=== PATIENT | male | born 1945 | race Caucasian/White ===

== ENCOUNTER 2016-07-25 18:52 | Inpatient (IN) | payer MEDICARE, OTHER ==
--- NOTE | 2016-07-25 19:55 | ED Physician Chart ---
Chief Complaint/HPI - Patient Information Date Seen:: 07/25/16 Time Seen:: 19:19 Chief Complaint:: PSYCHOSIS History of Present Illness:: THIS IS A 70 YO PSYCHOSIS PATIENT SENT FOR THE GROUP HOME FOR EVALUATION AND TREATMENT. THE PATIENT IS CHRONICALLY ILL WITH DEMENTIA, HYPERTENSION. Allergies:: Allergies Allergy/AdvReac Type Severity Reaction Status Date / Time No Known Allergies Allergy Verified 11/30/15 17:21 Vitals:: Vital Signs - 8 hr 07/25/16 18:54 Temp 98.1 F HR 70 RR 18 BP 123/77 O2 Sat % 94 Historian:: Medical Records Review:: Nurse's Note Reviewed Review of Systems - Review of Systems General/Constitutional: No fever, No chills, No weight loss, No weakness, No diaphoresis, No edema, No loss of appetite, Other (THIS PATIENT IS UNABLE TO GIVE A REVIEW OF SYSTEMS.) Skin: No skin lesions, No rash, No bruising Head: No headache, No light-headedness Eyes: No loss of vision, No pain, No diplopia ENT: No earache, No nasal drainage, No sore throat, No tinnitus Neck: No neck pain, No swelling, No thyromegaly, No stiffness, No mass noted Cardio Vascular: No chest pain, No palpitations, No PND, No orthopnea, No edema Pulmonary: No SOB, No cough, No sputum, No wheezing GI: No nausea, No vomiting, No diarrhea, No pain, No melena, No hematochezia, No constipation, No hematemesis G/U: No dysuria, No frequency, No hematuria Musculoskeletal: No bone or joint pain, No back pain, No muscle pain Endocrine: No polyuria, No polydipsia Psychiatric: No prior psych history, No depression, No anxiety, No suicidal ideation Hematopoietic: No bruising, No lymphadenopathy Allergic/Immuno: No urticaria, No angioedema Neurological: No syncope, No focal symptoms, No weakness, No paresthesia, No headache, No seizure, No dizziness, No confusion, No vertigo Past Medical History - Past Medical History Obtainable: Yes Past Medical History: HTN, Dyslipidemia, Dementia Family History: None Social History: Non Smoker, No Alcohol, No Drug Use, Care Facility Surgical History: None Psychiatricy History: Dementia Medication: Reviewed Family Medical History - Family Member Mother History Unknown: Yes Ethnicity: Non- Living Status: Still Living Physical Exam - Physical Examination General/Constitutional: Awake, Well-developed, well-nourished, Alert, No distress, GCS 15, Non-toxic appearing, Ambulatory Other Gen/Cons comments:: DISORIENTED TIMES FOURS. Head: Atraumatic Eyes: Lids, conjuctiva normal, PERRL, EOMI Skin: Nl inspection, No rash, No skin lesions, No ecchymosis, Well hydrated, No lymphadenopathy ENMT: External ears, nose nl, Nasal exam nl, Lips, teeth, gums nl Neck: Nontender, Full ROM w/o pain, No JVD, No nuchal rigidity, No bruit, No mass, No stridor Respiratory: Nl effort/Exclusion, Clear to Auscultation, No Wheeze/Rhonchi/Rales Cardio Vascular: RRR, No murmur, gallop, rubs, NL S1 S2 GI: No tenderness/rebounding/guarding, No organomegaly, No hernia, Normal BS's, Nondistended, No mass/bruits, No McBurney tenderness : No CVA tenderness Extremities: No tenderness or effusion, Full ROM, normal strength in all extremities, No edema, Normal digits & nails Neuro/Psych: Alert/oriented, DTR's symmetric, Normal sensory exam, Normal motor strength, Judgement/insight normal, Mood normal, Normal gait, No focal deficits Misc: normal gait, Normal back, No paraspinal tenderness Labs/Radiology/EKG Results - EKG Interpretations EKG Time:: 19:29 Rhythm: sinus [place]: right Rate: 62 ED Septic Shock - . Is Septic Shock (SBP<90, OR Lactate>4 mmol\L) present?: No - <6hrs of presentation: Vital Signs: Vital Signs - 8 hr 07/25/16 18:54 Temp 98.1 F HR 70 RR 18 BP 123/77 O2 Sat % 94 Reassessment (Disposition) - Reassessment Reassessment Condition:: Unchanged - Diagnosis Diagnosis:: PSYCHOSIS DEMENTIA - Patient Disposition Discharge/Transfer:: Acute Care w/in this hosp Admitting Medical Physician:: Jax Mcdaniel Admitting Psych Physician:: Miguel Bernard Condition at Disposition:: Unchanged ED Discharge Plan - Patient Disposition Admit/Discharge/Transfer: Acute Care w/in this hosp Condition at Disposition: Unchanged Instructions: Psychosis
[2016-07-25 20:07] LABS: % BASOPHILS 0.5 % (0.0-2.0); % EOSINOPHILS 3.4 % (0.0-5.0); % NEUTROPHILS 66.1 % (40.0-80.0); HEMATOCRIT 44.2 % (39.0-49.0); HEMOGLOBIN 15.1 gm/dL (12.6-17.4); MEAN CELL VOLUME 85.1 fl (80-99); MEAN CORPUSCULAR HGB CONC 34.1 pg (28.0-36.0); MEAN PLATELET VOLUME 10.7 fl; NEUTROPHILE ABSOLUTE 6.8 Th/cmm (1.8-8.0); PLATELET COUNT 221 Th/cmm (150-400); RED CELL DISTRIBUTION WIDTH 14.2 % (11.5-20.0); WHITE BLOOD COUNT 10.4 Th/cmm (4.8-10.8)
[2016-07-25 20:29] LABS: ALB/GLOB RATIO 1.5 (1.0-1.8); ALKALINE PHOSPHATASE 86 U/L (34-104); ANION GAP 11.3 (7.0-16.0); BILIRUBIN,TOTAL 0.5 mg/dL (0.3-1.0); BUN - UREA NITROGEN 20 mg/dL (7-25); BUN/CREATININE RATIO 18.2; CALCIUM SERUM 9.6 mg/dL (8.6-10.3); CARBON DIOXIDE 25.6 mEq/L (21.0-31.0); CHLORIDE 103 mEq/L (98-107); CREATININE - SERUM 1.1 mg/dL (0.7-1.3); GLUCOSE 124 mg/dL (70-105); POTASSIUM SERUM 3.9 mEq/L (3.5-5.1); SGOT 17 U/L (13-39); SGPT/ALT 20 U/L (7-52); SODIUM SERUM 136 mEq/L (136-145)
[2016-07-25 21:30] LABS: CHOLESTEROL 128 mg/dL (<200); TRIGLYCERIDES 227 mg/dL (<150)
[2016-07-25 21:31] LABS: INR 0.99 (0.5-1.4); PROTHROMBIN TIME (TEST) 9.8 SECONDS (9.5-11.5)
[2016-07-25] MEDS ORDERED: Maalox 30 mL Cup PO PRN (21:46)
[2016-07-25] MEDS ORDERED: Magnesium Hydroxide (MOM) 30 mL UDC PO PRN (21:46)
[2016-07-25 22:09] LABS: URINE BILIRUBIN NEGATIVE (NEGATIVE); URINE BLOOD NEGATIVE (NEGATIVE); URINE COLOR YELLOW; URINE GLUCOSE (UA) NEGATIVE (NEGATIVE); URINE KETONE NEGATIVE (NEGATIVE); URINE PROTEIN NEGATIVE (NEGATIVE)
[2016-07-25 22:10] LABS: URINE BACTERIA NONE SEEN /hpf (NONE SEEN); URINE EPITHELIAL CELLS NONE SEEN /lpf (FEW); URINE RBC NONE SEEN /hpf (0-5); URINE WBC NONE SEEN /hpf (0-5)
[2016-07-26 03:21] VITALS: BP 101/57
[2016-07-26] MEDS ORDERED: SKIN CLEANSR TP SCH (09:00)
[2016-07-26] MEDS ORDERED: [UNRECOGNIZED DRUG - OTHER] TP SCH (09:00)
[2016-07-26] MEDS ORDERED: [UNRECOGNIZED DRUG - OTHER] TP SCH (09:00)
[2016-07-26] MEDS ORDERED: METRONIDAZOLE TP SCH (09:00)
[2016-07-26] MEDS: Multivitamin Tab PO SCH (10:00)
--- NOTE | 2016-07-26 10:28 | Diagnostic Imaging Report ---
INDICATION: Shortness of breath and chest pain FINDINGS: Heart size is enlarged..Aorta is tortuous.. There are no infiltrates or effusions. Scoliosis with degenerative changes in the thoracic spine. IMPRESSION: Cardiomegaly .. No acute cardiopulmonary pathology.
[2016-07-26] MEDS: Atorvastatin Calcium 10 MG TAB PO SCH (20:41)
--- NOTE | 2016-07-27 00:36 | Psychosocial Evaluation ---
JUSTIFICATION FOR HOSPITALIZATION: Aggressive, agitation at the [facility], concerns for the safety of himself and other people. CHIEF COMPLAINT: "I didn't go back to the hospital." HISTORY OF PRESENT ILLNESS: A 70-year-old male, well known to this clinician, acute psychotic episode, noted dementia, dementia with behavioral disturbances, aggressive at [facility]. He has no idea why he is in the hospital, making some odd statements, not really amenable to interview, confused, distracted. PAST PSYCHIATRIC HISTORY: The patient has been to [facility] previously. FAMILY HISTORY: Unknown. SOCIAL HISTORY: Born in [place]. States that he has been twice, , no kids. No drugs. No alcohol. No tobacco. Living in a [facility]. FAMILY HISTORY: Noncontributory. MEDICAL HISTORY: Please see full H and P. MEDICATIONS: Reviewed. MENTAL STATUS EXAMINATION: Stated age. Unkempt. Poor eye contact. Speech, not really talking, mostly mumbling. Mood "okay." Affect is flat. Thought processes were disoriented. Thought content, no overt SI or HI. The patient appears to be somewhat internally preoccupied. Insight and judgment diminished x2. Diminished concentration and he is pretty distracted. PROVISIONAL DIAGNOSES: Psychosis, unspecified; dementia with behavioral disturbances; anxiety, unspecified. ESTIMATED LENGTH OF STAY: 7-10 days. ASSESSMENT: The patient requiring inpatient hospitalization, agitated, acute psychosis, combative, cannot take care of himself, [facility] could not take care of him due to the severity of his symptoms. PLAN: We will continue Aricept, Namenda, start low-dose Seroquel. Treatment plan includes group as well as milieu therapy. CONDITIONS FOR DISCHARGE: Improved mood, improved affect, better control of any psychotic symptoms, control of agitation. JOB# [id number]
[2016-07-27] MEDS: Multivitamin Tab PO SCH (09:53)
[2016-07-27] MEDS: Atorvastatin Calcium 10 MG TAB PO SCH (21:18)
--- NOTE | 2016-07-27 22:20 | Progress Notes ---
SUBJECTIVE: Chart reviewed and the patient interviewed. Also discussed the patient's condition with the staff and reviewed records and labs. The patient is still having visual hallucinations and he is still seeing "little room and little girl in the room." The patient also is forgetful and he is still restless and severely anxious. The patient also is still responding to the stimuli. Otherwise, the patient is interacting slightly more. He denies any side effects of medication. ASSESSMENT: The patient is still psychotic. TREATMENT PLAN: We will continue monitoring his behavior and his condition closely. Also, continue to work on adjusting psychotropic medications and ____ to follow up. JOB# [id number]
[2016-07-28] MEDS: Multivitamin Tab PO SCH (09:04)
--- NOTE | 2016-07-28 19:21 | History & Physical ---
HISTORY OF PRESENT ILLNESS: The patient is a 70-year-old male with long history of hypertension, hyperlipidemia, dementia, admitted to [facility] under Dr. Bernard's service for evaluation and treatment. No fever, no chills, no nausea, no vomiting. PAST MEDICAL HISTORY: Hypertension, hyperlipidemia, dementia, rosacea, degenerative joint disease. PAST SURGICAL HISTORY: No recent surgery. ALLERGIES: None. MEDICATIONS: Follow admission reconciliation. SOCIAL HISTORY: No smoking, alcohol or drugs. FAMILY HISTORY: Noncontributory. REVIEW OF SYSTEMS: RENAL SYSTEM: No history of chronic renal disorder. CARDIOVASCULAR SYSTEM: No coronary artery disease. Has history of hypertension. ENDOCRINE SYSTEM: No diabetes or thyroid problem. GASTROINTESTINAL SYSTEM: No upper or lower GI bleed. NEUROLOGICAL SYSTEM: History of dementia. PHYSICAL EXAMINATION: GENERAL: He is awake, not coherent. VITAL SIGNS: Temperature 98.2, heart rate 63, blood pressure 104/54. HEENT: Normocephalic. Pupils are reacting to light and accommodation. Sclerae clear. NECK: Supple. Negative for lymphadenopathy, JVD or bruit. CHEST: Bilaterally normal. No rhonchi or wheezing. HEART: S1, S2 normal. No murmur, gallop or rub. ABDOMEN: Soft. Bowel sounds positive. EXTREMITIES: No edema. NEUROLOGIC: Awake, alert, not fully oriented. ASSESSMENT: 1. Hypertension. 2. Hyperlipidemia. 3. Rosacea. 4. Dementia. PLAN: The patient was admitted to the [facility] under Dr. Bernard's service. The medical problem to be addressed during hospitalization is dementia. Medical problems to be addressed at discharge are hypertension, hyperlipidemia and rosacea. The patient is cleared for treatment. Thank you, Dr. Bernard, for asking me to see your patient. JOB# [id number]
[2016-07-28] MEDS: Atorvastatin Calcium 10 MG TAB PO SCH (21:23)
--- NOTE | 2016-07-29 | Progress Notes ---
SUBJECTIVE: The patient was seen, chart reviewed, and discussed with staff. The patient still remains symptomatic, irritable, very withdrawn, and in his room all the times, seems somewhat confused and disoriented. Dr. Moon saw the patient yesterday and noted that he was still having some visual hallucinations, perceptual disturbances, very forgetful, restless, and anxious, responding to internal stimuli. The patient still seems to be internally preoccupied, needing prompting for ADLs, prompting to eat. No side effects noted on exam. ASSESSMENT: The patient remains psychotic as noted, still with behavioral disturbances. PLAN: Continue to monitor. We will titrate Seroquel as tolerated. [facility]# [id number]
[2016-07-29] MEDS: Multivitamin Tab PO SCH (10:19)
[2016-07-29] MEDS: Atorvastatin Calcium 10 MG TAB PO SCH (20:29)
--- NOTE | 2016-07-30 05:07 | Progress Notes ---
SUBJECTIVE: The patient was seen, chart reviewed, and discussed with staff. The patient remains symptomatic, unkempt, not answering any questions. Staff noting he remains isolative, at times resistant to care. Sleeping most of the time, not really interactive, disorganized, confused, yelling at times, irritable, still with mood swings, mood lability. However, he is taking his medications. No side effects. No EPS. ASSESSMENT: The patient remains upset, still can be aggressive at times, labile. PLAN: We will continue to monitor. The patient is not safe for a lower level of care. We will continue to titrate his medications. [facility]# [id number]
[2016-07-30] MEDS: Multivitamin Tab PO SCH (09:07)
[2016-07-30] MEDS: Atorvastatin Calcium 10 MG TAB PO SCH (21:06)
[2016-07-31] MEDS: Multivitamin Tab PO SCH (09:01)
--- NOTE | 2016-07-31 18:48 | Progress Notes ---
SUBJECTIVE: The patient was seen, chart reviewed, discussed with staff. The patient remains symptomatic, withdrawn, still with some yelling episodes, still resistant to care, nonsensical, not really answering most questions, sleeping fairly well, eating with prompting, ADLs with prompting, tolerant of current medication regimen, tolerant of the low dose of Seroquel 25 mg, but mainly staying in his room, not really interactive. ASSESSMENT: The patient remains confused, rambling, still agitated at times, becomes upset. PLAN: Continue to monitor. Continue low dose Seroquel, consider titrating the dose. JOB# [id number]
[2016-07-31] MEDS: Atorvastatin Calcium 10 MG TAB PO SCH (20:41)
--- NOTE | 2016-07-31 22:25 | Progress Notes ---
SUBJECTIVE: The patient seen, chart reviewed, discussed with staff. The patient remains symptomatic, withdrawn, less combative of seems to be answering questions more appropriately, concerns that he is responding to internal stimuli; however, concern for hallucinations. No hitting episodes, remains withdrawn, somewhat sullen, melancholic, sleeping fairly well, ADLs with prompting. Eating with prompting. ASSESSMENT: The patient less combative, more organized, still slow to respond, concerns for psychosis. PLAN: Continue to monitor. We will continue to titrate his medications, improvement noted. JOB# [id number]
[2016-08-01] MEDS: Multivitamin Tab PO SCH (09:53)
[2016-08-01] MEDS: Atorvastatin Calcium 10 MG TAB PO SCH (20:40)
--- NOTE | 2016-08-02 03:12 | Progress Notes ---
SUBJECTIVE: The patient was seen, chart reviewed, discussed with staff. The patient remains withdrawn, symptomatic, still with some evidence of psychosis, still responding to internal stimuli, not _interacting___ much, remains in his room, unkempt, concerns for safety do persist, concerns for agitation and psychosis. On [id number], the patient _calm___ on exam, taking his medications, is eating with prompting, ADLs with prompting. ASSESSMENT: The patient remains symptomatic, unkempt, evidence of psychosis. We will continue to monitor and titrate medications. Given the severity of the patient's symptoms, he is not safe for a lower level of care. [facility]# [id number] ANNABEL
[2016-08-02] MEDS: Multivitamin Tab PO SCH (09:19)
[2016-08-02] MEDS: Atorvastatin Calcium 10 MG TAB PO SCH (20:18)
[2016-08-03] MEDS: Multivitamin Tab PO SCH (09:24)
--- NOTE | 2016-08-03 12:01 | Progress Notes ---
SUBJECTIVE: The patient was seen, chart reviewed, discussed with staff. The patient remains symptomatic, still mumbling to himself, still somewhat disorganized, confused, disoriented. He is pretty withdrawn, isolative. On a positive note, he is taking his medications. Psychotic symptoms seem to be decreasing, sleeping fairly well. Needs prompting for ADLs, prompting for eating, needs a very higher level of care. ASSESSMENT: The patient with continued perceptual disturbances, but seems to be improving. We will continue to monitor and titrate medications. There are continued concerns about his ability to be cared for at a lower level of care. [facility]# [id number]
[2016-08-03] MEDS: Atorvastatin Calcium 10 MG TAB PO SCH (20:39)
--- NOTE | 2016-08-04 03:37 | Progress Notes ---
SUBJECTIVE: The patient seen, chart reviewed, discussed with staff. The patient seems to be pretty internally preoccupied, not really responding to much questioning, isolative, withdrawn, still somewhat resistant to care at times, but does seems to be doing better, calmer on exam, no distress noted, not answering any questions. On a positive note he is taking his medications. No overt side effects. Sleeping well and eating with prompting. ASSESSMENT: The patient is still symptomatic, concerns for his psychotic symptoms. PLAN: We will continue to monitor and titrate his medications as tolerated, encourage more socialization and I guess he is pretty withdrawn and isolated. JOB# [id number]
[2016-08-04] MEDS: Multivitamin Tab PO SCH (09:25)
[2016-08-04] MEDS: Atorvastatin Calcium 10 MG TAB PO SCH (20:20)
--- NOTE | 2016-08-05 02:02 | Progress Notes ---
Case discussed with staff of the patient, reviewed records. Covering for Dr. Bernard. This is a 70-year-old male who was admitted on the 07/25/2016 because of being aggressive, agitated at the [facility]. The patient is demented, confused with behavioral disturbances. He has prior hospitalizations here. The patient has been uncooperative, unable to make safe plan for self-care, confused, demented with agitated behavior. He is reported to be compliant with medication with no side effects. He is on Namenda 5 mg twice a day and Aricept 10 mg at bedtime and Seroquel 25 mg at bedtime with no side effects, no sedation, no nausea, no extrapyramidal symptoms and we will continue to work with the patient in group therapy, milieu therapy, adjust the medication as needed. JOB# [id number]
[2016-08-05] MEDS: Multivitamin Tab PO SCH (10:37)
[2016-08-05] MEDS: Atorvastatin Calcium 10 MG TAB PO SCH (20:20)
--- NOTE | 2016-08-06 01:02 | Progress Notes ---
SUBJECTIVE: The patient was seen, chart reviewed, and discussed with staff. The patient remains withdrawn, still depressed. Hallucinations seem to be lessening, answering questions more appropriately, not combative, not agitated, sleeping well, eating with prompting, ADLs with prompting. Staff noting an improvement, uneventful over the past few days, tolerant to medications. ASSESSMENT: The patient seems to be improving, perceptual disturbances decreasing. PLAN: We will continue to monitor. We will coordinate care with social work nurse regarding safe discharge plan and good psychiatric followup. JOB# [id number]
[2016-08-06] MEDS: Multivitamin Tab PO SCH (09:13)
--- NOTE | 2016-08-06 21:14 | Discharge Summary ---
JUSTIFICATION FOR HOSPITALIZATION: Agitation at the nursing facility, hallucinations. CHIEF COMPLAINT: Confusion and psychosis. HISTORY OF PRESENT ILLNESS: A 70-year-old male with history of a psychotic episode, noted dementia, distracted, disoriented, agitated, worsening hallucinations. PAST PSYCHIATRIC HISTORY: History of Geropsych admission previously. SOCIAL HISTORY: The patient is living in [facility] in [place]. MENTAL STATUS EXAMINATION: Please see full psych eval for details. PROVISIONAL DIAGNOSES: Psychosis, unspecified; dementia with behavioral disturbances; anxiety, unspecified; other medical as noted. HOSPITAL COURSE: After initial assessment, the patient was placed on low dose Seroquel. Over the course of the hospitalization, he improved, his mood improved, and he remained withdrawn, remained disoriented, but no longer combative, no evidence of psychosis. By 08/06/2016, he was no longer symptomatic, placement was confirmed, and he was discharged. CONDITION UPON DISCHARGE: Improved. Fair attention ADLs. No resistance to care. Speech mumbled. Mood "okay. Affect flat." Thought processes remained disoriented. Thought content, no SI, no HI. No evidence of psychosis. Better insight. Fair concentration. Fair judgment. Sleeping well. Eating well. No side effects. DISCHARGE DIAGNOSES: Dementia with behavioral disturbances; psychosis, unspecified; anxiety, unspecified. MEDICAL HISTORY: Please see full H and P. PROGNOSIS: The patient follows up with Psychiatry in 7-10 days and remains treatment compliant. Prognosis will improve, otherwise guarded. JOB# [id number]
== END 2016-08-06 17:30 | DRG 884 ==
LOC: ER 18:52 → GERO 20:45
PROVIDERS: ADMIT Psychiatry & Neurology Psychiatry; ATTEND Psychiatry & Neurology Psychiatry
DX: F03.91 Unspecified dementia, unspecified severity, with behavioral disturbance (principal); I10 Essential (primary) hypertension; F29 Unspecified psychosis not due to a substance or known physiological condition; E78.5 Hyperlipidemia, unspecified; M19.90 Unspecified osteoarthritis, unspecified site; L71.9 Rosacea, unspecified; F41.9 Anxiety disorder, unspecified
CPT/HCPCS: 36415-UA; 71010-TC; 80053-TC; 80061-TC; 81001-TC; 84443-TC; 84484-TC; 85025-TC; 85610-TC; 86592-TC; 93005; Z7610

== ENCOUNTER 2017-09-03 15:54 | Inpatient (IN) | payer MEDICARE, OTHER ==
--- NOTE | 2017-09-03 16:30 | ED Physician Chart ---
ED Chief Complaint/HPI - Patient Information Date Seen:: 09/03/17 Time Seen:: 16:20 Chief Complaint:: poor oral intake History of Present Illness:: Patient is sent here for possible placement of a gastrostomy tube because he's had poor oral intake recently. Allergies:: Allergies Allergy/AdvReac Type Severity Reaction Status Date / Time No Known Allergies Allergy Verified 11/30/15 17:21 Vitals:: Vital Signs - 8 hr 09/03/17 16:17 Temp 97.9 F HR 82 RR 16 BP 142/85 O2 Sat % 94 Historian:: EMS Review:: Transfer documents Reviewed ED Review of Systems - Review of Systems General/Constitutional: No fever, No chills Skin: No skin lesions Head: No headache Eyes: No loss of vision ENT: No earache Neck: No neck pain Cardio Vascular: No chest pain, No palpitations Pulmonary: No SOB GI: No nausea, No vomiting, No diarrhea G/U: No dysuria Musculoskeletal: No bone or joint pain Psychiatric: Prior psych history Hematopoietic: No bruising Allergic/Immuno: No urticaria Neurological: No syncope ED Past Medical History - Past Medical History Past Medical History: HTN, Dyslipidemia, Dementia, Other (hyperlipidemia) Family History: Other (not available) Social History: Care Facility Surgical History: other (unknown) Psychiatricy History: Schizophrenia, Dementia Medication: Reviewed Family Medical History - Family Member Mother History Unknown: Yes Ethnicity: Non- Living Status: Still Living Hx Family Hypertension: Yes ED Physical Exam - Physical Examination General/Constitutional: Awake, Alert Other Gen/Cons comments:: Minimal verbal response; answers yes or no; chronically ill-appearing Head: Atraumatic Eyes: Lids, conjuctiva normal, PERRL Skin: Nl inspection, No rash ENMT: External ears, nose nl, Nasal exam nl Other ENMT comments:: few teeth present with at least one tooth with a prominent dental michelle. Neck: No mass Other Respiratory comments:: harsh expiratory sounds Other Cardio Vascular comments:: Heart sounds are faint; pulse regular GI: No tenderness/rebounding/guarding, No organomegaly, No hernia, Normal BS's : No CVA tenderness Extremities: Normal digits & nails Neuro/Psych: No focal deficits ED Labs/Radiology/EKG Results - Lab Results Results: Laboratory Results - last 24 hr 09/03/17 09/03/1709/03/18 16:35 16:35 16:35 WBC 9.9 RBC 5.24 Hgb 15.2 Hct 45.8 MCV 87.4 MCH 29.1 MCHC Differential 33.2 RDW 14.8 Plt Count 246 MPV 9.3 Neutrophils % 70.2 Lymphocytes % 19.1 L Monocytes % 6.6 Eosinophils % 3.7 Basophils % 0.4 PT 9.9 INR 0.95 PTT (Actin FS) 19.1 L Sodium 137 Potassium 3.8 Chloride 105 Carbon Dioxide 22.3 Anion Gap 13.5 BUN 20 Creatinine 1.0 Est GFR ( Amer) > 60.0 Est GFR (Non-Af Amer) > 60.0 BUN/Creatinine Ratio 20.0 Glucose 100 Calcium 9.5 - Radiology Results Results: Chest x-ray showed no infiltrate; prominence and possible calcification of the aortic arch - EKG Interpretations Rate & Rhythm: normal sinus rhythm with a rate of 73; low voltage QRS; normal axis ED Septic Shock - . Is Septic Shock (SBP<90, OR Lactate>4 mmol\L) present?: No - <6hrs of presentation: Vital Signs: Vital Signs - 8 hr 09/03/17 16:17 Temp 97.9 F HR 82 RR 16 BP 142/85 O2 Sat % 94 ED Reassessment (Disposition) - Reassessment Reassessment Condition:: Unchanged - Patient Disposition Admitted to:: Med/Surg Spoke to:: Jayjay Henry Admitting Medical Physician:: Jayjay Henry Condition at Disposition:: Stable, Unchanged
[2017-09-03 16:44] LABS: % BASOPHILS 0.4 % (0.0-2.0); % EOSINOPHILS 3.7 % (0.0-5.0); % LYMPHOCYTES 19.1 % (20.0-50.0); % MONOCYTES 6.6 % (2.0-10.0); % NEUTROPHILS 70.2 % (40.0-80.0); EOSINOPHILE ABSOLUTE 0.4 Th/cmm (0.1-0.4); HEMATOCRIT 45.8 % (41.0-60); HEMOGLOBIN 15.2 gm/dL (12-16); LYMPHOCYTE ABSOLUTE 1.9 Th/cmm (1.5-3.0); MEAN CELL VOLUME 87.4 fl (80-99); MEAN CORPUSCULAR HEMOGLOBIN 29.1 pg (27.0-31.0); MEAN CORPUSCULAR HGB CONC 33.2 pg (28.0-36.0); MEAN PLATELET VOLUME 9.3 fl; MONOCYTE ABSOLUTE 0.7 Th/cmm (0.3-1.0); NEUTROPHILE ABSOLUTE 6.9 Th/cmm (1.8-8.0); PLATELET COUNT 246 Th/cmm (150-400); RED BLOOD COUNT 5.24 Mil/cmm (3.80-5.80); RED CELL DISTRIBUTION WIDTH 14.8 % (11.5-20.0); WHITE BLOOD COUNT 9.9 Th/cmm (4.8-10.8)
[2017-09-03 16:58] LABS: INR 0.95 (0.5-1.4); PROTHROMBIN TIME (TEST) 9.9 SECONDS (9.5-11.5)
[2017-09-03 17:01] LABS: ANION GAP 13.5 (7.0-16.0); BUN - UREA NITROGEN 20 mg/dL (7-25); CALCIUM SERUM 9.5 mg/dL (8.6-10.3); CARBON DIOXIDE 22.3 mEq/L (21.0-31.0); CHLORIDE 105 mEq/L (98-107); GFR AFRICAN-AMERICAN > 60.0 ml/min (>90); GFR NON AFRICAN-AMERICAN > 60.0 ml/min; GLUCOSE 100 mg/dL (70-105); POTASSIUM SERUM 3.8 mEq/L (3.5-5.1); SODIUM SERUM 137 mEq/L (136-145)
[2017-09-03] MEDS ORDERED: ceFAZolin 1 GM in Sodium Chloride 0.9% 50 ML IV ONE (19:49)
[2017-09-03] MEDS ORDERED: Maalox 30 mL Cup PO PRN (19:52)
[2017-09-03] MEDS: Sodium Chloride 0.9% 1,000 ML IV SCH (20:04)
[2017-09-03] MEDS ORDERED: Non-Formulary Item 1 EA (Donepezil Hcl [Aricept] 10 MG) PO SCH (21:00)
[2017-09-03] MEDS: Atorvastatin Calcium 10 MG TAB PO SCH (22:14)
[2017-09-04 05:28] LABS: % BASOPHILS 1.2 % (0.0-2.0); % EOSINOPHILS 5.1 % (0.0-5.0); % LYMPHOCYTES 26.4 % (20.0-50.0); % MONOCYTES 8.5 % (2.0-10.0); % NEUTROPHILS 58.8 % (40.0-80.0); BASOPHILE ABSOLUTE 0.1 Th/cumm (0-0.2); EOSINOPHILE ABSOLUTE 0.4 Th/cmm (0.1-0.4); HEMATOCRIT 42.9 % (41.0-60); HEMOGLOBIN 14.3 gm/dL (12-16); LYMPHOCYTE ABSOLUTE 2.2 Th/cmm (1.5-3.0); MEAN CELL VOLUME 87.7 fl (80-99); MEAN CORPUSCULAR HEMOGLOBIN 29.3 pg (27.0-31.0); MEAN CORPUSCULAR HGB CONC 33.4 pg (28.0-36.0); MEAN PLATELET VOLUME 11.1 fl; MONOCYTE ABSOLUTE 0.7 Th/cmm (0.3-1.0); NEUTROPHILE ABSOLUTE 4.8 Th/cmm (1.8-8.0); PLATELET COUNT 229 Th/cmm (150-400); RED BLOOD COUNT 4.89 Mil/cmm (3.80-5.80); WHITE BLOOD COUNT 8.2 Th/cmm (4.8-10.8)
[2017-09-04 05:44] LABS: ALB/GLOB RATIO 1.4 (1.0-1.8); ALBUMIN 3.8 gm/dL (4.2-5.5); ALKALINE PHOSPHATASE 55 U/L (34-104); ANION GAP 10.9 (7.0-16.0); BILIRUBIN,TOTAL 0.7 mg/dL (0.3-1.0); BUN - UREA NITROGEN 19 mg/dL (7-25); CALCIUM SERUM 9.2 mg/dL (8.6-10.3); CARBON DIOXIDE 23.7 mEq/L (21.0-31.0); CHLORIDE 108 mEq/L (98-107); CREATININE - SERUM 0.9 mg/dL (0.7-1.3); GFR AFRICAN-AMERICAN > 60.0 ml/min (>90); GFR NON AFRICAN-AMERICAN > 60.0 ml/min; GLUCOSE 88 mg/dL (70-105); POTASSIUM SERUM 3.6 mEq/L (3.5-5.1); SGOT 13 U/L (13-39); SGPT/ALT 11 U/L (7-52); SODIUM SERUM 139 mEq/L (136-145); TOTAL PROTEIN,SERUM 6.5 gm/dL (6.0-8.3)
--- NOTE | 2017-09-04 07:24 | Diagnostic Imaging Report ---
CHEST X-RAY: AP view INDICATION: COPD COMPARISON: None FINDINGS: Increased interstitial lung markings are noted. No focal consolidation or effusions. Heart size is normal. Atherosclerosis is noted. Degenerative changes of the spine are noted. There is old left AC joint separation. IMPRESSION: Increased interstitial lung markings, most likely due to chronic lung changes. No focal consolidation identified. Atherosclerotic vascular disease.
--- NOTE | 2017-09-04 08:27 | History and Physical ---
History of Present Illness - HPI Chief Complaint: Poor oral intake HPI: This is a permanent resident of a assisted, Nurse fron nursing inform me that for the last week patient has having poor oral intake and loosing weight. He was send to ER for evaluation. Vital Signs: Last Vital Signs Temp 97.6 F 09/04/17 07:49 Pulse 56 09/04/17 07:49 Resp 17 09/04/17 07:49 BP 119/70 09/04/17 07:49 Pulse Ox 100 09/04/17 07:49 Past Medical History Cardiovascular: Report: CAD, CHF, HTN Pulmonary: Report: No Pertinent Hx HAIR SPECIALIST: Report: No Pertinent Hx GI: Report: Other (Poor oral intake) Psych: Report: Schizophrenia, Other (Dementia) Musculoskeletal: Report: Muscle Atrophy, Weakness, Stiffness Rheumatologic: Report: No pertinent Hx Infectious Disease: Report: No Pertinent Hx Renal/: Report: No Pertinent Hx Endocrine: Report: No Pertinent Hx Dermatology: Report: Eczema - Past Surgical History Past Surgical History: No pertinent Hx Family Medical History - Family Member Mother History Unknown: Yes Ethnicity: Non- Living Status: Still Living Hx Family Hypertension: Yes Social History Smoke: No Alcohol: None Drugs: None Lives: Intermediate Domestic Violence: Negative - Medications Home Medications: Home Medication Medication Instructions Recorded Type Acetaminophen [Tylenol] 650 mg PO Q6H PRN 11/30/15 History Atorvastatin Calcium [Lipitor] 20 mg PO HS 11/30/15 History Cholecalciferol (Vit D3) [Vitamin 1,000 iu PO DAILY 11/30/15 History D3] Donepezil HCl [Aricept] 10 mg PO HS 11/30/15 History Memantine [Namenda] 5 mg PO BID 11/30/15 History amLODIPine Besylate [Norvasc] 5 mg PO DAILY 11/30/15 History Docusate Sodium [Dok] 100 mg PO DAILY 07/25/16 History Eccnazele 1% Cream 1 unit TP BID 07/25/16 History Fluocinonide 0.05% Cream [Lidex 1 appl TP BID 07/25/16 History 0.05%] Metronidazole/Skin Cleansr #23 1 each TP BID 07/25/16 History [Rosadan 0.75% Cream Kit] Multivitamin [Multivitamins] 1 sgl PO DAILY 07/25/16 History Acetaminophen [Tylenol] 650 mg PO Q6H PRN #0 tab 08/06/16 Rx Al Hyd/Mg Hyd/Simethicone [Maalox] 30 ml PO Q6H PRN #0 udc 08/06/16 Rx Atorvastatin Calcium [Lipitor] 20 mg PO HS #0 tab 08/06/16 Rx Cholecalciferol (Vit D3) [Vitamin 1,000 iu PO DAILY #0 tab 08/06/16 Rx D3] Docusate Sodium [Colace] 100 mg PO DAILY #0 cap 08/06/16 Rx Donepezil Hcl [Aricept] 10 mg PO HS #0 tab 08/06/16 Rx Fluocinonide 0.05% Cream [Lidex 1 appl TP BID #0 appl 08/06/16 Rx 0.05%] Lorazepam [Ativan] 1 mg PO Q6H PRN #0 tab 08/06/16 Rx Magnesium Hydroxide [Milk of 30 ml PO HS PRN #0 udc 08/06/16 Rx Magnesia] Memantine [Namenda] 5 mg PO BID #0 tab 08/06/16 Rx Multivitamin [Theragran] 1 tab PO DAILY #0 tab 08/06/16 Rx QUEtiapine Fumarate [SEROquel] 25 mg PO HS #0 tab 08/06/16 Rx Zolpidem Tartrate [Ambien] 5 mg PO HS PRN #0 tab 08/06/16 Rx amLODIPine Besylate [Norvasc] 5 mg PO DAILY #0 tab 08/06/16 Rx - Allergies Allergies/Adverse Reactions: Allergies Allergy/AdvReac Type Severity Reaction Status Date / Time No Known Allergies Allergy Verified 11/30/15 17:21 Review of Systems - Review of Systems Constitutional: Report: Weakness Eyes: Report: No Significant ENT: Report: No Significant Respiratory: Report: No Significant Cardiovascular: Report: No Significant Gastrointestinal: Report: Other (Poor oral intake) Genitourinary: Report: No Significant Musculoskeletal: Report: Other (General muscle weakness.) Skin: Report: Other (Eczema) Neurological: Report: Weakness Physical Exam - Physical Exam HEENT: Report: Ears Nose Throat within normal limits Neck: Report: Within normal limits Cardiovascular Systems: Report: Regular, Rate and Rhythm Respiratory: Report: Breath Sounds are within normal limits Abdomen: Report: Non-tender to palpation Back: Report: Inspection of back is within normal limits. Extremities: Report: Non-tender to palpation., No pedal edema was noted on inspection Skin: Report: Color of skin is within normal limits, Warm Neuro/Psych: Report: Disoriented to name time or place, Depressed affect - Lab Results All Lab Results last 24 hours: Laboratory Results - last 24 hr 09/04/17 09/04/17 04:50 04:50 WBC 8.2 RBC 4.89 Hgb 14.3 Hct 42.9 MCV 87.7 MCH 29.3 MCHC Differential 33.4 RDW 15.0 Plt Count 229 MPV 11.1 Neutrophils % 58.8 Lymphocytes % 26.4 Monocytes % 8.5 Eosinophils % 5.1 H Basophils % 1.2 Sodium 139 Potassium 3.6 Chloride 108 H Carbon Dioxide 23.7 Anion Gap 10.9 BUN 19 Creatinine 0.9 Est GFR ( Amer) > 60.0 Est GFR (Non-Af Amer) > 60.0 BUN/Creatinine Ratio 21.1 Glucose 88 Calcium 9.2 Total Bilirubin 0.7 AST 13 ALT 11 Alkaline Phosphatase 55 Total Protein 6.5 Albumin 3.8 L Globulin 2.7 Albumin/Globulin Ratio 1.4 - Assessment Assessment: Patient is awake, alert, confused, not oriented. Dx: Poor oral intake, HTN, Dementia, schizophrenia. - Plan Plan: Patient in IV NS, continue with SNF meds, follow by GI. Today G-tube will be placed.
--- NOTE | 2017-09-04 11:11 | Operative Report ---
DATE OF SURGERY: 09/04/2017 PROCEDURE: Percutaneous endoscopic gastrostomy tube placement. INDICATION FOR PROCEDURE: Decreased oral intake, malnutrition. CONSENT: Informed consent could not be obtained, so it was a consensus among the treating physician to do it. ANESTHESIA USED: Propofol. PREOPERATIVE DIAGNOSES: Decreased oral intake, malnutrition. POSTOPERATIVE DIAGNOSES: 1. Decreased oral intake, malnutrition, dehydration, status post G-tube placement. 2. Large hiatal hernia. DESCRIPTION OF PROCEDURE: The patient was lying on his back. Head was tilted to the side and flexed forward. Upper Olympus endoscope was introduced into the mouth and advanced to the esophagus, which was intubated under direct visualization. Esophageal mucosa was examined on the way down. It was essentially normal. Scope was advanced to stomach where the gastric mucosa was examined and showed mild erythema. Scope was retroflexed to examine the cardia and fundus, showed large hiatal hernia. Scope was then straightened and advanced through the pylorus to the duodenum where the bulb and second part were examined. They were both normal. Scope was then withdrawn to the stomach and an area of transillumination was chosen, but because of the hiatal hernia were limited. The area was sterilized with Betadine then anesthetized with 1% lidocaine. Anesthesia needle could not enter the stomach, but could see an indentation and then the long Angiocath was introduced to stomach and it was surrounded by the snare. Trocar was then withdrawn. Wire was introduced into the stomach and grasped by the snare. Scope was then withdrawn with the snare holding the wire. A size 20 G-tube was connected to the wire, then the point of entry was made slightly larger with the scalpel. G-tube was pulled out of the patient's abdomen using standard pull technique. G-tube was secured in place. The patient tolerated the procedure well. There were no immediate postoperative complications. RECOMMENDATIONS: 1. May use G-tube for medications. 2. At 11:00 p.m. start feeding with fiber source at 40 mL an hour. 3. Increase fiber source by 10 mL an hour daily up to 60 mL an hour. 4. Check residuals every 6 hours and hold feeding if residual more than 200 mL. 5. Abdominal binder. Thank you, Dr. Henry for allowing me to participate in the care of this patient. If you have any further questions, please let me know. [facility]# [id number]
[2017-09-04] MEDS: Sodium Chloride 0.9% 1,000 ML IV SCH (16:46)
[2017-09-05] MEDS: Atorvastatin Calcium 10 MG TAB PO SCH ×2 (00:01→20:47)
--- NOTE | 2017-09-05 02:34 | Consultation ---
DATE OF CONSULTATION: 09/03/2017 REASON FOR CONSULT: Decreased oral intake, dehydration, has not eaten for several days becoming malnourished. HISTORY OF PRESENT ILLNESS: This is a patient from a long-term. He is 71 years old, was transferred for inability to eat for the last 5 days leading to dehydration and malnutrition. The patient is not able to provide any history. PAST MEDICAL HISTORY: Coronary artery disease, congestive heart failure, hypertension, also schizophrenia and dementia. PAST SURGICAL HISTORY: Not known. SOCIAL HISTORY: Nonsmoker, alcoholic, and IV drug abuser. FAMILY HISTORY: Noncontributory. MEDICATIONS: Tylenol, Lipitor, vitamins, Aricept, Namenda, Norvasc, Colace, multivitamin, Tylenol, lorazepam, milk of magnesia, zolpidem. ALLERGIES: No known drug allergies. REVIEW OF SYSTEMS: Unobtainable. PHYSICAL EXAMINATION: GENERAL: The patient is awake, some responsive, nonverbal. VITAL SIGNS: Blood pressure is 119/70, heart rate is 56, respiratory rate is 17, temperature is 98.6. HEAD AND NECK: Pupils reactive to light. Extraocular muscles could not be tested. Oral cavity, dry mucous membrane. NECK: Supple. CHEST: Good air entry. LUNGS: Clear to auscultation. CARDIOVASCULAR SYSTEM: Regular rate and rhythm. No murmur or gallop. ABDOMEN: Soft, positive bowel sounds. EXTREMITIES: Lower extremities, no edema. CENTRAL NERVOUS SYSTEM: Unable to evaluate, but the patient is moving 4 extremities. LABORATORY DATA: White count 9.9. Rest of CBC, unremarkable. PT is normal. Chemistry unremarkable. IMPRESSION: A 71-year-old, not eating, becoming dehydrated, malnourished. ASSESSMENT AND PLAN: Decreased oral intake, dehydration. I agree with PEG. The patient was not eating for a while, maybe this will boost his oral intake a little bit to improve his condition. Later on this can be taken out or if not, then we will continue, at least we can give him the medications, so we will plan this in the morning, then further recommendations to follow. Other medical problems such as hypertension, hyperlipidemia etc., as per Dr. Henry. Thank you, Dr. Henry, for allowing me to participate in the care of the patient. If you have any further questions, please let me know. JOB# [id number]
[2017-09-05] MEDS: Sodium Chloride 0.9% 1,000 ML IV SCH ×2 (06:14→16:55)
--- NOTE | 2017-09-05 08:41 | GI Progress Note ---
Subjective - Review of Systems Subjective: NO EVENTS Objective - Results Result Diagrams: 09/04/17 04:50 09/04/17 04:50 Recent Labs: Laboratory Last Values WBC 8.2 Th/cmm (4.8-10.8) 09/04/17 04:50 RBC 4.89 Mil/cmm (3.80-5.80) 09/04/17 04:50 Hgb 14.3 gm/dL (12-16) 09/04/17 04:50 Hct 42.9 % (41.0-60) 09/04/17 04:50 MCV 87.7 fl (80-99) 09/04/17 04:50 MCH 29.3 pg (27.0-31.0) 09/04/17 04:50 MCHC Differential 33.4 pg (28.0-36.0) 09/04/17 04:50 RDW 15.0 % (11.5-20.0) 09/04/17 04:50 Plt Count 229 Th/cmm (150-400) 09/04/17 04:50 MPV 11.1 fl 09/04/17 04:50 Neutrophils % 58.8 % (40.0-80.0) 09/04/17 04:50 Lymphocytes % 26.4 % (20.0-50.0) 09/04/17 04:50 Monocytes % 8.5 % (2.0-10.0) 09/04/17 04:50 Eosinophils % 5.1 % (0.0-5.0) H 09/04/17 04:50 Basophils % 1.2 % (0.0-2.0) 09/04/17 04:50 PT 9.9 SECONDS (9.5-11.5) 09/03/17 16:35 INR 0.95 (0.5-1.4) 09/03/17 16:35 PTT (Actin FS) 19.1 SECONDS (26.0-38.0) L 09/03/17 16:35 Sodium 139 mEq/L (136-145) 09/04/17 04:50 Potassium 3.6 mEq/L (3.5-5.1) 09/04/17 04:50 Chloride 108 mEq/L (98-107) H 09/04/17 04:50 Carbon Dioxide 23.7 mEq/L (21.0-31.0) 09/04/17 04:50 Anion Gap 10.9 (7.0-16.0) 09/04/17 04:50 BUN 19 mg/dL (7-25) 09/04/17 04:50 Creatinine 0.9 mg/dL (0.7-1.3) 09/04/17 04:50 Est GFR ( Amer) > 60.0 ml/min (>90) 09/04/17 04:50 Est GFR (Non-Af Amer) > 60.0 ml/min 09/04/17 04:50 BUN/Creatinine Ratio 21.1 09/04/17 04:50 Glucose 88 mg/dL (70-105) 09/04/17 04:50 POC Glucose 94 MG/DL (70 - 105) 09/04/17 09:43 Calcium 9.2 mg/dL (8.6-10.3) 09/04/17 04:50 Total Bilirubin 0.7 mg/dL (0.3-1.0) 09/04/17 04:50 AST 13 U/L (13-39) 09/04/17 04:50 ALT 11 U/L (7-52) 09/04/17 04:50 Alkaline Phosphatase 55 U/L (34-104) 09/04/17 04:50 Total Protein 6.5 gm/dL (6.0-8.3) 09/04/17 04:50 Albumin 3.8 gm/dL (4.2-5.5) L 09/04/17 04:50 Globulin 2.7 gm/dL 09/04/17 04:50 Albumin/Globulin Ratio 1.4 (1.0-1.8) 09/04/17 04:50 - Physical Exam Vitals and I&O: Vital Signs Temp 97.2 F 09/05/17 04:00 Pulse 67 09/05/17 04:00 Resp 18 09/05/17 04:00 BP 104/64 09/05/17 04:00 Pulse Ox 98 09/05/17 04:00 Intake & Output 09/04/17 09/05/17 09/05/17 18:59 06:59 18:59 Intake Total 1000 1000 Output Total 3 Balance 1000 997 Weight (lbs) 67.132 kg 67.903 kg Intake: Intake, IV Amount 1000 1000 Sodium Chloride 0.9% 1, 1000 1000 000 ml @ 75 mls/hr IV . [id number] [facility] Rx#:[id number] Output: Urine 3 Other: # Voids 2 # Bowel Movements 2 Stool Characteristics Soft Formed Weight Source Bedscale Bedscale Active Medications: Current Medications Acetaminophen (Tylenol) 650 mg PO Q6H PRN PRN Reason: mild pain Stop: 11/02/17 19:51 Al Hydrox/Mg Hydrox/Simethicone (Maalox) 30 ml PO Q6H PRN PRN Reason: GI DISTRESS Stop: 11/02/17 19:51 Amlodipine Besylate (Norvasc) 5 mg PO DAILY [facility] Stop: 11/03/17 08:59 Last Admin: 09/04/17 09:46 Dose: Not Given Atorvastatin Calcium (Lipitor) 20 mg PO HS JOSE RAMON PRN Reason: Protocol Stop: 11/02/17 20:59 Last Admin: 09/05/17 00:01 Dose: 20 mg Cholecalciferol (Vitamin D3) 1,000 iu PO DAILY [facility] Stop: 11/03/17 08:59 Last Admin: 09/04/17 09:46 Dose: Not Given Docusate Sodium (Colace) 100 mg PO DAILY [facility] Stop: 11/03/17 08:59 Last Admin: 09/04/17 09:46 Dose: Not Given Donepezil HCl (Aricept) 10 mg PO HS [facility] Stop: 11/02/17 20:59 Last Admin: 09/05/17 00:01 Dose: 10 mg Sodium Chloride (Nacl 0.9%) 1,000 mls @ 75 mls/hr IV .[id number] [facility] Stop: 11/02/17 18:35 Last Admin: 09/05/17 06:14 Dose: 75 mls/hr Lorazepam (Ativan) 1 mg IVP Q6H PRN; Protocol PRN Reason: Agitation Stop: 11/02/17 22:58 Last Admin: 09/05/17 01:27 Dose: 1 mg - Procedures Procedures: Procedures Procedure Code Date EGD PLACE GASTROSTOMY TUBE 98061 09/03/17 INSERTION OF FEEDING DEVICE INTO STOMACH, PERC APPROACH [id number] 09/03/17 Assessment/Plan - Assessment Assessment: 71 YO MALE WITH DYSPHAGIA S/P PEG WINIFRED TUBE FEEDS 1.CONT TUBE FEEDS 2.CONT SUPP CARE
--- NOTE | 2017-09-05 09:09 | General Progress Note ---
Subjective - Review of Systems Service Date: 09/05/17 Subjective: Non verbal Objective - Results Result Diagrams: 09/04/17 04:50 09/04/17 04:50 Recent Labs: Laboratory Last Values WBC 8.2 Th/cmm (4.8-10.8) 09/04/17 04:50 RBC 4.89 Mil/cmm (3.80-5.80) 09/04/17 04:50 Hgb 14.3 gm/dL (12-16) 09/04/17 04:50 Hct 42.9 % (41.0-60) 09/04/17 04:50 MCV 87.7 fl (80-99) 09/04/17 04:50 MCH 29.3 pg (27.0-31.0) 09/04/17 04:50 MCHC Differential 33.4 pg (28.0-36.0) 09/04/17 04:50 RDW 15.0 % (11.5-20.0) 09/04/17 04:50 Plt Count 229 Th/cmm (150-400) 09/04/17 04:50 MPV 11.1 fl 09/04/17 04:50 Neutrophils % 58.8 % (40.0-80.0) 09/04/17 04:50 Lymphocytes % 26.4 % (20.0-50.0) 09/04/17 04:50 Monocytes % 8.5 % (2.0-10.0) 09/04/17 04:50 Eosinophils % 5.1 % (0.0-5.0) H 09/04/17 04:50 Basophils % 1.2 % (0.0-2.0) 09/04/17 04:50 PT 9.9 SECONDS (9.5-11.5) 09/03/17 16:35 INR 0.95 (0.5-1.4) 09/03/17 16:35 PTT (Actin FS) 19.1 SECONDS (26.0-38.0) L 09/03/17 16:35 Sodium 139 mEq/L (136-145) 09/04/17 04:50 Potassium 3.6 mEq/L (3.5-5.1) 09/04/17 04:50 Chloride 108 mEq/L (98-107) H 09/04/17 04:50 Carbon Dioxide 23.7 mEq/L (21.0-31.0) 09/04/17 04:50 Anion Gap 10.9 (7.0-16.0) 09/04/17 04:50 BUN 19 mg/dL (7-25) 09/04/17 04:50 Creatinine 0.9 mg/dL (0.7-1.3) 09/04/17 04:50 Est GFR ( Amer) > 60.0 ml/min (>90) 09/04/17 04:50 Est GFR (Non-Af Amer) > 60.0 ml/min 09/04/17 04:50 BUN/Creatinine Ratio 21.1 09/04/17 04:50 Glucose 88 mg/dL (70-105) 09/04/17 04:50 POC Glucose 94 MG/DL (70 - 105) 09/04/17 09:43 Calcium 9.2 mg/dL (8.6-10.3) 09/04/17 04:50 Total Bilirubin 0.7 mg/dL (0.3-1.0) 09/04/17 04:50 AST 13 U/L (13-39) 09/04/17 04:50 ALT 11 U/L (7-52) 09/04/17 04:50 Alkaline Phosphatase 55 U/L (34-104) 09/04/17 04:50 Total Protein 6.5 gm/dL (6.0-8.3) 09/04/17 04:50 Albumin 3.8 gm/dL (4.2-5.5) L 09/04/17 04:50 Globulin 2.7 gm/dL 09/04/17 04:50 Albumin/Globulin Ratio 1.4 (1.0-1.8) 09/04/17 04:50 - Physical Exam Vitals and I&O: Vital Signs Temp 97.2 F 09/05/17 04:00 Pulse 55 09/05/17 08:59 Resp 18 09/05/17 04:00 BP 127/73 09/05/17 08:59 Pulse Ox 98 09/05/17 04:00 Intake & Output 09/04/17 09/05/17 09/05/17 18:59 06:59 18:59 Intake Total 1000 1000 Output Total 3 Balance 1000 997 Weight (lbs) 67.132 kg 67.903 kg Intake: Intake, IV Amount 1000 1000 Sodium Chloride 0.9% 1, 1000 1000 000 ml @ 75 mls/hr IV . [id number] [facility] Rx#:[id number] Output: Urine 3 Other: # Voids 2 # Bowel Movements 2 Stool Characteristics Soft Formed Weight Source Bedscale Bedscale Active Medications: Current Medications Acetaminophen (Tylenol) 650 mg PO Q6H PRN PRN Reason: mild pain Stop: 11/02/17 19:51 Al Hydrox/Mg Hydrox/Simethicone (Maalox) 30 ml PO Q6H PRN PRN Reason: GI DISTRESS Stop: 11/02/17 19:51 Amlodipine Besylate (Norvasc) 5 mg PO DAILY [facility] Stop: 11/03/17 08:59 Last Admin: 09/05/17 08:59 Dose: 5 mg Atorvastatin Calcium (Lipitor) 20 mg PO HS [facility] PRN Reason: Protocol Stop: 11/02/17 20:59 Last Admin: 09/05/17 00:01 Dose: 20 mg Cholecalciferol (Vitamin D3) 1,000 iu PO DAILY [facility] Stop: 11/03/17 08:59 Last Admin: 09/05/17 08:59 Dose: 1,000 iu Docusate Sodium (Colace) 100 mg PO DAILY [facility] Stop: 11/03/17 08:59 Last Admin: 09/05/17 08:59 Dose: 100 mg Donepezil HCl (Aricept) 10 mg PO HS [facility] Stop: 11/02/17 20:59 Last Admin: 09/05/17 00:01 Dose: 10 mg Sodium Chloride (Nacl 0.9%) 1,000 mls @ 75 mls/hr IV .[id number] [facility] Stop: 11/02/17 18:35 Last Admin: 09/05/17 06:14 Dose: 75 mls/hr Lorazepam (Ativan) 1 mg IVP Q6H PRN; Protocol PRN Reason: Agitation Stop: 11/02/17 22:58 Last Admin: 09/05/17 01:27 Dose: 1 mg General: Alert, Other (Confused, non verbal) HEENT: Atraumatic Neck: Supple Cardiovascular: Regular rate Lungs: Clear to auscultation Abdomen: Bowel sounds, Soft, Catheter (Peg in place) Extremities: Other (No edema) Neurological: Other (Non ambulatory) Skin: Rash, Other (descamation in face.) Psych/Mental Status: Other (Confused, not oriented.) - Procedures Procedures: Procedures Procedure Code Date EGD PLACE GASTROSTOMY TUBE 10501 09/03/17 INSERTION OF FEEDING DEVICE INTO STOMACH, PERC APPROACH [id number] 09/03/17 Assessment/Plan - Assessment Assessment: Patient is awake, alert, confused, not oriented. Dx: Poor oral intake, HTN, Dementia, schizophrenia. - Plan Plan: Patient in IV NS, continue with SNF meds, follow by GI. G-tube was placed. Will continue to monitor. Nutritional Asmnt/Malnutr-PDOC - Dietary Evaluation Malnutrition Findings (Please click <Entered> for more info): Nutritional Asmnt/Malnutrition Start: 09/04/17 16: 50 Text: Status: Complete Freq: Document 09/04/17 16:50 [facility] (Rec: 09/04/17 17:11 HEN [id number]) Nutritional Asmnt/Malnutrition Patient General Information Nutritional Screening High Risk Consult Diagnosis FTT Pertinent Medical Hx/Surgical Hx CAD, CHF, HTN, schizophrenia, dementia, eczema, muscle atrophy, weakness, stifiness Subjective Information Consult received for Estevan Stone . Per RN, pt had PEG today about 10am, TF will start 12hr after the procedure. Current Diet Order/ Nutrition Support NPO Pertinent Medications vit D3, colace, nacl 0.9% Pertinent Labs 4/6 cl 108 Nutritional Hx/Data Height 1.68 m Height (Calculated Centimeters) 167.6 Current Weight (lbs) 67.132 kg Weight (Calculated Kilograms) 67.1 Weight (Calculated Grams) 01569.7 [place] Body Weight 142 % [place] Body Weight 103 Body Mass Index (BMI) 23.8 Weight Status Approriate GI Symptoms GI Symptoms None Last BM 4/5 Difficult in: None Skin Integrity/Comment: redness to face and left buttock Estimated Nutritional Goals BEE in Kcals: Using Current wt Calories/Kcals/Kg 23-27 Kcals Calculated [id number] Protein: Using Current wt Protein g/k-1.2 Protein Calculated 67-80 Fluid: ml 1541-1809ml (1ml/kcal) Nutritional Problem 1. Problem Problem inadequate food intake Etiology pt not eating Signs/Symptoms: poor oral intake recently per H&P and need for TF Intervention/Recommendation Comments 1. Recommend starting Fibersource HN at 30ml/hr, increase 10ml/hr q8hr to goal rate of 60ml/hr continuous. It provides 1728kcal, 78g protein, 1166ml free water, meeting 100% of nutritional needs 2. Monitor TF rate, tolerance, wt weekly, skin integrity and labs 3. F/U as high risk in 2-3 days, 09/06-09/07 Expected Outcomes/Goals Expected Outcomes/Goals 1. Pt to meet at least 75% of nutritional needs via nutrition support with tolerance 2. Wt stability, skin to remain intact, labs to approach WNL.
[2017-09-06 06:12] LABS: % BASOPHILS 0.2 % (0.0-2.0); % EOSINOPHILS 3.5 % (0.0-5.0); % LYMPHOCYTES 8.7 % (20.0-50.0); % MONOCYTES 8.2 % (2.0-10.0); % NEUTROPHILS 79.4 % (40.0-80.0); EOSINOPHILE ABSOLUTE 0.3 Th/cmm (0.1-0.4); HEMATOCRIT 37.7 % (41.0-60); HEMOGLOBIN 12.9 gm/dL (12-16); LYMPHOCYTE ABSOLUTE 0.8 Th/cmm (1.5-3.0); MEAN CELL VOLUME 87.3 fl (80-99); MEAN CORPUSCULAR HEMOGLOBIN 29.9 pg (27.0-31.0); MEAN CORPUSCULAR HGB CONC 34.2 pg (28.0-36.0); MEAN PLATELET VOLUME 9.7 fl; MONOCYTE ABSOLUTE 0.8 Th/cmm (0.3-1.0); NEUTROPHILE ABSOLUTE 7.7 Th/cmm (1.8-8.0); PLATELET COUNT 199 Th/cmm (150-400); RED BLOOD COUNT 4.31 Mil/cmm (3.80-5.80); WHITE BLOOD COUNT 9.6 Th/cmm (4.8-10.8)
[2017-09-06 06:33] LABS: ALB/GLOB RATIO 1.4 (1.0-1.8); ALBUMIN 3.3 gm/dL (4.2-5.5); ALKALINE PHOSPHATASE 53 U/L (34-104); ANION GAP 8.3 (7.0-16.0); BILIRUBIN,TOTAL 0.7 mg/dL (0.3-1.0); BUN - UREA NITROGEN 14 mg/dL (7-25); CALCIUM SERUM 8.5 mg/dL (8.6-10.3); CHLORIDE 109 mEq/L (98-107); CREATININE - SERUM 0.8 mg/dL (0.7-1.3); GFR AFRICAN-AMERICAN > 60.0 ml/min (>90); GFR NON AFRICAN-AMERICAN > 60.0 ml/min; GLUCOSE 104 mg/dL (70-105); POTASSIUM SERUM 3.3 mEq/L (3.5-5.1); SGOT 10 U/L (13-39); SGPT/ALT 6 U/L (7-52); SODIUM SERUM 138 mEq/L (136-145); TOTAL PROTEIN,SERUM 5.7 gm/dL (6.0-8.3)
[2017-09-06] MEDS: Sodium Chloride 0.9% 1,000 ML IV SCH (06:47)
--- NOTE | 2017-09-06 08:33 | GI Progress Note ---
Subjective - Review of Systems Subjective: NO EVENTS Objective - Results Result Diagrams: 09/06/17 05:50 09/06/17 05:50 Recent Labs: Laboratory Last Values WBC 9.6 Th/cmm (4.8-10.8) 09/06/17 05:50 RBC 4.31 Mil/cmm (3.80-5.80) 09/06/17 05:50 Hgb 12.9 gm/dL (12-16) 09/06/17 05:50 Hct 37.7 % (41.0-60) L 09/06/17 05:50 MCV 87.3 fl (80-99) 09/06/17 05:50 MCH 29.9 pg (27.0-31.0) 09/06/17 05:50 MCHC Differential 34.2 pg (28.0-36.0) 09/06/17 05:50 RDW 15.0 % (11.5-20.0) 09/06/17 05:50 Plt Count 199 Th/cmm (150-400) 09/06/17 05:50 MPV 9.7 fl 09/06/17 05:50 Neutrophils % 79.4 % (40.0-80.0) 09/06/17 05:50 Lymphocytes % 8.7 % (20.0-50.0) L 09/06/17 05:50 Monocytes % 8.2 % (2.0-10.0) 09/06/17 05:50 Eosinophils % 3.5 % (0.0-5.0) 09/06/17 05:50 Basophils % 0.2 % (0.0-2.0) 09/06/17 05:50 PT 9.9 SECONDS (9.5-11.5) 09/03/17 16:35 INR 0.95 (0.5-1.4) 09/03/17 16:35 PTT (Actin FS) 19.1 SECONDS (26.0-38.0) L 09/03/17 16:35 Sodium 138 mEq/L (136-145) 09/06/17 05:50 Potassium 3.3 mEq/L (3.5-5.1) L 09/06/17 05:50 Chloride 109 mEq/L (98-107) H 09/06/17 05:50 Carbon Dioxide 24.0 mEq/L (21.0-31.0) 09/06/17 05:50 Anion Gap 8.3 (7.0-16.0) 09/06/17 05:50 BUN 14 mg/dL (7-25) 09/06/17 05:50 Creatinine 0.8 mg/dL (0.7-1.3) 09/06/17 05:50 Est GFR ( Amer) > 60.0 ml/min (>90) 09/06/17 05:50 Est GFR (Non-Af Amer) > 60.0 ml/min 09/06/17 05:50 BUN/Creatinine Ratio 17.5 09/06/17 05:50 Glucose 104 mg/dL (70-105) 09/06/17 05:50 POC Glucose 94 MG/DL (70 - 105) 09/04/17 09:43 Calcium 8.5 mg/dL (8.6-10.3) L 09/06/17 05:50 Total Bilirubin 0.7 mg/dL (0.3-1.0) 09/06/17 05:50 AST 10 U/L (13-39) L 09/06/17 05:50 ALT 6 U/L (7-52) L 09/06/17 05:50 Alkaline Phosphatase 53 U/L (34-104) 09/06/17 05:50 Total Protein 5.7 gm/dL (6.0-8.3) L 09/06/17 05:50 Albumin 3.3 gm/dL (4.2-5.5) L 09/06/17 05:50 Globulin 2.4 gm/dL 09/06/17 05:50 Albumin/Globulin Ratio 1.4 (1.0-1.8) 09/06/17 05:50 - Physical Exam Vitals and I&O: Vital Signs Temp 98.9 F 09/06/17 04:00 Pulse 66 09/06/17 04:00 Resp 18 09/06/17 04:00 BP 105/57 09/06/17 04:00 Pulse Ox 95 09/06/17 04:00 Intake & Output 09/05/17 09/06/17 09/06/17 18:59 06:59 18:59 Intake Total 801.25 1600 Output Total 3 Balance 798.25 1600 Weight (lbs) 67.903 kg 67.585 kg Intake: Intake, IV Amount 801.25 1000 Sodium Chloride 0.9% 1, 801.25 1000 000 ml @ 75 mls/hr IV . [id number] [facility] Rx#:[id number] Tube Feeding 600 Output: Urine 3 Other: # Voids 4 # Bowel Movements 2 1 Stool Characteristics Soft Weight Source Bedscale Bedscale Active Medications: Current Medications Acetaminophen (Tylenol) 650 mg PO Q6H PRN PRN Reason: mild pain Stop: 11/02/17 19:51 Last Admin: 09/06/17 03:53 Dose: 650 mg Al Hydrox/Mg Hydrox/Simethicone (Maalox) 30 ml PO Q6H PRN PRN Reason: GI DISTRESS Stop: 11/02/17 19:51 Amlodipine Besylate (Norvasc) 5 mg PO DAILY [facility] Stop: 11/03/17 08:59 Last Admin: 09/05/17 08:59 Dose: 5 mg Atorvastatin Calcium (Lipitor) 20 mg PO HS [facility] PRN Reason: Protocol Stop: 11/02/17 20:59 Last Admin: 09/05/17 20:47 Dose: 20 mg Cholecalciferol (Vitamin D3) 1,000 iu PO DAILY JOSE RAMON Stop: 11/03/17 08:59 Last Admin: 09/05/17 08:59 Dose: 1,000 iu Docusate Sodium (Colace) 100 mg PO DAILY [facility] Stop: 11/03/17 08:59 Last Admin: 09/05/17 08:59 Dose: 100 mg Donepezil HCl (Aricept) 10 mg PO HS [facility] Stop: 11/02/17 20:59 Last Admin: 09/05/17 20:48 Dose: 10 mg Sodium Chloride (Nacl 0.9%) 1,000 mls @ 75 mls/hr IV .[id number] [facility] Stop: 11/02/17 18:35 Last Admin: 09/06/17 06:47 Dose: 75 mls/hr Lorazepam (Ativan) 1 mg IVP Q6H PRN; Protocol PRN Reason: Agitation Stop: 11/02/17 22:58 Last Admin: 09/05/17 15:36 Dose: 1 mg General: Alert, Other (Confused, non verbal) HEENT: Atraumatic Neck: Supple Cardiovascular: Regular rate Lungs: Clear to auscultation Abdomen: Bowel sounds, Soft, Catheter (Peg in place) Extremities: Other (No edema) Neurological: Other (Non ambulatory) Skin: Rash, Other (descamation in face.) Psych/Mental Status: Other (Confused, not oriented.) - Procedures Procedures: Procedures Procedure Code Date EGD PLACE GASTROSTOMY TUBE 27138 09/03/17 INSERTION OF FEEDING DEVICE INTO STOMACH, PERC APPROACH [id number] 09/03/17 Assessment/Plan - Assessment Assessment: 71 YO MALE WITH DYSPHAGIA S/P PEG WINIFRED TUBE FEEDS 1.CONT TUBE FEEDS 2.CONT SUPP CARE
[2017-09-06] MEDS ORDERED: Potassium Chloride Elixir 20 mEq /15 mL UDC GT SCH (11:15)
--- NOTE | 2017-09-06 11:29 | Discharge Summary ---
General Discharge Summary - Discharge Summary Date of Admission: 09/03/17 Admitting Diagnosis: Poor oral intake, HTN, Dementia, Schizophrenia Discharge Date: 09/06/17 Discharge Diagnosis: Poor oral intake, HTN, Dementia, Schizophrenia Laboratory Findings: Laboratory Results - last 24 hr 09/06/17 09/06/17 05:50 05:50 WBC 9.6 RBC 4.31 Hgb 12.9 Hct 37.7 L MCV 87.3 MCH 29.9 MCHC Differential 34.2 RDW 15.0 Plt Count 199 MPV 9.7 Neutrophils % 79.4 Lymphocytes % 8.7 L Monocytes % 8.2 Eosinophils % 3.5 Basophils % 0.2 Sodium 138 Potassium 3.3 L Chloride 109 H Carbon Dioxide 24.0 Anion Gap 8.3 BUN 14 Creatinine 0.8 Est GFR ( Amer) > 60.0 Est GFR (Non-Af Amer) > 60.0 BUN/Creatinine Ratio 17.5 Glucose 104 Calcium 8.5 L Total Bilirubin 0.7 AST 10 L ALT 6 L Alkaline Phosphatase 53 Total Protein 5.7 L Albumin 3.3 L Globulin 2.4 Albumin/Globulin Ratio 1.4 Hospital Course: Patient was admitted, he was started in IV NS, Continue with SNF meds. PEG was placed and he tolerated feeding. Condition at Discharge: Stable Disposition: [facility] (Not SNF) Home Medications: Home Medication Medication Instructions Recorded Type Acetaminophen [Tylenol] 650 mg PO Q6H PRN 11/30/15 History Atorvastatin Calcium [Lipitor] 20 mg PO HS 11/30/15 History Cholecalciferol (Vit D3) [Vitamin 1,000 iu PO DAILY 11/30/15 History D3] Donepezil HCl [Aricept] 10 mg PO HS 11/30/15 History Memantine [Namenda] 5 mg PO BID 11/30/15 History amLODIPine Besylate [Norvasc] 5 mg PO DAILY 11/30/15 History Docusate Sodium [Dok] 100 mg PO DAILY 07/25/16 History Eccnazele 1% Cream 1 unit TP BID 07/25/16 History Fluocinonide 0.05% Cream [Lidex 1 appl TP BID 07/25/16 History 0.05%] Metronidazole/Skin Cleansr #23 1 each TP BID 07/25/16 History [[place] 0.75% Cream Kit] Multivitamin [Multivitamins] 1 sgl PO DAILY 07/25/16 History Acetaminophen [Tylenol] 650 mg PO Q6H PRN #0 tab 08/06/16 Rx Al Hyd/Mg Hyd/Simethicone [Maalox] 30 ml PO Q6H PRN #0 udc 08/06/16 Rx Atorvastatin Calcium [Lipitor] 20 mg PO HS #0 tab 08/06/16 Rx Cholecalciferol (Vit D3) [Vitamin 1,000 iu PO DAILY #0 tab 08/06/16 Rx D3] Docusate Sodium [Colace] 100 mg PO DAILY #0 cap 08/06/16 Rx Donepezil Hcl [Aricept] 10 mg PO HS #0 tab 08/06/16 Rx Fluocinonide 0.05% Cream [Lidex 1 appl TP BID #0 appl 08/06/16 Rx 0.05%] Lorazepam [Ativan] 1 mg PO Q6H PRN #0 tab 08/06/16 Rx Magnesium Hydroxide [Milk of 30 ml PO HS PRN #0 udc 08/06/16 Rx Magnesia] Memantine [Namenda] 5 mg PO BID #0 tab 08/06/16 Rx Multivitamin [Theragran] 1 tab PO DAILY #0 tab 08/06/16 Rx QUEtiapine Fumarate [SEROquel] 25 mg PO HS #0 tab 08/06/16 Rx Zolpidem Tartrate [Ambien] 5 mg PO HS PRN #0 tab 08/06/16 Rx amLODIPine Besylate [Norvasc] 5 mg PO DAILY #0 tab 08/06/16 Rx Inpatient Medications: Current Medications Acetaminophen (Tylenol) 650 mg PO Q6H PRN PRN Reason: mild pain Stop: 11/02/17 19:51 Last Admin: 09/06/17 03:53 Dose: 650 mg Al Hydrox/Mg Hydrox/Simethicone (Maalox) 30 ml PO Q6H PRN PRN Reason: GI DISTRESS Stop: 11/02/17 19:51 Amlodipine Besylate (Norvasc) 5 mg PO DAILY JOSE RAMON Stop: 11/03/17 08:59 Last Admin: 09/06/17 09:22 Dose: Not Given Atorvastatin Calcium (Lipitor) 20 mg PO HS JOSE RAMON PRN Reason: Protocol Stop: 11/02/17 20:59 Last Admin: 09/05/17 20:47 Dose: 20 mg Cholecalciferol (Vitamin D3) 1,000 iu PO DAILY JOSE RAMON Stop: 11/03/17 08:59 Last Admin: 09/06/17 09:16 Dose: 1,000 iu Docusate Sodium (Colace) 100 mg PO DAILY JOSE RAMON Stop: 11/03/17 08:59 Last Admin: 09/06/17 09:16 Dose: 100 mg Donepezil HCl (Aricept) 10 mg PO HS JOSE RAMON Stop: 11/02/17 20:59 Last Admin: 09/05/17 20:48 Dose: 10 mg Sodium Chloride (Nacl 0.9%) 1,000 mls @ 75 mls/hr IV .[id number] JOSE RAMON Stop: 11/02/17 18:35 Last Admin: 09/06/17 06:47 Dose: 75 mls/hr Lorazepam (Ativan) 1 mg IVP Q6H PRN; Protocol PRN Reason: Agitation Stop: 11/02/17 22:58 Last Admin: 09/05/17 15:36 Dose: 1 mg Potassium Chloride (Potassium Chloride Elixir) 20 meq GT DAILY JOSE RAMON Stop: 11/05/17 11:14 Discharge Diet: Tube Feeding Consults and Follow-Up: Jayjay Henry [Primary Care Provider] - Consulting Speciality: Other (PCP)
== END 2017-09-06 17:55 | DRG 641 ==
LOC: ER 15:54 → MSI 17:28
PROVIDERS: ADMIT General Practice; ATTEND General Practice
PROC: 0DH63UZ Insertion of Feeding Device into Stomach, Percutaneous Approach (ICD-10-PCS; principal; 2017-09-04)
DX: E86.0 Dehydration (principal); E44.0 Moderate protein-calorie malnutrition; R13.10 Dysphagia, unspecified; K44.9 Diaphragmatic hernia without obstruction or gangrene; F03.90 Unspecified dementia, unspecified severity, without behavioral disturbance, psychotic disturbance, mood disturbance, and anxiety; F20.9 Schizophrenia, unspecified; E78.5 Hyperlipidemia, unspecified; I25.10 Atherosclerotic heart disease of native coronary artery without angina pectoris; I11.0 Hypertensive heart disease with heart failure; I50.9 Heart failure, unspecified; Z82.49 Family history of ischemic heart disease and other diseases of the circulatory system; Z79.899 Other long term (current) drug therapy; Z68.24 Body mass index [BMI] 24.0-24.9, adult
CPT/HCPCS: 36415-UA; 71045-TC; 80048-TC; 80053-TC; 82948-90; 85025-TC; 85610-TC; 85730-TC; 93005; J0690; J2001; J2060; J7030; Z7506; Z7610

== ENCOUNTER 2017-09-09 12:02 | Inpatient (IN) | payer MEDICARE, OTHER ==
--- NOTE | 2017-09-09 12:28 | ED Physician Chart ---
ED Chief Complaint/HPI - Patient Information Date Seen:: 09/09/17 Time Seen:: 12:15 Chief Complaint:: G-tube replacement History of Present Illness:: Patient's G-tube reportedly came out at 0700 this morning. Patient has dementia and is aphasic so he is unable to give any history. Allergies:: Allergies Allergy/AdvReac Type Severity Reaction Status Date / Time No Known Allergies Allergy Verified 11/30/15 17:21 Vitals:: Vital Signs - 8 hr 09/09/17 12:11 Temp 98.8 F HR 72 RR 16 BP 125/83 O2 Sat % 94 Historian:: Other Review:: Nurse's Note Reviewed, Transfer documents Reviewed ED Past Medical History - Past Medical History Past Medical History: DM, Dyslipidemia, Dementia, Other (schizoaffective disorder; hyperlipidemia) Family History: Other (unavailable) Social History: Care Facility Surgical History: PEG/GTube Medication: Reviewed Family Medical History - Family Member Mother History Unknown: Yes Ethnicity: Non- Living Status: Still Living Hx Family Hypertension: Yes ED Physical Exam - Physical Examination Other Gen/Cons comments:: Patient is chronically ill-appearing and aphasic Head: Atraumatic Eyes: Lids, conjuctiva normal, PERRL Skin: No rash Other Skin comments:: Left upper quadrant stoma has a diameter of about 2 mm and is surrounded by 2 cm of erythema ENMT: External ears, nose nl Neck: No mass Respiratory: Nl effort/Exclusion, Clear to Auscultation Cardio Vascular: RRR, No murmur, gallop, rubs GI: No tenderness/rebounding/guarding, No organomegaly, No hernia Extremities: Normal digits & nails Neuro/Psych: No focal deficits ED Labs/Radiology/EKG Results - Lab Results Results: Laboratory Results - last 24 hr 09/09/17 09/09/17 09/09/17 12:30 12:30 12:30 WBC 10.8 RBC 5.52 Hgb 16.3 Hct 48.7 MCV 88.2 MCH 29.6 MCHC Differential 33.5 RDW 14.8 Plt Count 300 MPV 10.9 Neutrophils % 77.5 Lymphocytes % 11.0 L Monocytes % 5.9 Eosinophils % 1.6 Basophils % 4.0 H PT 10.3 INR 0.99 PTT (Actin FS) 26.3 Sodium 139 Potassium 4.0 Chloride 103 Carbon Dioxide 25.7 Anion Gap 14.3 BUN 17 Creatinine 0.9 Est GFR ( Amer) > 60.0 Est GFR (Non-Af Amer) > 60.0 BUN/Creatinine Ratio 18.9 Glucose 129 H Calcium 10.2 Urine Source Urine Color Urine Clarity Urine pH Ur Specific [place] Urine Protein Urine Glucose (UA) Urine Ketones Urine Blood Urine Nitrate Urine Bilirubin Urine Urobilinogen Ur Leukocyte Esterase Urine RBC Urine WBC Ur Epithelial Cells Urine Bacteria 09/09/17 12:40 WBC RBC Hgb Hct MCV MCH MCHC Differential RDW Plt Count MPV Neutrophils % Lymphocytes % Monocytes % Eosinophils % Basophils % PT INR PTT (Actin FS) Sodium Potassium Chloride Carbon Dioxide Anion Gap BUN Creatinine Est GFR ( Amer) Est GFR (Non-Af Amer) BUN/Creatinine Ratio Glucose Calcium Urine Source RANDOM Urine Color YELLOW Urine Clarity CLEAR Urine pH 7.5 Ur Specific [place] 1.010 Urine Protein NEGATIVE Urine Glucose (UA) NEGATIVE Urine Ketones NEGATIVE Urine Blood MODERATE H Urine Nitrate NEGATIVE Urine Bilirubin NEGATIVE Urine Urobilinogen 0.2 Ur Leukocyte Esterase NEGATIVE Urine RBC 2-5 H Urine WBC 0-2 Ur Epithelial Cells OCCASIONAL Urine Bacteria NONE SEEN ED Septic Shock - . Is Septic Shock (SBP<90, OR Lactate>4 mmol\L) present?: No - <6hrs of presentation: Vital Signs: Vital Signs - 8 hr 09/09/17 12:11 Temp 98.8 F HR 72 RR 16 BP 125/83 O2 Sat % 94 ED Reassessment (Disposition) - Reassessment Reassessment Condition:: Unchanged - Diagnosis Diagnosis:: G-tube replacement; dementia; schizoaffective disorder - Patient Disposition Admitted to:: Med/Surg Spoke to:: Jayjay Henry Admitting Medical Physician:: Jayjay Henry Condition at Disposition:: Stable, Unchanged
[2017-09-09 12:52] LABS: INR 0.99 (0.5-1.4); PROTHROMBIN TIME (TEST) 10.3 SECONDS (9.5-11.5)
[2017-09-09 12:53] LABS: % EOSINOPHILS 1.6 % (0.0-5.0); % MONOCYTES 5.9 % (2.0-10.0); % NEUTROPHILS 77.5 % (40.0-80.0); BASOPHILE ABSOLUTE 0.4 Th/cumm (0-0.2); EOSINOPHILE ABSOLUTE 0.2 Th/cmm (0.1-0.4); HEMATOCRIT 48.7 % (41.0-60); HEMOGLOBIN 16.3 gm/dL (12-16); LYMPHOCYTE ABSOLUTE 1.2 Th/cmm (1.5-3.0); MEAN CELL VOLUME 88.2 fl (80-99); MEAN CORPUSCULAR HEMOGLOBIN 29.6 pg (27.0-31.0); MEAN CORPUSCULAR HGB CONC 33.5 pg (28.0-36.0); MEAN PLATELET VOLUME 10.9 fl; MONOCYTE ABSOLUTE 0.6 Th/cmm (0.3-1.0); NEUTROPHILE ABSOLUTE 8.4 Th/cmm (1.8-8.0); PLATELET COUNT 300 Th/cmm (150-400); RED BLOOD COUNT 5.52 Mil/cmm (3.80-5.80); RED CELL DISTRIBUTION WIDTH 14.8 % (11.5-20.0); WHITE BLOOD COUNT 10.8 Th/cmm (4.8-10.8)
[2017-09-09 12:56] LABS: ANION GAP 14.3 (7.0-16.0); BUN - UREA NITROGEN 17 mg/dL (7-25); CALCIUM SERUM 10.2 mg/dL (8.6-10.3); CARBON DIOXIDE 25.7 mEq/L (21.0-31.0); CHLORIDE 103 mEq/L (98-107); CREATININE - SERUM 0.9 mg/dL (0.7-1.3); GFR AFRICAN-AMERICAN > 60.0 ml/min (>90); GFR NON AFRICAN-AMERICAN > 60.0 ml/min; GLUCOSE 129 mg/dL (70-105); SODIUM SERUM 139 mEq/L (136-145)
[2017-09-09 12:58] LABS: URINE MICROSCOPIC INDICATED? YES; URINE SOURCE RANDOM
[2017-09-09 13:12] LABS: URINE BILIRUBIN NEGATIVE (NEGATIVE); URINE BLOOD MODERATE (NEGATIVE); URINE GLUCOSE (UA) NEGATIVE (NEGATIVE); URINE KETONE NEGATIVE (NEGATIVE); URINE LEUKOCYTE ESTERASE NEGATIVE (NEGATIVE); URINE NITRATE NEGATIVE (NEGATIVE); URINE PH 7.5 (4.6 - 8.0); URINE PROTEIN NEGATIVE (NEGATIVE); URINE UROBILINOGEN 0.2 E.U./dL (0.2 - 1.0)
[2017-09-09 13:32] LABS: URINE CLARITY CLEAR (CLEAR); URINE COLOR YELLOW
[2017-09-09 13:33] LABS: URINE BACTERIA NONE SEEN /hpf (NONE SEEN); URINE EPITHELIAL CELLS OCCASIONAL /lpf (FEW); URINE WBC 0-2 /hpf (0-5)
[2017-09-09] MEDS: Sodium Chloride 0.9% 1,000 ML IV SCH (15:09)
[2017-09-09] MEDS ORDERED: Magnesium Hydroxide (MOM) 30 mL UDC PO PRN (15:50)
[2017-09-09] MEDS ORDERED: Maalox 30 mL Cup PO PRN (15:50)
[2017-09-09] MEDS ORDERED: Sodium Chloride 0.9% 1,000 ML IV SCH (16:00)
[2017-09-09] MEDS: Atorvastatin Calcium 10 MG TAB GT SCH (20:43)
--- NOTE | 2017-09-10 02:33 | Consultation ---
DATE OF CONSULTATION: 09/09/2017 REASON FOR CONSULTATION: Dysphagia, decreased oral intake. HISTORY OF PRESENT ILLNESS: The patient had a G-tube before, which he pulled it out. The patient was admitted for this reason. The patient apparently suffer from decreased oral intake. He was here a week ago, underwent a PEG and then, discharged to residential where the G-tube was pulled out. The patient is nonverbal. PAST MEDICAL HISTORY: Coronary artery disease, hypertension, schizophrenia, dementia, congestive heart failure, and decreased oral intake. PAST SURGICAL HISTORY: Unobtainable. REVIEW OF SYSTEMS: Unobtainable. SOCIAL HISTORY: Nonalcoholic, nonsmoker, non-IV drug abuser. FAMILY HISTORY: Noncontributory. PHYSICAL EXAMINATION: GENERAL: The patient is awake, seems to be responsive, nonverbal. VITAL SIGNS: Blood pressure is 154/81, heart rate 70, respiratory rate 18, and temperature is 96.9. HEAD AND NECK: Pupils reactive to light. Extraocular muscles could not be tested. Oral cavity, no lesion. NECK: Supple. CHEST: Good air entry. LUNGS: Clear to auscultation. CARDIOVASCULAR: Regular rate and rhythm. No murmur or gallop. ABDOMEN: Soft, positive bowel sounds. There is a site of the previous PEG. EXTREMITIES: Lower extremities, no edema. Good peripheral pulses. The patient is moving 4 extremities. CENTRAL NERVOUS SYSTEM: Grossly nonfocal. IMPRESSION: A 71-year-old who is not eating, who needs evaluation, needs G-tube. ASSESSMENT AND PLAN: Decreased oral intake, malnutrition, dehydration. Agree with PEG. We will get the consent. We will check PT/PTT. We will cover antibiotic Ancef and then will do PEG in the morning, then further recommendations to follow. Other medical problems such as hypertension, coronary artery disease, dementia, congestive heart failure, schizophrenia as per Dr. Henry. Thank you, Dr. Henry for allowing me to participate in the care of this patient. If you have any further questions, please let me know. JOB# [id number]
[2017-09-10] MEDS: Sodium Chloride 0.9% 1,000 ML IV SCH ×2 (05:29→18:40)
[2017-09-10 06:38] LABS: ALB/GLOB RATIO 1.3 (1.0-1.8); ALBUMIN 4.1 gm/dL (4.2-5.5); ALKALINE PHOSPHATASE 64 U/L (34-104); ANION GAP 15.9 (7.0-16.0); BILIRUBIN,TOTAL 0.8 mg/dL (0.3-1.0); BUN - UREA NITROGEN 19 mg/dL (7-25); CALCIUM SERUM 9.6 mg/dL (8.6-10.3); CHLORIDE 106 mEq/L (98-107); CREATININE - SERUM 0.9 mg/dL (0.7-1.3); GFR AFRICAN-AMERICAN > 60.0 ml/min (>90); GFR NON AFRICAN-AMERICAN > 60.0 ml/min; GLUCOSE 125 mg/dL (70-105); POTASSIUM SERUM 3.9 mEq/L (3.5-5.1); SGOT 14 U/L (13-39); SGPT/ALT 11 U/L (7-52); SODIUM SERUM 141 mEq/L (136-145); TOTAL PROTEIN,SERUM 7.3 gm/dL (6.0-8.3)
[2017-09-10 06:56] LABS: % BASOPHILS 0.8 % (0.0-2.0); % EOSINOPHILS 0.3 % (0.0-5.0); % LYMPHOCYTES 9.1 % (20.0-50.0); % MONOCYTES 5.6 % (2.0-10.0); % NEUTROPHILS 84.2 % (40.0-80.0); BASOPHILE ABSOLUTE 0.1 Th/cumm (0-0.2); HEMATOCRIT 45.1 % (41.0-60); HEMOGLOBIN 14.7 gm/dL (12-16); LYMPHOCYTE ABSOLUTE 1.4 Th/cmm (1.5-3.0); MEAN CELL VOLUME 88.1 fl (80-99); MEAN CORPUSCULAR HEMOGLOBIN 28.8 pg (27.0-31.0); MEAN CORPUSCULAR HGB CONC 32.6 pg (28.0-36.0); MONOCYTE ABSOLUTE 0.9 Th/cmm (0.3-1.0); NEUTROPHILE ABSOLUTE 13.1 Th/cmm (1.8-8.0); PLATELET COUNT 304 Th/cmm (150-400); RED BLOOD COUNT 5.12 Mil/cmm (3.80-5.80); RED CELL DISTRIBUTION WIDTH 14.8 % (11.5-20.0)
[2017-09-10 06:58] LABS: WHITE BLOOD COUNT 15.5 Th/cmm (4.8-10.8)
--- NOTE | 2017-09-10 07:50 | Diagnostic Imaging Report ---
Portable chest x-ray HISTORY: Shortness of breath Allowing for a poor inspiration and portable technique, the overall heart size appears normal. Allowing for the poor inspiration, no focal pulmonary processes are seen. Hilar or mediastinal abnormalities. IMPRESSION: Allowing for a poor inspiration, no acute focal pulmonary processes
[2017-09-10] MEDS: Multivitamin Tab GT SCH (08:11)
[2017-09-10] MEDS ORDERED: ceFAZolin 1 GM in Sodium Chloride 0.9% 50 ML IV ONE (13:00)
[2017-09-10] MEDS ORDERED: Lidocaine 2% Gel 5 mL TP ONE (13:30)
[2017-09-10] MEDS ORDERED: Propofol 10 mg/mL 20mL Vial **SURGERY USE ONLY IV ONE (13:30)
--- NOTE | 2017-09-10 13:40 | History and Physical ---
History of Present Illness - HPI Chief Complaint: Patient pulled off G-tube HPI: This is a permanent resident of a SNF. I received a call from SNF nurse stating that patient pulled off G-tube. 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 GI: Report: Other (Dysphagia) Psych: Report: Schizophrenia Musculoskeletal: Report: Weakness Rheumatologic: Report: No pertinent Hx Infectious Disease: Report: No Pertinent Hx Renal/: Report: No Pertinent Hx Endocrine: Report: Diabetes Dermatology: Report: No Pertinent Hx - Past Surgical History Past Surgical History: Other (Peg placement.) Family Medical History - Family Member Mother History Unknown: Yes Ethnicity: Non- Living Status: Still Living Hx Family Hypertension: Yes Social History Smoke: No Alcohol: None Drugs: None Lives: [facility] Domestic Violence: Negative - Medications Home Medications: Home Medication Medication Instructions Recorded Type Docusate Sodium [Dok] 100 mg GT DAILY 07/25/16 History Acetaminophen [Tylenol] 650 mg PO Q6H PRN #0 tab 08/06/16 Rx Al Hyd/Mg Hyd/Simethicone [Maalox] 30 ml PO Q6H PRN #0 udc 08/06/16 Rx Magnesium Hydroxide [Milk of 30 ml PO HS PRN #0 udc 08/06/16 Rx Magnesia] amLODIPine Besylate [Norvasc] 5 mg PO DAILY #0 tab 08/06/16 Rx Atorvastatin Calcium [Lipitor] 20 mg GT HS 09/09/17 History Cholecalciferol (Vit D3) [Vitamin 1,000 iu GT DAILY 09/09/17 History D3] Donepezil Hcl [Aricept] 10 mg GT HS 09/09/17 History Memantine [Namenda] 5 mg GT BID 09/09/17 History Multivitamin [Theragran] 1 tab GT DAILY 09/09/17 History - Allergies Allergies/Adverse Reactions: Allergies Allergy/AdvReac Type Severity Reaction Status Date / Time No Known Allergies Allergy Verified 11/30/15 17:21 Review of Systems - Review of Systems Review of Systems: Patient is non verbal, Information was obtain from chart. Constitutional: Report: Weakness Eyes: Report: No Significant ENT: Report: No Significant Respiratory: Report: No Significant Cardiovascular: Report: No Significant Gastrointestinal: Report: Other (Dysphagia) Genitourinary: Report: No Significant Musculoskeletal: Report: No Significant Skin: Report: No Significant Neurological: Report: Weakness Physical Exam - Physical Exam HEENT: Report: Ears Nose Throat within normal limits Neck: Report: Within normal limits Cardiovascular Systems: Report: Regular, Rate and Rhythm Respiratory: Report: Breath Sounds are within normal limits Abdomen: Report: Non-tender to palpation, PEG site is clean Back: Report: Inspection of back is within normal limits. Extremities: Report: Non-tender to palpation., Other (Funtional quadriplegic) Skin: Report: Color of skin is within normal limits, Warm Neuro/Psych: Report: Mood affect is within normal limits - Lab Results All Lab Results last 24 hours: Laboratory Results - last 24 hr 09/10/17 09/10/17 06:00 06:00 WBC 15.5 H RBC 5.12 Hgb 14.7 Hct 45.1 MCV 88.1 MCH 28.8 MCHC Differential 32.6 RDW 14.8 Plt Count 304 MPV 11.0 Neutrophils % 84.2 H Lymphocytes % 9.1 L Monocytes % 5.6 Eosinophils % 0.3 Basophils % 0.8 Sodium 141 Potassium 3.9 Chloride 106 Carbon Dioxide 23.0 Anion Gap 15.9 BUN 19 Creatinine 0.9 Est GFR ( Amer) > 60.0 Est GFR (Non-Af Amer) > 60.0 BUN/Creatinine Ratio 21.1 Glucose 125 H Calcium 9.6 Total Bilirubin 0.8 AST 14 ALT 11 Alkaline Phosphatase 64 Total Protein 7.3 Albumin 4.1 L Globulin 3.2 Albumin/Globulin Ratio 1.3 - Assessment Assessment: Patient is awake, non verbal. Dx: Peg displacement, DM, Dementia, Schizophrenia - Plan Plan: Peg will be replaced today. Will continue with SNF meds.
--- NOTE | 2017-09-10 19:17 | Operative Report ---
DATE OF SURGERY: 09/10/2017 PROCEDURE: Percutaneous endoscopic gastrostomy tube placement. INDICATION FOR PROCEDURE: Dysphagia. The patient has a G-tube, which he pulled out in the snf. He was sent back to place a new one. CONSENT: Informed consent could not be obtained. It was the consensus among the treating physician that the patient needed. PREOPERATIVE DIAGNOSIS: Dysphagia. POSTOPERATIVE DIAGNOSIS: Dysphagia, status post G-tube placement. ANESTHESIA USED: Propofol by Dr. Browning. DESCRIPTION OF PROCEDURE: The patient was placed on his back. Head was tilted to the side and flexed forward. Upper Olympus endoscope was introduced into the mouth and advanced to the esophagus, which was intubated under direct visualization. Esophageal mucosa was examined on the way down, it was essentially normal. There was some irritation and secretions from the stomach. Scope was then advanced to the stomach where the gastric mucosa was examined and showed some gastritis and the site of the old G-tube was seen. Scope was then advanced through the pylorus to the duodenum where the bulb and second part were examined and they were both normal. Scope was withdrawn to the stomach and retroflexed to examine the cardia and fundus. It did not show any other abnormality. Scope was then straightened. An area of transillumination close to the other site was seen. The area was sterilized with Betadine and then anesthetized with 1% lidocaine. Anesthesia needle could enter the stomach easily, so skin overlying the area was slightly incised with a scalpel and the long Angiocath with a trocar was introduced to stomach and surrounded by the snare. Trocar was then withdrawn. Wire was introduced into the stomach and grasped by the snare. Scope was then withdrawn with the snare holding the wire. A size 20 G-tube was connected to the wire, then G-tube was pulled out of the patient's abdomen using a standard pull technique. G-tube was secured in place. The patient tolerated the procedure well. There were no immediate postoperative complications. RECOMMENDATIONS: 1. May use G-tube for medications. 2. After 12 hours flush the G-tube with 40 mL of water, and then start Jevity 1.2 at 40 mL an hour. 3. Increase Jevity by 10 mL an hour every 12 hours up to 60 mL an hour. 4. Check residuals every 6 hours and hold feeding if residual more than 200 mL. 5. Abdominal binder. Thank you, Dr. Henry, for allowing me to participate in the care of the patient. If you have any further questions, please let me know. JOB# [id number]
[2017-09-10 20:06] LABS: URINE MICROSCOPIC INDICATED? YES; URINE SOURCE RANDOM
[2017-09-10 20:16] LABS: URINE BILIRUBIN NEGATIVE (NEGATIVE); URINE BLOOD MODERATE (NEGATIVE); URINE GLUCOSE (UA) NEGATIVE (NEGATIVE); URINE KETONE 15 mg/dL (NEGATIVE); URINE LEUKOCYTE ESTERASE NEGATIVE (NEGATIVE); URINE NITRATE NEGATIVE (NEGATIVE); URINE PROTEIN TRACE mg/dL (NEGATIVE); URINE UROBILINOGEN 0.2 E.U./dL (0.2 - 1.0)
[2017-09-10 20:35] LABS: URINE CLARITY TURBID (CLEAR); URINE COLOR YELLOW
[2017-09-10 20:37] LABS: URINE BACTERIA FEW /hpf (NONE SEEN); URINE EPITHELIAL CELLS FEW /lpf (FEW)
[2017-09-10] MEDS: Atorvastatin Calcium 10 MG TAB GT SCH (21:01)
[2017-09-11 06:19] LABS: % EOSINOPHILS 0.1 % (0.0-5.0); % LYMPHOCYTES 6.5 % (20.0-50.0); LYMPHOCYTE ABSOLUTE 1.1 Th/cmm (1.5-3.0); MEAN CORPUSCULAR HEMOGLOBIN 29.3 pg (27.0-31.0)
[2017-09-11 06:32] LABS: ALB/GLOB RATIO 1.3 (1.0-1.8); ALBUMIN 3.7 gm/dL (4.2-5.5); ALKALINE PHOSPHATASE 59 U/L (34-104); ANION GAP 12.3 (7.0-16.0); BILIRUBIN,TOTAL 0.6 mg/dL (0.3-1.0); BUN - UREA NITROGEN 26 mg/dL (7-25); CALCIUM SERUM 9.2 mg/dL (8.6-10.3); CARBON DIOXIDE 24.1 mEq/L (21.0-31.0); CHLORIDE 110 mEq/L (98-107); GFR AFRICAN-AMERICAN > 60.0 ml/min (>90); GFR NON AFRICAN-AMERICAN > 60.0 ml/min; GLUCOSE 144 mg/dL (70-105); POTASSIUM SERUM 3.4 mEq/L (3.5-5.1); SGOT 17 U/L (13-39); SGPT/ALT 11 U/L (7-52); SODIUM SERUM 143 mEq/L (136-145); TOTAL PROTEIN,SERUM 6.6 gm/dL (6.0-8.3)
[2017-09-11 06:37] LABS: % BASOPHILS 1.1 % (0.0-2.0); % MONOCYTES 5.5 % (2.0-10.0); % NEUTROPHILS 86.8 % (40.0-80.0); BASOPHILE ABSOLUTE 0.2 Th/cumm (0-0.2); HEMATOCRIT 41.2 % (41.0-60); HEMOGLOBIN 13.7 gm/dL (12-16); MEAN CELL VOLUME 88.3 fl (80-99); MEAN CORPUSCULAR HGB CONC 33.1 pg (28.0-36.0); MEAN PLATELET VOLUME 11.4 fl; MONOCYTE ABSOLUTE 0.9 Th/cmm (0.3-1.0); NEUTROPHILE ABSOLUTE 14.8 Th/cmm (1.8-8.0); PLATELET COUNT 332 Th/cmm (150-400); RED BLOOD COUNT 4.67 Mil/cmm (3.80-5.80)
[2017-09-11] MEDS: Multivitamin Tab GT SCH (08:41)
--- NOTE | 2017-09-11 08:46 | General Progress Note ---
Subjective - Review of Systems Service Date: 09/11/17 Subjective: Patient is non verbal Objective - Results Result Diagrams: 09/11/17 05:40 09/11/17 05:40 Recent Labs: Laboratory Last Values WBC 17.0 Th/cmm (4.8-10.8) H 09/11/17 05:40 RBC 4.67 Mil/cmm (3.80-5.80) 09/11/17 05:40 Hgb 13.7 gm/dL (12-16) 09/11/17 05:40 Hct 41.2 % (41.0-60) 09/11/17 05:40 MCV 88.3 fl (80-99) 09/11/17 05:40 MCH 29.3 pg (27.0-31.0) 09/11/17 05:40 MCHC Differential 33.1 pg (28.0-36.0) 09/11/17 05:40 RDW 15.0 % (11.5-20.0) 09/11/17 05:40 Plt Count 332 Th/cmm (150-400) 09/11/17 05:40 MPV 11.4 fl 09/11/17 05:40 Neutrophils % 86.8 % (40.0-80.0) H 09/11/17 05:40 Lymphocytes % 6.5 % (20.0-50.0) L 09/11/17 05:40 Monocytes % 5.5 % (2.0-10.0) 09/11/17 05:40 Eosinophils % 0.1 % (0.0-5.0) 09/11/17 05:40 Basophils % 1.1 % (0.0-2.0) 09/11/17 05:40 PT 10.3 SECONDS (9.5-11.5) 09/09/17 12:30 INR 0.99 (0.5-1.4) 09/09/17 12:30 PTT (Actin FS) 26.3 SECONDS (26.0-38.0) 09/09/17 12:30 Sodium 143 mEq/L (136-145) 09/11/17 05:40 Potassium 3.4 mEq/L (3.5-5.1) L 09/11/17 05:40 Chloride 110 mEq/L (98-107) H 09/11/17 05:40 Carbon Dioxide 24.1 mEq/L (21.0-31.0) 09/11/17 05:40 Anion Gap 12.3 (7.0-16.0) 09/11/17 05:40 BUN 26 mg/dL (7-25) H 09/11/17 05:40 Creatinine 1.0 mg/dL (0.7-1.3) 09/11/17 05:40 Est GFR ( Amer) > 60.0 ml/min (>90) 09/11/17 05:40 Est GFR (Non-Af Amer) > 60.0 ml/min 09/11/17 05:40 BUN/Creatinine Ratio 26.0 09/11/17 05:40 Glucose 144 mg/dL (70-105) H 09/11/17 05:40 Calcium 9.2 mg/dL (8.6-10.3) 09/11/17 05:40 Total Bilirubin 0.6 mg/dL (0.3-1.0) 09/11/17 05:40 AST 17 U/L (13-39) 09/11/17 05:40 ALT 11 U/L (7-52) 09/11/17 05:40 Alkaline Phosphatase 59 U/L (34-104) 09/11/17 05:40 Total Protein 6.6 gm/dL (6.0-8.3) 09/11/17 05:40 Albumin 3.7 gm/dL (4.2-5.5) L 09/11/17 05:40 Globulin 2.9 gm/dL 09/11/17 05:40 Albumin/Globulin Ratio 1.3 (1.0-1.8) 09/11/17 05:40 Urine Source RANDOM 09/10/17 18:00 Urine Color YELLOW 09/10/17 18:00 Urine Clarity TURBID (CLEAR) 09/10/17 18:00 Urine pH 7.0 (4.6 - 8.0) 09/10/17 18:00 Ur Specific [place] 1.020 (1.005-1.030) 09/10/17 18:00 Urine Protein TRACE mg/dL (NEGATIVE) 09/10/17 18:00 Urine Glucose (UA) NEGATIVE mg/dL (NEGATIVE) 09/10/17 18:00 Urine Ketones 15 mg/dL (NEGATIVE) H 09/10/17 18:00 Urine Blood MODERATE (NEGATIVE) H 09/10/17 18:00 Urine Nitrate NEGATIVE (NEGATIVE) 09/10/17 18:00 Urine Bilirubin NEGATIVE (NEGATIVE) 09/10/17 18:00 Urine Urobilinogen 0.2 E.U./dL (0.2 - 1.0) 09/10/17 18:00 Ur Leukocyte Esterase NEGATIVE (NEGATIVE) 09/10/17 18:00 Urine RBC 10-25 /hpf (0-5) H 09/10/17 18:00 Urine WBC 2-5 /hpf (0-5) 09/10/17 18:00 Ur Epithelial Cells FEW /lpf (FEW) 09/10/17 18:00 Urine Bacteria FEW /hpf (NONE SEEN) 09/10/17 18:00 - Physical Exam Vitals and I&O: Vital Signs Temp 98 F 09/11/17 04:00 Pulse 62 09/11/17 04:00 Resp 18 09/11/17 04:00 BP 142/84 09/11/17 04:00 Pulse Ox 98 09/11/17 04:00 Intake & Output 09/10/17 09/11/17 09/11/17 18:59 06:59 18:59 Intake Total 1238.75 Balance 1238.75 Weight (lbs) 72.393 kg Intake: Intake, IV Amount 1238.75 Sodium Chloride 0.9% 1, 988.75 000 ml @ 75 mls/hr IV . [id number] [facility] Rx#:[id number] Vancomycin HCl 1 gm In 250 Sodium Chloride 0.9% 250 ml @ 165 mls/hr IV Q12H [facility] Rx#:[id number] Other: # Voids 2 # Bowel Movements 1 Weight Source Bedscale Active Medications: Current Medications Acetaminophen (Tylenol) 650 mg PO Q6H PRN PRN Reason: mild pain Stop: 11/08/17 15:49 Al Hydrox/Mg Hydrox/Simethicone (Maalox) 30 ml PO Q6H PRN PRN Reason: GI DISTRESS Stop: 11/08/17 15:49 Amlodipine Besylate (Norvasc) 5 mg PO DAILY [facility] Stop: 11/09/17 08:59 Last Admin: 09/10/17 08:10 Dose: Not Given Atorvastatin Calcium (Lipitor) 20 mg GT HS [facility] PRN Reason: Protocol Stop: 11/08/17 20:59 Last Admin: 09/10/17 21:01 Dose: 20 mg Cholecalciferol (Vitamin D3) 1,000 iu GT DAILY [facility] Stop: 11/09/17 08:59 Last Admin: 09/10/17 08:11 Dose: Not Given Donepezil HCl (Aricept) 10 mg GT HS [facility] Stop: 11/08/17 20:59 Last Admin: 09/10/17 21:01 Dose: 10 mg Sodium Chloride (Nacl 0.9%) 1,000 mls @ 75 mls/hr IV .[id number] [facility] Stop: 11/08/17 14:36 Last Admin: 09/10/17 18:40 Dose: 75 mls/hr Vancomycin HCl 1 gm/ Sodium (Chloride) 250 mls @ 165 mls/hr IV Q12H [facility] Stop: 11/09/17 13:59 Last Admin: 09/11/17 02:10 Dose: 165 mls/hr Magnesium Hydroxide (Milk Of Magnesia) 30 ml PO HS PRN PRN Reason: Constipation Stop: 11/08/17 15:49 Memantine (Namenda) 5 mg GT BID [facility] Stop: 11/08/17 16:59 Last Admin: 09/10/17 18:40 Dose: 5 mg Miscellaneous (Vancomycin Iv Per Pharmacy) 1 ea PRN [facility] Stop: 11/09/17 13:44 Miscellaneous (Zosyn Iv Per Pharmacy) 1 [facility] PRN PRN PRN Reason: PROTOCOL Stop: 11/10/17 08:34 Multivitamins/Vitamin C (Theragran) 1 tab GT DAILY [facility] Stop: 11/09/17 08:59 Last Admin: 09/10/17 08:11 Dose: Not Given Potassium Chloride (Potassium Chloride Elixir) 20 meq GT DAILY [facility] Stop: 11/10/17 08:59 General: Other (Awake, alert, eyes open, not following verbal commands.) HEENT: Atraumatic Cardiovascular: Regular rate Lungs: Other (Rude respiration) Abdomen: Bowel sounds, Soft, Other (Peg in place. ) Extremities: Other (No edema) Neurological: Other (Non ambulatory) Skin: Other (Warm and dry) Psych/Mental Status: Other (Patient non verbal. ) - Procedures Procedures: Procedures Procedure Code Date EGD PLACE GASTROSTOMY TUBE 34789 09/03/17 INSERTION OF FEEDING DEVICE INTO STOMACH, PERC APPROACH [id number] 09/03/17 Assessment/Plan - Assessment Assessment: Patient is awake, non verbal. WBC increased today, BNP is high, Patient do not improved. Dx: Peg displacement, Elevated WBC, DM, Dementia, Schizophrenia, bed bound. - Plan Plan: Peg was replaced yesterday. Zosyn added to treatment, Consult with cardio requested, prognosis not good. Will continue with SNF meds. Nutritional Asmnt/Malnutr-PDOC - Dietary Evaluation Malnutrition Findings (Please click <Entered> for more info): Nutritional Asmnt/Malnutrition Start: 09/10/17 16: 17 Text: Status: Complete Freq: Document 09/10/17 16:19 LCYESENIAG (Rec: 09/10/17 16:29 LCYESENIAG [id number]) Nutritional Asmnt/Malnutrition Patient General Information Nutritional Screening High Risk Diagnosis g-tube placement (reason for visit) Pertinent Medical Hx/Surgical Hx DM, hyperlipidemia, dementia, schizophrenia, PEG/Gtube Subjective Information Pt seen lying in bed at time of visit, non-verbal. Pt has PEG placement today. Current Diet Order/ Nutrition Support fibersource HN start at 40ml/ hr, goal rate 60ml/hr continuous Pertinent Medications vit D3, vancomycin, theragran, nacl 0.9% Pertinent Labs 09/10 glucose 125, alb 4.1 09/09 glucose 129 Nutritional Hx/Data Height 1.68 m Height (Calculated Centimeters) 167.6 Current Weight (lbs) 63.957 kg Weight (Calculated Kilograms) 64.0 Weight (Calculated Grams) [address]646.5 [place] Body Weight 142 Body Mass Index (BMI) 22.7 Weight Status Approriate GI Symptoms GI Symptoms None Last BM no record Difficult in: None Skin Integrity/Comment: reddened to coccyx, bruise to hand, rash to back Estimated Nutritional Goals BEE in Kcals: Using Current wt Calories/Kcals/Kg 25-30 Kcals Calculated 1432-7680 Protein: Using Current wt Protein g/k-1.2 Protein Calculated 64-77 Fluid: ml 1600-1920ml (1ml/kcal) Nutritional Problem No current Nutrition Prob Problem N/A Malnutrition Alert Protein-Calorie Malnutrition N/A Is there a minimum of two criteria No selected? Query Text:Check all the applicable criteria. A minimum of two criteria are recommended for diagnosis of either severe or non-severe malnutrition. Intervention/Recommendation Comments 1. Initiate TF as ordered. It provides 1728kcal, 77g protein , 1178ml free water, meeting 100% of nutritional needs. 2. Monitor TF rate, tolerance, wt weekly, skin integrity and labs 3. F/U as high risk in 2-3 days, 09/12-09/13 Expected Outcomes/Goals Expected Outcomes/Goals 1. Pt to meet at least 75% of nutritional needs via nutrition support with tolerance 2. Wt stability, skin to remain intact, labs to approach WNL.
[2017-09-11] MEDS: Potassium Chloride Elixir 20 mEq /15 mL UDC GT SCH (10:31)
[2017-09-11] MEDS: Sodium Chloride 0.9% 1,000 ML IV SCH (13:17)
--- NOTE | 2017-09-11 17:25 | Consultation ---
Consult Note - Consult Note Service Date: 09/11/17 Referring Physician: Jayjay Henry Consult Note: PHYSICIAN Consultation Note: Date of Admission: 09/09/17 Purpose of Consultation: Chief Complaint: Patient ISABEL FAIRCHILD was admitted to location Medical/ Surgical Unit I with G-TUBE REPLACEMENT. History of Present Illness: 71 year-ol;d male with history of DM2, Dementia, cachexia, protein calorie malnutrition, brought to the er for g tube repplcement, On initial evaluaion, he was afebrile and WBC Count was 10,800. He had g tube placement performed yesterday. However his WBC Count was 15,500. Zosyn was started. Today, his WBC Count wet up further, ID consult was called for further antibiotic management. Past Medical History: DM2, Dementia, cachexia, protein calorie malnutrition Diagnoses TYPE 2 DIABETES MELLITUS WITHOUT COMPLICATIONS (09/09/17) UNSPECIFIED DEMENTIA WITHOUT BEHAVIORAL DISTURBANCE (09/09/17) SCHIZOPHRENIA, UNSPECIFIED (09/09/17) ATHSCL HEART DISEASE OF [place] CORONARY ARTERY W/O ANG PCTRS (09/09/17) HEART FAILURE, UNSPECIFIED (09/09/17) GASTROSTOMY MALFUNCTION (09/09/17) FUNCTIONAL QUADRIPLEGIA (09/09/17) Allergies Allergy/AdvReac Type Severity Reaction Status Date / Time No Known Allergies Allergy Verified 11/30/15 17:21 Vital Signs Temp 99.7 F 09/11/17 12:00 Pulse 68 09/11/17 12:00 Resp 18 09/11/17 12:00 BP 146/70 09/11/17 12:00 Pulse Ox 95 09/11/17 12:00 Intake & Output 09/10/17 09/11/17 09/11/17 18:59 06:59 18:59 Intake Total 1238.75 250 1000 Balance 1238.75 250 1000 Weight (lbs) 72.393 kg Intake: Intake, IV Amount 1238.75 250 1000 Sodium Chloride 0.9% 1, 988.75 1000 000 ml @ 75 mls/hr IV . [id number] [facility] Rx#:[id number] Vancomycin HCl 1 gm In 250 250 Sodium Chloride 0.9% 250 ml @ 165 mls/hr IV Q12H [facility] Rx#:[id number] Other: # Voids 2 # Bowel Movements 1 Weight Source Bedscale Laboratory Results - last 24 hr 09/09/17 09/10/17 09/10/17 15:29 13:16 18:00 WBC RBC Hgb Hct MCV MCH MCHC Differential RDW Plt Count MPV Neutrophils % Lymphocytes % Monocytes % Eosinophils % Basophils % Sodium Potassium Chloride Carbon Dioxide Anion Gap BUN Creatinine Est GFR ( Amer) Est GFR (Non-Af Amer) BUN/Creatinine Ratio Glucose POC Glucose 114 H 132 H Calcium Total Bilirubin AST ALT Alkaline Phosphatase Total Protein Albumin Globulin Albumin/Globulin Ratio Urine Source RANDOM Urine Color YELLOW Urine Clarity TURBID Urine pH 7.0 Ur Specific [place] 1.020 Urine Protein TRACE Urine Glucose (UA) NEGATIVE Urine Ketones 15 H Urine Blood MODERATE H Urine Nitrate NEGATIVE Urine Bilirubin NEGATIVE Urine Urobilinogen 0.2 Ur Leukocyte Esterase NEGATIVE Urine RBC 10-25 H Urine WBC 2-5 Ur Epithelial Cells FEW Urine Bacteria FEW 09/11/17 09/11/17 05:40 05:40 WBC 17.0 H RBC 4.67 Hgb 13.7 Hct 41.2 MCV 88.3 MCH 29.3 MCHC Differential 33.1 RDW 15.0 Plt Count 332 MPV 11.4 Neutrophils % 86.8 H Lymphocytes % 6.5 L Monocytes % 5.5 Eosinophils % 0.1 Basophils % 1.1 Sodium 143 Potassium 3.4 L Chloride 110 H Carbon Dioxide 24.1 Anion Gap 12.3 BUN 26 H Creatinine 1.0 Est GFR ( Amer) > 60.0 Est GFR (Non-Af Amer) > 60.0 BUN/Creatinine Ratio 26.0 Glucose 144 H POC Glucose Calcium 9.2 Total Bilirubin 0.6 AST 17 ALT 11 Alkaline Phosphatase 59 Total Protein 6.6 Albumin 3.7 L Globulin 2.9 Albumin/Globulin Ratio 1.3 Urine Source Urine Color Urine Clarity Urine pH Ur Specific [place] Urine Protein Urine Glucose (UA) Urine Ketones Urine Blood Urine Nitrate Urine Bilirubin Urine Urobilinogen Ur Leukocyte Esterase Urine RBC Urine WBC Ur Epithelial Cells Urine Bacteria Home Medication Medication Instructions Recorded Type Docusate Sodium [Dok] 100 mg GT DAILY 07/25/16 History Acetaminophen [Tylenol] 650 mg PO Q6H PRN #0 tab 08/06/16 Rx Al Hyd/Mg Hyd/Simethicone [Maalox] 30 ml PO Q6H PRN #0 udc 08/06/16 Rx Magnesium Hydroxide [Milk of 30 ml PO HS PRN #0 udc 08/06/16 Rx Magnesia] amLODIPine Besylate [Norvasc] 5 mg PO DAILY #0 tab 08/06/16 Rx Atorvastatin Calcium [Lipitor] 20 mg GT HS 09/09/17 History Cholecalciferol (Vit D3) [Vitamin 1,000 iu GT DAILY 09/09/17 History D3] Donepezil Hcl [Aricept] 10 mg GT HS 09/09/17 History Memantine [Namenda] 5 mg GT BID 09/09/17 History Multivitamin [Theragran] 1 tab GT DAILY 09/09/17 History Current Medications Generic Name Dose Route Start Last Admin Trade Name Freq PRN Reason Stop Dose Admin Acetaminophen 650 mg 09/09/17 15:50 Tylenol PO 11/08/17 15:49 Q6H PRN mild pain Al Hydrox/Mg Hydrox/Simethicone 30 ml 09/09/17 15:50 Maalox PO 11/08/17 15:49 Q6H PRN GI DISTRESS Amlodipine Besylate 5 mg 09/10/17 09:00 09/11/17 08:41 Norvasc PO 11/09/17 08:59 5 mg DAILY [facility] Administration Atorvastatin Calcium 20 mg 09/09/17 21:00 09/10/17 21:01 Lipitor GT 11/08/17 20:59 20 mg HS [facility] Administration Protocol Cholecalciferol 1,000 iu 09/10/17 09:00 09/11/17 08:41 Vitamin D3 GT 11/09/17 08:59 1,000 iu DAILY [facility] Administration Donepezil HCl 10 mg 09/09/17 21:00 09/10/17 21:01 Aricept GT 11/08/17 20:59 10 mg HS [facility] Administration Sodium Chloride 1,000 mls @ 75 mls/hr 09/09/17 14:37 09/11/17 13:17 Nacl 0.9% IV 11/08/17 14:36 75 mls/hr .[id number] [facility] Administration Vancomycin HCl 1 gm/ Sodium 250 mls @ 165 mls/hr 09/10/17 14:00 09/11/17 13: 01 Chloride IV 11/09/17 13:59 165 mls/hr Q12H [facility] Administration Piperacillin Sod/Tazobactam 100 mls @ 100 mls/hr 09/11/17 11:00 09/11/17 10: 30 Sod 4.5 gm/ Sodium Chloride IV 11/10/17 10:59 100 mls/hr Q8H [facility] Administration Magnesium Hydroxide 30 ml 09/09/17 15:50 Milk Of Magnesia PO 11/08/17 15:49 HS PRN Constipation Memantine 5 mg 09/09/17 17:00 09/11/17 08:41 Namenda GT 11/08/17 16:59 5 mg BID [facility] Administration Miscellaneous 1 ea 09/10/17 13:45 Vancomycin Iv Per Pharmacy 11/09/17 13:44 PRN [facility] Miscellaneous 1 ea 09/11/17 08:35 Zosyn Iv Per Pharmacy 11/10/17 08:34 PRN PRN PROTOCOL Multivitamins/Vitamin C 1 tab 09/10/17 09:00 09/11/17 08:41 Theragran GT 11/09/17 08:59 1 tab DAILY [facility] Administration Potassium Chloride 20 meq 09/11/17 10:00 09/11/17 10:31 Potassium Chloride Elixir GT 11/10/17 09:59 20 meq DAILY [facility] Administration Review of Systems: A 12 point ROS was reviewed with the pertinent positive and negatives noted in the HPI. Social History Smoking Status Unknown if ever smoked Family Medical History Non significant. Physical Exam: General: Head+ HEENT: Head: normocephalic, atraumatic. Oral cavity moist, pink tongue, Eyes: No pallor, no icterus. Neck: Supple, no JVD, no carotid bruit. Cardio: S1 and S2 WNL. Respiratory: Vesicular breath sounds, no crackles, no wheezing. Abdominal: Soft NT ND BS present ( normoactive). G tube is ok. Genital/Urinary: deferred Extremities: NCCE. Neurological: AAOx3. Assessment: 1. Leukopcytosis, likely reactive 2. [place] 3. Dysphasia. G tube placement. Plan: Continue same treatment. check cortisol level. Signed, Collins Jean M.D. [id number]
[2017-09-11] MEDS: Atorvastatin Calcium 10 MG TAB GT SCH (20:31)
[2017-09-12 01:15] LABS: % BASOPHILS 0.1 % (0.0-2.0); % EOSINOPHILS 0.9 % (0.0-5.0); % LYMPHOCYTES 8.2 % (20.0-50.0); % MONOCYTES 6.5 % (2.0-10.0); % NEUTROPHILS 84.3 % (40.0-80.0); EOSINOPHILE ABSOLUTE 0.1 Th/cmm (0.1-0.4); HEMATOCRIT 39.1 % (41.0-60); LYMPHOCYTE ABSOLUTE 1.2 Th/cmm (1.5-3.0); MEAN CELL VOLUME 88.2 fl (80-99); MEAN CORPUSCULAR HEMOGLOBIN 29.2 pg (27.0-31.0); MEAN CORPUSCULAR HGB CONC 33.2 pg (28.0-36.0); MEAN PLATELET VOLUME 9.8 fl; MONOCYTE ABSOLUTE 0.9 Th/cmm (0.3-1.0); NEUTROPHILE ABSOLUTE 12.3 Th/cmm (1.8-8.0); PLATELET COUNT 323 Th/cmm (150-400); RED BLOOD COUNT 4.44 Mil/cmm (3.80-5.80); RED CELL DISTRIBUTION WIDTH 14.6 % (11.5-20.0)
[2017-09-12 01:24] LABS: WHITE BLOOD COUNT 14.5 Th/cmm (4.8-10.8)
[2017-09-12 01:29] LABS: ALB/GLOB RATIO 1.3 (1.0-1.8); ALBUMIN 3.3 gm/dL (4.2-5.5); ALKALINE PHOSPHATASE 49 U/L (34-104); ANION GAP 11.3 (7.0-16.0); BILIRUBIN,TOTAL 0.5 mg/dL (0.3-1.0); BUN - UREA NITROGEN 25 mg/dL (7-25); CHLORIDE 113 mEq/L (98-107); GFR AFRICAN-AMERICAN > 60.0 ml/min (>90); GFR NON AFRICAN-AMERICAN > 60.0 ml/min; GLUCOSE 156 mg/dL (70-105); POTASSIUM SERUM 3.3 mEq/L (3.5-5.1); SGOT 13 U/L (13-39); SGPT/ALT 10 U/L (7-52); SODIUM SERUM 145 mEq/L (136-145); TOTAL PROTEIN,SERUM 5.9 gm/dL (6.0-8.3)
[2017-09-12] MEDS: Sodium Chloride 0.9% 1,000 ML IV SCH (05:48)
[2017-09-12] MEDS: Multivitamin Tab GT SCH (09:14)
[2017-09-12] MEDS: Potassium Chloride Elixir 20 mEq /15 mL UDC GT SCH (09:16)
--- NOTE | 2017-09-12 10:11 | General Progress Note ---
Subjective - Review of Systems Service Date: 09/12/17 Subjective: Patient is non verbal Objective - Results Result Diagrams: 09/12/17 01:00 09/12/17 01:00 Recent Labs: Laboratory Last Values WBC 14.5 Th/cmm (4.8-10.8) H 09/12/17 01:00 RBC 4.44 Mil/cmm (3.80-5.80) 09/12/17 01:00 Hgb 13.0 gm/dL (12-16) 09/12/17 01:00 Hct 39.1 % (41.0-60) L 09/12/17 01:00 MCV 88.2 fl (80-99) 09/12/17 01:00 MCH 29.2 pg (27.0-31.0) 09/12/17 01:00 MCHC Differential 33.2 pg (28.0-36.0) 09/12/17 01:00 RDW 14.6 % (11.5-20.0) 09/12/17 01:00 Plt Count 323 Th/cmm (150-400) 09/12/17 01:00 MPV 9.8 fl 09/12/17 01:00 Neutrophils % 84.3 % (40.0-80.0) H 09/12/17 01:00 Lymphocytes % 8.2 % (20.0-50.0) L 09/12/17 01:00 Monocytes % 6.5 % (2.0-10.0) 09/12/17 01:00 Eosinophils % 0.9 % (0.0-5.0) 09/12/17 01:00 Basophils % 0.1 % (0.0-2.0) 09/12/17 01:00 PT 10.3 SECONDS (9.5-11.5) 09/09/17 12:30 INR 0.99 (0.5-1.4) 09/09/17 12:30 PTT (Actin FS) 26.3 SECONDS (26.0-38.0) 09/09/17 12:30 Sodium 145 mEq/L (136-145) 09/12/17 01:00 Potassium 3.3 mEq/L (3.5-5.1) L 09/12/17 01:00 Chloride 113 mEq/L (98-107) H 09/12/17 01:00 Carbon Dioxide 24.0 mEq/L (21.0-31.0) 09/12/17 01:00 Anion Gap 11.3 (7.0-16.0) 09/12/17 01:00 BUN 25 mg/dL (7-25) 09/12/17 01:00 Creatinine 1.0 mg/dL (0.7-1.3) 09/12/17 01:00 Est GFR ( Amer) > 60.0 ml/min (>90) 09/12/17 01:00 Est GFR (Non-Af Amer) > 60.0 ml/min 09/12/17 01:00 BUN/Creatinine Ratio 25.0 09/12/17 01:00 Glucose 156 mg/dL (70-105) H 09/12/17 01:00 POC Glucose 132 MG/DL (70 - 105) H 09/10/17 13:16 Calcium 9.0 mg/dL (8.6-10.3) 09/12/17 01:00 Total Bilirubin 0.5 mg/dL (0.3-1.0) 09/12/17 01:00 AST 13 U/L (13-39) 09/12/17 01:00 ALT 10 U/L (7-52) 09/12/17 01:00 Alkaline Phosphatase 49 U/L (34-104) 09/12/17 01:00 Total Protein 5.9 gm/dL (6.0-8.3) L 09/12/17 01:00 Albumin 3.3 gm/dL (4.2-5.5) L 09/12/17 01:00 Globulin 2.6 gm/dL 09/12/17 01:00 Albumin/Globulin Ratio 1.3 (1.0-1.8) 09/12/17 01:00 Urine Source RANDOM 09/10/17 18:00 Urine Color YELLOW 09/10/17 18:00 Urine Clarity TURBID (CLEAR) 09/10/17 18:00 Urine pH 7.0 (4.6 - 8.0) 09/10/17 18:00 Ur Specific [place] 1.020 (1.005-1.030) 09/10/17 18:00 Urine Protein TRACE mg/dL (NEGATIVE) 09/10/17 18:00 Urine Glucose (UA) NEGATIVE mg/dL (NEGATIVE) 09/10/17 18:00 Urine Ketones 15 mg/dL (NEGATIVE) H 09/10/17 18:00 Urine Blood MODERATE (NEGATIVE) H 09/10/17 18:00 Urine Nitrate NEGATIVE (NEGATIVE) 09/10/17 18:00 Urine Bilirubin NEGATIVE (NEGATIVE) 09/10/17 18:00 Urine Urobilinogen 0.2 E.U./dL (0.2 - 1.0) 09/10/17 18:00 Ur Leukocyte Esterase NEGATIVE (NEGATIVE) 09/10/17 18:00 Urine RBC 10-25 /hpf (0-5) H 09/10/17 18:00 Urine WBC 2-5 /hpf (0-5) 09/10/17 18:00 Ur Epithelial Cells FEW /lpf (FEW) 09/10/17 18:00 Urine Bacteria FEW /hpf (NONE SEEN) 09/10/17 18:00 Vancomycin Trough 15.8 ug/mL (5-10) H 09/12/17 01:00 - Physical Exam Vitals and I&O: Vital Signs Temp 98.5 F 09/12/17 08:00 Pulse 60 09/12/17 09:14 Resp 18 09/12/17 08:00 BP 158/65 09/12/17 09:14 Pulse Ox 98 09/12/17 08:00 Intake & Output 09/11/17 09/12/17 09/12/17 18:59 06:59 18:59 Intake Total 18290 Balance 1830 2089 Weight (lbs) 72.393 kg 70.959 kg Intake: Intake, IV Amount 1350 1450 Piperacillin Sodium/ 100 200 Tazobact 4.5 gm In Sodium Chloride 0.9% 100 ml @ 100 mls/hr IV Q8H [facility] Rx# :[id number] Sodium Chloride 0.9% 1, 1000 1000 000 ml @ 75 mls/hr IV . [id number] [facility] Rx#:[id number] Vancomycin HCl 1 gm In 250 250 Sodium Chloride 0.9% 250 ml @ 165 mls/hr IV Q12H [facility] Rx#:[id number] Tube Feeding 480 520 Other 120 Other: # Voids 3 3 # Bowel Movements 0 Weight Source Bedscale Bedscale Active Medications: Current Medications Acetaminophen (Tylenol) 650 mg PO Q6H PRN PRN Reason: mild pain Stop: 11/08/17 15:49 Last Admin: 09/12/17 09:15 Dose: 650 mg Al Hydrox/Mg Hydrox/Simethicone (Maalox) 30 ml PO Q6H PRN PRN Reason: GI DISTRESS Stop: 11/08/17 15:49 Amlodipine Besylate (Norvasc) 5 mg PO DAILY [facility] Stop: 11/09/17 08:59 Last Admin: 09/12/17 09:14 Dose: 5 mg Atorvastatin Calcium (Lipitor) 20 mg GT HS [facility] PRN Reason: Protocol Stop: 11/08/17 20:59 Last Admin: 09/11/17 20:31 Dose: 20 mg Cholecalciferol (Vitamin D3) 1,000 iu GT DAILY [facility] Stop: 11/09/17 08:59 Last Admin: 09/12/17 09:14 Dose: 1,000 iu Donepezil HCl (Aricept) 10 mg GT HS [facility] Stop: 11/08/17 20:59 Last Admin: 09/11/17 20:32 Dose: 10 mg Sodium Chloride (Nacl 0.9%) 1,000 mls @ 75 mls/hr IV .[id number] [facility] Stop: 11/08/17 14:36 Last Admin: 09/12/17 05:48 Dose: 75 mls/hr Vancomycin HCl 1 gm/ Sodium (Chloride) 250 mls @ 165 mls/hr IV Q12H [facility] Stop: 11/09/17 13:59 Last Infusion: 09/12/17 03:26 Dose: Infused Piperacillin Sod/Tazobactam (Sod 4.5 gm/ Sodium Chloride) 100 mls @ 100 mls/hr IV Q8H [facility] Stop: 11/10/17 10:59 Last Infusion: 09/12/17 04:32 Dose: Infused Magnesium Hydroxide (Milk Of Magnesia) 30 ml PO HS PRN PRN Reason: Constipation Stop: 11/08/17 15:49 Memantine (Namenda) 5 mg GT BID [facility] Stop: 11/08/17 16:59 Last Admin: 09/12/17 09:15 Dose: 5 mg Miscellaneous (Vancomycin Iv Per Pharmacy) 1 ea [facility] PRN [facility] Stop: 11/09/17 13:44 Miscellaneous (Zosyn Iv Per Pharmacy) 1 ea PRN PRN PRN Reason: PROTOCOL Stop: 11/10/17 08:34 Multivitamins/Vitamin C (Theragran) 1 tab GT DAILY [facility] Stop: 11/09/17 08:59 Last Admin: 09/12/17 09:14 Dose: 1 tab Potassium Chloride (Potassium Chloride Elixir) 20 meq GT DAILY [facility] Stop: 11/10/17 09:59 Last Admin: 09/12/17 09:16 Dose: 20 meq General: Other (Awake, alert, eyes open, not following verbal commands.) HEENT: Atraumatic Cardiovascular: Regular rate Lungs: Other (Rude respiration) Abdomen: Bowel sounds, Soft, Other (Peg in place. ) Extremities: Other (No edema) Neurological: Other (Non ambulatory) Skin: Other (Warm and dry) Psych/Mental Status: Other (Patient non verbal. ) - Procedures Procedures: Procedures Procedure Code Date EGD PLACE GASTROSTOMY TUBE 46317 09/09/17 INSERTION OF FEEDING DEVICE INTO STOMACH, PERC APPROACH [id number] 09/09/17 Assessment/Plan - Assessment Assessment: Patient is awake, non verbal. WBC decreased today. Dx: Peg displacement, Elevated WBC, DM, Dementia, Schizophrenia, bed bound. - Plan Plan: Peg was replaced yesterday. Zosyn added to treatment, Prognosis not good. Will continue same management. Nutritional Asmnt/Malnutr-PDOC - Dietary Evaluation Malnutrition Findings (Please click <Entered> for more info): Nutritional Asmnt/Malnutrition Start: 09/10/17 16: 17 Text: Status: Complete Freq: Document 09/10/17 16:19 LCHENG (Rec: 09/10/17 16:29 YESENIAG [id number]) Nutritional Asmnt/Malnutrition Patient General Information Nutritional Screening High Risk Diagnosis g-tube placement (reason for visit) Pertinent Medical Hx/Surgical Hx DM, hyperlipidemia, dementia, schizophrenia, PEG/Gtube Subjective Information Pt seen lying in bed at time of visit, non-verbal. Pt has PEG placement today. Current Diet Order/ Nutrition Support fibersource HN start at 40ml/ hr, goal rate 60ml/hr continuous Pertinent Medications vit D3, vancomycin, theragran, nacl 0.9% Pertinent Labs 09/10 glucose 125, alb 4.1 09/09 glucose 129 Nutritional Hx/Data Height 1.68 m Height (Calculated Centimeters) 167.6 Current Weight (lbs) 63.957 kg Weight (Calculated Kilograms) 64.0 Weight (Calculated Grams) 96690.5 [place] Body Weight 142 Body Mass Index (BMI) 22.7 Weight Status Approriate GI Symptoms GI Symptoms None Last BM no record Difficult in: None Skin Integrity/Comment: reddened to coccyx, bruise to hand, rash to back Estimated Nutritional Goals BEE in Kcals: Using Current wt Calories/Kcals/Kg 25-30 Kcals Calculated 8166-1573 Protein: Using Current wt Protein g/k-1.2 Protein Calculated 64-77 Fluid: ml 1600-1920ml (1ml/kcal) Nutritional Problem No current Nutrition Prob Problem N/A Malnutrition Alert Protein-Calorie Malnutrition N/A Is there a minimum of two criteria No selected? Query Text:Check all the applicable criteria. A minimum of two criteria are recommended for diagnosis of either severe or non-severe malnutrition. Intervention/Recommendation Comments 1. Initiate TF as ordered. It provides 1728kcal, 77g protein , 1178ml free water, meeting 100% of nutritional needs. 2. Monitor TF rate, tolerance, wt weekly, skin integrity and labs 3. F/U as high risk in 2-3 days, 09/12-09/13 Expected Outcomes/Goals Expected Outcomes/Goals 1. Pt to meet at least 75% of nutritional needs via nutrition support with tolerance 2. Wt stability, skin to remain intact, labs to approach WNL.
--- NOTE | 2017-09-12 19:24 | Infectious Disease Prog Note ---
Infectious Disease Subjective - Review of Systems Service Date: 09/12/17 Subjective: Doing well. Leukocytosis improving. Infectious Disease Objective - Results Result Diagrams: 09/14/17 05:05 09/14/17 05:05 Recent Labs: Laboratory Last Values WBC 14.5 Th/cmm (4.8-10.8) H 09/12/17 01:00 RBC 4.44 Mil/cmm (3.80-5.80) 09/12/17 01:00 Hgb 13.0 gm/dL (12-16) 09/12/17 01:00 Hct 39.1 % (41.0-60) L 09/12/17 01:00 MCV 88.2 fl (80-99) 09/12/17 01:00 MCH 29.2 pg (27.0-31.0) 09/12/17 01:00 MCHC Differential 33.2 pg (28.0-36.0) 09/12/17 01:00 RDW 14.6 % (11.5-20.0) 09/12/17 01:00 Plt Count 323 Th/cmm (150-400) 09/12/17 01:00 MPV 9.8 fl 09/12/17 01:00 Neutrophils % 84.3 % (40.0-80.0) H 09/12/17 01:00 Lymphocytes % 8.2 % (20.0-50.0) L 09/12/17 01:00 Monocytes % 6.5 % (2.0-10.0) 09/12/17 01:00 Eosinophils % 0.9 % (0.0-5.0) 09/12/17 01:00 Basophils % 0.1 % (0.0-2.0) 09/12/17 01:00 PT 10.3 SECONDS (9.5-11.5) 09/09/17 12:30 INR 0.99 (0.5-1.4) 09/09/17 12:30 PTT (Actin FS) 26.3 SECONDS (26.0-38.0) 09/09/17 12:30 Sodium 145 mEq/L (136-145) 09/12/17 01:00 Potassium 3.3 mEq/L (3.5-5.1) L 09/12/17 01:00 Chloride 113 mEq/L (98-107) H 09/12/17 01:00 Carbon Dioxide 24.0 mEq/L (21.0-31.0) 09/12/17 01:00 Anion Gap 11.3 (7.0-16.0) 09/12/17 01:00 BUN 25 mg/dL (7-25) 09/12/17 01:00 Creatinine 1.0 mg/dL (0.7-1.3) 09/12/17 01:00 Est GFR ( Amer) > 60.0 ml/min (>90) 09/12/17 01:00 Est GFR (Non-Af Amer) > 60.0 ml/min 09/12/17 01:00 BUN/Creatinine Ratio 25.0 09/12/17 01:00 Glucose 156 mg/dL (70-105) H 09/12/17 01:00 POC Glucose 132 MG/DL (70 - 105) H 09/10/17 13:16 Calcium 9.0 mg/dL (8.6-10.3) 09/12/17 01:00 Total Bilirubin 0.5 mg/dL (0.3-1.0) 09/12/17 01:00 AST 13 U/L (13-39) 09/12/17 01:00 ALT 10 U/L (7-52) 09/12/17 01:00 Alkaline Phosphatase 49 U/L (34-104) 09/12/17 01:00 Total Protein 5.9 gm/dL (6.0-8.3) L 09/12/17 01:00 Albumin 3.3 gm/dL (4.2-5.5) L 09/12/17 01:00 Globulin 2.6 gm/dL 09/12/17 01:00 Albumin/Globulin Ratio 1.3 (1.0-1.8) 09/12/17 01:00 Urine Source RANDOM 09/10/17 18:00 Urine Color YELLOW 09/10/17 18:00 Urine Clarity TURBID (CLEAR) 09/10/17 18:00 Urine pH 7.0 (4.6 - 8.0) 09/10/17 18:00 Ur Specific [place] 1.020 (1.005-1.030) 09/10/17 18:00 Urine Protein TRACE mg/dL (NEGATIVE) 09/10/17 18:00 Urine Glucose (UA) NEGATIVE mg/dL (NEGATIVE) 09/10/17 18:00 Urine Ketones 15 mg/dL (NEGATIVE) H 09/10/17 18:00 Urine Blood MODERATE (NEGATIVE) H 09/10/17 18:00 Urine Nitrate NEGATIVE (NEGATIVE) 09/10/17 18:00 Urine Bilirubin NEGATIVE (NEGATIVE) 09/10/17 18:00 Urine Urobilinogen 0.2 E.U./dL (0.2 - 1.0) 09/10/17 18:00 Ur Leukocyte Esterase NEGATIVE (NEGATIVE) 09/10/17 18:00 Urine RBC 10-25 /hpf (0-5) H 09/10/17 18:00 Urine WBC 2-5 /hpf (0-5) 09/10/17 18:00 Ur Epithelial Cells FEW /lpf (FEW) 09/10/17 18:00 Urine Bacteria FEW /hpf (NONE SEEN) 09/10/17 18:00 Vancomycin Trough 15.8 ug/mL (5-10) H 09/12/17 01:00 - Physical Exam Vitals and I&O: Vital Signs Temp 99.0 F 09/12/17 16:00 Pulse 63 09/12/17 16:00 Resp 19 09/12/17 16:00 BP 119/71 09/12/17 16:00 Pulse Ox 98 09/12/17 16:00 Intake & Output 09/12/17 09/12/17 09/13/17 06:59 18:59 06:59 Intake Total 2090 1000 Balance 2090 1000 Weight (lbs) 70.959 kg 70.76 kg Intake: Intake, IV Amount 1450 100 Piperacillin Sodium/ 200 100 Tazobact 4.5 gm In Sodium Chloride 0.9% 100 ml @ 100 mls/hr IV Q8H JOSE RAMON Rx# :[id number] Sodium Chloride 0.9% 1, 1000 000 ml @ 75 mls/hr IV . [id number] JOSE RAMON Rx#:[id number] Vancomycin HCl 1 gm In 250 Sodium Chloride 0.9% 250 ml @ 165 mls/hr IV Q12H JOSE RAMON Rx#:[id number] Tube Feeding 520 600 Other 120 300 Other: # Voids 3 Weight Source Bedscale Bedscale Active Medications: Current Medications Acetaminophen (Tylenol) 650 mg PO Q6H PRN PRN Reason: mild pain Stop: 11/08/17 15:49 Last Admin: 09/12/17 09:15 Dose: 650 mg Al Hydrox/Mg Hydrox/Simethicone (Maalox) 30 ml PO Q6H PRN PRN Reason: GI DISTRESS Stop: 11/08/17 15:49 Amlodipine Besylate (Norvasc) 5 mg PO DAILY JOSE RAMON Stop: 11/09/17 08:59 Last Admin: 09/12/17 09:14 Dose: 5 mg Atorvastatin Calcium (Lipitor) 20 mg GT HS JOSE RAMON PRN Reason: Protocol Stop: 11/08/17 20:59 Last Admin: 09/11/17 20:31 Dose: 20 mg Cholecalciferol (Vitamin D3) 1,000 iu GT DAILY JOSE RAMON Stop: 11/09/17 08:59 Last Admin: 09/12/17 09:14 Dose: 1,000 iu Donepezil HCl (Aricept) 10 mg GT HS JOSE RAMON Stop: 11/08/17 20:59 Last Admin: 09/11/17 20:32 Dose: 10 mg Sodium Chloride (Nacl 0.9%) 1,000 mls @ 75 mls/hr IV .[id number] [facility] Stop: 11/08/17 14:36 Last Admin: 09/12/17 05:48 Dose: 75 mls/hr Vancomycin HCl 1 gm/ Sodium (Chloride) 250 mls @ 165 mls/hr IV Q12H [facility] Stop: 11/09/17 13:59 Last Admin: 09/12/17 13:49 Dose: 165 mls/hr Piperacillin Sod/Tazobactam (Sod 4.5 gm/ Sodium Chloride) 100 mls @ 100 mls/hr IV Q8H JOSE RAMON Stop: 11/10/17 10:59 Last Admin: 09/12/17 18:48 Dose: 100 mls/hr Magnesium Hydroxide (Milk Of Magnesia) 30 ml PO HS PRN PRN Reason: Constipation Stop: 11/08/17 15:49 Memantine (Namenda) 5 mg GT BID JOSE RAMON Stop: 11/08/17 16:59 Last Admin: 09/12/17 17:09 Dose: 5 mg Miscellaneous (Vancomycin Iv Per Pharmacy) 1 ea MC PRN JOSE RAMON Stop: 11/09/17 13:44 Miscellaneous (Zosyn Iv Per Pharmacy) 1 ea MC PRN PRN PRN Reason: PROTOCOL Stop: 11/10/17 08:34 Multivitamins/Vitamin C (Theragran) 1 tab GT DAILY JOSE RAMON Stop: 11/09/17 08:59 Last Admin: 09/12/17 09:14 Dose: 1 tab Potassium Chloride (Potassium Chloride Elixir) 20 meq GT DAILY JOSE RAMON Stop: 11/10/17 09:59 Last Admin: 09/12/17 09:16 Dose: 20 meq General: no acute distress, cachectic HEENT: atraumatic, normocephalic, PERRLA Neck: supple, no thyromegaly Cardiovascular: S1S2, regular Lungs: clear to auscultation bilaterally, clear to percussion Abdomen: soft, other (g tube), no tender, no distended Extremities: no cyanosis, no clubbing, no edema Neurological: awake - Procedures Procedures: Procedures Procedure Code Date EGD PLACE GASTROSTOMY TUBE 41770 09/09/17 INSERTION OF FEEDING DEVICE INTO STOMACH, PERC APPROACH [id number] 09/09/17 Infectious Disease Assmt/Plan - Assessment Assessment: 1. Leukopcytosis, likely reactive 2. Dementia. 3. Dysphasia. G tube placement. - Plan Plan: cpm. Nutritional Asmnt/Malnutr-PDOC - Dietary Evaluation Malnutrition Findings (Please click <Entered> for more info): Nutritional Asmnt/Malnutrition Start: 09/10/17 16: 17 Text: Status: Complete Freq: Document 09/10/17 16:19 LCHENG (Rec: 09/10/17 16:29 LCHENG [id number]) Nutritional Asmnt/Malnutrition Patient General Information Nutritional Screening High Risk Diagnosis g-tube placement (reason for visit) Pertinent Medical Hx/Surgical Hx DM, hyperlipidemia, dementia, schizophrenia, PEG/Gtube Subjective Information Pt seen lying in bed at time of visit, non-verbal. Pt has PEG placement today. Current Diet Order/ Nutrition Support fibersource HN start at 40ml/ hr, goal rate 60ml/hr continuous Pertinent Medications vit D3, vancomycin, theragran, nacl 0.9% Pertinent Labs 09/10 glucose 125, alb 4.1 09/09 glucose 129 Nutritional Hx/Data Height 1.68 m Height (Calculated Centimeters) 167.6 Current Weight (lbs) 63.957 kg Weight (Calculated Kilograms) 64.0 Weight (Calculated Grams) 61172.5 [place] Body Weight 142 Body Mass Index (BMI) 22.7 Weight Status Approriate GI Symptoms GI Symptoms None Last BM no record Difficult in: None Skin Integrity/Comment: reddened to coccyx, bruise to hand, rash to back Estimated Nutritional Goals BEE in Kcals: Using Current wt Calories/Kcals/Kg 25-30 Kcals Calculated 8232-6746 Protein: Using Current wt Protein g/k-1.2 Protein Calculated 64-77 Fluid: ml 1600-1920ml (1ml/kcal) Nutritional Problem No current Nutrition Prob Problem N/A Malnutrition Alert Protein-Calorie Malnutrition N/A Is there a minimum of two criteria No selected? Query Text:Check all the applicable criteria. A minimum of two criteria are recommended for diagnosis of either severe or non-severe malnutrition. Intervention/Recommendation Comments 1. Initiate TF as ordered. It provides 1728kcal, 77g protein , 1178ml free water, meeting 100% of nutritional needs. 2. Monitor TF rate, tolerance, wt weekly, skin integrity and labs 3. F/U as high risk in 2-3 days, 09/12-09/13 Expected Outcomes/Goals Expected Outcomes/Goals 1. Pt to meet at least 75% of nutritional needs via nutrition support with tolerance 2. Wt stability, skin to remain intact, labs to approach WNL.
[2017-09-12] MEDS: Atorvastatin Calcium 10 MG TAB GT SCH (21:15)
[2017-09-13 05:54] LABS: % BASOPHILS 3.7 % (0.0-2.0); % LYMPHOCYTES 8.5 % (20.0-50.0); % NEUTROPHILS 78.8 % (40.0-80.0); BASOPHILE ABSOLUTE 0.6 Th/cumm (0-0.2); EOSINOPHILE ABSOLUTE 0.2 Th/cmm (0.1-0.4); HEMATOCRIT 40.9 % (41.0-60); HEMOGLOBIN 13.4 gm/dL (12-16); LYMPHOCYTE ABSOLUTE 1.4 Th/cmm (1.5-3.0); MEAN CELL VOLUME 88.1 fl (80-99); MEAN CORPUSCULAR HEMOGLOBIN 28.9 pg (27.0-31.0); MEAN CORPUSCULAR HGB CONC 32.8 pg (28.0-36.0); MEAN PLATELET VOLUME 10.8 fl; MONOCYTE ABSOLUTE 1.3 Th/cmm (0.3-1.0); NEUTROPHILE ABSOLUTE 12.9 Th/cmm (1.8-8.0); PLATELET COUNT 350 Th/cmm (150-400); RED BLOOD COUNT 4.64 Mil/cmm (3.80-5.80); RED CELL DISTRIBUTION WIDTH 14.8 % (11.5-20.0)
[2017-09-13 06:02] LABS: WHITE BLOOD COUNT 16.4 Th/cmm (4.8-10.8)
[2017-09-13 06:16] LABS: ALB/GLOB RATIO 1.2 (1.0-1.8); ALBUMIN 3.6 gm/dL (4.2-5.5); ALKALINE PHOSPHATASE 50 U/L (34-104); ANION GAP 12.3 (7.0-16.0); BILIRUBIN,TOTAL 0.5 mg/dL (0.3-1.0); BUN - UREA NITROGEN 26 mg/dL (7-25); CALCIUM SERUM 9.1 mg/dL (8.6-10.3); CARBON DIOXIDE 24.1 mEq/L (21.0-31.0); CHLORIDE 117 mEq/L (98-107); CREATININE - SERUM 1.2 mg/dL (0.7-1.3); GFR AFRICAN-AMERICAN > 60.0 ml/min (>90); GFR NON AFRICAN-AMERICAN > 60.0 ml/min; GLUCOSE 146 mg/dL (70-105); POTASSIUM SERUM 3.4 mEq/L (3.5-5.1); SGOT 12 U/L (13-39); SGPT/ALT 11 U/L (7-52); SODIUM SERUM 150 mEq/L (136-145); TOTAL PROTEIN,SERUM 6.5 gm/dL (6.0-8.3)
[2017-09-13] MEDS ORDERED: Probiotic Screen MC PRN (09:00)
[2017-09-13] MEDS: Lactobacillus Rhamnosus GG 15 Billion CFU CAP.SPRINK PO SCH (09:31)
[2017-09-13] MEDS: Multivitamin Tab GT SCH (09:31)
[2017-09-13] MEDS: Potassium Chloride Elixir 20 mEq /15 mL UDC GT SCH (09:32)
[2017-09-13] MEDS ORDERED: D5-0.9%NS 1,000 ML IV SCH (11:00)
--- NOTE | 2017-09-13 11:05 | General Progress Note ---
Subjective - Review of Systems Service Date: 09/13/17 Subjective: Patient is non verbal Objective - Results Result Diagrams: 09/13/17 05:15 09/13/17 05:15 Recent Labs: Laboratory Last Values WBC 16.4 Th/cmm (4.8-10.8) H 09/13/17 05:15 RBC 4.64 Mil/cmm (3.80-5.80) 09/13/17 05:15 Hgb 13.4 gm/dL (12-16) 09/13/17 05:15 Hct 40.9 % (41.0-60) L 09/13/17 05:15 MCV 88.1 fl (80-99) 09/13/17 05:15 MCH 28.9 pg (27.0-31.0) 09/13/17 05:15 MCHC Differential 32.8 pg (28.0-36.0) 09/13/17 05:15 RDW 14.8 % (11.5-20.0) 09/13/17 05:15 Plt Count 350 Th/cmm (150-400) 09/13/17 05:15 MPV 10.8 fl 09/13/17 05:15 Neutrophils % 78.8 % (40.0-80.0) 09/13/17 05:15 Lymphocytes % 8.5 % (20.0-50.0) L 09/13/17 05:15 Monocytes % 8.0 % (2.0-10.0) 09/13/17 05:15 Eosinophils % 1.0 % (0.0-5.0) 09/13/17 05:15 Basophils % 3.7 % (0.0-2.0) H 09/13/17 05:15 PT 10.3 SECONDS (9.5-11.5) 09/09/17 12:30 INR 0.99 (0.5-1.4) 09/09/17 12:30 PTT (Actin FS) 26.3 SECONDS (26.0-38.0) 09/09/17 12:30 Sodium 150 mEq/L (136-145) H 09/13/17 05:15 Potassium 3.4 mEq/L (3.5-5.1) L 09/13/17 05:15 Chloride 117 mEq/L (98-107) H 09/13/17 05:15 Carbon Dioxide 24.1 mEq/L (21.0-31.0) 09/13/17 05:15 Anion Gap 12.3 (7.0-16.0) 09/13/17 05:15 BUN 26 mg/dL (7-25) H 09/13/17 05:15 Creatinine 1.2 mg/dL (0.7-1.3) 09/13/17 05:15 Est GFR ( Amer) > 60.0 ml/min (>90) 09/13/17 05:15 Est GFR (Non-Af Amer) > 60.0 ml/min 09/13/17 05:15 BUN/Creatinine Ratio 21.7 09/13/17 05:15 Glucose 146 mg/dL (70-105) H 09/13/17 05:15 POC Glucose 132 MG/DL (70 - 105) H 09/10/17 13:16 Calcium 9.1 mg/dL (8.6-10.3) 09/13/17 05:15 Total Bilirubin 0.5 mg/dL (0.3-1.0) 09/13/17 05:15 AST 12 U/L (13-39) L 09/13/17 05:15 ALT 11 U/L (7-52) 09/13/17 05:15 Alkaline Phosphatase 50 U/L (34-104) 09/13/17 05:15 B-Natriuretic Peptide 166.0 pg/mL (5.0-100.0) H 09/13/17 05:15 Total Protein 6.5 gm/dL (6.0-8.3) 09/13/17 05:15 Albumin 3.6 gm/dL (4.2-5.5) L 09/13/17 05:15 Globulin 2.9 gm/dL 09/13/17 05:15 Albumin/Globulin Ratio 1.2 (1.0-1.8) 09/13/17 05:15 Urine Source RANDOM 09/10/17 18:00 Urine Color YELLOW 09/10/17 18:00 Urine Clarity TURBID (CLEAR) 09/10/17 18:00 Urine pH 7.0 (4.6 - 8.0) 09/10/17 18:00 Ur Specific [place] 1.020 (1.005-1.030) 09/10/17 18:00 Urine Protein TRACE mg/dL (NEGATIVE) 09/10/17 18:00 Urine Glucose (UA) NEGATIVE mg/dL (NEGATIVE) 09/10/17 18:00 Urine Ketones 15 mg/dL (NEGATIVE) H 09/10/17 18:00 Urine Blood MODERATE (NEGATIVE) H 09/10/17 18:00 Urine Nitrate NEGATIVE (NEGATIVE) 09/10/17 18:00 Urine Bilirubin NEGATIVE (NEGATIVE) 09/10/17 18:00 Urine Urobilinogen 0.2 E.U./dL (0.2 - 1.0) 09/10/17 18:00 Ur Leukocyte Esterase NEGATIVE (NEGATIVE) 09/10/17 18:00 Urine RBC 10-25 /hpf (0-5) H 09/10/17 18:00 Urine WBC 2-5 /hpf (0-5) 09/10/17 18:00 Ur Epithelial Cells FEW /lpf (FEW) 09/10/17 18:00 Urine Bacteria FEW /hpf (NONE SEEN) 09/10/17 18:00 Vancomycin Trough 15.8 ug/mL (5-10) H 09/12/17 01:00 - Physical Exam Vitals and I&O: Vital Signs Temp 99.3 F 09/13/17 04:00 Pulse 85 09/13/17 09:31 Resp 24 09/13/17 07:42 BP 151/86 09/13/17 09:31 Pulse Ox 94 09/13/17 07:42 Intake & Output 09/12/17 09/13/17 09/13/17 18:59 06:59 18:59 Intake Total 1250 200 Balance 1250 200 Weight (lbs) 70.76 kg 73.255 kg Intake: Intake, IV Amount 350 200 Piperacillin Sodium/ 100 200 Tazobact 4.5 gm In Sodium Chloride 0.9% 100 ml @ 100 mls/hr IV Q8H [facility] RAMON Rx# :[id number] Vancomycin HCl 1 gm In 250 Sodium Chloride 0.9% 250 ml @ 165 mls/hr IV Q12H JOSE RAMON Rx#:[id number] Tube Feeding 600 Other 300 Other: # Voids 3 # Bowel Movements 0 Weight Source Bedscale Bedscale Active Medications: Current Medications Acetaminophen (Tylenol) 650 mg PO Q6H PRN PRN Reason: mild pain Stop: 06/10/18 15:49 Last Admin: 09/12/17 09:15 Dose: 650 mg Acetaminophen (Tylenol) 650 mg PO Q6H PRN PRN Reason: Fever > 101 Stop: 11/11/17 20:45 Last Admin: 09/12/17 21:16 Dose: 650 mg Al Hydrox/Mg Hydrox/Simethicone (Maalox) 30 ml PO Q6H PRN PRN Reason: GI DISTRESS Stop: 11/08/17 15:49 Amlodipine Besylate (Norvasc) 5 mg PO DAILY JO[facility] RAMON Stop: 11/09/17 08:59 Last Admin: 09/13/17 09:31 Dose: 5 mg Atorvastatin Calcium (Lipitor) 20 mg GT HS JOSE RAMON PRN Reason: Protocol Stop: 11/08/17 20:59 Last Admin: 09/12/17 21:15 Dose: 20 mg Cholecalciferol (Vitamin D3) 1,000 iu GT DAILY JOSE RAMON Stop: 11/09/17 08:59 Last Admin: 09/13/17 09:32 Dose: 1,000 iu Donepezil HCl (Aricept) 10 mg GT HS JOSE RAMON Stop: 11/08/17 20:59 Last Admin: 09/12/17 21:16 Dose: 10 mg Vancomycin HCl 1 gm/ Sodium (Chloride) 250 mls @ 165 mls/hr IV Q12H [facility] RAMON Stop: 11/09/17 13:59 Last Admin: 09/13/17 01:10 Dose: 165 mls/hr Piperacillin Sod/Tazobactam (Sod 4.5 gm/ Sodium Chloride) 100 mls @ 100 mls/hr IV Q8H JOSE RAMON Stop: 11/10/17 10:59 Last Admin: 09/13/17 10:18 Dose: 100 mls/hr Dextrose/Sodium Chloride (D5-0.9%Ns) 1,000 mls @ 75 mls/hr IV .[id number] JOSE RAMON Stop: 11/12/17 10:59 Insulin Aspart (Novolog Insulin Sliding Scale) 0 units SUBQ ACHS JOSE RAMON PRN Reason: Protocol Stop: 11/12/17 11:29 Lactobacillus Rhamnosus (Culturelle 15b) 1 each PO DAILY JOSE RAMON Stop: 11/12/17 08:59 Last Admin: 09/13/17 09:31 Dose: 1 each Magnesium Hydroxide (Milk Of Magnesia) 30 ml PO HS PRN PRN Reason: Constipation Stop: 06/10/18 15:49 Memantine (Namenda) 5 mg GT BID JOSE RAMON Stop: 11/08/17 16:59 Last Admin: 09/13/17 09:32 Dose: 5 mg Miscellaneous (Vancomycin Iv Per Pharmacy) 1 ea MC PRN JOSE RAMON Stop: 11/09/17 13:44 Miscellaneous (Zosyn Iv Per Pharmacy) 1 ea PRN PRN PRN Reason: PROTOCOL Stop: 11/10/17 08:34 Miscellaneous (Probiotic Screen) 1 ea PRN PRN PRN Reason: PROTOCOL Stop: 11/12/17 08:59 Multivitamins/Vitamin C (Theragran) 1 tab GT DAILY JOSE RAMON Stop: 11/09/17 08:59 Last Admin: 09/13/17 09:31 Dose: 1 tab Potassium Chloride (Potassium Chloride Elixir) 20 meq GT DAILY JOSE RAMON Stop: 11/10/17 09:59 Last Admin: 09/13/17 09:32 Dose: 20 meq General: Other (Awake, alert, eyes open, not following verbal commands.) HEENT: Atraumatic Cardiovascular: Regular rate Lungs: Other (Rude respiration) Abdomen: Bowel sounds, Soft, Other (Peg in place. ) Extremities: Other (No edema) Neurological: Other (Non ambulatory) Skin: Other (Warm and dry) Psych/Mental Status: Other (Patient non verbal. ) - Procedures Procedures: Procedures Procedure Code Date EGD PLACE GASTROSTOMY TUBE 00242 09/09/17 INSERTION OF FEEDING DEVICE INTO STOMACH, PERC APPROACH [id number] 09/09/17 Assessment/Plan - Assessment Assessment: Patient is awake, non verbal. WBC increased today. Dx: Peg displacement, Elevated WBC, DM, Dementia, Schizophrenia, bed bound. - Plan Plan: Peg was replaced. Patient not responding to treatment. Prognosis not good. LTAC eval is requested. Will continue same management. Nutritional Asmnt/Malnutr-PDOC - Dietary Evaluation Malnutrition Findings (Please click <Entered> for more info): Nutritional Asmnt/Malnutrition Start: 09/10/17 16: 17 Text: Status: Complete Freq: Document 09/10/17 16:19 YESENIA (Rec: 09/10/17 16:29 YESENIA [id number]) Nutritional Asmnt/Malnutrition Patient General Information Nutritional Screening High Risk Diagnosis g-tube placement (reason for visit) Pertinent Medical Hx/Surgical Hx DM, hyperlipidemia, dementia, schizophrenia, PEG/Gtube Subjective Information Pt seen lying in bed at time of visit, non-verbal. Pt has PEG placement today. Current Diet Order/ Nutrition Support fibersource HN start at 40ml/ hr, goal rate 60ml/hr continuous Pertinent Medications vit D3, vancomycin, theragran, nacl 0.9% Pertinent Labs 09/10 glucose 125, alb 4.1 09/09 glucose 129 Nutritional Hx/Data Height 1.68 m Height (Calculated Centimeters) 167.6 Current Weight (lbs) 63.957 kg Weight (Calculated Kilograms) 64.0 Weight (Calculated Grams) 77830.5 [place] Body Weight 142 Body Mass Index (BMI) 22.7 Weight Status Approriate GI Symptoms GI Symptoms None Last BM no record Difficult in: None Skin Integrity/Comment: reddened to coccyx, bruise to hand, rash to back Estimated Nutritional Goals BEE in Kcals: Using Current wt Calories/Kcals/Kg 25-30 Kcals Calculated 4251-0220 Protein: Using Current wt Protein g/k-1.2 Protein Calculated 64-77 Fluid: ml 1600-1920ml (1ml/kcal) Nutritional Problem No current Nutrition Prob Problem N/A Malnutrition Alert Protein-Calorie Malnutrition N/A Is there a minimum of two criteria No selected? Query Text:Check all the applicable criteria. A minimum of two criteria are recommended for diagnosis of either severe or non-severe malnutrition. Intervention/Recommendation Comments 1. Initiate TF as ordered. It provides 1728kcal, 77g protein , 1178ml free water, meeting 100% of nutritional needs. 2. Monitor TF rate, tolerance, wt weekly, skin integrity and labs 3. F/U as high risk in 2-3 days, 09/12-09/13 Expected Outcomes/Goals Expected Outcomes/Goals 1. Pt to meet at least 75% of nutritional needs via nutrition support with tolerance 2. Wt stability, skin to remain intact, labs to approach WNL.
[2017-09-13] MEDS: INSULIN ASPART SLIDING SCALE 100 UNITS/ML UNIT SUBQ SCH ×3 (12:25→21:04)
[2017-09-13] MEDS: Atorvastatin Calcium 10 MG TAB GT SCH (20:42)
--- NOTE | 2017-09-13 23:34 | Infectious Disease Prog Note ---
Infectious Disease Subjective - Review of Systems Service Date: 09/13/17 Subjective: Doing well. Leukocytosis improving. Infectious Disease Objective - Results Result Diagrams: 09/14/17 05:05 09/14/17 05:05 Recent Labs: Laboratory Last Values WBC 16.4 Th/cmm (4.8-10.8) H 09/13/17 05:15 RBC 4.64 Mil/cmm (3.80-5.80) 09/13/17 05:15 Hgb 13.4 gm/dL (12-16) 09/13/17 05:15 Hct 40.9 % (41.0-60) L 09/13/17 05:15 MCV 88.1 fl (80-99) 09/13/17 05:15 MCH 28.9 pg (27.0-31.0) 09/13/17 05:15 MCHC Differential 32.8 pg (28.0-36.0) 09/13/17 05:15 RDW 14.8 % (11.5-20.0) 09/13/17 05:15 Plt Count 350 Th/cmm (150-400) 09/13/17 05:15 MPV 10.8 fl 09/13/17 05:15 Neutrophils % 78.8 % (40.0-80.0) 09/13/17 05:15 Lymphocytes % 8.5 % (20.0-50.0) L 09/13/17 05:15 Monocytes % 8.0 % (2.0-10.0) 09/13/17 05:15 Eosinophils % 1.0 % (0.0-5.0) 09/13/17 05:15 Basophils % 3.7 % (0.0-2.0) H 09/13/17 05:15 PT 10.3 SECONDS (9.5-11.5) 09/09/17 12:30 INR 0.99 (0.5-1.4) 09/09/17 12:30 PTT (Actin FS) 26.3 SECONDS (26.0-38.0) 09/09/17 12:30 Sodium 150 mEq/L (136-145) H 09/13/17 05:15 Potassium 3.4 mEq/L (3.5-5.1) L 09/13/17 05:15 Chloride 117 mEq/L (98-107) H 09/13/17 05:15 Carbon Dioxide 24.1 mEq/L (21.0-31.0) 09/13/17 05:15 Anion Gap 12.3 (7.0-16.0) 09/13/17 05:15 BUN 26 mg/dL (7-25) H 09/13/17 05:15 Creatinine 1.2 mg/dL (0.7-1.3) 09/13/17 05:15 Est GFR ( Amer) > 60.0 ml/min (>90) 09/13/17 05:15 Est GFR (Non-Af Amer) > 60.0 ml/min 09/13/17 05:15 BUN/Creatinine Ratio 21.7 09/13/17 05:15 Glucose 146 mg/dL (70-105) H 09/13/17 05:15 POC Glucose 131 MG/DL (70 - 105) H 09/13/17 20:48 Calcium 9.1 mg/dL (8.6-10.3) 09/13/17 05:15 Total Bilirubin 0.5 mg/dL (0.3-1.0) 09/13/17 05:15 AST 12 U/L (13-39) L 09/13/17 05:15 ALT 11 U/L (7-52) 09/13/17 05:15 Alkaline Phosphatase 50 U/L (34-104) 09/13/17 05:15 B-Natriuretic Peptide 166.0 pg/mL (5.0-100.0) H 09/13/17 05:15 Total Protein 6.5 gm/dL (6.0-8.3) 09/13/17 05:15 Albumin 3.6 gm/dL (4.2-5.5) L 09/13/17 05:15 Globulin 2.9 gm/dL 09/13/17 05:15 Albumin/Globulin Ratio 1.2 (1.0-1.8) 09/13/17 05:15 Urine Source RANDOM 09/10/17 18:00 Urine Color YELLOW 09/10/17 18:00 Urine Clarity TURBID (CLEAR) 09/10/17 18:00 Urine pH 7.0 (4.6 - 8.0) 09/10/17 18:00 Ur Specific [place] 1.020 (1.005-1.030) 09/10/17 18:00 Urine Protein TRACE mg/dL (NEGATIVE) 09/10/17 18:00 Urine Glucose (UA) NEGATIVE mg/dL (NEGATIVE) 09/10/17 18:00 Urine Ketones 15 mg/dL (NEGATIVE) H 09/10/17 18:00 Urine Blood MODERATE (NEGATIVE) H 09/10/17 18:00 Urine Nitrate NEGATIVE (NEGATIVE) 09/10/17 18:00 Urine Bilirubin NEGATIVE (NEGATIVE) 09/10/17 18:00 Urine Urobilinogen 0.2 E.U./dL (0.2 - 1.0) 09/10/17 18:00 Ur Leukocyte Esterase NEGATIVE (NEGATIVE) 09/10/17 18:00 Urine RBC 10-25 /hpf (0-5) H 09/10/17 18:00 Urine WBC 2-5 /hpf (0-5) 09/10/17 18:00 Ur Epithelial Cells FEW /lpf (FEW) 09/10/17 18:00 Urine Bacteria FEW /hpf (NONE SEEN) 09/10/17 18:00 Vancomycin Trough 15.8 ug/mL (5-10) H 09/12/17 01:00 - Physical Exam Vitals and I&O: Vital Signs Temp 99.5 F 09/13/17 20:00 Pulse 90 09/13/17 20:00 Resp 19 09/13/17 20:00 BP 149/89 09/13/17 20:00 Pulse Ox 94 09/13/17 20:00 Intake & Output 09/13/17 09/13/17 09/14/17 06:59 18:59 06:59 Intake Total 450 820 Balance 450 820 Weight (lbs) 73.255 kg 73.255 kg Intake: Intake, IV Amount 450 100 Piperacillin Sodium/ 200 100 Tazobact 4.5 gm In Sodium Chloride 0.9% 100 ml @ 100 mls/hr IV Q8H [facility] Rx# :[id number] Vancomycin HCl 1 gm In 250 Sodium Chloride 0.9% 250 ml @ 165 mls/hr IV Q12H [facility] Rx#:[id number] Tube Feeding 720 Other: # Voids 3 4 # Bowel Movements 0 Weight Source Bedscale Bedscale Active Medications: Current Medications Acetaminophen (Tylenol) 650 mg PO Q6H PRN PRN Reason: mild pain Stop: 11/08/17 15:49 Last Admin: 09/12/17 09:15 Dose: 650 mg Acetaminophen (Tylenol) 650 mg PO Q6H PRN PRN Reason: Fever > 101 Stop: 11/11/17 20:45 Last Admin: 09/12/17 21:16 Dose: 650 mg Al Hydrox/Mg Hydrox/Simethicone (Maalox) 30 ml PO Q6H PRN PRN Reason: GI DISTRESS Stop: 11/08/17 15:49 Amlodipine Besylate (Norvasc) 5 mg PO DAILY [facility] Stop: 11/09/17 08:59 Last Admin: 09/13/17 09:31 Dose: 5 mg Atorvastatin Calcium (Lipitor) 20 mg GT HS [facility] PRN Reason: Protocol Stop: 11/08/17 20:59 Last Admin: 09/13/17 20:42 Dose: 20 mg Cholecalciferol (Vitamin D3) 1,000 iu GT DAILY [facility] Stop: 11/09/17 08:59 Last Admin: 09/13/17 09:32 Dose: 1,000 iu Donepezil HCl (Aricept) 10 mg GT HS [facility] Stop: 11/08/17 20:59 Last Admin: 09/13/17 20:42 Dose: 10 mg Vancomycin HCl 1 gm/ Sodium (Chloride) 250 mls @ 165 mls/hr IV Q12H [facility] Stop: 11/09/17 13:59 Last Admin: 09/13/17 13:10 Dose: 165 mls/hr Piperacillin Sod/Tazobactam (Sod 4.5 gm/ Sodium Chloride) 100 mls @ 100 mls/hr IV Q8H [facility] Stop: 11/10/17 10:59 Last Admin: 09/13/17 18:32 Dose: 100 mls/hr Dextrose/Sodium Chloride (D5-0.9%Ns) 1,000 mls @ 75 mls/hr IV .[id number] [facility] Stop: 11/12/17 10:59 Last Admin: 09/13/17 13:11 Dose: 75 mls/hr Insulin Aspart (Novolog Insulin Sliding Scale) 0 units SUBQ ACHS [facility] PRN Reason: Protocol Stop: 11/12/17 11:29 Last Admin: 09/13/17 21:04 Dose: Not Given Lactobacillus Rhamnosus (Culturelle 15b) 1 each PO DAILY [facility] Stop: 11/12/17 08:59 Last Admin: 09/13/17 09:31 Dose: 1 each Magnesium Hydroxide (Milk Of Magnesia) 30 ml PO HS PRN PRN Reason: Constipation Stop: 11/08/17 15:49 Memantine (Namenda) 5 mg GT BID [facility] Stop: 11/08/17 16:59 Last Admin: 09/13/17 17:56 Dose: 5 mg Miscellaneous (Vancomycin Iv Per Pharmacy) 1 ea MC PRN [facility] Stop: 11/09/17 13:44 Miscellaneous (Zosyn Iv Per Pharmacy) 1 ea PRN PRN PRN Reason: PROTOCOL Stop: 11/10/17 08:34 Miscellaneous (Probiotic Screen) 1 ea PRN PRN PRN Reason: PROTOCOL Stop: 11/12/17 08:59 Multivitamins/Vitamin C (Theragran) 1 tab GT DAILY [facility] Stop: 11/09/17 08:59 Last Admin: 09/13/17 09:31 Dose: 1 tab Potassium Chloride (Potassium Chloride Elixir) 20 meq GT DAILY [facility] Stop: 11/10/17 09:59 Last Admin: 09/13/17 09:32 Dose: 20 meq General: no acute distress, well developed, well nourished HEENT: atraumatic, normocephalic, PERRLA Neck: supple, no thyromegaly Cardiovascular: S1S2, regular Lungs: clear to auscultation bilaterally, clear to percussion Abdomen: soft, other (G tube.), no tender, no distended, no rebound Extremities: no cyanosis, no clubbing, no edema Neurological: other (open eyes.) - Procedures Procedures: Procedures Procedure Code Date EGD PLACE GASTROSTOMY TUBE 37477 09/09/17 INSERTION OF FEEDING DEVICE INTO STOMACH, PERC APPROACH [id number] 09/09/17 Infectious Disease Assmt/Plan - Assessment Assessment: 1. Leukopcytosis, likely reactive 2. [place] 3. Dysphasia. G tube placement. - Plan Plan: cpm. Nutritional Asmnt/Malnutr-PDOC - Dietary Evaluation Malnutrition Findings (Please click <Entered> for more info): Nutritional Asmnt/Malnutrition Start: 09/10/17 16: 17 Text: Status: Complete Freq: Document 09/10/17 16:19 LCHENG (Rec: 09/10/17 16:29 [email or web address]) Nutritional Asmnt/Malnutrition Patient General Information Nutritional Screening High Risk Diagnosis g-tube placement (reason for visit) Pertinent Medical Hx/Surgical Hx DM, hyperlipidemia, dementia, schizophrenia, PEG/Gtube Subjective Information Pt seen lying in bed at time of visit, non-verbal. Pt has PEG placement today. Current Diet Order/ Nutrition Support fibersource HN start at 40ml/ hr, goal rate 60ml/hr continuous Pertinent Medications vit D3, vancomycin, theragran, nacl 0.9% Pertinent Labs 09/10 glucose 125, alb 4.1 09/09 glucose 129 Nutritional Hx/Data Height 1.68 m Height (Calculated Centimeters) 167.6 Current Weight (lbs) 63.957 kg Weight (Calculated Kilograms) 64.0 Weight (Calculated Grams) 34010.5 [place] Body Weight 142 Body Mass Index (BMI) 22.7 Weight Status Approriate GI Symptoms GI Symptoms None Last BM no record Difficult in: None Skin Integrity/Comment: reddened to coccyx, bruise to hand, rash to back Estimated Nutritional Goals BEE in Kcals: Using Current wt Calories/Kcals/Kg 25-30 Kcals Calculated 4854-5450 Protein: Using Current wt Protein g/k-1.2 Protein Calculated 64-77 Fluid: ml 1600-1920ml (1ml/kcal) Nutritional Problem No current Nutrition Prob Problem N/A Malnutrition Alert Protein-Calorie Malnutrition N/A Is there a minimum of two criteria No selected? Query Text:Check all the applicable criteria. A minimum of two criteria are recommended for diagnosis of either severe or non-severe malnutrition. Intervention/Recommendation Comments 1. Initiate TF as ordered. It provides 1728kcal, 77g protein , 1178ml free water, meeting 100% of nutritional needs. 2. Monitor TF rate, tolerance, wt weekly, skin integrity and labs 3. F/U as high risk in 2-3 days, 09/12-09/13 Expected Outcomes/Goals Expected Outcomes/Goals 1. Pt to meet at least 75% of nutritional needs via nutrition support with tolerance 2. Wt stability, skin to remain intact, labs to approach WNL.
[2017-09-14 05:31] LABS: % BASOPHILS 0.2 % (0.0-2.0); % LYMPHOCYTES 7.1 % (20.0-50.0); % NEUTROPHILS 82.7 % (40.0-80.0); EOSINOPHILE ABSOLUTE 0.3 Th/cmm (0.1-0.4); HEMATOCRIT 41.6 % (41.0-60); HEMOGLOBIN 13.6 gm/dL (12-16); LYMPHOCYTE ABSOLUTE 1.2 Th/cmm (1.5-3.0); MEAN CELL VOLUME 88.4 fl (80-99); MEAN CORPUSCULAR HGB CONC 32.8 pg (28.0-36.0); MEAN PLATELET VOLUME 10.2 fl; MONOCYTE ABSOLUTE 1.4 Th/cmm (0.3-1.0); NEUTROPHILE ABSOLUTE 14.1 Th/cmm (1.8-8.0); PLATELET COUNT 306 Th/cmm (150-400); RED BLOOD COUNT 4.71 Mil/cmm (3.80-5.80); RED CELL DISTRIBUTION WIDTH 15.2 % (11.5-20.0)
[2017-09-14 05:54] LABS: ALB/GLOB RATIO 1.2 (1.0-1.8); ALBUMIN 3.6 gm/dL (4.2-5.5); ALKALINE PHOSPHATASE 47 U/L (34-104); ANION GAP 12.9 (7.0-16.0); BILIRUBIN,TOTAL 0.6 mg/dL (0.3-1.0); BUN - UREA NITROGEN 28 mg/dL (7-25); CALCIUM SERUM 9.2 mg/dL (8.6-10.3); CARBON DIOXIDE 25.5 mEq/L (21.0-31.0); CHLORIDE 117 mEq/L (98-107); CREATININE - SERUM 1.3 mg/dL (0.7-1.3); GFR AFRICAN-AMERICAN > 60.0 ml/min (>90); GLUCOSE 153 mg/dL (70-105); POTASSIUM SERUM 3.4 mEq/L (3.5-5.1); SGOT 13 U/L (13-39); SGPT/ALT 14 U/L (7-52); SODIUM SERUM 152 mEq/L (136-145); TOTAL PROTEIN,SERUM 6.5 gm/dL (6.0-8.3)
[2017-09-14] MEDS: INSULIN ASPART SLIDING SCALE 100 UNITS/ML UNIT SUBQ SCH ×4 (06:45→20:37)
--- NOTE | 2017-09-14 07:41 | Diagnostic Imaging Report ---
CHEST X-RAY: AP view INDICATION: Pneumonia COMPARISON: 09/10/2017 FINDINGS: Skinfolds are noted. Increased left basal lung markings are noted. Patient is rotated. No pleural effusions. Heart size is normal. IMPRESSION: Limited exam due to positioning. Increased left basal lung markings are probably due to atelectatic changes. Faint infiltrate is considered less likely.
--- NOTE | 2017-09-14 08:58 | General Progress Note ---
Subjective - Review of Systems Service Date: 09/14/17 Subjective: Patient is non verbal Objective - Results Result Diagrams: 09/14/17 05:05 09/14/17 05:05 Recent Labs: Laboratory Last Values WBC 17.0 Th/cmm (4.8-10.8) H 09/14/17 05:05 RBC 4.71 Mil/cmm (3.80-5.80) 09/14/17 05:05 Hgb 13.6 gm/dL (12-16) 09/14/17 05:05 Hct 41.6 % (41.0-60) 09/14/17 05:05 MCV 88.4 fl (80-99) 09/14/17 05:05 MCH 29.0 pg (27.0-31.0) 09/14/17 05:05 MCHC Differential 32.8 pg (28.0-36.0) 09/14/17 05:05 RDW 15.2 % (11.5-20.0) 09/14/17 05:05 Plt Count 306 Th/cmm (150-400) 09/14/17 05:05 MPV 10.2 fl 09/14/17 05:05 Neutrophils % 82.7 % (40.0-80.0) H 09/14/17 05:05 Lymphocytes % 7.1 % (20.0-50.0) L 09/14/17 05:05 Monocytes % 8.0 % (2.0-10.0) 09/14/17 05:05 Eosinophils % 2.0 % (0.0-5.0) 09/14/17 05:05 Basophils % 0.2 % (0.0-2.0) 09/14/17 05:05 PT 10.3 SECONDS (9.5-11.5) 09/09/17 12:30 INR 0.99 (0.5-1.4) 09/09/17 12:30 PTT (Actin FS) 26.3 SECONDS (26.0-38.0) 09/09/17 12:30 Sodium 152 mEq/L (136-145) H 09/14/17 05:05 Potassium 3.4 mEq/L (3.5-5.1) L 09/14/17 05:05 Chloride 117 mEq/L (98-107) H 09/14/17 05:05 Carbon Dioxide 25.5 mEq/L (21.0-31.0) 09/14/17 05:05 Anion Gap 12.9 (7.0-16.0) 09/14/17 05:05 BUN 28 mg/dL (7-25) H 09/14/17 05:05 Creatinine 1.3 mg/dL (0.7-1.3) 09/14/17 05:05 Est GFR ( Amer) > 60.0 ml/min (>90) 09/14/17 05:05 Est GFR (Non-Af Amer) 58.0 ml/min 09/14/17 05:05 BUN/Creatinine Ratio 21.5 09/14/17 05:05 Glucose 153 mg/dL (70-105) H 09/14/17 05:05 POC Glucose 172 MG/DL (70 - 105) H 09/14/17 06:00 Calcium 9.2 mg/dL (8.6-10.3) 09/14/17 05:05 Total Bilirubin 0.6 mg/dL (0.3-1.0) 09/14/17 05:05 AST 13 U/L (13-39) 09/14/17 05:05 ALT 14 U/L (7-52) 09/14/17 05:05 Alkaline Phosphatase 47 U/L (34-104) 09/14/17 05:05 B-Natriuretic Peptide 166.0 pg/mL (5.0-100.0) H 09/13/17 05:15 Total Protein 6.5 gm/dL (6.0-8.3) 09/14/17 05:05 Albumin 3.6 gm/dL (4.2-5.5) L 09/14/17 05:05 Globulin 2.9 gm/dL 09/14/17 05:05 Albumin/Globulin Ratio 1.2 (1.0-1.8) 09/14/17 05:05 Urine Source RANDOM 09/10/17 18:00 Urine Color YELLOW 09/10/17 18:00 Urine Clarity TURBID (CLEAR) 09/10/17 18:00 Urine pH 7.0 (4.6 - 8.0) 09/10/17 18:00 Ur Specific [place] 1.020 (1.005-1.030) 09/10/17 18:00 Urine Protein TRACE mg/dL (NEGATIVE) 09/10/17 18:00 Urine Glucose (UA) NEGATIVE mg/dL (NEGATIVE) 09/10/17 18:00 Urine Ketones 15 mg/dL (NEGATIVE) H 09/10/17 18:00 Urine Blood MODERATE (NEGATIVE) H 09/10/17 18:00 Urine Nitrate NEGATIVE (NEGATIVE) 09/10/17 18:00 Urine Bilirubin NEGATIVE (NEGATIVE) 09/10/17 18:00 Urine Urobilinogen 0.2 E.U./dL (0.2 - 1.0) 09/10/17 18:00 Ur Leukocyte Esterase NEGATIVE (NEGATIVE) 09/10/17 18:00 Urine RBC 10-25 /hpf (0-5) H 09/10/17 18:00 Urine WBC 2-5 /hpf (0-5) 09/10/17 18:00 Ur Epithelial Cells FEW /lpf (FEW) 09/10/17 18:00 Urine Bacteria FEW /hpf (NONE SEEN) 09/10/17 18:00 Vancomycin Trough 15.8 ug/mL (5-10) H 09/12/17 01:00 - Physical Exam Vitals and I&O: Vital Signs Temp 98.7 F 09/14/17 08:10 Pulse 92 09/14/17 08:10 Resp 19 09/14/17 08:10 BP 143/84 09/14/17 08:10 Pulse Ox 92 09/14/17 08:10 Intake & Output 09/13/17 09/14/17 09/14/17 18:59 06:59 18:59 Intake Total 1070 820 Balance 1070 820 Weight (lbs) 73.255 kg 71.214 kg Intake: Intake, IV Amount 350 100 Piperacillin Sodium/ 100 100 Tazobact 4.5 gm In Sodium Chloride 0.9% 100 ml @ 100 mls/hr IV Q8H [facility] Rx# :[id number] Vancomycin HCl 1 gm In 250 Sodium Chloride 0.9% 250 ml @ 165 mls/hr IV Q12H [facility] Rx#:[id number] Tube Feeding 720 720 Other: # Voids 4 2 # Bowel Movements 0 Weight Source Bedscale Estimated Active Medications: Current Medications Acetaminophen (Tylenol) 650 mg PO Q6H PRN PRN Reason: mild pain Stop: 11/08/17 15:49 Last Admin: 09/12/17 09:15 Dose: 650 mg Acetaminophen (Tylenol) 650 mg PO Q6H PRN PRN Reason: Fever > 101 Stop: 11/11/17 20:45 Last Admin: 09/12/17 21:16 Dose: 650 mg Al Hydrox/Mg Hydrox/Simethicone (Maalox) 30 ml PO Q6H PRN PRN Reason: GI DISTRESS Stop: 11/08/17 15:49 Amlodipine Besylate (Norvasc) 5 mg PO DAILY [facility] Stop: 11/09/17 08:59 Last Admin: 09/13/17 09:31 Dose: 5 mg Atorvastatin Calcium (Lipitor) 20 mg GT HS [facility] PRN Reason: Protocol Stop: 11/08/17 20:59 Last Admin: 09/13/17 20:42 Dose: 20 mg Cholecalciferol (Vitamin D3) 1,000 iu GT DAILY [facility] Stop: 11/09/17 08:59 Last Admin: 09/13/17 09:32 Dose: 1,000 iu Donepezil HCl (Aricept) 10 mg GT HS [facility] Stop: 11/08/17 20:59 Last Admin: 09/13/17 20:42 Dose: 10 mg Piperacillin Sod/Tazobactam (Sod 4.5 gm/ Sodium Chloride) 100 mls @ 100 mls/hr IV Q8H [facility] Stop: 11/10/17 10:59 Last Admin: 09/14/17 02:32 Dose: 100 mls/hr Metronidazole (Flagyl) 500 mg in 100 mls @ 100 mls/hr IV Q8HR [facility] Stop: 11/13/17 12:59 Vancomycin HCl 1.25 gm/ Sodium (Chloride) 250 mls @ 165 mls/hr IV Q12H [facility] Stop: 11/13/17 13:59 Dextrose (D5w) 1,000 mls @ 50 mls/hr IV .Q20H [facility] Stop: 11/13/17 08:54 Insulin Aspart (Novolog Insulin Sliding Scale) 0 units SUBQ ACHS [facility] PRN Reason: Protocol Stop: 11/12/17 11:29 Last Admin: 09/14/17 06:45 Dose: 2 units Lactobacillus Rhamnosus (Culturelle 15b) 1 each PO DAILY [facility] Stop: 11/12/17 08:59 Last Admin: 09/13/17 09:31 Dose: 1 each Magnesium Hydroxide (Milk Of Magnesia) 30 ml PO HS PRN PRN Reason: Constipation Stop: 11/08/17 15:49 Memantine (Namenda) 5 mg GT BID [facility] Stop: 11/08/17 16:59 Last Admin: 09/13/17 17:56 Dose: 5 mg Miscellaneous (Vancomycin Iv Per Pharmacy) 1 ea PRN [facility] Stop: 11/09/17 13:44 Miscellaneous (Zosyn Iv Per Pharmacy) 1 ea PRN PRN PRN Reason: PROTOCOL Stop: 11/10/17 08:34 Miscellaneous (Probiotic Screen) 1 ea PRN PRN PRN Reason: PROTOCOL Stop: 11/12/17 08:59 Multivitamins/Vitamin C (Theragran) 1 tab GT DAILY [facility] Stop: 11/09/17 08:59 Last Admin: 09/13/17 09:31 Dose: 1 tab Potassium Chloride (Potassium Chloride Elixir) 20 meq GT DAILY [facility] Stop: 11/10/17 09:59 Last Admin: 09/13/17 09:32 Dose: 20 meq General: Other (Awake, alert, eyes open, not following verbal commands.) HEENT: Atraumatic Cardiovascular: Regular rate Lungs: Other (Rude respiration) Abdomen: Bowel sounds, Soft, Other (Peg in place. ) Extremities: Other (No edema) Neurological: Other (Non ambulatory) Skin: Other (Warm and dry) Psych/Mental Status: Other (Patient non verbal. ) - Procedures Procedures: Procedures Procedure Code Date EGD PLACE GASTROSTOMY TUBE 76047 09/09/17 INSERTION OF FEEDING DEVICE INTO STOMACH, PERC APPROACH [id number] 09/09/17 Assessment/Plan - Assessment Assessment: Patient is awake, non verbal. WBC increasing despite IV AB, Na increasing. Dx: Peg displacement, Elevated WBC, Hypernatremia, DM, Dementia, Schizophrenia, bed bound. - Plan Plan: Peg was replaced. NS changed to D5, Metronidazole is started. Patient not responding to treatment. Prognosis not good. LTAC eval is requested. Will continue monitoring. Nutritional Asmnt/Malnutr-PDOC - Dietary Evaluation Malnutrition Findings (Please click <Entered> for more info): Nutritional Asmnt/Malnutrition Start: 09/10/17 16: 17 Text: Status: Complete Freq: Document 09/10/17 16:19 LCHENG (Rec: 09/10/17 16:29 [email or web address]) Nutritional Asmnt/Malnutrition Patient General Information Nutritional Screening High Risk Diagnosis g-tube placement (reason for visit) Pertinent Medical Hx/Surgical Hx DM, hyperlipidemia, dementia, schizophrenia, PEG/Gtube Subjective Information Pt seen lying in bed at time of visit, non-verbal. Pt has PEG placement today. Current Diet Order/ Nutrition Support fibersource HN start at 40ml/ hr, goal rate 60ml/hr continuous Pertinent Medications vit D3, vancomycin, theragran, nacl 0.9% Pertinent Labs 09/10 glucose 125, alb 4.1 09/09 glucose 129 Nutritional Hx/Data Height 1.68 m Height (Calculated Centimeters) 167.6 Current Weight (lbs) 63.957 kg Weight (Calculated Kilograms) 64.0 Weight (Calculated Grams) 60423.5 Trail Body Weight 142 Body Mass Index (BMI) 22.7 Weight Status Approriate GI Symptoms GI Symptoms None Last BM no record Difficult in: None Skin Integrity/Comment: reddened to coccyx, bruise to hand, rash to back Estimated Nutritional Goals BEE in Kcals: Using Current wt Calories/Kcals/Kg 25-30 Kcals Calculated 0836-6877 Protein: Using Current wt Protein g/k-1.2 Protein Calculated 64-77 Fluid: ml 1600-1920ml (1ml/kcal) Nutritional Problem No current Nutrition Prob Problem N/A Malnutrition Alert Protein-Calorie Malnutrition N/A Is there a minimum of two criteria No selected? Query Text:Check all the applicable criteria. A minimum of two criteria are recommended for diagnosis of either severe or non-severe malnutrition. Intervention/Recommendation Comments 1. Initiate TF as ordered. It provides 1728kcal, 77g protein , 1178ml free water, meeting 100% of nutritional needs. 2. Monitor TF rate, tolerance, wt weekly, skin integrity and labs 3. F/U as high risk in 2-3 days, 09/12-09/13 Expected Outcomes/Goals Expected Outcomes/Goals 1. Pt to meet at least 75% of nutritional needs via nutrition support with tolerance 2. Wt stability, skin to remain intact, labs to approach WNL.
[2017-09-14] MEDS ORDERED: Dextrose 5% 1,000 ML IV SCH (09:00)
[2017-09-14] MEDS: Multivitamin Tab GT SCH (09:53)
[2017-09-14] MEDS: Potassium Chloride Elixir 20 mEq /15 mL UDC GT SCH (09:53)
[2017-09-14] MEDS: Lactobacillus Rhamnosus GG 15 Billion CFU CAP.SPRINK PO SCH (09:53)
--- NOTE | 2017-09-14 11:43 | Infectious Disease Prog Note ---
Infectious Disease Subjective - Review of Systems Service Date: 09/14/17 Subjective: Doing well. Leukocytosis waxing and waning Infectious Disease Objective - Results Result Diagrams: 09/14/17 05:05 09/14/17 05:05 Recent Labs: Laboratory Last Values WBC 17.0 Th/cmm (4.8-10.8) H 09/14/17 05:05 RBC 4.71 Mil/cmm (3.80-5.80) 09/14/17 05:05 Hgb 13.6 gm/dL (12-16) 09/14/17 05:05 Hct 41.6 % (41.0-60) 09/14/17 05:05 MCV 88.4 fl (80-99) 09/14/17 05:05 MCH 29.0 pg (27.0-31.0) 09/14/17 05:05 MCHC Differential 32.8 pg (28.0-36.0) 09/14/17 05:05 RDW 15.2 % (11.5-20.0) 09/14/17 05:05 Plt Count 306 Th/cmm (150-400) 09/14/17 05:05 MPV 10.2 fl 09/14/17 05:05 Neutrophils % 82.7 % (40.0-80.0) H 09/14/17 05:05 Lymphocytes % 7.1 % (20.0-50.0) L 09/14/17 05:05 Monocytes % 8.0 % (2.0-10.0) 09/14/17 05:05 Eosinophils % 2.0 % (0.0-5.0) 09/14/17 05:05 Basophils % 0.2 % (0.0-2.0) 09/14/17 05:05 PT 10.3 SECONDS (9.5-11.5) 09/09/17 12:30 INR 0.99 (0.5-1.4) 09/09/17 12:30 PTT (Actin FS) 26.3 SECONDS (26.0-38.0) 09/09/17 12:30 Sodium 152 mEq/L (136-145) H 09/14/17 05:05 Potassium 3.4 mEq/L (3.5-5.1) L 09/14/17 05:05 Chloride 117 mEq/L (98-107) H 09/14/17 05:05 Carbon Dioxide 25.5 mEq/L (21.0-31.0) 09/14/17 05:05 Anion Gap 12.9 (7.0-16.0) 09/14/17 05:05 BUN 28 mg/dL (7-25) H 09/14/17 05:05 Creatinine 1.3 mg/dL (0.7-1.3) 09/14/17 05:05 Est GFR ( Amer) > 60.0 ml/min (>90) 09/14/17 05:05 Est GFR (Non-Af Amer) 58.0 ml/min 09/14/17 05:05 BUN/Creatinine Ratio 21.5 09/14/17 05:05 Glucose 153 mg/dL (70-105) H 09/14/17 05:05 POC Glucose 172 MG/DL (70 - 105) H 09/14/17 06:00 Calcium 9.2 mg/dL (8.6-10.3) 09/14/17 05:05 Total Bilirubin 0.6 mg/dL (0.3-1.0) 09/14/17 05:05 AST 13 U/L (13-39) 09/14/17 05:05 ALT 14 U/L (7-52) 09/14/17 05:05 Alkaline Phosphatase 47 U/L (34-104) 09/14/17 05:05 B-Natriuretic Peptide 166.0 pg/mL (5.0-100.0) H 09/13/17 05:15 Total Protein 6.5 gm/dL (6.0-8.3) 09/14/17 05:05 Albumin 3.6 gm/dL (4.2-5.5) L 09/14/17 05:05 Globulin 2.9 gm/dL 09/14/17 05:05 Albumin/Globulin Ratio 1.2 (1.0-1.8) 09/14/17 05:05 Urine Source RANDOM 09/10/17 18:00 Urine Color YELLOW 09/10/17 18:00 Urine Clarity TURBID (CLEAR) 09/10/17 18:00 Urine pH 7.0 (4.6 - 8.0) 09/10/17 18:00 Ur Specific [place] 1.020 (1.005-1.030) 09/10/17 18:00 Urine Protein TRACE mg/dL (NEGATIVE) 09/10/17 18:00 Urine Glucose (UA) NEGATIVE mg/dL (NEGATIVE) 09/10/17 18:00 Urine Ketones 15 mg/dL (NEGATIVE) H 09/10/17 18:00 Urine Blood MODERATE (NEGATIVE) H 09/10/17 18:00 Urine Nitrate NEGATIVE (NEGATIVE) 09/10/17 18:00 Urine Bilirubin NEGATIVE (NEGATIVE) 09/10/17 18:00 Urine Urobilinogen 0.2 E.U./dL (0.2 - 1.0) 09/10/17 18:00 Ur Leukocyte Esterase NEGATIVE (NEGATIVE) 09/10/17 18:00 Urine RBC 10-25 /hpf (0-5) H 09/10/17 18:00 Urine WBC 2-5 /hpf (0-5) 09/10/17 18:00 Ur Epithelial Cells FEW /lpf (FEW) 09/10/17 18:00 Urine Bacteria FEW /hpf (NONE SEEN) 09/10/17 18:00 Vancomycin Trough 15.8 ug/mL (5-10) H 09/12/17 01:00 - Physical Exam Vitals and I&O: Vital Signs Temp 98.7 F 09/14/17 08:10 Pulse 92 09/14/17 09:53 Resp 19 09/14/17 08:10 BP 143/84 09/14/17 09:53 Pulse Ox 92 09/14/17 08:10 Intake & Output 09/13/17 09/14/17 09/14/17 18:59 06:59 18:59 Intake Total 1070 920 Balance 1070 920 Weight (lbs) 73.255 kg 71.214 kg Intake: Intake, IV Amount 350 200 Piperacillin Sodium/ 100 200 Tazobact 4.5 gm In Sodium Chloride 0.9% 100 ml @ 100 mls/hr IV Q8H [facility] Rx# :[id number] Vancomycin HCl 1 gm In 250 Sodium Chloride 0.9% 250 ml @ 165 mls/hr IV Q12H [facility] Rx#:[id number] Tube Feeding 720 720 Other: # Voids 4 2 # Bowel Movements 0 Weight Source Bedscale Estimated Active Medications: Current Medications Acetaminophen (Tylenol) 650 mg PO Q6H PRN PRN Reason: mild pain Stop: 11/08/17 15:49 Last Admin: 09/12/17 09:15 Dose: 650 mg Acetaminophen (Tylenol) 650 mg PO Q6H PRN PRN Reason: Fever > 101 Stop: 11/11/17 20:45 Last Admin: 09/12/17 21:16 Dose: 650 mg Al Hydrox/Mg Hydrox/Simethicone (Maalox) 30 ml PO Q6H PRN PRN Reason: GI DISTRESS Stop: 11/08/17 15:49 Amlodipine Besylate (Norvasc) 5 mg PO DAILY JOSE RAMON Stop: 11/09/17 08:59 Last Admin: 09/14/17 09:53 Dose: 5 mg Atorvastatin Calcium (Lipitor) 20 mg GT HS JOSE RAMON PRN Reason: Protocol Stop: 11/08/17 20:59 Last Admin: 09/13/17 20:42 Dose: 20 mg Cholecalciferol (Vitamin D3) 1,000 iu GT DAILY JO[facility]ON Stop: 11/09/17 08:59 Last Admin: 09/14/17 09:53 Dose: 1,000 iu Donepezil HCl (Aricept) 10 mg GT HS JOSE RAMON Stop: 11/08/17 20:59 Last Admin: 09/13/17 20:42 Dose: 10 mg Piperacillin Sod/Tazobactam (Sod 4.5 gm/ Sodium Chloride) 100 mls @ 100 mls/hr IV Q8H [facility] Stop: 11/10/17 10:59 Last Admin: 09/14/17 10:43 Dose: 100 mls/hr Metronidazole (Flagyl) 500 mg in 100 mls @ 100 mls/hr IV Q8HR [facility] Stop: 11/13/17 12:59 Vancomycin HCl 1.25 gm/ (Dextrose) 250 mls @ 165 mls/hr IV Q12H [facility] Stop: 11/13/17 13:59 Dextrose (D5w) 1,000 mls @ 50 mls/hr IV .Q20H [facility] Stop: 11/13/17 08:59 Last Admin: 09/14/17 10:40 Dose: 50 mls/hr Insulin Aspart (Novolog Insulin Sliding Scale) 0 units SUBQ ACHS JOSE RAMON PRN Reason: Protocol Stop: 11/12/17 11:29 Last Admin: 09/14/17 06:45 Dose: 2 units Lactobacillus Rhamnosus (Culturelle 15b) 1 each PO DAILY JOSE RAMON Stop: 11/12/17 08:59 Last Admin: 09/14/17 09:53 Dose: 1 each Magnesium Hydroxide (Milk Of Magnesia) 30 ml PO HS PRN PRN Reason: Constipation Stop: 11/08/17 15:49 Memantine (Namenda) 5 mg GT BID JOSE RAMON Stop: 11/08/17 16:59 Last Admin: 09/14/17 09:53 Dose: 5 mg Miscellaneous (Vancomycin Iv Per Pharmacy) 1 ea PRN JOSE RAMON Stop: 11/09/17 13:44 Miscellaneous (Zosyn Iv Per Pharmacy) 1 [facility] PRN PRN PRN Reason: PROTOCOL Stop: 11/10/17 08:34 Miscellaneous (Probiotic Screen) 1 [facility] PRN PRN PRN Reason: PROTOCOL Stop: 11/12/17 08:59 Multivitamins/Vitamin C (Theragran) 1 tab GT DAILY JOSE RAMON Stop: 11/09/17 08:59 Last Admin: 09/14/17 09:53 Dose: 1 tab Potassium Chloride (Potassium Chloride Elixir) 20 meq GT DAILY JOSE RAMON Stop: 11/10/17 09:59 Last Admin: 09/14/17 09:53 Dose: 20 meq General: no acute distress, well developed, well nourished HEENT: atraumatic, normocephalic, PERRLA Neck: supple, no thyromegaly Cardiovascular: S1S2, regular Lungs: clear to auscultation bilaterally, clear to percussion Abdomen: soft, other (Gtube ok.), no tender, no distended, no hepatomegaly Extremities: no cyanosis, no clubbing, no edema Neurological: other (open eyes.) - Procedures Procedures: Procedures Procedure Code Date EGD PLACE GASTROSTOMY TUBE 02331 09/09/17 INSERTION OF FEEDING DEVICE INTO STOMACH, PERC APPROACH [id number] 09/09/17 Infectious Disease Assmt/Plan - Assessment Assessment: 1. Leukopcytosis, likely reactive 2. [place] 3. Dysphasia. G tube placement. - Plan Plan: If WBC count is improving tomorrow and there is no fever in next 24 hrs, may dc patient to SNF on ceftriaxone 1 gm daily and flagyl 500 mg po tid for one week.. Nutritional Asmnt/Malnutr-PDOC - Dietary Evaluation Malnutrition Findings (Please click <Entered> for more info): Nutritional Asmnt/Malnutrition Start: 09/10/17 16: 17 Text: Status: Complete Freq: Document 09/10/17 16:19 SRINIVASGEETA (Rec: 09/10/17 16:29 SRINIVASGEETA [id number]) Nutritional Asmnt/Malnutrition Patient General Information Nutritional Screening High Risk Diagnosis g-tube placement (reason for visit) Pertinent Medical Hx/Surgical Hx DM, hyperlipidemia, dementia, schizophrenia, PEG/Gtube Subjective Information Pt seen lying in bed at time of visit, non-verbal. Pt has PEG placement today. Current Diet Order/ Nutrition Support fibersource HN start at 40ml/ hr, goal rate 60ml/hr continuous Pertinent Medications vit D3, vancomycin, theragran, nacl 0.9% Pertinent Labs 09/10 glucose 125, alb 4.1 09/09 glucose 129 Nutritional Hx/Data Height 1.68 m Height (Calculated Centimeters) 167.6 Current Weight (lbs) 63.957 kg Weight (Calculated Kilograms) 64.0 Weight (Calculated Grams) 22687.5 [place] Body Weight 142 Body Mass Index (BMI) 22.7 Weight Status Approriate GI Symptoms GI Symptoms None Last BM no record Difficult in: None Skin Integrity/Comment: reddened to coccyx, bruise to hand, rash to back Estimated Nutritional Goals BEE in Kcals: Using Current wt Calories/Kcals/Kg 25-30 Kcals Calculated 3411-5215 Protein: Using Current wt Protein g/k-1.2 Protein Calculated 64-77 Fluid: ml 1600-1920ml (1ml/kcal) Nutritional Problem No current Nutrition Prob Problem N/A Malnutrition Alert Protein-Calorie Malnutrition N/A Is there a minimum of two criteria No selected? Query Text:Check all the applicable criteria. A minimum of two criteria are recommended for diagnosis of either severe or non-severe malnutrition. Intervention/Recommendation Comments 1. Initiate TF as ordered. It provides 1728kcal, 77g protein , 1178ml free water, meeting 100% of nutritional needs. 2. Monitor TF rate, tolerance, wt weekly, skin integrity and labs 3. F/U as high risk in 2-3 days, 09/12-09/13 Expected Outcomes/Goals Expected Outcomes/Goals 1. Pt to meet at least 75% of nutritional needs via nutrition support with tolerance 2. Wt stability, skin to remain intact, labs to approach WNL.
[2017-09-14] MEDS: metroNIDAZOLE 500mg/NS 100mL 500 MG/100 ML BAG IV SCH ×2 (12:14→20:21)
[2017-09-14] MEDS: DEXTROSE 5% IV SCH (15:12)
[2017-09-14] MEDS: VANCOMYCIN HCL IV SCH (15:12)
[2017-09-14] MEDS: Atorvastatin Calcium 10 MG TAB GT SCH (20:22)
[2017-09-15] MEDS: VANCOMYCIN HCL IV SCH (03:22)
[2017-09-15] MEDS: DEXTROSE 5% IV SCH (03:22)
[2017-09-15 05:33] LABS: BASOPHILE ABSOLUTE 0.1 Th/cumm (0-0.2); EOSINOPHILE ABSOLUTE 0.4 Th/cmm (0.1-0.4); HEMATOCRIT 41.5 % (41.0-60); HEMOGLOBIN 13.7 gm/dL (12-16); LYMPHOCYTE ABSOLUTE 1.1 Th/cmm (1.5-3.0); MANUAL DIFF REQUIRED? YES; MEAN CELL VOLUME 87.8 fl (80-99); MEAN PLATELET VOLUME 9.7 fl; MONOCYTE ABSOLUTE 0.9 Th/cmm (0.3-1.0); NEUTROPHILE ABSOLUTE 20.9 Th/cmm (1.8-8.0); RED BLOOD COUNT 4.73 Mil/cmm (3.80-5.80); RED CELL DISTRIBUTION WIDTH 15.3 % (11.5-20.0)
[2017-09-15] MEDS: metroNIDAZOLE 500mg/NS 100mL 500 MG/100 ML BAG IV SCH ×3 (05:37→21:58)
[2017-09-15 05:56] LABS: ALB/GLOB RATIO 1.2 (1.0-1.8); ALBUMIN 3.4 gm/dL (4.2-5.5); ANION GAP 13.4 (7.0-16.0); BILIRUBIN,TOTAL 0.8 mg/dL (0.3-1.0); CARBON DIOXIDE 25.3 mEq/L (21.0-31.0); CREATININE - SERUM 1.8 mg/dL (0.7-1.3); GFR AFRICAN-AMERICAN 48.2 ml/min (>90); GFR NON AFRICAN-AMERICAN 39.8 ml/min; POTASSIUM SERUM 3.7 mEq/L (3.5-5.1); TOTAL PROTEIN,SERUM 6.3 gm/dL (6.0-8.3)
[2017-09-15 06:52] LABS: PLATELET COUNT 205 Th/cmm (150-400); WHITE BLOOD COUNT 23.4 Th/cmm (4.8-10.8)
[2017-09-15] MEDS: INSULIN ASPART SLIDING SCALE 100 UNITS/ML UNIT SUBQ SCH ×4 (07:25→20:56)
[2017-09-15 07:44] LABS: BAND NEUTROPHILE 8 % (0-10); NEUTROPHILS 77 % (40-80); TOTAL CELLS COUNTED 100
[2017-09-15 07:45] LABS: EOSINOPHIL 3 % (0-5); LYMPHOCYTE 10 % (20-50); MONOCYTE 2 % (2-10)
[2017-09-15 08:07] LABS: ALLEN TEST Positive; pH 7.51 (7.35-7.45)
[2017-09-15] MEDS: Lactobacillus Rhamnosus GG 15 Billion CFU CAP.SPRINK PO SCH (08:17)
[2017-09-15] MEDS: Multivitamin Tab GT SCH (08:17)
[2017-09-15] MEDS: Potassium Chloride Elixir 20 mEq /15 mL UDC GT SCH (08:17)
--- NOTE | 2017-09-15 08:51 | General Progress Note ---
Subjective - Review of Systems Service Date: 09/15/17 Subjective: Patient is non verbal Objective - Results Result Diagrams: 09/15/17 04:45 09/15/17 04:45 Recent Labs: Laboratory Last Values WBC 23.4 Th/cmm (4.8-10.8) H* 09/15/17 04:45 RBC 4.73 Mil/cmm (3.80-5.80) 09/15/17 04:45 Hgb 13.7 gm/dL (12-16) 09/15/17 04:45 Hct 41.5 % (41.0-60) 09/15/17 04:45 MCV 87.8 fl (80-99) 09/15/17 04:45 MCH 29.0 pg (27.0-31.0) 09/15/17 04:45 MCHC Differential 33.0 pg (28.0-36.0) 09/15/17 04:45 RDW 15.3 % (11.5-20.0) 09/15/17 04:45 Plt Count 205 Th/cmm (150-400) D 09/15/17 04:45 MPV 9.7 fl 09/15/17 04:45 Neutrophils % 82.7 % (40.0-80.0) H 09/14/17 05:05 Band Neutrophils % 8 % (0-10) 09/15/17 04:45 Lymphocytes % 7.1 % (20.0-50.0) L 09/14/17 05:05 Monocytes % 8.0 % (2.0-10.0) 09/14/17 05:05 Eosinophils % 2.0 % (0.0-5.0) 09/14/17 05:05 Basophils % 0.2 % (0.0-2.0) 09/14/17 05:05 Neutrophils (Manual) 77 % (40-80) 09/15/17 04:45 Lymphocytes 10 % (20-50) L 09/15/17 04:45 Monocytes 2 % (2-10) 09/15/17 04:45 Eosinophils 3 % (0-5) 09/15/17 04:45 PT 10.3 SECONDS (9.5-11.5) 09/09/17 12:30 INR 0.99 (0.5-1.4) 09/09/17 12:30 PTT (Actin FS) 26.3 SECONDS (26.0-38.0) 09/09/17 12:30 Specimen Source Arterial 09/15/17 07:49 Sample Site Right Radial 09/15/17 07:49 pH 7.51 (7.35-7.45) H 09/15/17 07:49 pCO2 36.0 mmHg (35.0-45.0) 09/15/17 07:49 pO2 50.0 mmHg (80.0-100.0) L 09/15/17 07:49 HCO3 29.0 mEq/L (20.0-26.0) H 09/15/17 07:49 Base Excess 5.5 mEq/L (-3.0-3.0) H 09/15/17 07:49 O2 Saturation 59.0 % (92.0-100.0) L 09/15/17 07:49 Matthew Test Positive 09/15/17 07:49 Vent Rate NA 09/15/17 07:49 Inspired O2 40 09/15/17 07:49 Tidal Volume NA 09/15/17 07:49 PEEP NA 09/15/17 07:49 Pressure (ins/psv/peep) NA 09/15/17 07:49 Critical Value LZHANG 09/15/17 07:49 Sodium 150 mEq/L (136-145) H 09/15/17 04:45 Potassium 3.7 mEq/L (3.5-5.1) 09/15/17 04:45 Chloride 115 mEq/L (98-107) H 09/15/17 04:45 Carbon Dioxide 25.3 mEq/L (21.0-31.0) 09/15/17 04:45 Anion Gap 13.4 (7.0-16.0) 09/15/17 04:45 BUN 36 mg/dL (7-25) H 09/15/17 04:45 Creatinine 1.8 mg/dL (0.7-1.3) H 09/15/17 04:45 Est GFR ( Amer) 48.2 ml/min (>90) 09/15/17 04:45 Est GFR (Non-Af Amer) 39.8 ml/min 09/15/17 04:45 BUN/Creatinine Ratio 20.0 09/15/17 04:45 Glucose 168 mg/dL (70-105) H 09/15/17 04:45 POC Glucose 165 MG/DL (70 - 105) H 09/15/17 06:46 Calcium 9.0 mg/dL (8.6-10.3) 09/15/17 04:45 Total Bilirubin 0.8 mg/dL (0.3-1.0) 09/15/17 04:45 AST 14 U/L (13-39) 09/15/17 04:45 ALT 12 U/L (7-52) 09/15/17 04:45 Alkaline Phosphatase 43 U/L (34-104) 09/15/17 04:45 B-Natriuretic Peptide 166.0 pg/mL (5.0-100.0) H 09/13/17 05:15 Total Protein 6.3 gm/dL (6.0-8.3) 09/15/17 04:45 Albumin 3.4 gm/dL (4.2-5.5) L 09/15/17 04:45 Globulin 2.9 gm/dL 09/15/17 04:45 Albumin/Globulin Ratio 1.2 (1.0-1.8) 09/15/17 04:45 Urine Source RANDOM 09/10/17 18:00 Urine Color YELLOW 09/10/17 18:00 Urine Clarity TURBID (CLEAR) 09/10/17 18:00 Urine pH 7.0 (4.6 - 8.0) 09/10/17 18:00 Ur Specific [place] 1.020 (1.005-1.030) 09/10/17 18:00 Urine Protein TRACE mg/dL (NEGATIVE) 09/10/17 18:00 Urine Glucose (UA) NEGATIVE mg/dL (NEGATIVE) 09/10/17 18:00 Urine Ketones 15 mg/dL (NEGATIVE) H 09/10/17 18:00 Urine Blood MODERATE (NEGATIVE) H 09/10/17 18:00 Urine Nitrate NEGATIVE (NEGATIVE) 09/10/17 18:00 Urine Bilirubin NEGATIVE (NEGATIVE) 09/10/17 18:00 Urine Urobilinogen 0.2 E.U./dL (0.2 - 1.0) 09/10/17 18:00 Ur Leukocyte Esterase NEGATIVE (NEGATIVE) 09/10/17 18:00 Urine RBC 10-25 /hpf (0-5) H 09/10/17 18:00 Urine WBC 2-5 /hpf (0-5) 09/10/17 18:00 Ur Epithelial Cells FEW /lpf (FEW) 09/10/17 18:00 Urine Bacteria FEW /hpf (NONE SEEN) 09/10/17 18:00 Vancomycin Trough 20.6 ug/mL (5-10) H 09/14/17 14:00 - Physical Exam Vitals and I&O: Vital Signs Temp 98.3 F 09/15/17 00:00 Pulse 91 09/15/17 08:17 Resp 30 09/15/17 07:40 BP 140/86 09/15/17 08:17 Pulse Ox 86 09/15/17 07:40 Intake & Output 09/14/17 09/15/17 09/15/17 18:59 06:59 18:59 Intake Total 1200 300 Balance 1200 300 Weight (lbs) 71.214 kg Intake: Intake, IV Amount 450 300 Piperacillin Sodium/ 100 200 Tazobact 4.5 gm In Sodium Chloride 0.9% 100 ml @ 100 mls/hr IV Q8H [facility] Rx# :[id number] Vancomycin HCl 0.75 gm In 250 Dextrose 5% 250 ml @ 165 mls/hr IV Q12H [facility] Rx#: [id number] metroNIDAZOLE 500mg/NS 100 100 100mL 500 mg In 100 ml @ 100 mls/hr IV Q8HR [facility] Rx #:[id number] Tube Feeding 750 Other: # Voids 3 # Bowel Movements 0 Weight Source Estimated Active Medications: Current Medications Acetaminophen (Tylenol) 650 mg PO Q6H PRN PRN Reason: mild pain Stop: 11/08/17 15:49 Last Admin: 09/12/17 09:15 Dose: 650 mg Acetaminophen (Tylenol) 650 mg PO Q6H PRN PRN Reason: Fever > 101 Stop: 11/11/17 20:45 Last Admin: 09/12/17 21:16 Dose: 650 mg Al Hydrox/Mg Hydrox/Simethicone (Maalox) 30 ml PO Q6H PRN PRN Reason: GI DISTRESS Stop: 11/08/17 15:49 Amlodipine Besylate (Norvasc) 5 mg PO DAILY [facility] Stop: 11/09/17 08:59 Last Admin: 09/15/17 08:17 Dose: Not Given Atorvastatin Calcium (Lipitor) 20 mg GT HS JO[facility] RAMON PRN Reason: Protocol Stop: 11/08/17 20:59 Last Admin: 09/14/17 20:22 Dose: 20 mg Cholecalciferol (Vitamin D3) 1,000 iu GT DAILY JOSE RAMON Stop: 11/09/17 08:59 Last Admin: 09/15/17 08:17 Dose: Not Given Donepezil HCl (Aricept) 10 mg GT HS JOSE RAMON Stop: 11/08/17 20:59 Last Admin: 09/14/17 20:22 Dose: 10 mg Piperacillin Sod/Tazobactam (Sod 4.5 gm/ Sodium Chloride) 100 mls @ 100 mls/hr IV Q8H [facility] Stop: 11/10/17 10:59 Last Infusion: 09/15/17 03:07 Dose: Infused Metronidazole (Flagyl) 500 mg in 100 mls @ 100 mls/hr IV Q8HR [facility]ON Stop: 11/13/17 12:59 Last Admin: 09/15/17 05:37 Dose: 100 mls/hr Dextrose (D5w) 1,000 mls @ 50 mls/hr IV .Q20H [facility] RAMON Stop: 11/13/17 08:59 Last Admin: 09/14/17 10:40 Dose: 50 mls/hr Vancomycin HCl 0.75 gm/ (Dextrose) 250 mls @ 165 mls/hr IV Q12H [facility] Stop: 11/13/17 14:59 Last Admin: 09/15/17 03:22 Dose: 165 mls/hr Insulin Aspart (Novolog Insulin Sliding Scale) 0 units SUBQ ACHS JOSE RAMON PRN Reason: Protocol Stop: 11/12/17 11:29 Last Admin: 09/15/17 07:25 Dose: 2 units Lactobacillus Rhamnosus (Culturelle 15b) 1 each PO DAILY JOSE RAMON Stop: 11/12/17 08:59 Last Admin: 09/15/17 08:17 Dose: Not Given Magnesium Hydroxide (Milk Of Magnesia) 30 ml PO HS PRN PRN Reason: Constipation Stop: 11/08/17 15:49 Memantine (Namenda) 5 mg GT BID [facility] Stop: 11/08/17 16:59 Last Admin: 09/15/17 08:17 Dose: Not Given Miscellaneous (Vancomycin Iv Per Pharmacy) 1 ea [facility] PRN [facility] Stop: 11/09/17 13:44 Miscellaneous (Zosyn Iv Per Pharmacy) 1 ea PRN PRN PRN Reason: PROTOCOL Stop: 11/10/17 08:34 Miscellaneous (Probiotic Screen) 1 ea [facility] PRN PRN PRN Reason: PROTOCOL Stop: 11/12/17 08:59 Multivitamins/Vitamin C (Theragran) 1 tab GT DAILY JOSE RAMON Stop: 11/09/17 08:59 Last Admin: 09/15/17 08:17 Dose: Not Given Potassium Chloride (Potassium Chloride Elixir) 20 meq GT DAILY JOSE RAMON Stop: 11/10/17 09:59 Last Admin: 09/15/17 08:17 Dose: Not Given General: Other (Awake, alert, eyes open, not following verbal commands.) HEENT: Atraumatic Cardiovascular: Regular rate Lungs: Other (Rude respiration, a lot of fluids) Abdomen: Bowel sounds, Soft, Other (Peg in place. ) Extremities: Other (No edema) Neurological: Other (Non ambulatory) Skin: Other (Warm and dry) Psych/Mental Status: Other (Patient non verbal. ) - Procedures Procedures: Procedures Procedure Code Date EGD PLACE GASTROSTOMY TUBE 06449 09/09/17 INSERTION OF FEEDING DEVICE INTO STOMACH, PERC APPROACH [id number] 09/09/17 Assessment/Plan - Assessment Assessment: Patient is awake, non verbal. Lasdt miller patient started with rude respiration , today he has abundant secretions, ABG abnormal. WBC increasing despite IV AB, Na improving. Dx: Peg displacement, Elevated WBC, Hypernatremia, DM, Dementia, Schizophrenia, bed bound. - Plan Plan: Peg was replaced. NS changed to D5, Metronidazole is started. BIPAP is order and consult with pulmonology and IM requested. Patient not responding to treatment. Possible intubation today. Prognosis not good. Will continue monitoring. Nutritional Asmnt/Malnutr-PDOC - Dietary Evaluation Malnutrition Findings (Please click <Entered> for more info): Nutritional Asmnt/Malnutrition Start: 09/10/17 16: 17 Text: Status: Complete Freq: Document 09/10/17 16:19 HENG (Rec: 09/10/17 16:29 YESENIA [email or web address]) Nutritional Asmnt/Malnutrition Patient General Information Nutritional Screening High Risk Diagnosis g-tube placement (reason for visit) Pertinent Medical Hx/Surgical Hx DM, hyperlipidemia, dementia, schizophrenia, PEG/Gtube Subjective Information Pt seen lying in bed at time of visit, non-verbal. Pt has PEG placement today. Current Diet Order/ Nutrition Support fibersource HN start at 40ml/ hr, goal rate 60ml/hr continuous Pertinent Medications vit D3, vancomycin, theragran, nacl 0.9% Pertinent Labs 09/10 glucose 125, alb 4.1 09/09 glucose 129 Nutritional Hx/Data Height 1.68 m Height (Calculated Centimeters) 167.6 Current Weight (lbs) 63.957 kg Weight (Calculated Kilograms) 64.0 Weight (Calculated Grams) 67208.5 [place] Body Weight 142 Body Mass Index (BMI) 22.7 Weight Status Approriate GI Symptoms GI Symptoms None Last BM no record Difficult in: None Skin Integrity/Comment: reddened to coccyx, bruise to hand, rash to back Estimated Nutritional Goals BEE in Kcals: Using Current wt Calories/Kcals/Kg 25-30 Kcals Calculated 7068-4584 Protein: Using Current wt Protein g/k-1.2 Protein Calculated 64-77 Fluid: ml 1600-1920ml (1ml/kcal) Nutritional Problem No current Nutrition Prob Problem N/A Malnutrition Alert Protein-Calorie Malnutrition N/A Is there a minimum of two criteria No selected? Query Text:Check all the applicable criteria. A minimum of two criteria are recommended for diagnosis of either severe or non-severe malnutrition. Intervention/Recommendation Comments 1. Initiate TF as ordered. It provides 1728kcal, 77g protein , 1178ml free water, meeting 100% of nutritional needs. 2. Monitor TF rate, tolerance, wt weekly, skin integrity and labs 3. F/U as high risk in 2-3 days, 09/12-09/13 Expected Outcomes/Goals Expected Outcomes/Goals 1. Pt to meet at least 75% of nutritional needs via nutrition support with tolerance 2. Wt stability, skin to remain intact, labs to approach WNL.
--- NOTE | 2017-09-15 09:17 | Diagnostic Imaging Report ---
Portable chest x-ray HISTORY: Shortness of breath Compared to prior exam of September 13, 2017, linear density seen in the left lung base suggesting subsegmental atelectasis. Pneumonia cannot be definitely excluded. IMPRESSION: 1. Minimal linear density within the left lung base. The findings may be associated with atelectasis. Pneumonia cannot be definitely excluded. Clinical correlation is needed.
[2017-09-15 10:52] LABS: URINE MICROSCOPIC INDICATED? YES; URINE SOURCE FOLEY PORT
[2017-09-15 11:26] LABS: URINE BILIRUBIN MODERATE (NEGATIVE); URINE BLOOD LARGE (NEGATIVE); URINE GLUCOSE (UA) NEGATIVE (NEGATIVE); URINE KETONE NEGATIVE (NEGATIVE); URINE LEUKOCYTE ESTERASE TRACE (NEGATIVE); URINE NITRATE POSITIVE (NEGATIVE); URINE PH 6.5 (4.6 - 8.0); URINE PROTEIN 30 mg/dL (NEGATIVE); URINE UROBILINOGEN 0.2 E.U./dL (0.2 - 1.0)
[2017-09-15 11:45] LABS: URINE CLARITY CLOUDY (CLEAR); URINE COLOR GREEN
[2017-09-15 11:52] LABS: URINE RBC 50-100 /hpf (0-5)
[2017-09-15 11:57] LABS: URINE WBC 25-50 /hpf (0-5)
[2017-09-15 11:58] LABS: URINE BACTERIA 4+ /hpf (NONE SEEN); URINE EPITHELIAL CELLS MANY /lpf (FEW)
--- NOTE | 2017-09-15 13:59 | Infectious Disease Prog Note ---
Infectious Disease Subjective - Review of Systems Service Date: 09/15/17 Subjective: Short of breath on BiPAP.Leukocytosis worse again. Infectious Disease Objective - Results Result Diagrams: 09/15/17 04:45 09/15/17 04:45 Recent Labs: Laboratory Last Values WBC 23.4 Th/cmm (4.8-10.8) H* 09/15/17 04:45 RBC 4.73 Mil/cmm (3.80-5.80) 09/15/17 04:45 Hgb 13.7 gm/dL (12-16) 09/15/17 04:45 Hct 41.5 % (41.0-60) 09/15/17 04:45 MCV 87.8 fl (80-99) 09/15/17 04:45 MCH 29.0 pg (27.0-31.0) 09/15/17 04:45 MCHC Differential 33.0 pg (28.0-36.0) 09/15/17 04:45 RDW 15.3 % (11.5-20.0) 09/15/17 04:45 Plt Count 205 Th/cmm (150-400) D 09/15/17 04:45 MPV 9.7 fl 09/15/17 04:45 Neutrophils % 82.7 % (40.0-80.0) H 09/14/17 05:05 Band Neutrophils % 8 % (0-10) 09/15/17 04:45 Lymphocytes % 7.1 % (20.0-50.0) L 09/14/17 05:05 Monocytes % 8.0 % (2.0-10.0) 09/14/17 05:05 Eosinophils % 2.0 % (0.0-5.0) 09/14/17 05:05 Basophils % 0.2 % (0.0-2.0) 09/14/17 05:05 Neutrophils (Manual) 77 % (40-80) 09/15/17 04:45 Lymphocytes 10 % (20-50) L 09/15/17 04:45 Monocytes 2 % (2-10) 09/15/17 04:45 Eosinophils 3 % (0-5) 09/15/17 04:45 PT 10.3 SECONDS (9.5-11.5) 09/09/17 12:30 INR 0.99 (0.5-1.4) 09/09/17 12:30 PTT (Actin FS) 26.3 SECONDS (26.0-38.0) 09/09/17 12:30 Specimen Source Arterial 09/15/17 07:49 Sample Site Right Radial 09/15/17 07:49 pH 7.51 (7.35-7.45) H 09/15/17 07:49 pCO2 36.0 mmHg (35.0-45.0) 09/15/17 07:49 pO2 50.0 mmHg (80.0-100.0) L 09/15/17 07:49 HCO3 29.0 mEq/L (20.0-26.0) H 09/15/17 07:49 Base Excess 5.5 mEq/L (-3.0-3.0) H 09/15/17 07:49 O2 Saturation 59.0 % (92.0-100.0) L 09/15/17 07:49 Matthew Test Positive 09/15/17 07:49 Vent Rate NA 09/15/17 07:49 Inspired O2 40 09/15/17 07:49 Tidal Volume NA 09/15/17 07:49 PEEP NA 09/15/17 07:49 Pressure (ins/psv/peep) NA 09/15/17 07:49 Critical Value LZHANG 09/15/17 07:49 Sodium 150 mEq/L (136-145) H 09/15/17 04:45 Potassium 3.7 mEq/L (3.5-5.1) 09/15/17 04:45 Chloride 115 mEq/L (98-107) H 09/15/17 04:45 Carbon Dioxide 25.3 mEq/L (21.0-31.0) 09/15/17 04:45 Anion Gap 13.4 (7.0-16.0) 09/15/17 04:45 BUN 36 mg/dL (7-25) H 09/15/17 04:45 Creatinine 1.8 mg/dL (0.7-1.3) H 09/15/17 04:45 Est GFR ( Amer) 48.2 ml/min (>90) 09/15/17 04:45 Est GFR (Non-Af Amer) 39.8 ml/min 09/15/17 04:45 BUN/Creatinine Ratio 20.0 09/15/17 04:45 Glucose 168 mg/dL (70-105) H 09/15/17 04:45 POC Glucose 130 MG/DL (70 - 105) H 09/15/17 12:13 Whole Bld Lactic Acid 1.35 mmol/L (0.60-1.99) 09/15/17 10:45 Calcium 9.0 mg/dL (8.6-10.3) 09/15/17 04:45 Total Bilirubin 0.8 mg/dL (0.3-1.0) 09/15/17 04:45 AST 14 U/L (13-39) 09/15/17 04:45 ALT 12 U/L (7-52) 09/15/17 04:45 Alkaline Phosphatase 43 U/L (34-104) 09/15/17 04:45 B-Natriuretic Peptide 47.8 pg/mL (5.0-100.0) 09/15/17 04:45 Total Protein 6.3 gm/dL (6.0-8.3) 09/15/17 04:45 Albumin 3.4 gm/dL (4.2-5.5) L 09/15/17 04:45 Globulin 2.9 gm/dL 09/15/17 04:45 Albumin/Globulin Ratio 1.2 (1.0-1.8) 09/15/17 04:45 Urine Source [place] 09/15/17 10:30 Urine Color GREEN 09/15/17 10:30 Urine Clarity CLOUDY (CLEAR) 09/15/17 10:30 Urine pH 6.5 (4.6 - 8.0) 09/15/17 10:30 Ur Specific [place] 1.015 (1.005-1.030) 09/15/17 10:30 Urine Protein 30 mg/dL (NEGATIVE) H 09/15/17 10:30 Urine Glucose (UA) NEGATIVE mg/dL (NEGATIVE) 09/15/17 10:30 Urine Ketones NEGATIVE mg/dL (NEGATIVE) 09/15/17 10:30 Urine Blood LARGE (NEGATIVE) H 09/15/17 10:30 Urine Nitrate POSITIVE (NEGATIVE) H 09/15/17 10:30 Urine Bilirubin MODERATE (NEGATIVE) H 09/15/17 10:30 Urine Urobilinogen 0.2 E.U./dL (0.2 - 1.0) 09/15/17 10:30 Ur Leukocyte Esterase TRACE (NEGATIVE) H 09/15/17 10:30 Urine RBC 50-100 /hpf (0-5) H 09/15/17 10:30 Urine WBC 25-50 /hpf (0-5) H 09/15/17 10:30 Ur Epithelial Cells MANY /lpf (FEW) 09/15/17 10:30 Urine Bacteria 4+ /hpf (NONE SEEN) H 09/15/17 10:30 Vancomycin Trough 20.6 ug/mL (5-10) H 09/14/17 14:00 - Physical Exam Vitals and I&O: Vital Signs Temp 96.7 F 09/15/17 11:39 Pulse 92 09/15/17 11:39 Resp 26 09/15/17 11:39 BP 97/51 09/15/17 13:25 Pulse Ox 96 09/15/17 11:39 Intake & Output 09/14/17 09/15/17 09/15/17 18:59 06:59 18:59 Intake Total 1200 400 Output Total 2600 Balance 1200 400 -2600 Weight (lbs) 71.214 kg 71.214 kg Intake: Intake, IV Amount 450 400 Piperacillin Sodium/ 100 200 Tazobact 4.5 gm In Sodium Chloride 0.9% 100 ml @ 100 mls/hr IV Q8H [facility] Rx# :[id number] Vancomycin HCl 0.75 gm In 250 Dextrose 5% 250 ml @ 165 mls/hr IV Q12H [facility] Rx#: [id number] metroNIDAZOLE 500mg/NS 100 200 100mL 500 mg In 100 ml @ 100 mls/hr IV Q8HR [facility] Rx #:[id number] Tube Feeding 750 Output: Urine 2600 Other: # Voids 3 # Bowel Movements 0 Weight Source Estimated Bedscale Active Medications: Current Medications Acetaminophen (Tylenol) 650 mg PO Q6H PRN PRN Reason: mild pain Stop: 11/08/17 15:49 Last Admin: 09/12/17 09:15 Dose: 650 mg Acetaminophen (Tylenol) 650 mg PO Q6H PRN PRN Reason: Fever > 101 Stop: 11/11/17 20:45 Last Admin: 09/12/17 21:16 Dose: 650 mg Al Hydrox/Mg Hydrox/Simethicone (Maalox) 30 ml PO Q6H PRN PRN Reason: GI DISTRESS Stop: 11/08/17 15:49 Amlodipine Besylate (Norvasc) 5 mg PO DAILY [facility] Stop: 11/09/17 08:59 Last Admin: 09/15/17 08:17 Dose: Not Given Atorvastatin Calcium (Lipitor) 20 mg GT HS [facility] PRN Reason: Protocol Stop: 11/08/17 20:59 Last Admin: 09/14/17 20:22 Dose: 20 mg Cholecalciferol (Vitamin D3) 1,000 iu GT DAILY [facility] Stop: 11/09/17 08:59 Last Admin: 09/15/17 08:17 Dose: Not Given Donepezil HCl (Aricept) 10 mg GT HS [facility] Stop: 11/08/17 20:59 Last Admin: 09/14/17 20:22 Dose: 10 mg Piperacillin Sod/Tazobactam (Sod 4.5 gm/ Sodium Chloride) 100 mls @ 100 mls/hr IV Q8H [facility] Stop: 11/10/17 10:59 Last Admin: 09/15/17 11:26 Dose: 100 mls/hr Metronidazole (Flagyl) 500 mg in 100 mls @ 100 mls/hr IV Q8HR [facility] Stop: 11/13/17 12:59 Last Admin: 09/15/17 13:25 Dose: 100 mls/hr Vancomycin HCl 0.75 gm/ Sodium (Chloride) 250 mls @ 165 mls/hr IV Q12H [facility] Stop: 11/14/17 14:59 Insulin Aspart (Novolog Insulin Sliding Scale) 0 units SUBQ ACHS [facility] PRN Reason: Protocol Stop: 11/12/17 11:29 Last Admin: 09/15/17 12:27 Dose: Not Given Lactobacillus Rhamnosus (Culturelle 15b) 1 each PO DAILY [facility] Stop: 11/12/17 08:59 Last Admin: 09/15/17 08:17 Dose: Not Given Magnesium Hydroxide (Milk Of Magnesia) 30 ml PO HS PRN PRN Reason: Constipation Stop: 11/08/17 15:49 Memantine (Namenda) 5 mg GT BID [facility] Stop: 11/08/17 16:59 Last Admin: 09/15/17 08:17 Dose: Not Given Miscellaneous (Vancomycin Iv Per Pharmacy) 1 ea MC PRN [facility] Stop: 11/09/17 13:44 Miscellaneous (Zosyn Iv Per Pharmacy) 1 ea PRN PRN PRN Reason: PROTOCOL Stop: 11/10/17 08:34 Miscellaneous (Probiotic Screen) 1 ea PRN PRN PRN Reason: PROTOCOL Stop: 11/12/17 08:59 Multivitamins/Vitamin C (Theragran) 1 tab GT DAILY [facility] Stop: 11/09/17 08:59 Last Admin: 09/15/17 08:17 Dose: Not Given Potassium Chloride (Potassium Chloride Elixir) 20 meq GT DAILY [facility] Stop: 11/10/17 09:59 Last Admin: 09/15/17 08:17 Dose: Not Given General: no acute distress, well developed, well nourished HEENT: atraumatic, normocephalic, PERRLA Neck: supple, no thyromegaly Cardiovascular: S1S2, regular Lungs: clear to percussion, rhonchi Abdomen: soft, no tender, no distended, no hepatomegaly Extremities: no cyanosis, no clubbing, no edema Neurological: other (unresponsive) Skin: intact - Procedures Procedures: Procedures Procedure Code Date EGD PLACE GASTROSTOMY TUBE 04209 09/09/17 INSERTION OF FEEDING DEVICE INTO STOMACH, PERC APPROACH [id number] 09/09/17 Infectious Disease Assmt/Plan - Assessment Assessment: 1. Leukopcytosis, likely reactive. Sepsis. 2. Suspect aspiration pneumonia 3. Dysphasia. G tube placement. 4. Dementia. 5. Respiratory failure on BiPAP. - Plan Plan: cpm. Check CT scan of the abdomen pelvis and chest. Nutritional Asmnt/Malnutr-PDOC - Dietary Evaluation Malnutrition Findings (Please click <Entered> for more info): Nutritional Asmnt/Malnutrition Start: 09/10/17 16: 17 Text: Status: Complete Freq: Document 09/10/17 16:19 LCYESENIAG (Rec: 09/10/17 16:29 [email or web address] [id number]) Nutritional Asmnt/Malnutrition Patient General Information Nutritional Screening High Risk Diagnosis g-tube placement (reason for visit) Pertinent Medical Hx/Surgical Hx DM, hyperlipidemia, dementia, schizophrenia, PEG/Gtube Subjective Information Pt seen lying in bed at time of visit, non-verbal. Pt has PEG placement today. Current Diet Order/ Nutrition Support fibersource HN start at 40ml/ hr, goal rate 60ml/hr continuous Pertinent Medications vit D3, vancomycin, theragran, nacl 0.9% Pertinent Labs 09/10 glucose 125, alb 4.1 09/09 glucose 129 Nutritional Hx/Data Height 1.68 m Height (Calculated Centimeters) 167.6 Current Weight (lbs) 63.957 kg Weight (Calculated Kilograms) 64.0 Weight (Calculated Grams) 19204.5 [place] Body Weight 142 Body Mass Index (BMI) 22.7 Weight Status Approriate GI Symptoms GI Symptoms None Last BM no record Difficult in: None Skin Integrity/Comment: reddened to coccyx, bruise to hand, rash to back Estimated Nutritional Goals BEE in Kcals: Using Current wt Calories/Kcals/Kg 25-30 Kcals Calculated 6336-2451 Protein: Using Current wt Protein g/k-1.2 Protein Calculated 64-77 Fluid: ml 1600-1920ml (1ml/kcal) Nutritional Problem No current Nutrition Prob Problem N/A Malnutrition Alert Protein-Calorie Malnutrition N/A Is there a minimum of two criteria No selected? Query Text:Check all the applicable criteria. A minimum of two criteria are recommended for diagnosis of either severe or non-severe malnutrition. Intervention/Recommendation Comments 1. Initiate TF as ordered. It provides 1728kcal, 77g protein , 1178ml free water, meeting 100% of nutritional needs. 2. Monitor TF rate, tolerance, wt weekly, skin integrity and labs 3. F/U as high risk in 2-3 days, 09/12-09/13 Expected Outcomes/Goals Expected Outcomes/Goals 1. Pt to meet at least 75% of nutritional needs via nutrition support with tolerance 2. Wt stability, skin to remain intact, labs to approach WNL.
[2017-09-15] MEDS: Atorvastatin Calcium 10 MG TAB GT SCH (20:05)
--- NOTE | 2017-09-15 22:14 | Consultation ---
DATE OF CONSULTATION: 09/15/2017 REFERRING PHYSICIAN: Dr. Henry. REASON FOR CONSULT: Hypoxic respiratory failure, worsening leukocytosis, sepsis, fever, left basal pneumonia (medical management). HISTORY OF PRESENT ILLNESS: The patient is a 71-year-old male who was admitted on 09/09/2017 for G-tube replacement, which he underwent on 09/10/2017. However, since admission, he has been noted to have progressively worsening leukocytosis and changes in his clinical status including worsening congestion and shortness of breath. His white count on admission was 10.8 and by the 09/10/2017 was 15.5. Currently, it is 23.4. ABG shows a pH of 7.51, pCO2 of 36 and pO2 of 50 and other pertinent findings include a sodium level 150, a BUN of 36 and a creatinine of 1.8. A chest x-ray done today shows linear density at the left lung base. There was an x-ray on admission showing no acute focal pulmonary process. He is wearing an O2 mask and is very congested and not able to provide me any history at this time. PAST MEDICAL HISTORY: Per records include hypertension, hypercholesterolemia, dementia, and dysphagia, status post PEG placement. PAST SURGICAL HISTORY: Include a PEG placement. FAMILY HISTORY: Likely noncontributory to this admission. SOCIAL HISTORY: Unknown, but currently no tobacco, ETOH, or illicit drug usage. He lives at [facility] under the care of Dr. Henry. ALLERGIES: NKDA MEDS: PLEASE REFER TO MAR REVIEW OF SYSTEMS: Unable to be done given patient's condition. PHYSICAL EXAMINATION: VITAL SIGNS: Temperature 98.3, pulse 88, respirations 18-30, BP 133/76. GENERAL: Well-developed, thin male, currently sitting up in bed in moderate shortness of breath. HEAD AND NECK: Normocephalic, atraumatic. He is wearing an O2 mask. NECK: There is no JVD or LAD. CARDIAC: Distant sounds with a regular rate. LUNGS: Congested with coarse breath sounds and crackles bilaterally. There is no wheezing. ABDOMEN: Soft, supple, nontender, nondistended. There is a PEG tube in place. EXTREMITIES: Lower extremity, there is trace edema up to the mid shins. NEUROLOGIC: Difficult to assess given patient's condition, but appears to be nonfocal. DIAGNOSTIC STUDIES: Please refer to the HPI. LABORATORY DATA: Urine cultures were drawn on the 09/09/2017 and are negative. IMPRESSION: 1. Hypoxic respiratory failure. Differential include pneumonia including aspiration versus CHF. 2. Worsening leukocytosis. 3. Left basilar atelectasis/pneumonia. 4. Sepsis. 5. Fever. 6. Hyponatremia. 7. Azotemia. 8. History of advanced dementia. 9. Dysphagia, status post recent PEG tube replacement. PLAN: The patient is currently on broad-spectrum antibiotics (vancomycin, Zosyn and Flagyl) per ID's recommendation. I will ask for Lasix to be given 40 mg x 1 as well as a BNP level. Blood cultures will be asked for and pulmonary supportive care will also be implemented with DuoNeb. Frequent suctioning also has been ordered, and if there is no significant improvement, we will ask for a BiPAP supportive care. A pulmonary consult has also been asked for further management and care. We will continue to monitor cultures and labs as well as x-rays periodically. I would like to thank Dr. Henry for allowing me to participate in case care. JOB# [id number] ANNABEL
[2017-09-15] MEDS: Albuterol/Ipratropium Neb 3 ML AERS HHN SCH (23:16)
--- NOTE | 2017-09-16 02:15 | Consultation ---
DATE OF CONSULTATION: 09/15/2017 Thank you, Dr. Henry, for this consultation. HISTORY OF PRESENT ILLNESS: This is a 71-year-old male, who was admitted with some malfunction of the G-tube and the patient was having some increasing shortness of breath, congestion, hypoxemia, and is on a simple mask now, oxygenating better, but still kind of lethargic and white count is going up. PAST MEDICAL HISTORY: Dementia, diabetes, and schizophrenia. SOCIAL HISTORY: [facility] resident. REVIEW OF SYSTEMS: Unable to obtain because of the patient's condition. PHYSICAL EXAMINATION: GENERAL: The patient is lethargic, not in acute distress. VITAL SIGNS: Temperature 98.2, pulse 86, respirations 22, blood pressure 90/60, and saturation 92% to 96%. HEENT: Atraumatic and normocephalic. Pupils react to light and accommodation. Ears, nose, and throat normal. NECK: Supple. No JVD. CHEST: There are a few rhonchi in the bases. HEART: Regular rhythm. ABDOMEN: Soft. EXTREMITIES: No edema. LABORATORY DATA: Chest x-ray showed some atelectasis at the left base. CT abdomen shows some mild free air, possibly from the G-tube procedure. LABORATORY DATA: WBC is 23.4, hemoglobin is 13.7, hematocrit 41.5, and platelets 205. ABGs: pH 7.54, pCO2 of 36, pO2 of 50, bicarb 29, and saturation is 89%. Sodium 150, potassium 3.7, BUN 36, and creatinine 1.8. UA shows large blood, positive nitrite, and wbc's. IMPRESSION: 1. This is a 71-year-old male with a urinary tract infection. 2. Sepsis. 3. Status post G-tube replacement. 4. Respiratory failure. 5. Atelectasis. PLAN: 1. Continue antibiotics. 2. Nebulizer. 3. IV fluids. 4. Follow up cultures. 5. Supportive care and a continuous bedside oximetry. Thank you very much for this consultation. I will follow the patient with you. JOB# [id number]
[2017-09-16] MEDS: Albuterol/Ipratropium Neb 3 ML AERS HHN SCH ×6 (02:38→23:46)
[2017-09-16] MEDS: metroNIDAZOLE 500mg/NS 100mL 500 MG/100 ML BAG IV SCH ×3 (05:16→22:36)
[2017-09-16 06:57] LABS: EOSINOPHILE ABSOLUTE 0.2 Th/cmm (0.1-0.4)
[2017-09-16 07:03] LABS: ALB/GLOB RATIO 1.2 (1.0-1.8); ALBUMIN 3.1 gm/dL (4.2-5.5); ALKALINE PHOSPHATASE 38 U/L (34-104); BILIRUBIN,TOTAL 0.8 mg/dL (0.3-1.0); BUN - UREA NITROGEN 35 mg/dL (7-25); CALCIUM SERUM 8.7 mg/dL (8.6-10.3); CARBON DIOXIDE 28.2 mEq/L (21.0-31.0); CHLORIDE 119 mEq/L (98-107); CREATININE - SERUM 1.4 mg/dL (0.7-1.3); GFR AFRICAN-AMERICAN > 60.0 ml/min (>90); GFR NON AFRICAN-AMERICAN 53.3 ml/min; GLUCOSE 113 mg/dL (70-105); POTASSIUM SERUM 3.2 mEq/L (3.5-5.1); SGOT 9 U/L (13-39); SGPT/ALT 8 U/L (7-52); SODIUM SERUM 157 mEq/L (136-145); TOTAL PROTEIN,SERUM 5.8 gm/dL (6.0-8.3)
[2017-09-16 07:10] LABS: % EOSINOPHILS 1.1 % (0.0-5.0); % LYMPHOCYTES 5.3 % (20.0-50.0); % MONOCYTES 3.6 % (2.0-10.0); HEMATOCRIT 36.3 % (41.0-60); HEMOGLOBIN 12.3 gm/dL (12-16); LYMPHOCYTE ABSOLUTE 1.1 Th/cmm (1.5-3.0); MEAN CELL VOLUME 88.4 fl (80-99); MEAN CORPUSCULAR HEMOGLOBIN 29.8 pg (27.0-31.0); MEAN CORPUSCULAR HGB CONC 33.8 pg (28.0-36.0); MEAN PLATELET VOLUME 11.8 fl; MONOCYTE ABSOLUTE 0.7 Th/cmm (0.3-1.0); NEUTROPHILE ABSOLUTE 17.9 Th/cmm (1.8-8.0); PLATELET COUNT 213 Th/cmm (150-400); RED BLOOD COUNT 4.11 Mil/cmm (3.80-5.80); RED CELL DISTRIBUTION WIDTH 15.2 % (11.5-20.0)
[2017-09-16 07:19] LABS: WHITE BLOOD COUNT 19.9 Th/cmm (4.8-10.8)
--- NOTE | 2017-09-16 07:46 | Diagnostic Imaging Report ---
CT Chest without IV contrast HISTORY: Leukocytosis COMPARISON: Chest x-ray 09/15/2017. Technique: Axial images were obtained from the base of the neck to the upper abdomen without IV contrast. Reconstructions were made. Total DLP 343, CTD I 15 Findings: Prominent thyroid gland is seen with small nodules. Assessment of the mediastinum is limited due to lack of IV contrast. No evidence of mediastinal lymphadenopathy. Heart size is normal. Diffuse atherosclerosis is noted including coronary artery calcifications. Right posterior lung zone are noted measuring up to 7 mm. Hypoventilatory and atelectatic lung changes are noted. Left basal infiltrates are noted. Minimal bibasal consolidative changes are noted. Small nodular infiltrates of the left lung base are also noted. No significant effusion. Advanced degenerative changes of the spine are noted. Old T6 vertebral compression deformities noted. A few small sclerotic densities of the vertebral bodies are noted. IMPRESSION: Right posterior lung zone nodules measuring up to 7 mm. Neoplastic etiology should be considered. Correlation with old exams with be helpful. Short-term follow-up is recommended. Left basal infiltrates and consolidative changes are noted. Bibasilar nodular infiltrates are also noted. Diffuse atherosclerotic vascular disease. Prominent thyroid gland with small nodules. Ultrasound with further clarify. Few small sclerotic densities of the vertebral bodies, probably bone islands. Other less likely etiologies would include metastatic disease. Correlation with old exams be helpful for comparison. If necessary, follow up exams such as nuclear medicine bone scan may be obtained for further assessment.
--- NOTE | 2017-09-16 07:51 | Diagnostic Imaging Report ---
CT abdomen and pelvis without intravenous contrast Indication: Leukocytosis Comparison: CT chest the same day. Technique: Axial images were obtained from the lung bases to the bilateral proximal femurs without IV contrast. Coronal reconstructions were made. total DLP: 558, CTDI12.3 FINDINGS: Mild free abdominal air is seen along the upper abdomen. Assessment of the solid organs is limited due to lack of IV contrast. No evidence of focal hepatic or splenic lesions. Limited assessment of the pancreas demonstrates no focal lesions. No focal adrenal lesions. Bilateral renal calcifications are noted probably vascular. No hydronephrosis. Urinary bladder is collapsed containing a Sotomayor catheter. Heavy atherosclerotic vascular disease is seen with ectasia of the infrarenal abdominal aorta and aneurysmal dilatation measuring up to 3.5 cm. There is mild distal fecal impaction. Nonspecific fluid and gas-filled loops of bowel are noted. No evidence of appendicitis. Mildly prominent prostate gland is noted. No evidence of free fluid or free air. Advanced degenerative changes of the spine are noted. There is left lower extremity subcutaneous edema extending to the left are not region. IMPRESSION: Mild free abdominal air noted along the upper abdomen. Etiology uncertain and may be due to bowel rupture or possible recent surgical procedure. Note, patient has a gastrostomy feeding tube. Distal fecal impaction. Nonspecific gas and fluid-filled loops of bowel are also noted possibly due to mild ileus. Heavy atherosclerotic vascular disease with aneurysmal dilatation of the infrarenal abdominal aorta measuring up to 3.4 cm. Asymmetric edema along the left buttock extending to the left lower extremity. The significance of this finding should be correlated clinically. Obstructive process cannot be excluded. Clinical correlation and follow-up is recommended. If indicated, an DVT study of the left lower extremity may also be obtained for further assessment. Sotomayor catheter within collapsed urinary bladder. Mildly prominent prostate gland. Bilateral renal calcifications probably vascular. No hydronephrosis.
[2017-09-16] MEDS: INSULIN ASPART SLIDING SCALE 100 UNITS/ML UNIT SUBQ SCH ×4 (08:40→21:34)
--- NOTE | 2017-09-16 08:51 | Diagnostic Imaging Report ---
Portable chest x-ray HISTORY: Shortness of breath Compared with prior exam of September 15, 2017, somewhat diminished linear density in the left lung base consistent with residual subsegmental atelectasis. No other focal processes. The overall heart size is normal. IMPRESSION: 1. Decreased linear density in the left lower lobe consistent with diminished subsegmental atelectasis.
[2017-09-16] MEDS: Lactobacillus Rhamnosus GG 15 Billion CFU CAP.SPRINK PO SCH (09:49)
[2017-09-16] MEDS: Multivitamin Tab GT SCH (09:49)
[2017-09-16] MEDS: Potassium Chloride Elixir 20 mEq /15 mL UDC GT SCH (09:49)
--- NOTE | 2017-09-16 12:55 | General Progress Note ---
Subjective - Review of Systems Service Date: 09/16/17 Subjective: Patient is non verbal Objective - Results Result Diagrams: 09/16/17 06:21 09/16/17 06:21 Recent Labs: Laboratory Last Values WBC 19.9 Th/cmm (4.8-10.8) H 09/16/17 06:21 RBC 4.11 Mil/cmm (3.80-5.80) 09/16/17 06:21 Hgb 12.3 gm/dL (12-16) 09/16/17 06:21 Hct 36.3 % (41.0-60) L 09/16/17 06:21 MCV 88.4 fl (80-99) 09/16/17 06:21 MCH 29.8 pg (27.0-31.0) 09/16/17 06:21 MCHC Differential 33.8 pg (28.0-36.0) 09/16/17 06:21 RDW 15.2 % (11.5-20.0) 09/16/17 06:21 Plt Count 213 Th/cmm (150-400) 09/16/17 06:21 MPV 11.8 fl 09/16/17 06:21 Neutrophils % 90.0 % (40.0-80.0) H 09/16/17 06:21 Band Neutrophils % 8 % (0-10) 09/15/17 04:45 Lymphocytes % 5.3 % (20.0-50.0) L 09/16/17 06:21 Monocytes % 3.6 % (2.0-10.0) 09/16/17 06:21 Eosinophils % 1.1 % (0.0-5.0) 09/16/17 06:21 Basophils % 0.0 % (0.0-2.0) 09/16/17 06:21 Neutrophils (Manual) 77 % (40-80) 09/15/17 04:45 Lymphocytes 10 % (20-50) L 09/15/17 04:45 Monocytes 2 % (2-10) 09/15/17 04:45 Eosinophils 3 % (0-5) 09/15/17 04:45 PT 10.3 SECONDS (9.5-11.5) 09/09/17 12:30 INR 0.99 (0.5-1.4) 09/09/17 12:30 PTT (Actin FS) 26.3 SECONDS (26.0-38.0) 09/09/17 12:30 Specimen Source Arterial 09/15/17 07:49 Sample Site Right Radial 09/15/17 07:49 pH 7.51 (7.35-7.45) H 09/15/17 07:49 pCO2 36.0 mmHg (35.0-45.0) 09/15/17 07:49 pO2 50.0 mmHg (80.0-100.0) L 09/15/17 07:49 HCO3 29.0 mEq/L (20.0-26.0) H 09/15/17 07:49 Base Excess 5.5 mEq/L (-3.0-3.0) H 09/15/17 07:49 O2 Saturation 59.0 % (92.0-100.0) L 09/15/17 07:49 Matthew Test Positive 09/15/17 07:49 Vent Rate NA 09/15/17 07:49 Inspired O2 40 09/15/17 07:49 Tidal Volume NA 09/15/17 07:49 PEEP NA 09/15/17 07:49 Pressure (ins/psv/peep) NA 09/15/17 07:49 Critical Value LZHANG 09/15/17 07:49 Sodium 157 mEq/L (136-145) H 09/16/17 06:21 Potassium 3.2 mEq/L (3.5-5.1) L 09/16/17 06:21 Chloride 119 mEq/L (98-107) H 09/16/17 06:21 Carbon Dioxide 28.2 mEq/L (21.0-31.0) 09/16/17 06:21 Anion Gap 13.0 (7.0-16.0) 09/16/17 06:21 BUN 35 mg/dL (7-25) H 09/16/17 06:21 Creatinine 1.4 mg/dL (0.7-1.3) H 09/16/17 06:21 Est GFR ( Amer) > 60.0 ml/min (>90) 09/16/17 06:21 Est GFR (Non-Af Amer) 53.3 ml/min 09/16/17 06:21 BUN/Creatinine Ratio 25.0 09/16/17 06:21 Glucose 113 mg/dL (70-105) H 09/16/17 06:21 POC Glucose 111 MG/DL (70 - 105) H 09/16/17 11:04 Whole Bld Lactic Acid 1.35 mmol/L (0.60-1.99) 09/15/17 10:45 Calcium 8.7 mg/dL (8.6-10.3) 09/16/17 06:21 Total Bilirubin 0.8 mg/dL (0.3-1.0) 09/16/17 06:21 AST 9 U/L (13-39) L 09/16/17 06:21 ALT 8 U/L (7-52) 09/16/17 06:21 Alkaline Phosphatase 38 U/L (34-104) 09/16/17 06:21 B-Natriuretic Peptide 47.8 pg/mL (5.0-100.0) 09/15/17 04:45 Total Protein 5.8 gm/dL (6.0-8.3) L 09/16/17 06:21 Albumin 3.1 gm/dL (4.2-5.5) L 09/16/17 06:21 Globulin 2.7 gm/dL 09/16/17 06:21 Albumin/Globulin Ratio 1.2 (1.0-1.8) 09/16/17 06:21 Total Cortisol 28.9 09/12/17 01:00 Urine Source [place] 09/15/17 10:30 Urine Color GREEN 09/15/17 10:30 Urine Clarity CLOUDY (CLEAR) 09/15/17 10:30 Urine pH 6.5 (4.6 - 8.0) 09/15/17 10:30 Ur Specific [place] 1.015 (1.005-1.030) 09/15/17 10:30 Urine Protein 30 mg/dL (NEGATIVE) H 09/15/17 10:30 Urine Glucose (UA) NEGATIVE mg/dL (NEGATIVE) 09/15/17 10:30 Urine Ketones NEGATIVE mg/dL (NEGATIVE) 09/15/17 10:30 Urine Blood LARGE (NEGATIVE) H 09/15/17 10:30 Urine Nitrate POSITIVE (NEGATIVE) H 09/15/17 10:30 Urine Bilirubin MODERATE (NEGATIVE) H 09/15/17 10:30 Urine Urobilinogen 0.2 E.U./dL (0.2 - 1.0) 09/15/17 10:30 Ur Leukocyte Esterase TRACE (NEGATIVE) H 09/15/17 10:30 Urine RBC 50-100 /hpf (0-5) H 09/15/17 10:30 Urine WBC 25-50 /hpf (0-5) H 09/15/17 10:30 Ur Epithelial Cells MANY /lpf (FEW) 09/15/17 10:30 Urine Bacteria 4+ /hpf (NONE SEEN) H 09/15/17 10:30 Vancomycin Trough 20.6 ug/mL (5-10) H 09/14/17 14:00 - Physical Exam Vitals and I&O: Vital Signs Temp 98.7 F 09/16/17 12:00 Pulse 95 09/16/17 12:00 Resp 17 09/16/17 12:00 BP 101/73 09/16/17 12:00 Pulse Ox 95 09/16/17 12:00 Intake & Output 09/15/17 09/16/17 09/16/17 18:59 06:59 18:59 Intake Total 1110 300 Output Total 5900 Balance -4790 300 Weight (lbs) 71.214 kg Intake: Intake, IV Amount 450 300 Piperacillin Sodium/ 100 200 Tazobact 4.5 gm In Sodium Chloride 0.9% 100 ml @ 100 mls/hr IV Q8H [facility] Rx# :[id number] Vancomycin HCl 0.75 gm In 250 Sodium Chloride 0.9% 250 ml @ 165 mls/hr IV Q12H [facility] Rx#:[id number] metroNIDAZOLE 500mg/NS 100 100 100mL 500 mg In 100 ml @ 100 mls/hr IV Q8HR [facility] Rx #:[id number] TPN/PPN 660 Output: Urine 5900 Other: # Bowel Movements 1 Weight Source Bedscale Active Medications: Current Medications Acetaminophen (Tylenol) 650 mg PO Q6H PRN PRN Reason: mild pain Stop: 11/08/17 15:49 Last Admin: 09/12/17 09:15 Dose: 650 mg Acetaminophen (Tylenol) 650 mg PO Q6H PRN PRN Reason: Fever > 101 Stop: 11/11/17 20:45 Last Admin: 09/12/17 21:16 Dose: 650 mg Al Hydrox/Mg Hydrox/Simethicone (Maalox) 30 ml PO Q6H PRN PRN Reason: GI DISTRESS Stop: 11/08/17 15:49 Albuterol/Ipratropium (Duoneb Neb) 3 ml HHN Q4HRT [facility] Stop: 11/14/17 22:59 Last Admin: 09/16/17 07:46 Dose: 3 ml Amlodipine Besylate (Norvasc) 5 mg PO DAILY [facility] Stop: 11/09/17 08:59 Last Admin: 09/16/17 09:48 Dose: Not Given Atorvastatin Calcium (Lipitor) 20 mg GT HS [facility] PRN Reason: Protocol Stop: 11/08/17 20:59 Last Admin: 09/15/17 20:05 Dose: Not Given Cholecalciferol (Vitamin D3) 1,000 iu GT DAILY [facility] Stop: 11/09/17 08:59 Last Admin: 09/16/17 09:49 Dose: Not Given Donepezil HCl (Aricept) 10 mg GT HS [facility] Stop: 11/08/17 20:59 Last Admin: 09/15/17 20:06 Dose: Not Given Piperacillin Sod/Tazobactam (Sod 4.5 gm/ Sodium Chloride) 100 mls @ 100 mls/hr IV Q8H [facility] Stop: 11/10/17 10:59 Last Admin: 09/16/17 11:45 Dose: 100 mls/hr Metronidazole (Flagyl) 500 mg in 100 mls @ 100 mls/hr IV Q8HR [facility] Stop: 11/13/17 12:59 Last Admin: 09/16/17 05:16 Dose: 100 mls/hr Vancomycin HCl 0.75 gm/ Sodium (Chloride) 250 mls @ 165 mls/hr IV Q12H [facility] Stop: 11/14/17 14:59 Last Admin: 09/16/17 03:51 Dose: 165 mls/hr Dextrose (D5w) 1,000 mls @ 50 mls/hr IV .Q20H [facility] Stop: 11/15/17 12:59 Insulin Aspart (Novolog Insulin Sliding Scale) 0 units SUBQ ACHS [facility] PRN Reason: Protocol Stop: 11/12/17 11:29 Last Admin: 09/16/17 11:28 Dose: Not Given Lactobacillus Rhamnosus (Culturelle 15b) 1 each PO DAILY [facility] Stop: 11/12/17 08:59 Last Admin: 09/16/17 09:49 Dose: Not Given Magnesium Hydroxide (Milk Of Magnesia) 30 ml PO HS PRN PRN Reason: Constipation Stop: 11/08/17 15:49 Memantine (Namenda) 5 mg GT BID [facility] Stop: 11/08/17 16:59 Last Admin: 09/16/17 09:49 Dose: Not Given Miscellaneous (Zosyn Iv Per Pharmacy) 1 ea PRN PRN PRN Reason: PROTOCOL Stop: 11/10/17 08:34 Miscellaneous (Probiotic Screen) 1 ea PRN PRN PRN Reason: PROTOCOL Stop: 11/12/17 08:59 Multivitamins/Vitamin C (Theragran) 1 tab GT DAILY [facility] Stop: 11/09/17 08:59 Last Admin: 09/16/17 09:49 Dose: Not Given Potassium Chloride (Potassium Chloride Elixir) 20 meq GT DAILY [facility] Stop: 11/10/17 09:59 Last Admin: 09/16/17 09:49 Dose: Not Given General: Other (Awake, alert, eyes open, not following verbal commands.) HEENT: Atraumatic Cardiovascular: Regular rate Lungs: Other (Rude respiration, less congestion) Abdomen: Bowel sounds, Soft, Other (Peg in place. ) Extremities: Other (No edema) Neurological: Other (Non ambulatory) Skin: Other (Warm and dry) Psych/Mental Status: Other (Patient non verbal. ) - Procedures Procedures: Procedures Procedure Code Date ASSISTANCE WITH RESPIRATORY VENTILATION, <24 HRS, CPAP [id number] 09/09/[address] GASTROSTOMY TUBE 90986 09/09/17 INSERTION OF FEEDING DEVICE INTO STOMACH, PERC APPROACH [id number] 09/09/17 POS AIRWAY PRESSURE CPAP 16312 09/09/17 Assessment/Plan - Assessment Assessment: Patient is awake, non verbal. WBC improving, Patient is breathing better, Na increasing. Dx: Peg displacement, sepsis, Hypernatremia, DM, Dementia, Schizophrenia, bed bound. - Plan Plan: Peg was replaced. NS changed to D5, Metronidazole is started. BIPAP is order and consult with pulmonology and IM requested. Patient not responding to treatment. Prognosis continue being poor. Will continue monitoring. Nutritional Asmnt/Malnutr-PDOC - Dietary Evaluation Malnutrition Findings (Please click <Entered> for more info): Nutritional Asmnt/Malnutrition Start: 09/10/17 16: 17 Text: Status: Complete Freq: Document 09/10/17 16:19 BEN (Rec: 09/10/17 16:29 [id number] [id number]) Nutritional Asmnt/Malnutrition Patient General Information Nutritional Screening High Risk Diagnosis g-tube placement (reason for visit) Pertinent Medical Hx/Surgical Hx DM, hyperlipidemia, dementia, schizophrenia, PEG/Gtube Subjective Information Pt seen lying in bed at time of visit, non-verbal. Pt has PEG placement today. Current Diet Order/ Nutrition Support fibersource HN start at 40ml/ hr, goal rate 60ml/hr continuous Pertinent Medications vit D3, vancomycin, theragran, nacl 0.9% Pertinent Labs 09/10 glucose 125, alb 4.1 09/09 glucose 129 Nutritional Hx/Data Height 1.68 m Height (Calculated Centimeters) 167.6 Current Weight (lbs) 63.957 kg Weight (Calculated Kilograms) 64.0 Weight (Calculated Grams) 65512.5 [place] Body Weight 142 Body Mass Index (BMI) 22.7 Weight Status Approriate GI Symptoms GI Symptoms None Last BM no record Difficult in: None Skin Integrity/Comment: reddened to coccyx, bruise to hand, rash to back Estimated Nutritional Goals BEE in Kcals: Using Current wt Calories/Kcals/Kg 25-30 Kcals Calculated 7159-1710 Protein: Using Current wt Protein g/k-1.2 Protein Calculated 64-77 Fluid: ml 1600-1920ml (1ml/kcal) Nutritional Problem No current Nutrition Prob Problem N/A Malnutrition Alert Protein-Calorie Malnutrition N/A Is there a minimum of two criteria No selected? Query Text:Check all the applicable criteria. A minimum of two criteria are recommended for diagnosis of either severe or non-severe malnutrition. Intervention/Recommendation Comments 1. Initiate TF as ordered. It provides 1728kcal, 77g protein , 1178ml free water, meeting 100% of nutritional needs. 2. Monitor TF rate, tolerance, wt weekly, skin integrity and labs 3. F/U as high risk in 2-3 days, 09/12-09/13 Expected Outcomes/Goals Expected Outcomes/Goals 1. Pt to meet at least 75% of nutritional needs via nutrition support with tolerance 2. Wt stability, skin to remain intact, labs to approach WNL.
[2017-09-16] MEDS ORDERED: Dextrose 5% 1,000 ML IV SCH (13:00)
[2017-09-16] MEDS ORDERED: Diatrizoate Meglumine/Diatri 30 mL Sol PO ONE (13:10)
[2017-09-16] MEDS ORDERED: Diatrizoate Meglumine/Diatri 30 mL Sol ONE (13:17)
--- NOTE | 2017-09-16 13:54 | Diagnostic Imaging Report ---
CT scan abdomen and pelvis without intravenous contrast (radiopaque contrast administered through patient's gastrostomy tube) HISTORY: Gastrostomy tube leakage Following instillation of radiopaque contrast through the patient's gastrostomy tube, axial sections were obtained from the xiphoid process down to the pubic symphysis. Exam is compromised due to patient motion. The study is compared with the prior exam of 09/15/2017. Limited sections through the lower chest again demonstrate parenchymal density within the left lower lobe of the lung consistent with consolidation and/or atelectasis. Nonspecific parenchymal density remains unchanged in the right lower lobe. No focal hepatic lesions are seen. The spleen appears normal. Radiopaque contrast is noted within the gastric lumen. No extravasation identified. Decreased previously reported free intraperitoneal air. No focal abnormalities seen within the pancreas. Faint calcifications noted within the medullary regions of the kidneys that appear vascular. Atherosclerotic calcification noted throughout the abdominal aorta and iliac vessels. Again noted and unchanged is aneurysmal dilatation of the abdominal aorta that originates at the level below the renal vasculature and extends into the iliac arteries bilaterally. Maximum diameter equals approximately 3.4 cm. IMPRESSION: 1. No evidence of gastrostomy tube leakage/extravasation. 2. Diminished free intraperitoneal air compared with the prior study of 09/15/2017 3. No other changes from the prior exam.
[2017-09-16] MEDS ORDERED: Lovenox 1 mg/kg Q12H 1 Each Miscellaneous SUBQ ONE (20:00)
[2017-09-16] MEDS ORDERED: Enoxaparin 80 mg/0.8 mL 0.8mL Syr SUBQ ONE (20:15)
[2017-09-16] MEDS: Atorvastatin Calcium 10 MG TAB GT SCH (21:33)
--- NOTE | 2017-09-16 22:47 | GI Progress Note ---
Subjective - Review of Systems Service Date: 09/16/17 Subjective: EVENTS NOTED. CT REPEAT NOTED. Objective - Results Result Diagrams: 09/16/17 06:21 09/16/17 06:21 Recent Labs: Laboratory Last Values WBC 19.9 Th/cmm (4.8-10.8) H 09/16/17 06:21 RBC 4.11 Mil/cmm (3.80-5.80) 09/16/17 06:21 Hgb 12.3 gm/dL (12-16) 09/16/17 06:21 Hct 36.3 % (41.0-60) L 09/16/17 06:21 MCV 88.4 fl (80-99) 09/16/17 06:21 MCH 29.8 pg (27.0-31.0) 09/16/17 06:21 MCHC Differential 33.8 pg (28.0-36.0) 09/16/17 06:21 RDW 15.2 % (11.5-20.0) 09/16/17 06:21 Plt Count 213 Th/cmm (150-400) 09/16/17 06:21 MPV 11.8 fl 09/16/17 06:21 Neutrophils % 90.0 % (40.0-80.0) H 09/16/17 06:21 Band Neutrophils % 8 % (0-10) 09/15/17 04:45 Lymphocytes % 5.3 % (20.0-50.0) L 09/16/17 06:21 Monocytes % 3.6 % (2.0-10.0) 09/16/17 06:21 Eosinophils % 1.1 % (0.0-5.0) 09/16/17 06:21 Basophils % 0.0 % (0.0-2.0) 09/16/17 06:21 Neutrophils (Manual) 77 % (40-80) 09/15/17 04:45 Lymphocytes 10 % (20-50) L 09/15/17 04:45 Monocytes 2 % (2-10) 09/15/17 04:45 Eosinophils 3 % (0-5) 09/15/17 04:45 PT 10.3 SECONDS (9.5-11.5) 09/09/17 12:30 INR 0.99 (0.5-1.4) 09/09/17 12:30 PTT (Actin FS) 26.3 SECONDS (26.0-38.0) 09/09/17 12:30 Specimen Source Arterial 09/15/17 07:49 Sample Site Right Radial 09/15/17 07:49 pH 7.51 (7.35-7.45) H 09/15/17 07:49 pCO2 36.0 mmHg (35.0-45.0) 09/15/17 07:49 pO2 50.0 mmHg (80.0-100.0) L 09/15/17 07:49 HCO3 29.0 mEq/L (20.0-26.0) H 09/15/17 07:49 Base Excess 5.5 mEq/L (-3.0-3.0) H 09/15/17 07:49 O2 Saturation 59.0 % (92.0-100.0) L 09/15/17 07:49 Matthew Test Positive 09/15/17 07:49 Vent Rate NA 09/15/17 07:49 Inspired O2 40 09/15/17 07:49 Tidal Volume NA 09/15/17 07:49 PEEP NA 09/15/17 07:49 Pressure (ins/psv/peep) NA 09/15/17 07:49 Critical Value LZHANG 09/15/17 07:49 Sodium 157 mEq/L (136-145) H 09/16/17 06:21 Potassium 3.2 mEq/L (3.5-5.1) L 09/16/17 06:21 Chloride 119 mEq/L (98-107) H 09/16/17 06:21 Carbon Dioxide 28.2 mEq/L (21.0-31.0) 09/16/17 06:21 Anion Gap 13.0 (7.0-16.0) 09/16/17 06:21 BUN 35 mg/dL (7-25) H 09/16/17 06:21 Creatinine 1.4 mg/dL (0.7-1.3) H 09/16/17 06:21 Est GFR ( Amer) > 60.0 ml/min (>90) 09/16/17 06:21 Est GFR (Non-Af Amer) 53.3 ml/min 09/16/17 06:21 BUN/Creatinine Ratio 25.0 09/16/17 06:21 Glucose 113 mg/dL (70-105) H 09/16/17 06:21 POC Glucose 100 MG/DL (70 - 105) 09/16/17 20:52 Whole Bld Lactic Acid 1.35 mmol/L (0.60-1.99) 09/15/17 10:45 Calcium 8.7 mg/dL (8.6-10.3) 09/16/17 06:21 Total Bilirubin 0.8 mg/dL (0.3-1.0) 09/16/17 06:21 AST 9 U/L (13-39) L 09/16/17 06:21 ALT 8 U/L (7-52) 09/16/17 06:21 Alkaline Phosphatase 38 U/L (34-104) 09/16/17 06:21 B-Natriuretic Peptide 47.8 pg/mL (5.0-100.0) 09/15/17 04:45 Total Protein 5.8 gm/dL (6.0-8.3) L 09/16/17 06:21 Albumin 3.1 gm/dL (4.2-5.5) L 09/16/17 06:21 Globulin 2.7 gm/dL 09/16/17 06:21 Albumin/Globulin Ratio 1.2 (1.0-1.8) 09/16/17 06:21 Total Cortisol 28.9 09/12/17 01:00 Urine Source [place] 09/15/17 10:30 Urine Color GREEN 09/15/17 10:30 Urine Clarity CLOUDY (CLEAR) 09/15/17 10:30 Urine pH 6.5 (4.6 - 8.0) 09/15/17 10:30 Ur Specific [place] 1.015 (1.005-1.030) 09/15/17 10:30 Urine Protein 30 mg/dL (NEGATIVE) H 09/15/17 10:30 Urine Glucose (UA) NEGATIVE mg/dL (NEGATIVE) 09/15/17 10:30 Urine Ketones NEGATIVE mg/dL (NEGATIVE) 09/15/17 10:30 Urine Blood LARGE (NEGATIVE) H 09/15/17 10:30 Urine Nitrate POSITIVE (NEGATIVE) H 09/15/17 10:30 Urine Bilirubin MODERATE (NEGATIVE) H 09/15/17 10:30 Urine Urobilinogen 0.2 E.U./dL (0.2 - 1.0) 09/15/17 10:30 Ur Leukocyte Esterase TRACE (NEGATIVE) H 09/15/17 10:30 Urine RBC 50-100 /hpf (0-5) H 09/15/17 10:30 Urine WBC 25-50 /hpf (0-5) H 09/15/17 10:30 Ur Epithelial Cells MANY /lpf (FEW) 09/15/17 10:30 Urine Bacteria 4+ /hpf (NONE SEEN) H 09/15/17 10:30 Vancomycin Trough 19.6 ug/mL (5-10) H 09/16/17 15:18 - Physical Exam Vitals and I&O: Vital Signs Temp 99.9 F 09/16/17 20:00 Pulse 95 09/16/17 20:00 Resp 24 09/16/17 20:00 BP 124/67 09/16/17 20:00 Pulse Ox 94 09/16/17 20:00 Intake & Output 09/16/17 09/16/17 09/17/17 06:59 18:59 06:59 Intake Total 650 200 Balance 650 200 Intake: Intake, IV Amount 650 200 Piperacillin Sodium/ 200 100 Tazobact 4.5 gm In Sodium Chloride 0.9% 100 ml @ 100 mls/hr IV Q8H [facility] Rx# :[id number] Vancomycin HCl 0.75 gm In 250 Sodium Chloride 0.9% 250 ml @ 165 mls/hr IV Q12H [facility] Rx#:[id number] metroNIDAZOLE 500mg/NS 200 100 100mL 500 mg In 100 ml @ 100 mls/hr IV Q8HR [facility] Rx #:[id number] Active Medications: Current Medications Acetaminophen (Tylenol) 650 mg PO Q6H PRN PRN Reason: mild pain Stop: 11/08/17 15:49 Last Admin: 09/12/17 09:15 Dose: 650 mg Acetaminophen (Tylenol) 650 mg PO Q6H PRN PRN Reason: Fever > 101 Stop: 11/11/17 20:45 Last Admin: 09/12/17 21:16 Dose: 650 mg Al Hydrox/Mg Hydrox/Simethicone (Maalox) 30 ml PO Q6H PRN PRN Reason: GI DISTRESS Stop: 11/08/17 15:49 Albuterol/Ipratropium (Duoneb Neb) 3 ml HHN Q4HRT [facility] Stop: 11/14/17 22:59 Last Admin: 09/16/17 19:16 Dose: 3 ml Amlodipine Besylate (Norvasc) 5 mg PO DAILY [facility] Stop: 11/09/17 08:59 Last Admin: 09/16/17 09:48 Dose: Not Given Atorvastatin Calcium (Lipitor) 20 mg GT HS [facility] PRN Reason: Protocol Stop: 11/08/17 20:59 Last Admin: 09/16/17 21:33 Dose: Not Given Cholecalciferol (Vitamin D3) 1,000 iu GT DAILY [facility] Stop: 11/09/17 08:59 Last Admin: 09/16/17 09:49 Dose: Not Given Donepezil HCl (Aricept) 10 mg GT HS [facility] Stop: 11/08/17 20:59 Last Admin: 09/16/17 21:34 Dose: Not Given Enoxaparin Sodium (Lovenox) 70 mg SUBQ Q12HR [facility] Stop: 11/16/17 08:59 Piperacillin Sod/Tazobactam (Sod 4.5 gm/ Sodium Chloride) 100 mls @ 100 mls/hr IV Q8H [facility] Stop: 11/10/17 10:59 Last Admin: 09/16/17 21:28 Dose: 100 mls/hr Metronidazole (Flagyl) 500 mg in 100 mls @ 100 mls/hr IV Q8HR [facility] Stop: 11/13/17 12:59 Last Admin: 09/16/17 22:36 Dose: 100 mls/hr Dextrose (D5w) 1,000 mls @ 50 mls/hr IV .Q20H [facility] Stop: 11/15/17 12:59 Last Admin: 09/16/17 14:38 Dose: 50 mls/hr Vancomycin HCl 1.5 gm/ Sodium (Chloride) 500 mls @ 250 mls/hr IV ONCE ONE Stop: 09/17/17 04:59 Vancomycin HCl 1.5 gm/ Sodium (Chloride) 500 mls @ 250 mls/hr IV Q24H [facility] Stop: 11/17/17 08:59 Insulin Aspart (Novolog Insulin Sliding Scale) 0 units SUBQ ACHS [facility] PRN Reason: Protocol Stop: 11/12/17 11:29 Last Admin: 09/16/17 21:34 Dose: Not Given Lactobacillus Rhamnosus (Culturelle 15b) 1 each PO DAILY [facility] Stop: 11/12/17 08:59 Last Admin: 09/16/17 09:49 Dose: Not Given Magnesium Hydroxide (Milk Of Magnesia) 30 ml PO HS PRN PRN Reason: Constipation Stop: 11/08/17 15:49 Memantine (Namenda) 5 mg GT BID [facility] Stop: 11/08/17 16:59 Last Admin: 09/16/17 16:24 Dose: Not Given Miscellaneous (Zosyn Iv Per Pharmacy) 1 ea PRN PRN PRN Reason: PROTOCOL Stop: 11/10/17 08:34 Miscellaneous (Probiotic Screen) 1 ea PRN PRN PRN Reason: PROTOCOL Stop: 11/12/17 08:59 Miscellaneous (Vancomycin Iv Per Pharmacy) 1 ea MC DAILY [facility] Stop: 11/15/17 16:59 Multivitamins/Vitamin C (Theragran) 1 tab GT DAILY [facility] Stop: 11/09/17 08:59 Last Admin: 09/16/17 09:49 Dose: Not Given Potassium Chloride (Potassium Chloride Elixir) 20 meq GT DAILY [facility] Stop: 11/10/17 09:59 Last Admin: 09/16/17 09:49 Dose: Not Given General: No acute distress Neck: Supple Cardiovascular: Regular rate Lungs: Other (Rude respiration, less congestion) Abdomen: Bowel sounds, Soft, Distended (MILD), Other (Peg in place. ) Neurological: Other (Non ambulatory) Skin: Other (Warm and dry) Psych/Mental Status: Other (Patient non verbal. ) - Procedures Procedures: Procedures Procedure Code Date ASSISTANCE WITH RESPIRATORY VENTILATION, <24 HRS, CPAP [id number] 09/09/[address] GASTROSTOMY TUBE 82607 09/09/17 INSERTION OF FEEDING DEVICE INTO STOMACH, PERC APPROACH [id number] 09/09/17 POS AIRWAY PRESSURE CPAP [id number] 09/09/17 Assessment/Plan - Assessment Assessment: IMPRESSION: 1. DYSPHAGIA WITH GT DISPLACEMENT - S/P REINSERTION X 2. 2. LEUKOCYTOSIS WITH SEPSIS, POSSIBLY DUE TO PERITONITIS FROM RECENT GT CHANGE. - NONCONTRAST CT SHOWED FREE INTRAPERITONEAL AIR. CONTRAST VIA GT NOT NOTED TO LEAK OR EXTRAVASATE VIA GT SITE. 3. ENCEPHALOPATHY. RECS: 1. HOLD GT FEEDS FOR NOW. 2. CONSIDER STARTING TPN FOR A FEW DAYS TILL PERITONITIS IMPROVES. 3. ABX PER ID. 4. MONITOR WBC.
--- NOTE | 2017-09-16 23:27 | Infectious Disease Prog Note ---
Infectious Disease Subjective - Review of Systems Service Date: 09/16/17 Subjective: Short of breath on BiPAP.Leukocytosis is improving again. Infectious Disease Objective - Results Result Diagrams: 09/16/17 06:21 09/16/17 06:21 Recent Labs: Laboratory Last Values WBC 19.9 Th/cmm (4.8-10.8) H 09/16/17 06:21 RBC 4.11 Mil/cmm (3.80-5.80) 09/16/17 06:21 Hgb 12.3 gm/dL (12-16) 09/16/17 06:21 Hct 36.3 % (41.0-60) L 09/16/17 06:21 MCV 88.4 fl (80-99) 09/16/17 06:21 MCH 29.8 pg (27.0-31.0) 09/16/17 06:21 MCHC Differential 33.8 pg (28.0-36.0) 09/16/17 06:21 RDW 15.2 % (11.5-20.0) 09/16/17 06:21 Plt Count 213 Th/cmm (150-400) 09/16/17 06:21 MPV 11.8 fl 09/16/17 06:21 Neutrophils % 90.0 % (40.0-80.0) H 09/16/17 06:21 Band Neutrophils % 8 % (0-10) 09/15/17 04:45 Lymphocytes % 5.3 % (20.0-50.0) L 09/16/17 06:21 Monocytes % 3.6 % (2.0-10.0) 09/16/17 06:21 Eosinophils % 1.1 % (0.0-5.0) 09/16/17 06:21 Basophils % 0.0 % (0.0-2.0) 09/16/17 06:21 Neutrophils (Manual) 77 % (40-80) 09/15/17 04:45 Lymphocytes 10 % (20-50) L 09/15/17 04:45 Monocytes 2 % (2-10) 09/15/17 04:45 Eosinophils 3 % (0-5) 09/15/17 04:45 PT 10.3 SECONDS (9.5-11.5) 09/09/17 12:30 INR 0.99 (0.5-1.4) 09/09/17 12:30 PTT (Actin FS) 26.3 SECONDS (26.0-38.0) 09/09/17 12:30 Specimen Source Arterial 09/15/17 07:49 Sample Site Right Radial 09/15/17 07:49 pH 7.51 (7.35-7.45) H 09/15/17 07:49 pCO2 36.0 mmHg (35.0-45.0) 09/15/17 07:49 pO2 50.0 mmHg (80.0-100.0) L 09/15/17 07:49 HCO3 29.0 mEq/L (20.0-26.0) H 09/15/17 07:49 Base Excess 5.5 mEq/L (-3.0-3.0) H 09/15/17 07:49 O2 Saturation 59.0 % (92.0-100.0) L 09/15/17 07:49 Matthew Test Positive 09/15/17 07:49 Vent Rate NA 09/15/17 07:49 Inspired O2 40 09/15/17 07:49 Tidal Volume NA 09/15/17 07:49 PEEP NA 09/15/17 07:49 Pressure (ins/psv/peep) NA 09/15/17 07:49 Critical Value LZHANG 09/15/17 07:49 Sodium 157 mEq/L (136-145) H 09/16/17 06:21 Potassium 3.2 mEq/L (3.5-5.1) L 09/16/17 06:21 Chloride 119 mEq/L (98-107) H 09/16/17 06:21 Carbon Dioxide 28.2 mEq/L (21.0-31.0) 09/16/17 06:21 Anion Gap 13.0 (7.0-16.0) 09/16/17 06:21 BUN 35 mg/dL (7-25) H 09/16/17 06:21 Creatinine 1.4 mg/dL (0.7-1.3) H 09/16/17 06:21 Est GFR ( Amer) > 60.0 ml/min (>90) 09/16/17 06:21 Est GFR (Non-Af Amer) 53.3 ml/min 09/16/17 06:21 BUN/Creatinine Ratio 25.0 09/16/17 06:21 Glucose 113 mg/dL (70-105) H 09/16/17 06:21 POC Glucose 100 MG/DL (70 - 105) 09/16/17 20:52 Whole Bld Lactic Acid 1.35 mmol/L (0.60-1.99) 09/15/17 10:45 Calcium 8.7 mg/dL (8.6-10.3) 09/16/17 06:21 Total Bilirubin 0.8 mg/dL (0.3-1.0) 09/16/17 06:21 AST 9 U/L (13-39) L 09/16/17 06:21 ALT 8 U/L (7-52) 09/16/17 06:21 Alkaline Phosphatase 38 U/L (34-104) 09/16/17 06:21 B-Natriuretic Peptide 47.8 pg/mL (5.0-100.0) 09/15/17 04:45 Total Protein 5.8 gm/dL (6.0-8.3) L 09/16/17 06:21 Albumin 3.1 gm/dL (4.2-5.5) L 09/16/17 06:21 Globulin 2.7 gm/dL 09/16/17 06:21 Albumin/Globulin Ratio 1.2 (1.0-1.8) 09/16/17 06:21 Total Cortisol 28.9 09/12/17 01:00 Urine Source [place] 09/15/17 10:30 Urine Color GREEN 09/15/17 10:30 Urine Clarity CLOUDY (CLEAR) 09/15/17 10:30 Urine pH 6.5 (4.6 - 8.0) 09/15/17 10:30 Ur Specific [place] 1.015 (1.005-1.030) 09/15/17 10:30 Urine Protein 30 mg/dL (NEGATIVE) H 09/15/17 10:30 Urine Glucose (UA) NEGATIVE mg/dL (NEGATIVE) 09/15/17 10:30 Urine Ketones NEGATIVE mg/dL (NEGATIVE) 09/15/17 10:30 Urine Blood LARGE (NEGATIVE) H 09/15/17 10:30 Urine Nitrate POSITIVE (NEGATIVE) H 09/15/17 10:30 Urine Bilirubin MODERATE (NEGATIVE) H 09/15/17 10:30 Urine Urobilinogen 0.2 E.U./dL (0.2 - 1.0) 09/15/17 10:30 Ur Leukocyte Esterase TRACE (NEGATIVE) H 09/15/17 10:30 Urine RBC 50-100 /hpf (0-5) H 09/15/17 10:30 Urine WBC 25-50 /hpf (0-5) H 09/15/17 10:30 Ur Epithelial Cells MANY /lpf (FEW) 09/15/17 10:30 Urine Bacteria 4+ /hpf (NONE SEEN) H 09/15/17 10:30 Vancomycin Trough 19.6 ug/mL (5-10) H 09/16/17 15:18 - Physical Exam Vitals and I&O: Vital Signs Temp 99.9 F 09/16/17 20:00 Pulse 95 09/16/17 20:00 Resp 24 09/16/17 20:00 BP 124/67 09/16/17 20:00 Pulse Ox 94 09/16/17 20:00 Intake & Output 09/16/17 09/16/17 09/17/17 06:59 18:59 06:59 Intake Total 650 200 Balance 650 200 Intake: Intake, IV Amount 650 200 Piperacillin Sodium/ 200 100 Tazobact 4.5 gm In Sodium Chloride 0.9% 100 ml @ 100 mls/hr IV Q8H REPLACED BY [facility] Rx# :[id number] Vancomycin HCl 0.75 gm In 250 Sodium Chloride 0.9% 250 ml @ 165 mls/hr IV Q12H [facility] Rx#:[id number] metroNIDAZOLE 500mg/NS 200 100 100mL 500 mg In 100 ml @ 100 mls/hr IV Q8HR REPLACED BY [facility] Rx #:[id number] Active Medications: Current Medications Acetaminophen (Tylenol) 650 mg PO Q6H PRN PRN Reason: mild pain Stop: 11/08/17 15:49 Last Admin: 09/12/17 09:15 Dose: 650 mg Acetaminophen (Tylenol) 650 mg PO Q6H PRN PRN Reason: Fever > 101 Stop: 11/11/17 20:45 Last Admin: 09/12/17 21:16 Dose: 650 mg Al Hydrox/Mg Hydrox/Simethicone (Maalox) 30 ml PO Q6H PRN PRN Reason: GI DISTRESS Stop: 11/08/17 15:49 Albuterol/Ipratropium (Duoneb Neb) 3 ml HHN Q4HRT REPLACED BY [facility] Stop: 11/14/17 22:59 Last Admin: 09/16/17 19:16 Dose: 3 ml Amlodipine Besylate (Norvasc) 5 mg PO DAILY REPLACED BY [facility] Stop: 11/09/17 08:59 Last Admin: 09/16/17 09:48 Dose: Not Given Atorvastatin Calcium (Lipitor) 20 mg GT HS [facility] PRN Reason: Protocol Stop: 11/08/17 20:59 Last Admin: 09/16/17 21:33 Dose: Not Given Cholecalciferol (Vitamin D3) 1,000 iu GT DAILY REPLACED BY [facility] Stop: 11/09/17 08:59 Last Admin: 09/16/17 09:49 Dose: Not Given Donepezil HCl (Aricept) 10 mg GT HS REPLACED BY [facility] Stop: 11/08/17 20:59 Last Admin: 09/16/17 21:34 Dose: Not Given Enoxaparin Sodium (Lovenox) 70 mg SUBQ Q12HR REPLACED BY [facility] Stop: 11/16/17 08:59 Piperacillin Sod/Tazobactam (Sod 4.5 gm/ Sodium Chloride) 100 mls @ 100 mls/hr IV Q8H REPLACED BY [facility] Stop: 11/10/17 10:59 Last Admin: 09/16/17 21:28 Dose: 100 mls/hr Metronidazole (Flagyl) 500 mg in 100 mls @ 100 mls/hr IV Q8HR REPLACED BY [facility] Stop: 11/13/17 12:59 Last Admin: 09/16/17 22:36 Dose: 100 mls/hr Dextrose (D5w) 1,000 mls @ 50 mls/hr IV .Q20H REPLACED BY [facility] Stop: 11/15/17 12:59 Last Admin: 09/16/17 14:38 Dose: 50 mls/hr Vancomycin HCl 1.5 gm/ Sodium (Chloride) 500 mls @ 250 mls/hr IV ONCE ONE Stop: 09/17/17 04:59 Vancomycin HCl 1.5 gm/ Sodium (Chloride) 500 mls @ 250 mls/hr IV Q24H REPLACED BY [facility] Stop: 11/17/17 08:59 Insulin Aspart (Novolog Insulin Sliding Scale) 0 units SUBQ ACHS [facility] PRN Reason: Protocol Stop: 11/12/17 11:29 Last Admin: 09/16/17 21:34 Dose: Not Given Lactobacillus Rhamnosus (Culturelle 15b) 1 each PO DAILY [facility] Stop: 11/12/17 08:59 Last Admin: 09/16/17 09:49 Dose: Not Given Magnesium Hydroxide (Milk Of Magnesia) 30 ml PO HS PRN PRN Reason: Constipation Stop: 11/08/17 15:49 Memantine (Namenda) 5 mg GT BID [facility] Stop: 11/08/17 16:59 Last Admin: 09/16/17 16:24 Dose: Not Given Miscellaneous (Zosyn Iv Per Pharmacy) 1 [facility] PRN PRN PRN Reason: PROTOCOL Stop: 11/10/17 08:34 Miscellaneous (Probiotic Screen) 1 [facility] PRN PRN PRN Reason: PROTOCOL Stop: 11/12/17 08:59 Miscellaneous (Vancomycin Iv Per Pharmacy) 1 ea MC DAILY [facility] Stop: 11/15/17 16:59 Multivitamins/Vitamin C (Theragran) 1 tab GT DAILY [facility] Stop: 11/09/17 08:59 Last Admin: 09/16/17 09:49 Dose: Not Given Potassium Chloride (Potassium Chloride Elixir) 20 meq GT DAILY [facility] Stop: 11/10/17 09:59 Last Admin: 09/16/17 09:49 Dose: Not Given General: no acute distress, well developed, well nourished HEENT: atraumatic, normocephalic, PERRLA, EOMI Neck: supple, no thyromegaly Cardiovascular: S1S2, regular Lungs: clear to auscultation bilaterally, clear to percussion Abdomen: soft, no tender, no distended, no rebound Extremities: no cyanosis, no clubbing, no edema Neurological: awake, other (confused) Skin: intact - Procedures Procedures: Procedures Procedure Code Date ASSISTANCE WITH RESPIRATORY VENTILATION, <24 HRS, CPAP [id number] 09/09/[address] GASTROSTOMY TUBE 58776 09/09/17 INSERTION OF FEEDING DEVICE INTO STOMACH, PERC APPROACH [id number] 09/09/17 POS AIRWAY PRESSURE CPAP 43530 09/09/17 Infectious Disease Assmt/Plan - Assessment Assessment: 1. Leukopcytosis, likely reactive. Sepsis. 2. Suspect aspiration pneumonia 3. Dysphasia. G tube placement. 4. Dementia. 5. Respiratory failure on BiPAP. - Plan Plan: cpm. Nutritional Asmnt/Malnutr-PDOC - Dietary Evaluation Malnutrition Findings (Please click <Entered> for more info): Nutritional Asmnt/Malnutrition Start: 09/10/17 16: 17 Text: Status: Complete Freq: Document 09/10/17 16:19 [email or web address] (Rec: 09/10/17 16:29 LCGEETA [id number]) Nutritional Asmnt/Malnutrition Patient General Information Nutritional Screening High Risk Diagnosis g-tube placement (reason for visit) Pertinent Medical Hx/Surgical Hx DM, hyperlipidemia, dementia, schizophrenia, PEG/Gtube Subjective Information Pt seen lying in bed at time of visit, non-verbal. Pt has PEG placement today. Current Diet Order/ Nutrition Support fibersource HN start at 40ml/ hr, goal rate 60ml/hr continuous Pertinent Medications vit D3, vancomycin, theragran, nacl 0.9% Pertinent Labs 09/10 glucose 125, alb 4.1 09/09 glucose 129 Nutritional Hx/Data Height 1.68 m Height (Calculated Centimeters) 167.6 Current Weight (lbs) 63.957 kg Weight (Calculated Kilograms) 64.0 Weight (Calculated Grams) 10572.5 [place] Body Weight 142 Body Mass Index (BMI) 22.7 Weight Status Approriate GI Symptoms GI Symptoms None Last BM no record Difficult in: None Skin Integrity/Comment: reddened to coccyx, bruise to hand, rash to back Estimated Nutritional Goals BEE in Kcals: Using Current wt Calories/Kcals/Kg 25-30 Kcals Calculated 6829-4540 Protein: Using Current wt Protein g/k-1.2 Protein Calculated 64-77 Fluid: ml 1600-1920ml (1ml/kcal) Nutritional Problem No current Nutrition Prob Problem N/A Malnutrition Alert Protein-Calorie Malnutrition N/A Is there a minimum of two criteria No selected? Query Text:Check all the applicable criteria. A minimum of two criteria are recommended for diagnosis of either severe or non-severe malnutrition. Intervention/Recommendation Comments 1. Initiate TF as ordered. It provides 1728kcal, 77g protein , 1178ml free water, meeting 100% of nutritional needs. 2. Monitor TF rate, tolerance, wt weekly, skin integrity and labs 3. F/U as high risk in 2-3 days, 09/12-09/13 Expected Outcomes/Goals Expected Outcomes/Goals 1. Pt to meet at least 75% of nutritional needs via nutrition support with tolerance 2. Wt stability, skin to remain intact, labs to approach WNL.
[2017-09-17] MEDS ORDERED: Vancomycin HCl 1.5 GM in Sodium Chloride 0.9% 500 ML IV ONE (03:00)
[2017-09-17] MEDS: Albuterol/Ipratropium Neb 3 ML AERS HHN SCH ×6 (03:43→23:49)
[2017-09-17 04:53] LABS: MEAN CORPUSCULAR HEMOGLOBIN 29.2 pg (27.0-31.0)
[2017-09-17 05:05] LABS: HEMATOCRIT 35.7 % (41.0-60); HEMOGLOBIN 11.8 gm/dL (12-16); MEAN CELL VOLUME 88.1 fl (80-99); MEAN CORPUSCULAR HGB CONC 33.1 pg (28.0-36.0); MEAN PLATELET VOLUME 12.4 fl; PLATELET COUNT 219 Th/cmm (150-400); RED BLOOD COUNT 4.05 Mil/cmm (3.80-5.80); RED CELL DISTRIBUTION WIDTH 15.6 % (11.5-20.0)
[2017-09-17 05:34] LABS: MANUAL DIFF REQUIRED? YES; WHITE BLOOD COUNT 16.2 Th/cmm (4.8-10.8)
[2017-09-17] MEDS: metroNIDAZOLE 500mg/NS 100mL 500 MG/100 ML BAG IV SCH ×3 (05:36→21:25)
[2017-09-17 05:42] LABS: ALB/GLOB RATIO 1.1 (1.0-1.8); ALKALINE PHOSPHATASE 53 U/L (34-104); ANION GAP 12.3 (7.0-16.0); BILIRUBIN,TOTAL 0.8 mg/dL (0.3-1.0); BUN - UREA NITROGEN 32 mg/dL (7-25); CALCIUM SERUM 8.6 mg/dL (8.6-10.3); CARBON DIOXIDE 26.5 mEq/L (21.0-31.0); CHLORIDE 123 mEq/L (98-107); CREATININE - SERUM 1.3 mg/dL (0.7-1.3); GFR AFRICAN-AMERICAN > 60.0 ml/min (>90); GLUCOSE 104 mg/dL (70-105); SGOT 11 U/L (13-39); SGPT/ALT 8 U/L (7-52); TOTAL PROTEIN,SERUM 5.7 gm/dL (6.0-8.3)
[2017-09-17 05:47] LABS: POTASSIUM SERUM 2.8 mEq/L (3.5-5.1); SODIUM SERUM 159 mEq/L (136-145)
[2017-09-17 06:06] LABS: BAND NEUTROPHILE 10 % (0-10); LYMPHOCYTE 6 % (20-50); MONOCYTE 2 % (2-10); NEUTROPHILS 82 % (40-80); TOTAL CELLS COUNTED 100
[2017-09-17] MEDS: INSULIN ASPART SLIDING SCALE 100 UNITS/ML UNIT SUBQ SCH ×4 (06:48→23:21)
[2017-09-17] MEDS: KCL 20mEq/100mL Premix 20 MEQ/100 ML PIGGYBACK IV ONE ×2 (07:00→15:13)
--- NOTE | 2017-09-17 07:39 | Diagnostic Imaging Report ---
Bilateral lower extremity DVT study HISTORY: Pain COMPARISON: None Technique: Longitudinal and transverse sonographic images of the bilateral lower extremity veins were obtained with doppler analysis. FINDINGS: There is normal compressibility, augmentation and phasicity of the bilateral common femoral, superficial femoral, popliteal, and posterior tibial veins. No thrombus is visualized. Exam of the left side demonstrates thrombus within the left common femoral and left superficial femoral and left popliteal veins. Remaining veins of the left lower ureter patent with no evidence of DVT. IMPRESSION: Positive DVT study with thrombus visualized extending from left common femoral to the left popliteal vein. Referring team was informed of the findings following the examination.
--- NOTE | 2017-09-17 08:39 | General Progress Note ---
Subjective - Review of Systems Service Date: 09/17/17 Subjective: Patient is non verbal Objective - Results Result Diagrams: 09/17/17 04:20 09/17/17 04:20 Recent Labs: Laboratory Last Values WBC 16.2 Th/cmm (4.8-10.8) H 09/17/17 04:20 RBC 4.05 Mil/cmm (3.80-5.80) 09/17/17 04:20 Hgb 11.8 gm/dL (12-16) L 09/17/17 04:20 Hct 35.7 % (41.0-60) L 09/17/17 04:20 MCV 88.1 fl (80-99) 09/17/17 04:20 MCH 29.2 pg (27.0-31.0) 09/17/17 04:20 MCHC Differential 33.1 pg (28.0-36.0) 09/17/17 04:20 RDW 15.6 % (11.5-20.0) 09/17/17 04:20 Plt Count 219 Th/cmm (150-400) 09/17/17 04:20 MPV 12.4 fl 09/17/17 04:20 Neutrophils % 90.0 % (40.0-80.0) H 09/16/17 06:21 Band Neutrophils % 10 % (0-10) 09/17/17 04:20 Lymphocytes % 5.3 % (20.0-50.0) L 09/16/17 06:21 Monocytes % 3.6 % (2.0-10.0) 09/16/17 06:21 Eosinophils % 1.1 % (0.0-5.0) 09/16/17 06:21 Basophils % 0.0 % (0.0-2.0) 09/16/17 06:21 Neutrophils (Manual) 82 % (40-80) H 09/17/17 04:20 Lymphocytes 6 % (20-50) L 09/17/17 04:20 Monocytes 2 % (2-10) 09/17/17 04:20 Eosinophils 3 % (0-5) 09/15/17 04:45 PT 10.3 SECONDS (9.5-11.5) 09/09/17 12:30 INR 0.99 (0.5-1.4) 09/09/17 12:30 PTT (Actin FS) 26.3 SECONDS (26.0-38.0) 09/09/17 12:30 Specimen Source Arterial 09/15/17 07:49 Sample Site Right Radial 09/15/17 07:49 pH 7.51 (7.35-7.45) H 09/15/17 07:49 pCO2 36.0 mmHg (35.0-45.0) 09/15/17 07:49 pO2 50.0 mmHg (80.0-100.0) L 09/15/17 07:49 HCO3 29.0 mEq/L (20.0-26.0) H 09/15/17 07:49 Base Excess 5.5 mEq/L (-3.0-3.0) H 09/15/17 07:49 O2 Saturation 59.0 % (92.0-100.0) L 09/15/17 07:49 Matthew Test Positive 09/15/17 07:49 Vent Rate NA 09/15/17 07:49 Inspired O2 40 09/15/17 07:49 Tidal Volume NA 09/15/17 07:49 PEEP NA 09/15/17 07:49 Pressure (ins/psv/peep) NA 09/15/17 07:49 Critical Value LZHANG 09/15/17 07:49 Sodium 159 mEq/L (136-145) H* 09/17/17 04:20 Potassium 2.8 mEq/L (3.5-5.1) L* 09/17/17 04:20 Chloride 123 mEq/L (98-107) H 09/17/17 04:20 Carbon Dioxide 26.5 mEq/L (21.0-31.0) 09/17/17 04:20 Anion Gap 12.3 (7.0-16.0) 09/17/17 04:20 BUN 32 mg/dL (7-25) H 09/17/17 04:20 Creatinine 1.3 mg/dL (0.7-1.3) 09/17/17 04:20 Est GFR ( Amer) > 60.0 ml/min (>90) 09/17/17 04:20 Est GFR (Non-Af Amer) 58.0 ml/min 09/17/17 04:20 BUN/Creatinine Ratio 24.6 09/17/17 04:20 Glucose 104 mg/dL (70-105) 09/17/17 04:20 POC Glucose 85 MG/DL (70 - 105) 09/17/17 05:48 Whole Bld Lactic Acid 1.35 mmol/L (0.60-1.99) 09/15/17 10:45 Calcium 8.6 mg/dL (8.6-10.3) 09/17/17 04:20 Total Bilirubin 0.8 mg/dL (0.3-1.0) 09/17/17 04:20 AST 11 U/L (13-39) L 09/17/17 04:20 ALT 8 U/L (7-52) 09/17/17 04:20 Alkaline Phosphatase 53 U/L (34-104) 09/17/17 04:20 B-Natriuretic Peptide 47.8 pg/mL (5.0-100.0) 09/15/17 04:45 Total Protein 5.7 gm/dL (6.0-8.3) L 09/17/17 04:20 Albumin 3.0 gm/dL (4.2-5.5) L 09/17/17 04:20 Globulin 2.7 gm/dL 09/17/17 04:20 Albumin/Globulin Ratio 1.1 (1.0-1.8) 09/17/17 04:20 Total Cortisol 28.9 09/12/17 01:00 Urine Source [place] 09/15/17 10:30 Urine Color GREEN 09/15/17 10:30 Urine Clarity CLOUDY (CLEAR) 09/15/17 10:30 Urine pH 6.5 (4.6 - 8.0) 09/15/17 10:30 Ur Specific [place] 1.015 (1.005-1.030) 09/15/17 10:30 Urine Protein 30 mg/dL (NEGATIVE) H 09/15/17 10:30 Urine Glucose (UA) NEGATIVE mg/dL (NEGATIVE) 09/15/17 10:30 Urine Ketones NEGATIVE mg/dL (NEGATIVE) 09/15/17 10:30 Urine Blood LARGE (NEGATIVE) H 09/15/17 10:30 Urine Nitrate POSITIVE (NEGATIVE) H 09/15/17 10:30 Urine Bilirubin MODERATE (NEGATIVE) H 09/15/17 10:30 Urine Urobilinogen 0.2 E.U./dL (0.2 - 1.0) 09/15/17 10:30 Ur Leukocyte Esterase TRACE (NEGATIVE) H 09/15/17 10:30 Urine RBC 50-100 /hpf (0-5) H 09/15/17 10:30 Urine WBC 25-50 /hpf (0-5) H 09/15/17 10:30 Ur Epithelial Cells MANY /lpf (FEW) 09/15/17 10:30 Urine Bacteria 4+ /hpf (NONE SEEN) H 09/15/17 10:30 Vancomycin Trough 19.6 ug/mL (5-10) H 09/16/17 15:18 - Physical Exam Vitals and I&O: Vital Signs Temp 99.1 F 09/17/17 04:00 Pulse 97 09/17/17 04:00 Resp 22 09/17/17 04:00 BP 120/61 09/17/17 04:00 Pulse Ox 93 09/17/17 04:00 Intake & Output 09/16/17 09/17/17 09/17/17 18:59 06:59 18:59 Intake Total 200 200 Output Total 550 Balance 200 -350 Weight (lbs) 71.214 kg Intake: Intake, IV Amount 200 200 Piperacillin Sodium/ 100 100 Tazobact 4.5 gm In Sodium Chloride 0.9% 100 ml @ 100 mls/hr IV Q8H [facility] Rx# :[id number] metroNIDAZOLE 500mg/NS 100 100 100mL 500 mg In 100 ml @ 100 mls/hr IV Q8HR [facility] Rx #:[id number] Output: Urine 550 Other: # Bowel Movements 1 Weight Source Bedscale Active Medications: Current Medications Acetaminophen (Tylenol) 650 mg PO Q6H PRN PRN Reason: mild pain Stop: 11/08/17 15:49 Last Admin: 09/12/17 09:15 Dose: 650 mg Acetaminophen (Tylenol) 650 mg PO Q6H PRN PRN Reason: Fever > 101 Stop: 11/11/17 20:45 Last Admin: 09/12/17 21:16 Dose: 650 mg Al Hydrox/Mg Hydrox/Simethicone (Maalox) 30 ml PO Q6H PRN PRN Reason: GI DISTRESS Stop: 11/08/17 15:49 Albuterol/Ipratropium (Duoneb Neb) 3 ml HHN Q4HRT [facility] Stop: 11/14/17 22:59 Last Admin: 09/17/17 07:57 Dose: 3 ml Amlodipine Besylate (Norvasc) 5 mg PO DAILY [facility] Stop: 11/09/17 08:59 Last Admin: 09/16/17 09:48 Dose: Not Given Atorvastatin Calcium (Lipitor) 20 mg GT HS [facility] PRN Reason: Protocol Stop: 11/08/17 20:59 Last Admin: 09/16/17 21:33 Dose: Not Given Cholecalciferol (Vitamin D3) 1,000 iu GT DAILY [facility] Stop: 11/09/17 08:59 Last Admin: 09/16/17 09:49 Dose: Not Given Donepezil HCl (Aricept) 10 mg GT HS [facility] Stop: 11/08/17 20:59 Last Admin: 09/16/17 21:34 Dose: Not Given Enoxaparin Sodium (Lovenox) 70 mg SUBQ Q12HR [facility] Stop: 11/16/17 08:59 Piperacillin Sod/Tazobactam (Sod 4.5 gm/ Sodium Chloride) 100 mls @ 100 mls/hr IV Q8H [facility] Stop: 11/10/17 10:59 Last Admin: 09/17/17 02:21 Dose: 100 mls/hr Metronidazole (Flagyl) 500 mg in 100 mls @ 100 mls/hr IV Q8HR [facility] Stop: 11/13/17 12:59 Last Admin: 09/17/17 05:36 Dose: 100 mls/hr Vancomycin HCl 1.5 gm/ Sodium (Chloride) 500 mls @ 250 mls/hr IV Q24H [facility] Stop: 11/17/17 08:59 Dextrose (D5w) 1,000 mls @ 75 mls/hr IV .[id number] [facility] Stop: 11/16/17 08:35 Insulin Aspart (Novolog Insulin Sliding Scale) 0 units SUBQ ACHS [facility] PRN Reason: Protocol Stop: 11/12/17 11:29 Last Admin: 09/17/17 06:48 Dose: Not Given Lactobacillus Rhamnosus (Culturelle 15b) 1 each PO DAILY [facility] Stop: 11/12/17 08:59 Last Admin: 09/16/17 09:49 Dose: Not Given Magnesium Hydroxide (Milk Of Magnesia) 30 ml PO HS PRN PRN Reason: Constipation Stop: 11/08/17 15:49 Memantine (Namenda) 5 mg GT BID [facility] Stop: 11/08/17 16:59 Last Admin: 09/16/17 16:24 Dose: Not Given Miscellaneous (Zosyn Iv Per Pharmacy) 1 ea PRN PRN PRN Reason: PROTOCOL Stop: 11/10/17 08:34 Miscellaneous (Probiotic Screen) 1 ea PRN PRN PRN Reason: PROTOCOL Stop: 11/12/17 08:59 Miscellaneous (Vancomycin Iv Per Pharmacy) 1 ea MC DAILY [facility] Stop: 11/15/17 16:59 Multivitamins/Vitamin C (Theragran) 1 tab GT DAILY [facility] Stop: 11/09/17 08:59 Last Admin: 09/16/17 09:49 Dose: Not Given Potassium Chloride (Potassium Chloride Elixir) 20 meq GT DAILY [facility] Stop: 11/10/17 09:59 Last Admin: 09/16/17 09:49 Dose: Not Given General: No acute distress HEENT: Atraumatic Neck: Supple Cardiovascular: Regular rate Lungs: Other (Rude respiration, less congestion) Abdomen: Bowel sounds, Soft, Distended (MILD), Other (Peg in place. ) Extremities: Other (No edema) Neurological: Other (Non ambulatory) Skin: Other (Warm and dry) Psych/Mental Status: Other (Patient non verbal. ) - Procedures Procedures: Procedures Procedure Code Date ASSISTANCE WITH RESPIRATORY VENTILATION, <24 HRS, CPAP [id number] 09/09/[address] GASTROSTOMY TUBE 21831 09/09/17 INSERTION OF FEEDING DEVICE INTO STOMACH, PERC APPROACH [id number] 09/09/17 POS AIRWAY PRESSURE CPAP 04722 09/09/17 Assessment/Plan - Assessment Assessment: Patient is awake, non verbal. WBC improving, Patient is breathing better, Na increasing. Dx: Peg displacement, sepsis, Hypernatremia, DM, Dementia, Schizophrenia, bed bound. - Plan Plan: Peg was replaced. NS changed to D5, Metronidazole is started. BIPAP is order and consult with pulmonology and IM requested. Patient not responding to treatment. Prognosis continue being poor. Patient will be transferred to [facility]. Will continue monitoring. Nutritional Asmnt/Malnutr-PDOC - Dietary Evaluation Malnutrition Findings (Please click <Entered> for more info): Nutritional Asmnt/Malnutrition Start: 09/10/17 16: 17 Text: Status: Complete Freq: Document 09/10/17 16:19 BEN (Rec: 09/10/17 16:29 [email or web address] [email or web address]) Nutritional Asmnt/Malnutrition Patient General Information Nutritional Screening High Risk Diagnosis g-tube placement (reason for visit) Pertinent Medical Hx/Surgical Hx DM, hyperlipidemia, dementia, schizophrenia, PEG/Gtube Subjective Information Pt seen lying in bed at time of visit, non-verbal. Pt has PEG placement today. Current Diet Order/ Nutrition Support fibersource HN start at 40ml/ hr, goal rate 60ml/hr continuous Pertinent Medications vit D3, vancomycin, theragran, nacl 0.9% Pertinent Labs 09/10 glucose 125, alb 4.1 09/09 glucose 129 Nutritional Hx/Data Height 1.68 m Height (Calculated Centimeters) 167.6 Current Weight (lbs) 63.957 kg Weight (Calculated Kilograms) 64.0 Weight (Calculated Grams) 66125.5 [place] Body Weight 142 Body Mass Index (BMI) 22.7 Weight Status Approriate GI Symptoms GI Symptoms None Last BM no record Difficult in: None Skin Integrity/Comment: reddened to coccyx, bruise to hand, rash to back Estimated Nutritional Goals BEE in Kcals: Using Current wt Calories/Kcals/Kg 25-30 Kcals Calculated 6695-7058 Protein: Using Current wt Protein g/k-1.2 Protein Calculated 64-77 Fluid: ml 1600-1920ml (1ml/kcal) Nutritional Problem No current Nutrition Prob Problem N/A Malnutrition Alert Protein-Calorie Malnutrition N/A Is there a minimum of two criteria No selected? Query Text:Check all the applicable criteria. A minimum of two criteria are recommended for diagnosis of either severe or non-severe malnutrition. Intervention/Recommendation Comments 1. Initiate TF as ordered. It provides 1728kcal, 77g protein , 1178ml free water, meeting 100% of nutritional needs. 2. Monitor TF rate, tolerance, wt weekly, skin integrity and labs 3. F/U as high risk in 2-3 days, 09/12-09/13 Expected Outcomes/Goals Expected Outcomes/Goals 1. Pt to meet at least 75% of nutritional needs via nutrition support with tolerance 2. Wt stability, skin to remain intact, labs to approach WNL.
--- NOTE | 2017-09-17 08:43 | Discharge Summary ---
General Discharge Summary - Discharge Summary Date of Admission: 09/09/17 Admitting Diagnosis: PEG displacement, Leukocytosis, Hypernatremia, dementia, schizophrenia. Discharge Date: 09/17/17 Discharge Diagnosis: PEG displacements, Sepsis, Hypernatremia, DM, Dementia, Schizoprenia, Bed bound Laboratory Findings: Laboratory Results - last 24 hr 09/12/17 09/16/17 09/16/17 01:00 11:04 15:18 WBC RBC Hgb Hct MCV MCH MCHC Differential RDW Plt Count MPV Band Neutrophils % Neutrophils (Manual) Lymphocytes Monocytes Sodium Potassium Chloride Carbon Dioxide Anion Gap BUN Creatinine Est GFR ( Amer) Est GFR (Non-Af Amer) BUN/Creatinine Ratio Glucose POC Glucose 111 H Calcium Total Bilirubin AST ALT Alkaline Phosphatase Total Protein Albumin Globulin Albumin/Globulin Ratio Total Cortisol 28.9 Vancomycin Trough 19.6 H 09/16/17 09/16/17 09/17/17 16:32 20:52 04:20 WBC 16.2 H RBC 4.05 Hgb 11.8 L Hct 35.7 L MCV 88.1 MCH 29.2 MCHC Differential 33.1 RDW 15.6 Plt Count 219 MPV 12.4 Band Neutrophils % 10 Neutrophils (Manual) 82 H Lymphocytes 6 L Monocytes 2 Sodium Potassium Chloride Carbon Dioxide Anion Gap BUN Creatinine Est GFR ( Amer) Est GFR (Non-Af Amer) BUN/Creatinine Ratio Glucose POC Glucose 114 H 100 Calcium Total Bilirubin AST ALT Alkaline Phosphatase Total Protein Albumin Globulin Albumin/Globulin Ratio Total Cortisol Vancomycin Trough 09/17/17 09/17/17 04:20 05:48 WBC RBC Hgb Hct MCV MCH MCHC Differential RDW Plt Count MPV Band Neutrophils % Neutrophils (Manual) Lymphocytes Monocytes Sodium 159 H* Potassium 2.8 L* Chloride 123 H Carbon Dioxide 26.5 Anion Gap 12.3 BUN 32 H Creatinine 1.3 Est GFR ( Amer) > 60.0 Est GFR (Non-Af Amer) 58.0 BUN/Creatinine Ratio 24.6 Glucose 104 POC Glucose 85 Calcium 8.6 Total Bilirubin 0.8 AST 11 L ALT 8 Alkaline Phosphatase 53 Total Protein 5.7 L Albumin 3.0 L Globulin 2.7 Albumin/Globulin Ratio 1.1 Total Cortisol Vancomycin Trough Disposition: [facility] (Not [facility]) Home Medications: Home Medication Medication Instructions Recorded Type Docusate Sodium [Dok] 100 mg GT DAILY 07/25/16 History Acetaminophen [Tylenol] 650 mg PO Q6H PRN #0 tab 08/06/16 Rx Al Hyd/Mg Hyd/Simethicone [Maalox] 30 ml PO Q6H PRN #0 udc 08/06/16 Rx Magnesium Hydroxide [Milk of 30 ml PO HS PRN #0 udc 08/06/16 Rx Magnesia] amLODIPine Besylate [Norvasc] 5 mg PO DAILY #0 tab 08/06/16 Rx Atorvastatin Calcium [Lipitor] 20 mg GT HS 09/09/17 History Cholecalciferol (Vit D3) [Vitamin 1,000 iu GT DAILY 09/09/17 History D3] Donepezil Hcl [Aricept] 10 mg GT HS 09/09/17 History Memantine [Namenda] 5 mg GT BID 09/09/17 History Multivitamin [Theragran] 1 tab GT DAILY 09/09/17 History Inpatient Medications: Current Medications Acetaminophen (Tylenol) 650 mg PO Q6H PRN PRN Reason: mild pain Stop: 11/08/17 15:49 Last Admin: 09/12/17 09:15 Dose: 650 mg Acetaminophen (Tylenol) 650 mg PO Q6H PRN PRN Reason: Fever > 101 Stop: 11/11/17 20:45 Last Admin: 09/12/17 21:16 Dose: 650 mg Al Hydrox/Mg Hydrox/Simethicone (Maalox) 30 ml PO Q6H PRN PRN Reason: GI DISTRESS Stop: 11/08/17 15:49 Albuterol/Ipratropium (Duoneb Neb) 3 ml HHN Q4HRT [facility] Stop: 11/14/17 22:59 Last Admin: 09/17/17 07:57 Dose: 3 ml Amlodipine Besylate (Norvasc) 5 mg PO DAILY [facility] Stop: 11/09/17 08:59 Last Admin: 09/16/17 09:48 Dose: Not Given Atorvastatin Calcium (Lipitor) 20 mg GT HS [facility] PRN Reason: Protocol Stop: 11/08/17 20:59 Last Admin: 09/16/17 21:33 Dose: Not Given Cholecalciferol (Vitamin D3) 1,000 iu GT DAILY [facility] Stop: 11/09/17 08:59 Last Admin: 09/16/17 09:49 Dose: Not Given Donepezil HCl (Aricept) 10 mg GT HS [facility] Stop: 11/08/17 20:59 Last Admin: 09/16/17 21:34 Dose: Not Given Enoxaparin Sodium (Lovenox) 70 mg SUBQ Q12HR [facility] Stop: 11/16/17 08:59 Piperacillin Sod/Tazobactam (Sod 4.5 gm/ Sodium Chloride) 100 mls @ 100 mls/hr IV Q8H [facility] Stop: 11/10/17 10:59 Last Admin: 09/17/17 02:21 Dose: 100 mls/hr Metronidazole (Flagyl) 500 mg in 100 mls @ 100 mls/hr IV Q8HR [facility] Stop: 11/13/17 12:59 Last Admin: 09/17/17 05:36 Dose: 100 mls/hr Vancomycin HCl 1.5 gm/ Sodium (Chloride) 500 mls @ 250 mls/hr IV Q24H [facility] Stop: 11/17/17 08:59 Dextrose (D5w) 1,000 mls @ 75 mls/hr IV .[id number] [facility] Stop: 11/16/17 08:35 Insulin Aspart (Novolog Insulin Sliding Scale) 0 units SUBQ ACHS [facility] PRN Reason: Protocol Stop: 11/12/17 11:29 Last Admin: 09/17/17 06:48 Dose: Not Given Lactobacillus Rhamnosus (Culturelle 15b) 1 each PO DAILY [facility] Stop: 11/12/17 08:59 Last Admin: 09/16/17 09:49 Dose: Not Given Magnesium Hydroxide (Milk Of Magnesia) 30 ml PO HS PRN PRN Reason: Constipation Stop: 11/08/17 15:49 Memantine (Namenda) 5 mg GT BID [facility] Stop: 11/08/17 16:59 Last Admin: 09/16/17 16:24 Dose: Not Given Miscellaneous (Zosyn Iv Per Pharmacy) 1 ea PRN PRN PRN Reason: PROTOCOL Stop: 11/10/17 08:34 Miscellaneous (Probiotic Screen) 1 ea PRN PRN PRN Reason: PROTOCOL Stop: 11/12/17 08:59 Miscellaneous (Vancomycin Iv Per Pharmacy) 1 ea MC DAILY [facility] Stop: 11/15/17 16:59 Multivitamins/Vitamin C (Theragran) 1 tab GT DAILY [facility] Stop: 11/09/17 08:59 Last Admin: 09/16/17 09:49 Dose: Not Given Potassium Chloride (Potassium Chloride Elixir) 20 meq GT DAILY [facility] Stop: 11/10/17 09:59 Last Admin: 09/16/17 09:49 Dose: Not Given Activity: Bed Rest Discharge Diet: Tube Feeding Consults and Follow-Up: Jayjay Henry [Primary Care Provider] - Consulting Speciality: Pulmonary, Other (ID, GI)
[2017-09-17] MEDS ORDERED: Vancomycin HCl 1.5 GM in Sodium Chloride 0.9% 500 ML IV SCH (09:00)
[2017-09-17] MEDS: Lactobacillus Rhamnosus GG 15 Billion CFU CAP.SPRINK PO SCH (09:04)
[2017-09-17] MEDS: Multivitamin Tab GT SCH (09:06)
[2017-09-17] MEDS: Potassium Chloride Elixir 20 mEq /15 mL UDC GT SCH (09:06)
--- NOTE | 2017-09-17 11:58 | Diagnostic Imaging Report ---
Radionuclide perfusion lung scan HISTORY: Shortness of breath 5.6 mCi technetium macroaggregated albumin using the exam. The patient could not tolerate ventilation imaging. Exam is also somewhat limited and views are limited due to difficulty in patient positioning and cooperation. No discrete focal perfusion abnormalities are seen. Specifically, no definite perfusion defects. IMPRESSION: 1. Very limited exam associated with perfusion images only as noted above. 2. No segmental fusion defects. No obvious evidence of pulmonary embolism.
[2017-09-17] MEDS: Enoxaparin 80 mg/0.8 mL 0.8mL Syr SUBQ SCH ×2 (13:26→20:28)
--- NOTE | 2017-09-17 13:35 | Infectious Disease Prog Note ---
Infectious Disease Subjective - Review of Systems Service Date: 09/17/17 Events since last encounter: No events. Subjective: Short of breath on BiPAP.Leukocytosis is improving again. Infectious Disease Objective - Results Result Diagrams: 09/17/17 04:20 09/17/17 04:20 Recent Labs: Laboratory Last Values WBC 16.2 Th/cmm (4.8-10.8) H 09/17/17 04:20 RBC 4.05 Mil/cmm (3.80-5.80) 09/17/17 04:20 Hgb 11.8 gm/dL (12-16) L 09/17/17 04:20 Hct 35.7 % (41.0-60) L 09/17/17 04:20 MCV 88.1 fl (80-99) 09/17/17 04:20 MCH 29.2 pg (27.0-31.0) 09/17/17 04:20 MCHC Differential 33.1 pg (28.0-36.0) 09/17/17 04:20 RDW 15.6 % (11.5-20.0) 09/17/17 04:20 Plt Count 219 Th/cmm (150-400) 09/17/17 04:20 MPV 12.4 fl 09/17/17 04:20 Neutrophils % 90.0 % (40.0-80.0) H 09/16/17 06:21 Band Neutrophils % 10 % (0-10) 09/17/17 04:20 Lymphocytes % 5.3 % (20.0-50.0) L 09/16/17 06:21 Monocytes % 3.6 % (2.0-10.0) 09/16/17 06:21 Eosinophils % 1.1 % (0.0-5.0) 09/16/17 06:21 Basophils % 0.0 % (0.0-2.0) 09/16/17 06:21 Neutrophils (Manual) 82 % (40-80) H 09/17/17 04:20 Lymphocytes 6 % (20-50) L 09/17/17 04:20 Monocytes 2 % (2-10) 09/17/17 04:20 Eosinophils 3 % (0-5) 09/15/17 04:45 PT 10.3 SECONDS (9.5-11.5) 09/09/17 12:30 INR 0.99 (0.5-1.4) 09/09/17 12:30 PTT (Actin FS) 26.3 SECONDS (26.0-38.0) 09/09/17 12:30 Specimen Source Arterial 09/15/17 07:49 Sample Site Right Radial 09/15/17 07:49 pH 7.51 (7.35-7.45) H 09/15/17 07:49 pCO2 36.0 mmHg (35.0-45.0) 09/15/17 07:49 pO2 50.0 mmHg (80.0-100.0) L 09/15/17 07:49 HCO3 29.0 mEq/L (20.0-26.0) H 09/15/17 07:49 Base Excess 5.5 mEq/L (-3.0-3.0) H 09/15/17 07:49 O2 Saturation 59.0 % (92.0-100.0) L 09/15/17 07:49 Matthew Test Positive 09/15/17 07:49 Vent Rate NA 09/15/17 07:49 Inspired O2 40 09/15/17 07:49 Tidal Volume NA 09/15/17 07:49 PEEP NA 09/15/17 07:49 Pressure (ins/psv/peep) NA 09/15/17 07:49 Critical Value LZHANG 09/15/17 07:49 Sodium 159 mEq/L (136-145) H* 09/17/17 04:20 Potassium 2.8 mEq/L (3.5-5.1) L* 09/17/17 04:20 Chloride 123 mEq/L (98-107) H 09/17/17 04:20 Carbon Dioxide 26.5 mEq/L (21.0-31.0) 09/17/17 04:20 Anion Gap 12.3 (7.0-16.0) 09/17/17 04:20 BUN 32 mg/dL (7-25) H 09/17/17 04:20 Creatinine 1.3 mg/dL (0.7-1.3) 09/17/17 04:20 Est GFR ( Amer) > 60.0 ml/min (>90) 09/17/17 04:20 Est GFR (Non-Af Amer) 58.0 ml/min 09/17/17 04:20 BUN/Creatinine Ratio 24.6 09/17/17 04:20 Glucose 104 mg/dL (70-105) 09/17/17 04:20 POC Glucose 101 MG/DL (70 - 105) 09/17/17 11:27 Whole Bld Lactic Acid 1.35 mmol/L (0.60-1.99) 09/15/17 10:45 Calcium 8.6 mg/dL (8.6-10.3) 09/17/17 04:20 Total Bilirubin 0.8 mg/dL (0.3-1.0) 09/17/17 04:20 AST 11 U/L (13-39) L 09/17/17 04:20 ALT 8 U/L (7-52) 09/17/17 04:20 Alkaline Phosphatase 53 U/L (34-104) 09/17/17 04:20 B-Natriuretic Peptide 47.8 pg/mL (5.0-100.0) 09/15/17 04:45 Total Protein 5.7 gm/dL (6.0-8.3) L 09/17/17 04:20 Albumin 3.0 gm/dL (4.2-5.5) L 09/17/17 04:20 Globulin 2.7 gm/dL 09/17/17 04:20 Albumin/Globulin Ratio 1.1 (1.0-1.8) 09/17/17 04:20 Total Cortisol 28.9 09/12/17 01:00 Urine Source [place] 09/15/17 10:30 Urine Color GREEN 09/15/17 10:30 Urine Clarity CLOUDY (CLEAR) 09/15/17 10:30 Urine pH 6.5 (4.6 - 8.0) 09/15/17 10:30 Ur Specific [place] 1.015 (1.005-1.030) 09/15/17 10:30 Urine Protein 30 mg/dL (NEGATIVE) H 09/15/17 10:30 Urine Glucose (UA) NEGATIVE mg/dL (NEGATIVE) 09/15/17 10:30 Urine Ketones NEGATIVE mg/dL (NEGATIVE) 09/15/17 10:30 Urine Blood LARGE (NEGATIVE) H 09/15/17 10:30 Urine Nitrate POSITIVE (NEGATIVE) H 09/15/17 10:30 Urine Bilirubin MODERATE (NEGATIVE) H 09/15/17 10:30 Urine Urobilinogen 0.2 E.U./dL (0.2 - 1.0) 09/15/17 10:30 Ur Leukocyte Esterase TRACE (NEGATIVE) H 09/15/17 10:30 Urine RBC 50-100 /hpf (0-5) H 09/15/17 10:30 Urine WBC 25-50 /hpf (0-5) H 09/15/17 10:30 Ur Epithelial Cells MANY /lpf (FEW) 09/15/17 10:30 Urine Bacteria 4+ /hpf (NONE SEEN) H 09/15/17 10:30 Vancomycin Trough 19.6 ug/mL (5-10) H 09/16/17 15:18 - Physical Exam Vitals and I&O: Vital Signs Temp 100.5 F 09/17/17 12:39 Pulse 84 09/17/17 12:39 Resp 20 09/17/17 12:39 BP 121/66 09/17/17 12:39 Pulse Ox 93 09/17/17 12:39 Intake & Output 09/16/17 09/17/17 09/17/17 18:59 06:59 18:59 Intake Total 200 400 Output Total 550 Balance 200 -150 Weight (lbs) 71.214 kg 71.214 kg Intake: Intake, IV Amount 200 400 Piperacillin Sodium/ 100 200 Tazobact 4.5 gm In Sodium Chloride 0.9% 100 ml @ 100 mls/hr IV Q8H JOSE RAMON Rx# :[id number] metroNIDAZOLE 500mg/NS 100 200 100mL 500 mg In 100 ml @ 100 mls/hr IV Q8HR JOSE RAMON Rx #:[id number] Output: Urine 550 Other: # Bowel Movements 1 Weight Source Bedscale Estimated Active Medications: Current Medications Acetaminophen (Tylenol) 650 mg PO Q6H PRN PRN Reason: mild pain Stop: 11/08/17 15:49 Last Admin: 09/12/17 09:15 Dose: 650 mg Acetaminophen (Tylenol) 650 mg PO Q6H PRN PRN Reason: Fever > 101 Stop: 11/11/17 20:45 Last Admin: 09/12/17 21:16 Dose: 650 mg Al Hydrox/Mg Hydrox/Simethicone (Maalox) 30 ml PO Q6H PRN PRN Reason: GI DISTRESS Stop: 11/08/17 15:49 Albuterol/Ipratropium (Duoneb Neb) 3 ml HHN Q4HRT [facility] Stop: 11/14/17 22:59 Last Admin: 09/17/17 12:00 Dose: 3 ml Amlodipine Besylate (Norvasc) 5 mg PO DAILY [facility] Stop: 11/09/17 08:59 Last Admin: 09/17/17 09:02 Dose: Not Given Atorvastatin Calcium (Lipitor) 20 mg GT HS JOSE [facility]ON PRN Reason: Protocol Stop: 11/08/17 20:59 Last Admin: 09/16/17 21:33 Dose: Not Given Cholecalciferol (Vitamin D3) 1,000 iu GT DAILY [facility] Stop: 11/09/17 08:59 Last Admin: 09/17/17 09:03 Dose: Not Given Donepezil HCl (Aricept) 10 mg GT HS [facility] Stop: 11/08/17 20:59 Last Admin: 09/16/17 21:34 Dose: Not Given Enoxaparin Sodium (Lovenox) 70 mg SUBQ Q12HR [facility] Stop: 11/16/17 08:59 Last Admin: 09/17/17 13:26 Dose: 70 mg Piperacillin Sod/Tazobactam (Sod 4.5 gm/ Sodium Chloride) 100 mls @ 100 mls/hr IV Q8H [facility] Stop: 11/10/17 10:59 Last Admin: 09/17/17 13:22 Dose: 100 mls/hr Metronidazole (Flagyl) 500 mg in 100 mls @ 100 mls/hr IV Q8HR [facility] Stop: 11/13/17 12:59 Last Admin: 09/17/17 13:21 Dose: 100 mls/hr Vancomycin HCl 1.5 gm/ Sodium (Chloride) 500 mls @ 250 mls/hr IV Q24H [facility] Stop: 11/17/17 08:59 Dextrose (D5w) 1,000 mls @ 75 mls/hr IV .[id number] [facility] Stop: 11/16/17 08:35 Insulin Aspart (Novolog Insulin Sliding Scale) 0 units SUBQ ACHS [facility]ON PRN Reason: Protocol Stop: 11/12/17 11:29 Last Admin: 09/17/17 13:15 Dose: Not Given Lactobacillus Rhamnosus (Culturelle 15b) 1 each PO DAILY [facility] Stop: 11/12/17 08:59 Last Admin: 04/19/18 09:04 Dose: Not Given Magnesium Hydroxide (Milk Of Magnesia) 30 ml PO HS PRN PRN Reason: Constipation Stop: 11/08/17 15:49 Memantine (Namenda) 5 mg GT BID [facility] Stop: 11/08/17 16:59 Last Admin: 09/17/17 09:04 Dose: Not Given Miscellaneous (Zosyn Iv Per Pharmacy) 1 ea PRN PRN PRN Reason: PROTOCOL Stop: 11/10/17 08:34 Miscellaneous (Probiotic Screen) 1 ea PRN PRN PRN Reason: PROTOCOL Stop: 11/12/17 08:59 Miscellaneous (Vancomycin Iv Per Pharmacy) 1 ea MC DAILY [facility] Stop: 11/15/17 16:59 Multivitamins/Vitamin C (Theragran) 1 tab GT DAILY [facility] Stop: 11/09/17 08:59 Last Admin: 09/17/17 09:06 Dose: Not Given Potassium Chloride (Potassium Chloride Elixir) 20 meq GT DAILY [facility] Stop: 11/10/17 09:59 Last Admin: 09/17/17 09:06 Dose: Not Given General: no acute distress, well developed, well nourished HEENT: atraumatic, normocephalic, PERRLA, EOMI Neck: supple, no thyromegaly, no rigid Cardiovascular: S1S2, regular Lungs: clear to percussion, rhonchi Abdomen: soft, bowel sounds (normoactive), no tender, no distended, no mass, no hepatomegaly, no splenomegaly Extremities: no cyanosis, no clubbing, no edema Neurological: other Skin: intact (lethargic.) - Procedures Procedures: Procedures Procedure Code Date ASSISTANCE WITH RESPIRATORY VENTILATION, <24 HRS, CPAP [id number] 09/09/[address] GASTROSTOMY TUBE 96620 09/09/17 INSERTION OF FEEDING DEVICE INTO STOMACH, PERC APPROACH [id number] 09/09/17 POS AIRWAY PRESSURE CPAP 37428 09/09/17 Infectious Disease Assmt/Plan - Assessment Assessment: 1. Leukopcytosis, likely reactive. Sepsis. 2. Suspect aspiration pneumonia 3. Dysphasia. G tube placement. 4. Dementia. 5. Respiratory failure on BiPAP. - Plan Plan: cpm. Continue Vanco and Zosyn. Patient is getting transferred to long-term acute care facility. Nutritional Asmnt/Malnutr-PDOC - Dietary Evaluation Malnutrition Findings (Please click <Entered> for more info): Nutritional Asmnt/Malnutrition Start: 09/10/17 16: 17 Text: Status: Complete Freq: Document 09/10/17 16:19 BEN (Rec: 09/10/17 16:29 [id number] [id number]) Nutritional Asmnt/Malnutrition Patient General Information Nutritional Screening High Risk Diagnosis g-tube placement (reason for visit) Pertinent Medical Hx/Surgical Hx DM, hyperlipidemia, dementia, schizophrenia, PEG/Gtube Subjective Information Pt seen lying in bed at time of visit, non-verbal. Pt has PEG placement today. Current Diet Order/ Nutrition Support fibersource HN start at 40ml/ hr, goal rate 60ml/hr continuous Pertinent Medications vit D3, vancomycin, theragran, nacl 0.9% Pertinent Labs 09/10 glucose 125, alb 4.1 09/09 glucose 129 Nutritional Hx/Data Height 1.68 m Height (Calculated Centimeters) 167.6 Current Weight (lbs) 63.957 kg Weight (Calculated Kilograms) 64.0 Weight (Calculated Grams) 26139.5 [place] Body Weight 142 Body Mass Index (BMI) 22.7 Weight Status Approriate GI Symptoms GI Symptoms None Last BM no record Difficult in: None Skin Integrity/Comment: reddened to coccyx, bruise to hand, rash to back Estimated Nutritional Goals BEE in Kcals: Using Current wt Calories/Kcals/Kg 25-30 Kcals Calculated [id number] Protein: Using Current wt Protein g/k-1.2 Protein Calculated 64-77 Fluid: ml 1600-1920ml (1ml/kcal) Nutritional Problem No current Nutrition Prob Problem N/A Malnutrition Alert Protein-Calorie Malnutrition N/A Is there a minimum of two criteria No selected? Query Text:Check all the applicable criteria. A minimum of two criteria are recommended for diagnosis of either severe or non-severe malnutrition. Intervention/Recommendation Comments 1. Initiate TF as ordered. It provides 1728kcal, 77g protein , 1178ml free water, meeting 100% of nutritional needs. 2. Monitor TF rate, tolerance, wt weekly, skin integrity and labs 3. F/U as high risk in 2-3 days, 09/12-09/13 Expected Outcomes/Goals Expected Outcomes/Goals 1. Pt to meet at least 75% of nutritional needs via nutrition support with tolerance 2. Wt stability, skin to remain intact, labs to approach WNL.
[2017-09-17] MEDS ORDERED: Probiotic Screen MC PRN (14:00)
[2017-09-17] MEDS: Dextrose 5% 1,000 ML IV SCH (17:29)
--- NOTE | 2017-09-17 22:51 | GI Progress Note ---
Subjective - Review of Systems Service Date: 09/17/17 Subjective: EVENTS NOTED. DELAYED NOTE ENTRY. Objective - Results Result Diagrams: 09/17/17 04:20 09/17/17 04:20 Recent Labs: Laboratory Last Values WBC 16.2 Th/cmm (4.8-10.8) H 09/17/17 04:20 RBC 4.05 Mil/cmm (3.80-5.80) 09/17/17 04:20 Hgb 11.8 gm/dL (12-16) L 09/17/17 04:20 Hct 35.7 % (41.0-60) L 09/17/17 04:20 MCV 88.1 fl (80-99) 09/17/17 04:20 MCH 29.2 pg (27.0-31.0) 09/17/17 04:20 MCHC Differential 33.1 pg (28.0-36.0) 09/17/17 04:20 RDW 15.6 % (11.5-20.0) 09/17/17 04:20 Plt Count 219 Th/cmm (150-400) 09/17/17 04:20 MPV 12.4 fl 09/17/17 04:20 Neutrophils % 90.0 % (40.0-80.0) H 09/16/17 06:21 Band Neutrophils % 10 % (0-10) 09/17/17 04:20 Lymphocytes % 5.3 % (20.0-50.0) L 09/16/17 06:21 Monocytes % 3.6 % (2.0-10.0) 09/16/17 06:21 Eosinophils % 1.1 % (0.0-5.0) 09/16/17 06:21 Basophils % 0.0 % (0.0-2.0) 09/16/17 06:21 Neutrophils (Manual) 82 % (40-80) H 09/17/17 04:20 Lymphocytes 6 % (20-50) L 09/17/17 04:20 Monocytes 2 % (2-10) 09/17/17 04:20 Eosinophils 3 % (0-5) 09/15/17 04:45 PT 10.3 SECONDS (9.5-11.5) 09/09/17 12:30 INR 0.99 (0.5-1.4) 09/09/17 12:30 PTT (Actin FS) 26.3 SECONDS (26.0-38.0) 09/09/17 12:30 Specimen Source Arterial 09/15/17 07:49 Sample Site Right Radial 09/15/17 07:49 pH 7.51 (7.35-7.45) H 09/15/17 07:49 pCO2 36.0 mmHg (35.0-45.0) 09/15/17 07:49 pO2 50.0 mmHg (80.0-100.0) L 09/15/17 07:49 HCO3 29.0 mEq/L (20.0-26.0) H 09/15/17 07:49 Base Excess 5.5 mEq/L (-3.0-3.0) H 09/15/17 07:49 O2 Saturation 59.0 % (92.0-100.0) L 09/15/17 07:49 Matthew Test Positive 09/15/17 07:49 Vent Rate NA 09/15/17 07:49 Inspired O2 40 09/15/17 07:49 Tidal Volume NA 09/15/17 07:49 PEEP NA 09/15/17 07:49 Pressure (ins/psv/peep) NA 09/15/17 07:49 Critical Value LZHANG 09/15/17 07:49 Sodium 159 mEq/L (136-145) H* 09/17/17 04:20 Potassium 2.8 mEq/L (3.5-5.1) L* 09/17/17 04:20 Chloride 123 mEq/L (98-107) H 09/17/17 04:20 Carbon Dioxide 26.5 mEq/L (21.0-31.0) 09/17/17 04:20 Anion Gap 12.3 (7.0-16.0) 09/17/17 04:20 BUN 32 mg/dL (7-25) H 09/17/17 04:20 Creatinine 1.3 mg/dL (0.7-1.3) 09/17/17 04:20 Est GFR ( Amer) > 60.0 ml/min (>90) 09/17/17 04:20 Est GFR (Non-Af Amer) 58.0 ml/min 09/17/17 04:20 BUN/Creatinine Ratio 24.6 09/17/17 04:20 Glucose 104 mg/dL (70-105) 09/17/17 04:20 POC Glucose 99 MG/DL (70 - 105) 09/17/17 16:04 Whole Bld Lactic Acid 1.35 mmol/L (0.60-1.99) 09/15/17 10:45 Calcium 8.6 mg/dL (8.6-10.3) 09/17/17 04:20 Total Bilirubin 0.8 mg/dL (0.3-1.0) 09/17/17 04:20 AST 11 U/L (13-39) L 09/17/17 04:20 ALT 8 U/L (7-52) 09/17/17 04:20 Alkaline Phosphatase 53 U/L (34-104) 09/17/17 04:20 B-Natriuretic Peptide 47.8 pg/mL (5.0-100.0) 09/15/17 04:45 Total Protein 5.7 gm/dL (6.0-8.3) L 09/17/17 04:20 Albumin 3.0 gm/dL (4.2-5.5) L 09/17/17 04:20 Globulin 2.7 gm/dL 09/17/17 04:20 Albumin/Globulin Ratio 1.1 (1.0-1.8) 09/17/17 04:20 Total Cortisol 28.9 09/12/17 01:00 Urine Source [place] 09/15/17 10:30 Urine Color GREEN 09/15/17 10:30 Urine Clarity CLOUDY (CLEAR) 09/15/17 10:30 Urine pH 6.5 (4.6 - 8.0) 09/15/17 10:30 Ur Specific [place] 1.015 (1.005-1.030) 09/15/17 10:30 Urine Protein 30 mg/dL (NEGATIVE) H 09/15/17 10:30 Urine Glucose (UA) NEGATIVE mg/dL (NEGATIVE) 09/15/17 10:30 Urine Ketones NEGATIVE mg/dL (NEGATIVE) 09/15/17 10:30 Urine Blood LARGE (NEGATIVE) H 09/15/17 10:30 Urine Nitrate POSITIVE (NEGATIVE) H 09/15/17 10:30 Urine Bilirubin MODERATE (NEGATIVE) H 09/15/17 10:30 Urine Urobilinogen 0.2 E.U./dL (0.2 - 1.0) 09/15/17 10:30 Ur Leukocyte Esterase TRACE (NEGATIVE) H 09/15/17 10:30 Urine RBC 50-100 /hpf (0-5) H 09/15/17 10:30 Urine WBC 25-50 /hpf (0-5) H 09/15/17 10:30 Ur Epithelial Cells MANY /lpf (FEW) 09/15/17 10:30 Urine Bacteria 4+ /hpf (NONE SEEN) H 09/15/17 10:30 Vancomycin Trough 19.6 ug/mL (5-10) H 09/16/17 15:18 - Physical Exam Vitals and I&O: Vital Signs Temp 99.9 F 09/17/17 17:25 Pulse 93 09/17/17 19:00 Resp 24 09/17/17 19:00 BP 121/66 09/17/17 12:39 Pulse Ox 94 09/17/17 19:00 Intake & Output 09/17/17 09/17/17 09/18/17 06:59 18:59 06:59 Intake Total 400 300 Output Total 550 Balance -150 300 Weight (lbs) 71.214 kg 71.214 kg Intake: Intake, IV Amount 400 300 Piperacillin Sodium/ 200 100 Tazobact 4.5 gm In Sodium Chloride 0.9% 100 ml @ 100 mls/hr IV Q8H [facility] Rx# :[id number] metroNIDAZOLE 500mg/NS 200 100 100mL 500 mg In 100 ml @ 100 mls/hr IV Q8HR [facility] Rx #:[id number] Output: Urine 550 Other: # Bowel Movements 1 Weight Source Bedscale Estimated Active Medications: Current Medications Acetaminophen (Tylenol) 650 mg PO Q6H PRN PRN Reason: mild pain Stop: 11/08/17 15:49 Last Admin: 09/12/17 09:15 Dose: 650 mg Acetaminophen (Tylenol) 650 mg PO Q6H PRN PRN Reason: Fever > 101 Stop: 11/11/17 20:45 Last Admin: 09/12/17 21:16 Dose: 650 mg Al Hydrox/Mg Hydrox/Simethicone (Maalox) 30 ml PO Q6H PRN PRN Reason: GI DISTRESS Stop: 11/08/17 15:49 Albuterol/Ipratropium (Duoneb Neb) 3 ml HHN Q4HRT [facility] Stop: 11/14/17 22:59 Last Admin: 09/17/17 19:00 Dose: 3 ml Amlodipine Besylate (Norvasc) 5 mg PO DAILY [facility] Stop: 11/09/17 08:59 Last Admin: 09/17/17 09:02 Dose: Not Given Atorvastatin Calcium (Lipitor) 20 mg GT HS [facility] PRN Reason: Protocol Stop: 11/08/17 20:59 Last Admin: 09/16/17 21:33 Dose: Not Given Cholecalciferol (Vitamin D3) 1,000 iu GT DAILY [facility] Stop: 11/09/17 08:59 Last Admin: 09/17/17 09:03 Dose: Not Given Donepezil HCl (Aricept) 10 mg GT HS [facility] Stop: 11/08/17 20:59 Last Admin: 09/16/17 21:34 Dose: Not Given Enoxaparin Sodium (Lovenox) 70 mg SUBQ Q12HR [facility] Stop: 11/16/17 08:59 Last Admin: 09/17/17 20:28 Dose: 70 mg Piperacillin Sod/Tazobactam (Sod 4.5 gm/ Sodium Chloride) 100 mls @ 100 mls/hr IV Q8H [facility] Stop: 11/10/17 10:59 Last Admin: 09/17/17 20:27 Dose: 100 mls/hr Metronidazole (Flagyl) 500 mg in 100 mls @ 100 mls/hr IV Q8HR [facility] Stop: 11/13/17 12:59 Last Admin: 09/17/17 21:25 Dose: 100 mls/hr Vancomycin HCl 1.5 gm/ Sodium (Chloride) 500 mls @ 250 mls/hr IV Q24H [facility] Stop: 11/17/17 08:59 Dextrose (D5w) 1,000 mls @ 75 mls/hr IV .[id number] [facility] Stop: 11/16/17 08:35 Last Admin: 09/17/17 17:29 Dose: 75 mls/hr Insulin Aspart (Novolog Insulin Sliding Scale) 0 units SUBQ ACHS [facility] PRN Reason: Protocol Stop: 11/12/17 11:29 Last Admin: 09/17/17 17:26 Dose: Not Given Lactobacillus Rhamnosus (Culturelle 15b) 1 each PO DAILY [facility] Stop: 11/12/17 08:59 Last Admin: 04/19/18 09:04 Dose: Not Given Lactobacillus Rhamnosus (Culturelle 15b) 1 each PO DAILY [facility] Stop: 11/17/17 08:59 Magnesium Hydroxide (Milk Of Magnesia) 30 ml PO HS PRN PRN Reason: Constipation Stop: 11/08/17 15:49 Memantine (Namenda) 5 mg GT BID [facility] Stop: 11/08/17 16:59 Last Admin: 09/17/17 17:28 Dose: Not Given Miscellaneous (Zosyn Iv Per Pharmacy) 1 ea MC PRN PRN PRN Reason: PROTOCOL Stop: 11/10/17 08:34 Miscellaneous (Probiotic Screen) 1 ea MC PRN PRN PRN Reason: PROTOCOL Stop: 11/12/17 08:59 Miscellaneous (Vancomycin Iv Per Pharmacy) 1 ea MC DAILY [facility] Stop: 11/15/17 16:59 Miscellaneous (Probiotic Screen) 1 ea MC PRN PRN PRN Reason: PROTOCOL Stop: 11/16/17 13:59 Multivitamins/Vitamin C (Theragran) 1 tab GT DAILY [facility] Stop: 11/09/17 08:59 Last Admin: 09/17/17 09:06 Dose: Not Given Potassium Chloride (Potassium Chloride Elixir) 20 meq GT DAILY [facility] Stop: 11/10/17 09:59 Last Admin: 09/17/17 09:06 Dose: Not Given General: No acute distress HEENT: Atraumatic Neck: Supple Cardiovascular: Regular rate Lungs: Other (Rude respiration, less congestion) Abdomen: Bowel sounds, Soft, Distended (MILD), Other (Peg in place. ) Extremities: Other (No edema) Neurological: Other (Non ambulatory) Skin: Other (Warm and dry) Psych/Mental Status: Other (Patient non verbal. ) - Procedures Procedures: Procedures Procedure Code Date ASSISTANCE WITH RESPIRATORY VENTILATION, <24 HRS, CPAP [id number] 09/09/[address] GASTROSTOMY TUBE 77571 09/09/17 INSERTION OF FEEDING DEVICE INTO STOMACH, PERC APPROACH [id number] 09/09/17 POS AIRWAY PRESSURE CPAP 06699 09/09/17 Assessment/Plan - Assessment Assessment: IMPRESSION: 1. DYSPHAGIA WITH GT DISPLACEMENT - S/P REINSERTION X 2. 2. LEUKOCYTOSIS WITH SEPSIS, POSSIBLY DUE TO PERITONITIS FROM RECENT GT CHANGE. - NONCONTRAST CT SHOWED FREE INTRAPERITONEAL AIR. CONTRAST VIA GT NOT NOTED TO LEAK OR EXTRAVASATE VIA GT SITE. 3. ENCEPHALOPATHY. RECS: 1. HOLD GT FEEDS FOR NOW. 2. CONSIDER STARTING TPN FOR A FEW DAYS TILL PERITONITIS IMPROVES. 3. ABX PER ID. 4. MONITOR WBC.
[2017-09-17] MEDS: Atorvastatin Calcium 10 MG TAB GT SCH (23:13)
[2017-09-18] MEDS: Dextrose 5% 1,000 ML IV SCH (03:17)
[2017-09-18] MEDS: Albuterol/Ipratropium Neb 3 ML AERS HHN SCH ×6 (03:45→22:57)
[2017-09-18] MEDS: metroNIDAZOLE 500mg/NS 100mL 500 MG/100 ML BAG IV SCH ×3 (04:31→21:36)
[2017-09-18 06:20] LABS: % BASOPHILS 0.2 % (0.0-2.0); % EOSINOPHILS 0.9 % (0.0-5.0); % LYMPHOCYTES 6.7 % (20.0-50.0); % MONOCYTES 2.5 % (2.0-10.0); % NEUTROPHILS 89.7 % (40.0-80.0); EOSINOPHILE ABSOLUTE 0.1 Th/cmm (0.1-0.4); HEMATOCRIT 37.6 % (41.0-60); HEMOGLOBIN 12.3 gm/dL (12-16); MEAN CELL VOLUME 88.7 fl (80-99); MEAN CORPUSCULAR HGB CONC 32.7 pg (28.0-36.0); MEAN PLATELET VOLUME 12.2 fl; MONOCYTE ABSOLUTE 0.4 Th/cmm (0.3-1.0); NEUTROPHILE ABSOLUTE 13.7 Th/cmm (1.8-8.0); PLATELET COUNT 285 Th/cmm (150-400); RED BLOOD COUNT 4.24 Mil/cmm (3.80-5.80); RED CELL DISTRIBUTION WIDTH 15.5 % (11.5-20.0)
[2017-09-18 06:35] LABS: ANION GAP 9.3 (7.0-16.0); BUN - UREA NITROGEN 29 mg/dL (7-25); CARBON DIOXIDE 29.3 mEq/L (21.0-31.0); CHLORIDE 124 mEq/L (98-107); CREATININE - SERUM 1.3 mg/dL (0.7-1.3); GFR AFRICAN-AMERICAN > 60.0 ml/min (>90); GLUCOSE 107 mg/dL (70-105); MAGNESIUM 2.5 mg/dL (1.9-2.7)
[2017-09-18 06:42] LABS: WHITE BLOOD COUNT 15.2 Th/cmm (4.8-10.8)
[2017-09-18] MEDS: INSULIN ASPART SLIDING SCALE 100 UNITS/ML UNIT SUBQ SCH ×3 (06:47→17:45)
[2017-09-18 07:26] LABS: SODIUM SERUM 160 mEq/L (136-145)
[2017-09-18 07:27] LABS: POTASSIUM SERUM 2.6 mEq/L (3.5-5.1)
--- NOTE | 2017-09-18 08:12 | Diagnostic Imaging Report ---
CHEST X-RAY: AP view INDICATION: Shortness of breath COMPARISON: 09/16/2017 FINDINGS: Small left effusion is noted. Faint bibasal infiltrates are noted. Heart size is normal. IMPRESSION: Small left effusion is seen bibasal infiltrates. There may be a mild degree of congestion.
--- NOTE | 2017-09-18 08:26 | General Progress Note ---
Subjective - Review of Systems Service Date: 09/18/17 Subjective: Patient is non verbal Objective - Results Result Diagrams: 09/18/17 05:40 09/18/17 05:40 Recent Labs: Laboratory Last Values WBC 15.2 Th/cmm (4.8-10.8) H 09/18/17 05:40 RBC 4.24 Mil/cmm (3.80-5.80) 09/18/17 05:40 Hgb 12.3 gm/dL (12-16) 09/18/17 05:40 Hct 37.6 % (41.0-60) L 09/18/17 05:40 MCV 88.7 fl (80-99) 09/18/17 05:40 MCH 29.0 pg (27.0-31.0) 09/18/17 05:40 MCHC Differential 32.7 pg (28.0-36.0) 09/18/17 05:40 RDW 15.5 % (11.5-20.0) 09/18/17 05:40 Plt Count 285 Th/cmm (150-400) 09/18/17 05:40 MPV 12.2 fl 09/18/17 05:40 Neutrophils % 89.7 % (40.0-80.0) H 09/18/17 05:40 Band Neutrophils % 10 % (0-10) 09/17/17 04:20 Lymphocytes % 6.7 % (20.0-50.0) L 09/18/17 05:40 Monocytes % 2.5 % (2.0-10.0) 09/18/17 05:40 Eosinophils % 0.9 % (0.0-5.0) 09/18/17 05:40 Basophils % 0.2 % (0.0-2.0) 09/18/17 05:40 Neutrophils (Manual) 82 % (40-80) H 09/17/17 04:20 Lymphocytes 6 % (20-50) L 09/17/17 04:20 Monocytes 2 % (2-10) 09/17/17 04:20 Eosinophils 3 % (0-5) 09/15/17 04:45 PT 10.3 SECONDS (9.5-11.5) 09/09/17 12:30 INR 0.99 (0.5-1.4) 09/09/17 12:30 PTT (Actin FS) 26.3 SECONDS (26.0-38.0) 09/09/17 12:30 Specimen Source Arterial 09/15/17 07:49 Sample Site Right Radial 09/15/17 07:49 pH 7.51 (7.35-7.45) H 09/15/17 07:49 pCO2 36.0 mmHg (35.0-45.0) 09/15/17 07:49 pO2 50.0 mmHg (80.0-100.0) L 09/15/17 07:49 HCO3 29.0 mEq/L (20.0-26.0) H 09/15/17 07:49 Base Excess 5.5 mEq/L (-3.0-3.0) H 09/15/17 07:49 O2 Saturation 59.0 % (92.0-100.0) L 09/15/17 07:49 Matthew Test Positive 09/15/17 07:49 Vent Rate NA 09/15/17 07:49 Inspired O2 40 09/15/17 07:49 Tidal Volume NA 09/15/17 07:49 PEEP NA 09/15/17 07:49 Pressure (ins/psv/peep) NA 09/15/17 07:49 Critical Value LZHANG 09/15/17 07:49 Sodium 160 mEq/L (136-145) H* 09/18/17 05:40 Potassium 2.6 mEq/L (3.5-5.1) L* 09/18/17 05:40 Chloride 124 mEq/L (98-107) H 09/18/17 05:40 Carbon Dioxide 29.3 mEq/L (21.0-31.0) 09/18/17 05:40 Anion Gap 9.3 (7.0-16.0) 09/18/17 05:40 BUN 29 mg/dL (7-25) H 09/18/17 05:40 Creatinine 1.3 mg/dL (0.7-1.3) 09/18/17 05:40 Est GFR ( Amer) > 60.0 ml/min (>90) 09/18/17 05:40 Est GFR (Non-Af Amer) 58.0 ml/min 09/18/17 05:40 BUN/Creatinine Ratio 22.3 09/18/17 05:40 Glucose 107 mg/dL (70-105) H 09/18/17 05:40 POC Glucose 107 MG/DL (70 - 105) H 09/18/17 06:39 Whole Bld Lactic Acid 1.35 mmol/L (0.60-1.99) 09/15/17 10:45 Calcium 9.0 mg/dL (8.6-10.3) 09/18/17 05:40 Magnesium 2.5 mg/dL (1.9-2.7) 09/18/17 05:40 Total Bilirubin 0.8 mg/dL (0.3-1.0) 09/17/17 04:20 AST 11 U/L (13-39) L 09/17/17 04:20 ALT 8 U/L (7-52) 09/17/17 04:20 Alkaline Phosphatase 53 U/L (34-104) 09/17/17 04:20 B-Natriuretic Peptide 47.8 pg/mL (5.0-100.0) 09/15/17 04:45 Total Protein 5.7 gm/dL (6.0-8.3) L 09/17/17 04:20 Albumin 3.0 gm/dL (4.2-5.5) L 09/17/17 04:20 Globulin 2.7 gm/dL 09/17/17 04:20 Albumin/Globulin Ratio 1.1 (1.0-1.8) 09/17/17 04:20 Total Cortisol 28.9 09/12/17 01:00 Urine Source [place] 09/15/17 10:30 Urine Color GREEN 09/15/17 10:30 Urine Clarity CLOUDY (CLEAR) 09/15/17 10:30 Urine pH 6.5 (4.6 - 8.0) 09/15/17 10:30 Ur Specific [place] 1.015 (1.005-1.030) 09/15/17 10:30 Urine Protein 30 mg/dL (NEGATIVE) H 09/15/17 10:30 Urine Glucose (UA) NEGATIVE mg/dL (NEGATIVE) 09/15/17 10:30 Urine Ketones NEGATIVE mg/dL (NEGATIVE) 09/15/17 10:30 Urine Blood LARGE (NEGATIVE) H 09/15/17 10:30 Urine Nitrate POSITIVE (NEGATIVE) H 09/15/17 10:30 Urine Bilirubin MODERATE (NEGATIVE) H 09/15/17 10:30 Urine Urobilinogen 0.2 E.U./dL (0.2 - 1.0) 09/15/17 10:30 Ur Leukocyte Esterase TRACE (NEGATIVE) H 09/15/17 10:30 Urine RBC 50-100 /hpf (0-5) H 09/15/17 10:30 Urine WBC 25-50 /hpf (0-5) H 09/15/17 10:30 Ur Epithelial Cells MANY /lpf (FEW) 09/15/17 10:30 Urine Bacteria 4+ /hpf (NONE SEEN) H 09/15/17 10:30 Vancomycin Trough 19.6 ug/mL (5-10) H 09/16/17 15:18 - Physical Exam Vitals and I&O: Vital Signs Temp 97.9 F 09/18/17 04:00 Pulse 88 09/18/17 07:27 Resp 22 09/18/17 07:27 BP 116/61 09/18/17 04:00 Pulse Ox 96 09/18/17 07:27 Intake & Output 09/17/17 09/18/17 09/18/17 18:59 06:59 18:59 Intake Total 300 1033.333 Output Total 1501 Balance 300 -467.667 Weight (lbs) 71.214 kg 71.214 kg Intake: Intake, IV Amount 300 1033.333 Dextrose 5% 1,000 ml @ 75 735 mls/hr IV .[id number] [facility] Rx#:[id number] Piperacillin Sodium/ 100 100 Tazobact 4.5 gm In Sodium Chloride 0.9% 100 ml @ 100 mls/hr IV Q8H [facility] Rx# :[id number] metroNIDAZOLE 500mg/NS 100 198.333 100mL 500 mg In 100 ml @ 100 mls/hr IV Q8HR [facility] Rx #:[id number] Output: Urine 1500 Stool 1 Other: Weight Source Estimated Estimated Active Medications: Current Medications Acetaminophen (Tylenol) 650 mg PO Q6H PRN PRN Reason: mild pain Stop: 11/08/17 15:49 Last Admin: 09/12/17 09:15 Dose: 650 mg Acetaminophen (Tylenol) 650 mg PO Q6H PRN PRN Reason: Fever > 101 Stop: 11/11/17 20:45 Last Admin: 09/12/17 21:16 Dose: 650 mg Al Hydrox/Mg Hydrox/Simethicone (Maalox) 30 ml PO Q6H PRN PRN Reason: GI DISTRESS Stop: 11/08/17 15:49 Albuterol/Ipratropium (Duoneb Neb) 3 ml HHN Q4HRT [facility] Stop: 11/14/17 22:59 Last Admin: 09/18/17 07:26 Dose: 3 ml Amlodipine Besylate (Norvasc) 5 mg PO DAILY [facility] Stop: 11/09/17 08:59 Last Admin: 09/17/17 09:02 Dose: Not Given Atorvastatin Calcium (Lipitor) 20 mg GT HS [facility] PRN Reason: Protocol Stop: 11/08/17 20:59 Last Admin: 09/17/17 23:13 Dose: Not Given Cholecalciferol (Vitamin D3) 1,000 iu GT DAILY [facility] Stop: 11/09/17 08:59 Last Admin: 09/17/17 09:03 Dose: Not Given Donepezil HCl (Aricept) 10 mg GT HS [facility] Stop: 11/08/17 20:59 Last Admin: 09/17/17 23:13 Dose: Not Given Enoxaparin Sodium (Lovenox) 70 mg SUBQ Q12HR [facility] Stop: 11/16/17 08:59 Last Admin: 09/17/17 20:28 Dose: 70 mg Piperacillin Sod/Tazobactam (Sod 4.5 gm/ Sodium Chloride) 100 mls @ 100 mls/hr IV Q8H [facility] Stop: 11/10/17 10:59 Last Admin: 09/18/17 03:17 Dose: 100 mls/hr Metronidazole (Flagyl) 500 mg in 100 mls @ 100 mls/hr IV Q8HR [facility] Stop: 11/13/17 12:59 Last Infusion: 09/18/17 05:30 Dose: 100 mls/hr Vancomycin HCl 1.5 gm/ Sodium (Chloride) 500 mls @ 250 mls/hr IV Q24H [facility] Stop: 11/17/17 08:59 Potassium Chloride (Potassium Chloride) 20 meq in 100 mls @ 50 mls/hr IV Q2H [facility] Stop: 09/18/17 12:13 Potassium Chloride/Dextrose (D5w W/20 Meq Kcl) 1,000 mls @ 100 mls/hr IV .Q10H [facility] Stop: 11/17/17 08:29 Insulin Aspart (Novolog Insulin Sliding Scale) 0 units SUBQ ACHS [facility] PRN Reason: Protocol Stop: 11/12/17 11:29 Last Admin: 09/18/17 06:47 Dose: Not Given Lactobacillus Rhamnosus (Culturelle 15b) 1 each PO DAILY [facility] Stop: 11/12/17 08:59 Last Admin: 09/17/17 09:04 Dose: Not Given Lactobacillus Rhamnosus (Culturelle 15b) 1 each PO DAILY [facility] Stop: 11/17/17 08:59 Magnesium Hydroxide (Milk Of Magnesia) 30 ml PO HS PRN PRN Reason: Constipation Stop: 11/08/17 15:49 Memantine (Namenda) 5 mg GT BID [facility] Stop: 11/08/17 16:59 Last Admin: 09/17/17 17:28 Dose: Not Given Miscellaneous (Zosyn Iv Per Pharmacy) 1 ea MC PRN PRN PRN Reason: PROTOCOL Stop: 11/10/17 08:34 Miscellaneous (Probiotic Screen) 1 ea MC PRN PRN PRN Reason: PROTOCOL Stop: 11/12/17 08:59 Miscellaneous (Vancomycin Iv Per Pharmacy) 1 ea MC DAILY [facility] Stop: 11/15/17 16:59 Miscellaneous (Probiotic Screen) 1 ea MC PRN PRN PRN Reason: PROTOCOL Stop: 11/16/17 13:59 Miscellaneous (Tpn Per Pharmacy) 1 ea MC PRN PRN PRN Reason: PROTOCOL Stop: 11/17/17 08:15 Multivitamins/Vitamin C (Theragran) 1 tab GT DAILY [facility] Stop: 11/09/17 08:59 Last Admin: 09/17/17 09:06 Dose: Not Given Potassium Chloride (Potassium Chloride Elixir) 20 meq GT DAILY [facility] Stop: 11/10/17 09:59 Last Admin: 09/17/17 09:06 Dose: Not Given General: No acute distress HEENT: Atraumatic Neck: Supple Cardiovascular: Regular rate Lungs: Other (Rude respiration, less congestion) Abdomen: Bowel sounds, Soft, Distended (MILD), Other (Peg in place. ) Extremities: Other (No edema) Neurological: Other (Non ambulatory) Skin: Other (Warm and dry) Psych/Mental Status: Other (Patient non verbal. ) - Procedures Procedures: Procedures Procedure Code Date ASSISTANCE WITH RESPIRATORY VENTILATION, <24 HRS, CPAP [id number] 09/09/[address] GASTROSTOMY TUBE 28251 09/09/17 INSERTION OF FEEDING DEVICE INTO STOMACH, PERC APPROACH [id number] 09/09/17 POS AIRWAY PRESSURE CPAP 06194 09/09/17 Assessment/Plan - Assessment Assessment: Patient is awake, non verbal. WBC improving, Patient is breathing better, Na increasing. Last abdominal CT shows less free air and no leakage. Dx: Peg displacement, sepsis, Hypernatremia, DM, Dementia, Schizophrenia, bed bound. - Plan Plan: Peg was replaced. NS changed to D5, on Zosyn, vanco and Metronidazole. PEG is not been using by GI order, TPN is requested. Patient was not [facility] to [facility], as soon feeding is started by PEG patient will be DC to SNF. Patient not responding to treatment. Prognosis continue being poor. Will continue monitoring. Nutritional Asmnt/Malnutr-PDOC - Dietary Evaluation Malnutrition Findings (Please click <Entered> for more info): Nutritional Asmnt/Malnutrition Start: 09/10/17 16: 17 Text: Status: Complete Freq: Document 09/10/17 16:19 LCHENG (Rec: 09/10/17 16:29 LCHENG [id number]) Nutritional Asmnt/Malnutrition Patient General Information Nutritional Screening High Risk Diagnosis g-tube placement (reason for visit) Pertinent Medical Hx/Surgical Hx DM, hyperlipidemia, dementia, schizophrenia, PEG/Gtube Subjective Information Pt seen lying in bed at time of visit, non-verbal. Pt has PEG placement today. Current Diet Order/ Nutrition Support fibersource HN start at 40ml/ hr, goal rate 60ml/hr continuous Pertinent Medications vit D3, vancomycin, theragran, nacl 0.9% Pertinent Labs 09/10 glucose 125, alb 4.1 09/09 glucose 129 Nutritional Hx/Data Height 1.68 m Height (Calculated Centimeters) 167.6 Current Weight (lbs) 63.957 kg Weight (Calculated Kilograms) 64.0 Weight (Calculated Grams) 25166.5 [place] Body Weight 142 Body Mass Index (BMI) 22.7 Weight Status Approriate GI Symptoms GI Symptoms None Last BM no record Difficult in: None Skin Integrity/Comment: reddened to coccyx, bruise to hand, rash to back Estimated Nutritional Goals BEE in Kcals: Using Current wt Calories/Kcals/Kg 25-30 Kcals Calculated 5105-3650 Protein: Using Current wt Protein g/k-1.2 Protein Calculated 64-77 Fluid: ml 1600-1920ml (1ml/kcal) Nutritional Problem No current Nutrition Prob Problem N/A Malnutrition Alert Protein-Calorie Malnutrition N/A Is there a minimum of two criteria No selected? Query Text:Check all the applicable criteria. A minimum of two criteria are recommended for diagnosis of either severe or non-severe malnutrition. Intervention/Recommendation Comments 1. Initiate TF as ordered. It provides 1728kcal, 77g protein , 1178ml free water, meeting 100% of nutritional needs. 2. Monitor TF rate, tolerance, wt weekly, skin integrity and labs 3. F/U as high risk in 2-3 days, 09/12-09/13 Expected Outcomes/Goals Expected Outcomes/Goals 1. Pt to meet at least 75% of nutritional needs via nutrition support with tolerance 2. Wt stability, skin to remain intact, labs to approach WNL.
[2017-09-18] MEDS ORDERED: D5W w/20 mEq KCL 1,000 ML IV SCH (08:30)
[2017-09-18] MEDS ORDERED: Lactobacillus Rhamnosus GG 15 Billion CFU CAP.SPRINK PO SCH (09:00)
[2017-09-18] MEDS: Enoxaparin 80 mg/0.8 mL 0.8mL Syr SUBQ SCH ×2 (09:46→21:36)
[2017-09-18] MEDS: Vancomycin HCl 1.5 GM in Sodium Chloride 0.9% 500 ML IV SCH (09:46)
[2017-09-18] MEDS: Potassium Chloride Elixir 20 mEq /15 mL UDC GT SCH (09:51)
[2017-09-18] MEDS: Lactobacillus Rhamnosus GG 15 Billion CFU CAP.SPRINK PO SCH (09:51)
[2017-09-18] MEDS: Multivitamin Tab GT SCH (09:51)
[2017-09-18] MEDS: KCL 20mEq/100mL Premix 20 MEQ/100 ML PIGGYBACK IV SCH ×2 (11:21→14:38)
--- NOTE | 2017-09-18 11:35 | Infectious Disease Prog Note ---
Infectious Disease Subjective - Review of Systems Service Date: 09/18/17 Subjective: Short of breath on BiPAP.Leukocytosis is improving again. Infectious Disease Objective - Results Result Diagrams: 09/18/17 05:40 09/18/17 05:40 Recent Labs: Laboratory Last Values WBC 15.2 Th/cmm (4.8-10.8) H 09/18/17 05:40 RBC 4.24 Mil/cmm (3.80-5.80) 09/18/17 05:40 Hgb 12.3 gm/dL (12-16) 09/18/17 05:40 Hct 37.6 % (41.0-60) L 09/18/17 05:40 MCV 88.7 fl (80-99) 09/18/17 05:40 MCH 29.0 pg (27.0-31.0) 09/18/17 05:40 MCHC Differential 32.7 pg (28.0-36.0) 09/18/17 05:40 RDW 15.5 % (11.5-20.0) 09/18/17 05:40 Plt Count 285 Th/cmm (150-400) 09/18/17 05:40 MPV 12.2 fl 09/18/17 05:40 Neutrophils % 89.7 % (40.0-80.0) H 09/18/17 05:40 Band Neutrophils % 10 % (0-10) 09/17/17 04:20 Lymphocytes % 6.7 % (20.0-50.0) L 09/18/17 05:40 Monocytes % 2.5 % (2.0-10.0) 09/18/17 05:40 Eosinophils % 0.9 % (0.0-5.0) 09/18/17 05:40 Basophils % 0.2 % (0.0-2.0) 09/18/17 05:40 Neutrophils (Manual) 82 % (40-80) H 09/17/17 04:20 Lymphocytes 6 % (20-50) L 09/17/17 04:20 Monocytes 2 % (2-10) 09/17/17 04:20 Eosinophils 3 % (0-5) 09/15/17 04:45 PT 10.3 SECONDS (9.5-11.5) 09/09/17 12:30 INR 0.99 (0.5-1.4) 09/09/17 12:30 PTT (Actin FS) 26.3 SECONDS (26.0-38.0) 09/09/17 12:30 Specimen Source Arterial 09/15/17 07:49 Sample Site Right Radial 09/15/17 07:49 pH 7.51 (7.35-7.45) H 09/15/17 07:49 pCO2 36.0 mmHg (35.0-45.0) 09/15/17 07:49 pO2 50.0 mmHg (80.0-100.0) L 09/15/17 07:49 HCO3 29.0 mEq/L (20.0-26.0) H 09/15/17 07:49 Base Excess 5.5 mEq/L (-3.0-3.0) H 09/15/17 07:49 O2 Saturation 59.0 % (92.0-100.0) L 09/15/17 07:49 Matthew Test Positive 09/15/17 07:49 Vent Rate NA 09/15/17 07:49 Inspired O2 40 09/15/17 07:49 Tidal Volume NA 09/15/17 07:49 PEEP NA 09/15/17 07:49 Pressure (ins/psv/peep) NA 09/15/17 07:49 Critical Value LZHANG 09/15/17 07:49 Sodium 160 mEq/L (136-145) H* 09/18/17 05:40 Potassium 2.6 mEq/L (3.5-5.1) L* 09/18/17 05:40 Chloride 124 mEq/L (98-107) H 09/18/17 05:40 Carbon Dioxide 29.3 mEq/L (21.0-31.0) 09/18/17 05:40 Anion Gap 9.3 (7.0-16.0) 09/18/17 05:40 BUN 29 mg/dL (7-25) H 09/18/17 05:40 Creatinine 1.3 mg/dL (0.7-1.3) 09/18/17 05:40 Est GFR ( Amer) > 60.0 ml/min (>90) 09/18/17 05:40 Est GFR (Non-Af Amer) 58.0 ml/min 09/18/17 05:40 BUN/Creatinine Ratio 22.3 09/18/17 05:40 Glucose 107 mg/dL (70-105) H 09/18/17 05:40 POC Glucose 107 MG/DL (70 - 105) H 09/18/17 06:39 Whole Bld Lactic Acid 1.35 mmol/L (0.60-1.99) 09/15/17 10:45 Calcium 9.0 mg/dL (8.6-10.3) 09/18/17 05:40 Magnesium 2.5 mg/dL (1.9-2.7) 09/18/17 05:40 Total Bilirubin 0.8 mg/dL (0.3-1.0) 09/17/17 04:20 AST 11 U/L (13-39) L 09/17/17 04:20 ALT 8 U/L (7-52) 09/17/17 04:20 Alkaline Phosphatase 53 U/L (34-104) 09/17/17 04:20 B-Natriuretic Peptide 47.8 pg/mL (5.0-100.0) 09/15/17 04:45 Total Protein 5.7 gm/dL (6.0-8.3) L 09/17/17 04:20 Albumin 3.0 gm/dL (4.2-5.5) L 09/17/17 04:20 Globulin 2.7 gm/dL 09/17/17 04:20 Albumin/Globulin Ratio 1.1 (1.0-1.8) 09/17/17 04:20 Total Cortisol 28.9 09/12/17 01:00 Urine Source [place] 09/15/17 10:30 Urine Color GREEN 09/15/17 10:30 Urine Clarity CLOUDY (CLEAR) 09/15/17 10:30 Urine pH 6.5 (4.6 - 8.0) 09/15/17 10:30 Ur Specific [place] 1.015 (1.005-1.030) 09/15/17 10:30 Urine Protein 30 mg/dL (NEGATIVE) H 09/15/17 10:30 Urine Glucose (UA) NEGATIVE mg/dL (NEGATIVE) 09/15/17 10:30 Urine Ketones NEGATIVE mg/dL (NEGATIVE) 09/15/17 10:30 Urine Blood LARGE (NEGATIVE) H 09/15/17 10:30 Urine Nitrate POSITIVE (NEGATIVE) H 09/15/17 10:30 Urine Bilirubin MODERATE (NEGATIVE) H 09/15/17 10:30 Urine Urobilinogen 0.2 E.U./dL (0.2 - 1.0) 09/15/17 10:30 Ur Leukocyte Esterase TRACE (NEGATIVE) H 09/15/17 10:30 Urine RBC 50-100 /hpf (0-5) H 09/15/17 10:30 Urine WBC 25-50 /hpf (0-5) H 09/15/17 10:30 Ur Epithelial Cells MANY /lpf (FEW) 09/15/17 10:30 Urine Bacteria 4+ /hpf (NONE SEEN) H 09/15/17 10:30 Vancomycin Trough 19.6 ug/mL (5-10) H 09/16/17 15:18 - Physical Exam Vitals and I&O: Vital Signs Temp 97.6 F 09/18/17 08:00 Pulse 78 09/18/17 08:00 Resp 18 09/18/17 08:00 BP 107/55 09/18/17 08:00 Pulse Ox 99 09/18/17 08:00 Intake & Output 09/17/17 09/18/17 09/18/17 18:59 06:59 18:59 Intake Total 300 1033.333 Output Total 1501 Balance 300 -467.667 Weight (lbs) 71.214 kg 71.214 kg Intake: Intake, IV Amount 300 1033.333 Dextrose 5% 1,000 ml @ 75 735 mls/hr IV .[id number] [facility] Rx#:[id number] Piperacillin Sodium/ 100 100 Tazobact 4.5 gm In Sodium Chloride 0.9% 100 ml @ 100 mls/hr IV Q8H JOSE [facility]ON Rx# :[id number] metroNIDAZOLE 500mg/NS 100 198.333 100mL 500 mg In 100 ml @ 100 mls/hr IV Q8HR [facility] Rx #:[id number] Output: Urine 1500 Stool 1 Other: Weight Source Estimated Estimated Active Medications: Current Medications Acetaminophen (Tylenol) 650 mg PO Q6H PRN PRN Reason: mild pain Stop: 11/08/17 15:49 Last Admin: 09/12/17 09:15 Dose: 650 mg Acetaminophen (Tylenol) 650 mg PO Q6H PRN PRN Reason: Fever > 101 Stop: 11/11/17 20:45 Last Admin: 09/12/17 21:16 Dose: 650 mg Al Hydrox/Mg Hydrox/Simethicone (Maalox) 30 ml PO Q6H PRN PRN Reason: GI DISTRESS Stop: 11/08/17 15:49 Albuterol/Ipratropium (Duoneb Neb) 3 ml HHN Q4HRT [facility] Stop: 11/14/17 22:59 Last Admin: 09/18/17 07:26 Dose: 3 ml Amlodipine Besylate (Norvasc) 5 mg PO DAILY JO[facility] Stop: 11/09/17 08:59 Last Admin: 09/18/17 09:56 Dose: Not Given Atorvastatin Calcium (Lipitor) 20 mg GT HS JOSE RAMON PRN Reason: Protocol Stop: 11/08/17 20:59 Last Admin: 09/17/17 23:13 Dose: Not Given Cholecalciferol (Vitamin D3) 1,000 iu GT DAILY JOSE RAMON Stop: 11/09/17 08:59 Last Admin: 09/18/17 09:52 Dose: Not Given Donepezil HCl (Aricept) 10 mg GT HS JO[facility]ON Stop: 11/08/17 20:59 Last Admin: 09/17/17 23:13 Dose: Not Given Enoxaparin Sodium (Lovenox) 70 mg SUBQ Q12HR [facility] Stop: 11/16/17 08:59 Last Admin: 09/18/17 09:46 Dose: 70 mg Piperacillin Sod/Tazobactam (Sod 4.5 gm/ Sodium Chloride) 100 mls @ 100 mls/hr IV Q8H [facility] Stop: 11/10/17 10:59 Last Admin: 09/18/17 03:17 Dose: 100 mls/hr Metronidazole (Flagyl) 500 mg in 100 mls @ 100 mls/hr IV Q8HR [facility] Stop: 11/13/17 12:59 Last Infusion: 09/18/17 05:30 Dose: 100 mls/hr Vancomycin HCl 1.5 gm/ Sodium (Chloride) 500 mls @ 250 mls/hr IV Q24H [facility] Stop: 11/17/17 08:59 Last Admin: 09/18/17 09:46 Dose: 250 mls/hr Potassium Chloride (Potassium Chloride) 20 meq in 100 mls @ 50 mls/hr IV Q2H [facility] Stop: 09/18/17 12:13 Last Admin: 09/18/17 11:21 Dose: 50 mls/hr Potassium Chloride/Dextrose (D5w W/20 Meq Kcl) 1,000 mls @ 100 mls/hr IV .Q10H [facility] Stop: 09/18/17 16:00 Last Admin: 09/18/17 11:20 Dose: 100 mls/hr Multivitamins/Minerals 5 ml/Insulin Human Regular 5 units/Dextrose/ Amino Acids/ Electrolytes/ Sterile Water 2,055.05 mls @ 80 mls/hr IV .Q24H [facility] Stop: 10/17/17 15:59 Dextrose (D5w) 1,000 mls @ 20 mls/hr IV .Q24H [facility] Stop: 11/17/17 15:59 Insulin Aspart (Novolog Insulin Sliding Scale) 0 units SUBQ ACHS [facility]ON PRN Reason: Protocol Stop: 11/12/17 11:29 Last Admin: 09/18/17 06:47 Dose: Not Given Lactobacillus Rhamnosus (Culturelle 15b) 1 each PO DAILY [facility]ON Stop: 11/12/17 08:59 Last Admin: 09/18/17 09:51 Dose: Not Given Magnesium Hydroxide (Milk Of Magnesia) 30 ml PO HS PRN PRN Reason: Constipation Stop: 11/08/17 15:49 Memantine (Namenda) 5 mg GT BID JOSE RAMON Stop: 11/08/17 16:59 Last Admin: 09/18/17 09:51 Dose: Not Given Miscellaneous (Zosyn Iv Per Pharmacy) 1 ea PRN PRN PRN Reason: PROTOCOL Stop: 11/10/17 08:34 Miscellaneous (Probiotic Screen) 1 ea PRN PRN PRN Reason: PROTOCOL Stop: 11/12/17 08:59 Miscellaneous (Vancomycin Iv Per Pharmacy) 1 ea MC DAILY JOSE [facility]ON Stop: 11/15/17 16:59 Miscellaneous (Tpn Per Pharmacy) 1 ea PRN PRN PRN Reason: PROTOCOL Stop: 11/17/17 08:15 Multivitamins/Vitamin C (Theragran) 1 tab GT DAILY JOSE RAMON Stop: 09/18/17 21:00 Last Admin: 09/18/17 09:51 Dose: Not Given Potassium Chloride (Potassium Chloride Elixir) 20 meq GT DAILY JOSE RAMON Stop: 09/19/17 08:00 Last Admin: 09/18/17 09:51 Dose: Not Given General: no acute distress HEENT: atraumatic, normocephalic, PERRLA Neck: supple, no thyromegaly Cardiovascular: S1S2, regular Lungs: clear to percussion, rhonchi Abdomen: soft, no tender, no distended Extremities: no cyanosis, no clubbing, no edema Neurological: other (lethargic) Skin: intact - Procedures Procedures: Procedures Procedure Code Date ASSISTANCE WITH RESPIRATORY VENTILATION, <24 HRS, CPAP [id number] 09/09/[address] GASTROSTOMY TUBE 94831 09/09/17 INSERTION OF FEEDING DEVICE INTO STOMACH, PERC APPROACH [id number] 09/09/17 POS AIRWAY PRESSURE CPAP 35715 09/09/17 Infectious Disease Assmt/Plan - Assessment Assessment: 1. Leukopcytosis, likely reactive. Sepsis. 2. Aspiration pneumonia 3. Dysphasia. G tube placement. 4. Dementia. 5. Respiratory failure on BiPAP. - Plan Plan: cpm. Nutritional Asmnt/Malnutr-PDOC - Dietary Evaluation Malnutrition Findings (Please click <Entered> for more info): Nutritional Asmnt/Malnutrition Start: 09/10/17 16: 17 Text: Status: Complete Freq: Document 09/10/17 16:19 BEN (Rec: 09/10/17 16:29 GEETA [id number]) Nutritional Asmnt/Malnutrition Patient General Information Nutritional Screening High Risk Diagnosis g-tube placement (reason for visit) Pertinent Medical Hx/Surgical Hx DM, hyperlipidemia, dementia, schizophrenia, PEG/Gtube Subjective Information Pt seen lying in bed at time of visit, non-verbal. Pt has PEG placement today. Current Diet Order/ Nutrition Support fibersource HN start at 40ml/ hr, goal rate 60ml/hr continuous Pertinent Medications vit D3, vancomycin, theragran, nacl 0.9% Pertinent Labs 09/10 glucose 125, alb 4.1 09/09 glucose 129 Nutritional Hx/Data Height 1.68 m Height (Calculated Centimeters) 167.6 Current Weight (lbs) 63.957 kg Weight (Calculated Kilograms) 64.0 Weight (Calculated Grams) 73532.5 [place] Body Weight 142 Body Mass Index (BMI) 22.7 Weight Status Approriate GI Symptoms GI Symptoms None Last BM no record Difficult in: None Skin Integrity/Comment: reddened to coccyx, bruise to hand, rash to back Estimated Nutritional Goals BEE in Kcals: Using Current wt Calories/Kcals/Kg 25-30 Kcals Calculated 4958-9726 Protein: Using Current wt Protein g/k-1.2 Protein Calculated 64-77 Fluid: ml 1600-1920ml (1ml/kcal) Nutritional Problem No current Nutrition Prob Problem N/A Malnutrition Alert Protein-Calorie Malnutrition N/A Is there a minimum of two criteria No selected? Query Text:Check all the applicable criteria. A minimum of two criteria are recommended for diagnosis of either severe or non-severe malnutrition. Intervention/Recommendation Comments 1. Initiate TF as ordered. It provides 1728kcal, 77g protein , 1178ml free water, meeting 100% of nutritional needs. 2. Monitor TF rate, tolerance, wt weekly, skin integrity and labs 3. F/U as high risk in 2-3 days, 09/12-09/13 Expected Outcomes/Goals Expected Outcomes/Goals 1. Pt to meet at least 75% of nutritional needs via nutrition support with tolerance 2. Wt stability, skin to remain intact, labs to approach WNL.
[2017-09-18] MEDS ORDERED: Albuterol/Ipratropium Neb 3 ML AERS HHN ONE (12:45)
[2017-09-18 12:59] LABS: ALLEN TEST YES
[2017-09-18] MEDS ORDERED: Dextrose 5% 1,000 ML IV SCH (16:00)
[2017-09-18] MEDS ORDERED: TPN 8.5%-70% CUSTOM IV SCH (16:00)
[2017-09-18] MEDS: methylPREDNISolone SS 40 mg Vial IVP SCH (21:36)
[2017-09-18] MEDS: Atorvastatin Calcium 10 MG TAB GT SCH (21:36)
[2017-09-19] MEDS: INSULIN ASPART SLIDING SCALE 100 UNITS/ML UNIT SUBQ SCH ×5 (00:27→18:32)
[2017-09-19] MEDS: Albuterol/Ipratropium Neb 3 ML AERS HHN SCH ×6 (02:39→23:53)
[2017-09-19 05:15] LABS: HEMATOCRIT 34.7 % (41.0-60); HEMOGLOBIN 11.5 gm/dL (12-16); MANUAL DIFF REQUIRED? YES; MEAN CELL VOLUME 88.1 fl (80-99); MEAN CORPUSCULAR HEMOGLOBIN 29.2 pg (27.0-31.0); MEAN CORPUSCULAR HGB CONC 33.1 pg (28.0-36.0); MEAN PLATELET VOLUME 11.9 fl; PLATELET COUNT 299 Th/cmm (150-400); RED BLOOD COUNT 3.93 Mil/cmm (3.80-5.80); RED CELL DISTRIBUTION WIDTH 15.4 % (11.5-20.0)
[2017-09-19] MEDS: metroNIDAZOLE 500mg/NS 100mL 500 MG/100 ML BAG IV SCH ×3 (05:19→20:51)
[2017-09-19] MEDS: methylPREDNISolone SS 40 mg Vial IVP SCH ×3 (05:19→20:57)
[2017-09-19 05:21] LABS: WHITE BLOOD COUNT 13.2 Th/cmm (4.8-10.8)
[2017-09-19 05:23] LABS: ALB/GLOB RATIO 0.9 (1.0-1.8); ALBUMIN 2.6 gm/dL (4.2-5.5); ALKALINE PHOSPHATASE 45 U/L (34-104); ANION GAP 10.1 (7.0-16.0); BILIRUBIN,TOTAL 0.3 mg/dL (0.3-1.0); BUN - UREA NITROGEN 35 mg/dL (7-25); CALCIUM SERUM 8.7 mg/dL (8.6-10.3); CARBON DIOXIDE 25.9 mEq/L (21.0-31.0); CHLORIDE 125 mEq/L (98-107); CREATININE - SERUM 1.2 mg/dL (0.7-1.3); GFR AFRICAN-AMERICAN > 60.0 ml/min (>90); GFR NON AFRICAN-AMERICAN > 60.0 ml/min; MAGNESIUM 2.5 mg/dL (1.9-2.7); PHOSPHOROUS 2.2 mg/dL (2.5-5.0); SGOT 14 U/L (13-39); SGPT/ALT 8 U/L (7-52); TOTAL PROTEIN,SERUM 5.4 gm/dL (6.0-8.3); TRIGLYCERIDES 73 mg/dL (<150)
[2017-09-19 05:28] LABS: GLUCOSE 235 mg/dL (70-105); SODIUM SERUM 158 mEq/L (136-145)
[2017-09-19 06:27] LABS: BAND NEUTROPHILE 6 % (0-10); LYMPHOCYTE 6 % (20-50); MONOCYTE 1 % (2-10); NEUTROPHILS 87 % (40-80); TOTAL CELLS COUNTED 100
[2017-09-19] MEDS: Enoxaparin 80 mg/0.8 mL 0.8mL Syr SUBQ SCH ×2 (08:42→20:56)
[2017-09-19] MEDS: Lactobacillus Rhamnosus GG 15 Billion CFU CAP.SPRINK PO SCH (08:43)
[2017-09-19] MEDS: Vancomycin HCl 1.5 GM in Sodium Chloride 0.9% 500 ML IV SCH (08:43)
--- NOTE | 2017-09-19 09:11 | GI Progress Note ---
Subjective - Review of Systems Service Date: 09/19/17 Subjective: No new events, tolerating feeding Objective - Results Result Diagrams: 09/19/17 04:20 09/19/17 04:20 Recent Labs: Laboratory Last Values WBC 13.2 Th/cmm (4.8-10.8) H 09/19/17 04:20 RBC 3.93 Mil/cmm (3.80-5.80) 09/19/17 04:20 Hgb 11.5 gm/dL (12-16) L 09/19/17 04:20 Hct 34.7 % (41.0-60) L 09/19/17 04:20 MCV 88.1 fl (80-99) 09/19/17 04:20 MCH 29.2 pg (27.0-31.0) 09/19/17 04:20 MCHC Differential 33.1 pg (28.0-36.0) 09/19/17 04:20 RDW 15.4 % (11.5-20.0) 09/19/17 04:20 Plt Count 299 Th/cmm (150-400) 09/19/17 04:20 MPV 11.9 fl 09/19/17 04:20 Neutrophils % 89.7 % (40.0-80.0) H 09/18/17 05:40 Band Neutrophils % 6 % (0-10) 09/19/17 04:20 Lymphocytes % 6.7 % (20.0-50.0) L 09/18/17 05:40 Monocytes % 2.5 % (2.0-10.0) 09/18/17 05:40 Eosinophils % 0.9 % (0.0-5.0) 09/18/17 05:40 Basophils % 0.2 % (0.0-2.0) 09/18/17 05:40 Neutrophils (Manual) 87 % (40-80) H 09/19/17 04:20 Lymphocytes 6 % (20-50) L 09/19/17 04:20 Monocytes 1 % (2-10) L 09/19/17 04:20 Eosinophils 3 % (0-5) 09/15/17 04:45 PT 10.3 SECONDS (9.5-11.5) 09/09/17 12:30 INR 0.99 (0.5-1.4) 09/09/17 12:30 PTT (Actin FS) 26.3 SECONDS (26.0-38.0) 09/09/17 12:30 Specimen Source Arterial 09/18/17 12:50 Sample Site Left Radial 09/18/17 12:50 pH 7.50 (7.35-7.45) H 09/18/17 12:50 pCO2 36.0 mmHg (35.0-45.0) 09/18/17 12:50 pO2 64.0 mmHg (80.0-100.0) L 09/18/17 12:50 HCO3 28.6 mEq/L (20.0-26.0) H 09/18/17 12:50 Base Excess 4.8 mEq/L (-3.0-3.0) H 09/18/17 12:50 O2 Saturation 94.0 % (92.0-100.0) 09/18/17 12:50 Matthew Test YES 09/18/17 12:50 Vent Rate 16 09/18/17 12:50 Inspired O2 50 09/18/17 12:50 Tidal Volume NA 09/18/17 12:50 PEEP NA 09/18/17 12:50 Pressure (ins/psv/peep) 6 09/18/17 12:50 Critical Value E.JOSHI 09/18/17 12:50 Sodium 158 mEq/L (136-145) H 09/19/17 04:20 Potassium 3.0 mEq/L (3.5-5.1) L 09/19/17 04:20 Chloride 125 mEq/L (98-107) H 09/19/17 04:20 Carbon Dioxide 25.9 mEq/L (21.0-31.0) 09/19/17 04:20 Anion Gap 10.1 (7.0-16.0) 09/19/17 04:20 BUN 35 mg/dL (7-25) H 09/19/17 04:20 Creatinine 1.2 mg/dL (0.7-1.3) 09/19/17 04:20 Est GFR ( Amer) > 60.0 ml/min (>90) 09/19/17 04:20 Est GFR (Non-Af Amer) > 60.0 ml/min 09/19/17 04:20 BUN/Creatinine Ratio 29.2 09/19/17 04:20 Glucose 235 mg/dL (70-105) H D 09/19/17 04:20 POC Glucose 211 MG/DL (70 - 105) H 09/19/17 05:30 Whole Bld Lactic Acid 1.35 mmol/L (0.60-1.99) 09/15/17 10:45 Calcium 8.7 mg/dL (8.6-10.3) 09/19/17 04:20 Phosphorus 2.2 mg/dL (2.5-5.0) L 09/19/17 04:20 Magnesium 2.5 mg/dL (1.9-2.7) 09/19/17 04:20 Total Bilirubin 0.3 mg/dL (0.3-1.0) 09/19/17 04:20 AST 14 U/L (13-39) 09/19/17 04:20 ALT 8 U/L (7-52) 09/19/17 04:20 Alkaline Phosphatase 45 U/L (34-104) 09/19/17 04:20 B-Natriuretic Peptide 47.8 pg/mL (5.0-100.0) 09/15/17 04:45 Total Protein 5.4 gm/dL (6.0-8.3) L 09/19/17 04:20 Albumin 2.6 gm/dL (4.2-5.5) L 09/19/17 04:20 Globulin 2.8 gm/dL 09/19/17 04:20 Albumin/Globulin Ratio 0.9 (1.0-1.8) L 09/19/17 04:20 Triglycerides 73 mg/dL (<150) 09/19/17 04:20 Total Cortisol 28.9 09/12/17 01:00 Urine Source [place] 09/15/17 10:30 Urine Color GREEN 09/15/17 10:30 Urine Clarity CLOUDY (CLEAR) 09/15/17 10:30 Urine pH 6.5 (4.6 - 8.0) 09/15/17 10:30 Ur Specific [place] 1.015 (1.005-1.030) 09/15/17 10:30 Urine Protein 30 mg/dL (NEGATIVE) H 09/15/17 10:30 Urine Glucose (UA) NEGATIVE mg/dL (NEGATIVE) 09/15/17 10:30 Urine Ketones NEGATIVE mg/dL (NEGATIVE) 09/15/17 10:30 Urine Blood LARGE (NEGATIVE) H 09/15/17 10:30 Urine Nitrate POSITIVE (NEGATIVE) H 09/15/17 10:30 Urine Bilirubin MODERATE (NEGATIVE) H 09/15/17 10:30 Urine Urobilinogen 0.2 E.U./dL (0.2 - 1.0) 09/15/17 10:30 Ur Leukocyte Esterase TRACE (NEGATIVE) H 09/15/17 10:30 Urine RBC 50-100 /hpf (0-5) H 09/15/17 10:30 Urine WBC 25-50 /hpf (0-5) H 09/15/17 10:30 Ur Epithelial Cells MANY /lpf (FEW) 09/15/17 10:30 Urine Bacteria 4+ /hpf (NONE SEEN) H 09/15/17 10:30 Vancomycin Trough 19.6 ug/mL (5-10) H 09/16/17 15:18 - Physical Exam Vitals and I&O: Vital Signs Temp 97.9 F 09/19/17 04:00 Pulse 63 09/19/17 07:06 Resp 32 09/19/17 07:06 BP 120/65 09/19/17 06:00 Pulse Ox 98 09/19/17 07:06 Intake & Output 09/18/17 09/19/17 09/19/17 18:59 06:59 18:59 Intake Total 1040 1380 Output Total 850 Balance 1040 530 Weight (lbs) 71.214 kg 71.441 kg Intake: Intake, IV Amount 800 200 KCL 20mEq/100mL Premix 20 100 meq In 100 ml @ 50 mls/ hr IV Q2H JOSE RAMON Rx#: [id number] Piperacillin Sodium/ 100 Tazobact 4.5 gm In Sodium Chloride 0.9% 100 ml @ 100 mls/hr IV Q8H JOSE [facility]ON Rx# :[id number] Vancomycin HCl 1.5 gm In 500 Sodium Chloride 0.9% 500 ml @ 250 mls/hr IV Q24H [facility]ON Rx#:[id number] metroNIDAZOLE 500mg/NS 100 200 100mL 500 mg In 100 ml @ 100 mls/hr IV Q8HR [facility] Rx #:[id number] Oral 0 Tube Feeding 300 TPN/PPN 240 680 Other 200 Output: Urine 850 Other: # Voids 3 # Bowel Movements 1 Weight Source Bedscale Bedscale Active Medications: Current Medications Acetaminophen (Tylenol) 650 mg PO Q6H PRN PRN Reason: mild pain Stop: 11/08/17 15:49 Last Admin: 09/12/17 09:15 Dose: 650 mg Acetaminophen (Tylenol) 650 mg PO Q6H PRN PRN Reason: Fever > 101 Stop: 11/11/17 20:45 Last Admin: 09/12/17 21:16 Dose: 650 mg Al Hydrox/Mg Hydrox/Simethicone (Maalox) 30 ml PO Q6H PRN PRN Reason: GI DISTRESS Stop: 11/08/17 15:49 Albuterol/Ipratropium (Duoneb Neb) 3 ml HHN Q4HRT JOSE [facility]ON Stop: 11/14/17 22:59 Last Admin: 09/19/17 07:02 Dose: 3 ml Amlodipine Besylate (Norvasc) 5 mg PO DAILY [facility]SE [facility]ON Stop: 11/09/17 08:59 Last Admin: 09/18/17 09:56 Dose: Not Given Atorvastatin Calcium (Lipitor) 20 mg GT HS JOSE RAMON PRN Reason: Protocol Stop: 11/08/17 20:59 Last Admin: 09/18/17 21:36 Dose: 20 mg Cholecalciferol (Vitamin D3) 1,000 iu GT DAILY JOSE RAMON Stop: 11/09/17 08:59 Last Admin: 09/19/17 08:42 Dose: 1,000 iu Donepezil HCl (Aricept) 10 mg GT HS JOSE RAMON Stop: 11/08/17 20:59 Last Admin: 09/18/17 21:36 Dose: 10 mg Enoxaparin Sodium (Lovenox) 70 mg SUBQ Q12HR [facility]ON Stop: 11/16/17 08:59 Last Admin: 09/19/17 08:42 Dose: 70 mg Metronidazole (Flagyl) 500 mg in 100 mls @ 100 mls/hr IV Q8HR [facility] Stop: 11/13/17 12:59 Last Infusion: 09/19/17 06:19 Dose: Infused Vancomycin HCl 1.5 gm/ Sodium (Chloride) 500 mls @ 250 mls/hr IV Q24H [facility]ON Stop: 11/17/17 08:59 Last Admin: 09/19/17 08:43 Dose: 250 mls/hr Multivitamins/Minerals 10 ml/Insulin Human Regular 5 units/Dextrose/ Amino Acids /Electrolytes/ Sterile Water 2,060.05 mls @ 80 mls/hr IV .Q24H [facility]ON Stop: 10/17/17 15:59 Last Admin: 09/18/17 15:49 Dose: 80 mls/hr Dextrose (D5w) 1,000 mls @ 20 mls/hr IV .Q24H [facility]SE [facility]ON Stop: 11/17/17 15:59 Last Admin: 09/18/17 15:49 Dose: 20 mls/hr Insulin Aspart (Novolog Insulin Sliding Scale) 0 units SUBQ Q6HR JOSE RAMON PRN Reason: Protocol Stop: 11/18/17 00:00 Last Admin: 09/19/17 05:48 Dose: 4 units Lactobacillus Rhamnosus (Culturelle 15b) 1 each PO DAILY JOSE [facility]ON Stop: 11/12/17 08:59 Last Admin: 09/19/17 08:43 Dose: 1 each Magnesium Hydroxide (Milk Of Magnesia) 30 ml PO HS PRN PRN Reason: Constipation Stop: 11/08/17 15:49 Memantine (Namenda) 5 mg GT BID JOSE RAMON Stop: 11/08/17 16:59 Last Admin: 09/19/17 08:42 Dose: 5 mg Methylprednisolone Sodium Succinate (Solu-Medrol) 40 mg IVP Q8HR JOSE [facility]ON Stop: 11/17/17 20:59 Last Admin: 09/19/17 05:19 Dose: 40 mg Miscellaneous (Zosyn Iv Per Pharmacy) 1 [facility] PRN PRN PRN Reason: PROTOCOL Stop: 11/10/17 08:34 Miscellaneous (Probiotic Screen) 1 [facility] PRN PRN PRN Reason: PROTOCOL Stop: 11/12/17 08:59 Miscellaneous (Vancomycin Iv Per Pharmacy) 1 ea DAILY JOSE RAMON Stop: 11/15/17 16:59 Miscellaneous (Tpn Per Pharmacy) 1 [facility] PRN PRN PRN Reason: PROTOCOL Stop: 11/17/17 08:15 General: No acute distress HEENT: Atraumatic Neck: Supple Cardiovascular: Regular rate Lungs: Other (Rude respiration, less congestion) Abdomen: Bowel sounds, Soft, Distended (MILD), Other (Peg in place. ) Extremities: Other (No edema) Neurological: Other (Non ambulatory) Skin: Other (Warm and dry) Psych/Mental Status: Other (Patient non verbal. ) - Procedures Procedures: Procedures Procedure Code Date ASSISTANCE WITH RESPIRATORY VENTILATION, <24 HRS, CPAP [id number] 09/09/[address] GASTROSTOMY TUBE 90933 09/09/17 INSERTION OF FEEDING DEVICE INTO STOMACH, PERC APPROACH [id number] 09/09/17 POS AIRWAY PRESSURE CPAP [id number] 09/09/17 Assessment/Plan - Assessment Assessment: IMPRESSION: 1. DYSPHAGIA WITH GT DISPLACEMENT - S/P REINSERTION X 2. 2. LEUKOCYTOSIS WITH SEPSIS, POSSIBLY DUE TO PERITONITIS FROM RECENT GT CHANGE. - NONCONTRAST CT SHOWED FREE INTRAPERITONEAL AIR. CONTRAST VIA GT NOT NOTED TO LEAK OR EXTRAVASATE VIA GT SITE. 3. ENCEPHALOPATHY. RECS: 1. Now started again on G tube feeding and tolerating this well. Monitor for any peritoneal signs or leukocytosis worsening 2. Will wean TPN if G tube feeding is tolerating over next 24 hours 3. ABX PER ID. 4. MONITOR WBC.
[2017-09-19 09:30] LABS: pH 7.47 (7.35-7.45)
[2017-09-19 09:31] LABS: ALLEN TEST Positive
--- NOTE | 2017-09-19 10:12 | General Progress Note ---
Subjective - Review of Systems Service Date: 09/19/17 Subjective: Patient is non verbal Objective - Results Result Diagrams: 09/19/17 04:20 09/19/17 04:20 Recent Labs: Laboratory Last Values WBC 13.2 Th/cmm (4.8-10.8) H 09/19/17 04:20 RBC 3.93 Mil/cmm (3.80-5.80) 09/19/17 04:20 Hgb 11.5 gm/dL (12-16) L 09/19/17 04:20 Hct 34.7 % (41.0-60) L 09/19/17 04:20 MCV 88.1 fl (80-99) 09/19/17 04:20 MCH 29.2 pg (27.0-31.0) 09/19/17 04:20 MCHC Differential 33.1 pg (28.0-36.0) 09/19/17 04:20 RDW 15.4 % (11.5-20.0) 09/19/17 04:20 Plt Count 299 Th/cmm (150-400) 09/19/17 04:20 MPV 11.9 fl 09/19/17 04:20 Neutrophils % 89.7 % (40.0-80.0) H 09/18/17 05:40 Band Neutrophils % 6 % (0-10) 09/19/17 04:20 Lymphocytes % 6.7 % (20.0-50.0) L 09/18/17 05:40 Monocytes % 2.5 % (2.0-10.0) 09/18/17 05:40 Eosinophils % 0.9 % (0.0-5.0) 09/18/17 05:40 Basophils % 0.2 % (0.0-2.0) 09/18/17 05:40 Neutrophils (Manual) 87 % (40-80) H 09/19/17 04:20 Lymphocytes 6 % (20-50) L 09/19/17 04:20 Monocytes 1 % (2-10) L 09/19/17 04:20 Eosinophils 3 % (0-5) 09/15/17 04:45 PT 10.3 SECONDS (9.5-11.5) 09/09/17 12:30 INR 0.99 (0.5-1.4) 09/09/17 12:30 PTT (Actin FS) 26.3 SECONDS (26.0-38.0) 09/09/17 12:30 Specimen Source Arterial 09/19/17 09:00 Sample Site Right Radial 09/19/17 09:00 pH 7.47 (7.35-7.45) H 09/19/17 09:00 pCO2 38.0 mmHg (35.0-45.0) 09/19/17 09:00 pO2 81.0 mmHg (80.0-100.0) 09/19/17 09:00 HCO3 28.0 mEq/L (20.0-26.0) H 09/19/17 09:00 Base Excess 3.9 mEq/L (-3.0-3.0) H 09/19/17 09:00 O2 Saturation 97.0 % (92.0-100.0) 09/19/17 09:00 Matthew Test Positive 09/19/17 09:00 Vent Rate NA 09/19/17 09:00 Inspired O2 45 09/19/17 09:00 Tidal Volume NA 09/19/17 09:00 PEEP NA 09/19/17 09:00 Pressure (ins/psv/peep) NA 09/19/17 09:00 Critical Value SH 09/19/17 09:00 Sodium 158 mEq/L (136-145) H 09/19/17 04:20 Potassium 3.0 mEq/L (3.5-5.1) L 09/19/17 04:20 Chloride 125 mEq/L (98-107) H 09/19/17 04:20 Carbon Dioxide 25.9 mEq/L (21.0-31.0) 09/19/17 04:20 Anion Gap 10.1 (7.0-16.0) 09/19/17 04:20 BUN 35 mg/dL (7-25) H 09/19/17 04:20 Creatinine 1.2 mg/dL (0.7-1.3) 09/19/17 04:20 Est GFR ( Amer) > 60.0 ml/min (>90) 09/19/17 04:20 Est GFR (Non-Af Amer) > 60.0 ml/min 09/19/17 04:20 BUN/Creatinine Ratio 29.2 09/19/17 04:20 Glucose 235 mg/dL (70-105) H D 09/19/17 04:20 POC Glucose 211 MG/DL (70 - 105) H 09/19/17 05:30 Whole Bld Lactic Acid 1.35 mmol/L (0.60-1.99) 09/15/17 10:45 Calcium 8.7 mg/dL (8.6-10.3) 09/19/17 04:20 Phosphorus 2.2 mg/dL (2.5-5.0) L 09/19/17 04:20 Magnesium 2.5 mg/dL (1.9-2.7) 09/19/17 04:20 Total Bilirubin 0.3 mg/dL (0.3-1.0) 09/19/17 04:20 AST 14 U/L (13-39) 09/19/17 04:20 ALT 8 U/L (7-52) 09/19/17 04:20 Alkaline Phosphatase 45 U/L (34-104) 09/19/17 04:20 C-Reactive Protein 17.2 mg/dL (0.0-0.9) H 09/19/17 04:20 B-Natriuretic Peptide 47.8 pg/mL (5.0-100.0) 09/15/17 04:45 Total Protein 5.4 gm/dL (6.0-8.3) L 09/19/17 04:20 Albumin 2.6 gm/dL (4.2-5.5) L 09/19/17 04:20 Globulin 2.8 gm/dL 09/19/17 04:20 Albumin/Globulin Ratio 0.9 (1.0-1.8) L 09/19/17 04:20 Triglycerides 73 mg/dL (<150) 09/19/17 04:20 Total Cortisol 28.9 09/12/17 01:00 Urine Source [place] 09/15/17 10:30 Urine Color GREEN 09/15/17 10:30 Urine Clarity CLOUDY (CLEAR) 09/15/17 10:30 Urine pH 6.5 (4.6 - 8.0) 09/15/17 10:30 Ur Specific [place] 1.015 (1.005-1.030) 09/15/17 10:30 Urine Protein 30 mg/dL (NEGATIVE) H 09/15/17 10:30 Urine Glucose (UA) NEGATIVE mg/dL (NEGATIVE) 09/15/17 10:30 Urine Ketones NEGATIVE mg/dL (NEGATIVE) 09/15/17 10:30 Urine Blood LARGE (NEGATIVE) H 09/15/17 10:30 Urine Nitrate POSITIVE (NEGATIVE) H 09/15/17 10:30 Urine Bilirubin MODERATE (NEGATIVE) H 09/15/17 10:30 Urine Urobilinogen 0.2 E.U./dL (0.2 - 1.0) 09/15/17 10:30 Ur Leukocyte Esterase TRACE (NEGATIVE) H 09/15/17 10:30 Urine RBC 50-100 /hpf (0-5) H 09/15/17 10:30 Urine WBC 25-50 /hpf (0-5) H 09/15/17 10:30 Ur Epithelial Cells MANY /lpf (FEW) 09/15/17 10:30 Urine Bacteria 4+ /hpf (NONE SEEN) H 09/15/17 10:30 Vancomycin Trough 19.6 ug/mL (5-10) H 09/16/17 15:18 - Physical Exam Vitals and I&O: Vital Signs Temp 97.9 F 09/19/17 04:00 Pulse 72 09/19/17 09:46 Resp 32 09/19/17 07:06 BP 105/58 09/19/17 09:46 Pulse Ox 98 09/19/17 07:06 Intake & Output 09/18/17 09/19/17 09/19/17 18:59 06:59 18:59 Intake Total 1040 1380 Output Total 850 Balance 1040 530 Weight (lbs) 71.214 kg 71.441 kg Intake: Intake, IV Amount 800 200 KCL 20mEq/100mL Premix 20 100 meq In 100 ml @ 50 mls/ hr IV Q2H [facility] Rx#: [id number] Piperacillin Sodium/ 100 Tazobact 4.5 gm In Sodium Chloride 0.9% 100 ml @ 100 mls/hr IV Q8H [facility] Rx# :[id number] Vancomycin HCl 1.5 gm In 500 Sodium Chloride 0.9% 500 ml @ 250 mls/hr IV Q24H [facility] Rx#:[id number] metroNIDAZOLE 500mg/NS 100 200 100mL 500 mg In 100 ml @ 100 mls/hr IV Q8HR [facility] Rx #:[id number] Oral 0 Tube Feeding 300 TPN/PPN 240 680 Other 200 Output: Urine 850 Other: # Voids 3 # Bowel Movements 1 Weight Source Bedscale Bedscale Active Medications: Current Medications Acetaminophen (Tylenol) 650 mg PO Q6H PRN PRN Reason: mild pain Stop: 11/08/17 15:49 Last Admin: 09/12/17 09:15 Dose: 650 mg Acetaminophen (Tylenol) 650 mg PO Q6H PRN PRN Reason: Fever > 101 Stop: 11/11/17 20:45 Last Admin: 09/12/17 21:16 Dose: 650 mg Al Hydrox/Mg Hydrox/Simethicone (Maalox) 30 ml PO Q6H PRN PRN Reason: GI DISTRESS Stop: 11/08/17 15:49 Albuterol/Ipratropium (Duoneb Neb) 3 ml HHN Q4HRT [facility] Stop: 11/14/17 22:59 Last Admin: 09/19/17 07:02 Dose: 3 ml Amlodipine Besylate (Norvasc) 5 mg PO DAILY [facility] Stop: 11/09/17 08:59 Last Admin: 09/19/17 09:46 Dose: Not Given Atorvastatin Calcium (Lipitor) 20 mg GT HS [facility] PRN Reason: Protocol Stop: 11/08/17 20:59 Last Admin: 09/18/17 21:36 Dose: 20 mg Cholecalciferol (Vitamin D3) 1,000 iu GT DAILY [facility]ON Stop: 11/09/17 08:59 Last Admin: 09/19/17 08:42 Dose: 1,000 iu Donepezil HCl (Aricept) 10 mg GT HS [facility] Stop: 11/08/17 20:59 Last Admin: 09/18/17 21:36 Dose: 10 mg Enoxaparin Sodium (Lovenox) 70 mg SUBQ Q12HR [facility] Stop: 11/16/17 08:59 Last Admin: 09/19/17 08:42 Dose: 70 mg Metronidazole (Flagyl) 500 mg in 100 mls @ 100 mls/hr IV Q8HR [facility] Stop: 11/13/17 12:59 Last Infusion: 09/19/17 06:19 Dose: Infused Vancomycin HCl 1.5 gm/ Sodium (Chloride) 500 mls @ 250 mls/hr IV Q24H [facility] Stop: 11/17/17 08:59 Last Admin: 09/19/17 08:43 Dose: 250 mls/hr Multivitamins/Minerals 10 ml/Insulin Human Regular 5 units/Dextrose/ Amino Acids /Electrolytes/ Sterile Water 2,060.05 mls @ 80 mls/hr IV .Q24H [facility] Stop: 10/17/17 15:59 Last Admin: 09/18/17 15:49 Dose: 80 mls/hr Dextrose (D5w) 1,000 mls @ 20 mls/hr IV .Q24H [facility] Stop: 11/17/17 15:59 Last Admin: 09/18/17 15:49 Dose: 20 mls/hr Insulin Aspart (Novolog Insulin Sliding Scale) 0 units SUBQ Q6HR [facility] PRN Reason: Protocol Stop: 11/18/17 00:00 Last Admin: 09/19/17 05:48 Dose: 4 units Lactobacillus Rhamnosus (Culturelle 15b) 1 each PO DAILY [facility] Stop: 11/12/17 08:59 Last Admin: 09/19/17 08:43 Dose: 1 each Magnesium Hydroxide (Milk Of Magnesia) 30 ml PO HS PRN PRN Reason: Constipation Stop: 11/08/17 15:49 Memantine (Namenda) 5 mg GT BID [facility] RAMON Stop: 11/08/17 16:59 Last Admin: 09/19/17 08:42 Dose: 5 mg Methylprednisolone Sodium Succinate (Solu-Medrol) 40 mg IVP Q8HR [facility] Stop: 11/17/17 20:59 Last Admin: 09/19/17 05:19 Dose: 40 mg Miscellaneous (Zosyn Iv Per Pharmacy) 1 [facility] PRN PRN PRN Reason: PROTOCOL Stop: 11/10/17 08:34 Miscellaneous (Probiotic Screen) 1 [facility] PRN PRN PRN Reason: PROTOCOL Stop: 11/12/17 08:59 Miscellaneous (Vancomycin Iv Per Pharmacy) 1 ea DAILY JOSE RAMON Stop: 11/15/17 16:59 Miscellaneous (Tpn Per Pharmacy) 1 [facility] PRN PRN PRN Reason: PROTOCOL Stop: 11/17/17 08:15 Potassium Chloride (Potassium Chloride Elixir) 40 meq GT DAILY JOSE RAMON Stop: 11/18/17 10:14 General: No acute distress HEENT: Atraumatic Neck: Supple Cardiovascular: Regular rate Lungs: Other (Rude respiration, less congestion) Abdomen: Bowel sounds, Soft, Distended (MILD), Other (Peg in place. ) Extremities: Other (No edema) Neurological: Other (Non ambulatory) Skin: Other (Warm and dry) Psych/Mental Status: Other (Patient non verbal. ) - Procedures Procedures: Procedures Procedure Code Date ASSISTANCE WITH RESPIRATORY VENTILATION, <24 HRS, CPAP [id number] 09/09/[address] GASTROSTOMY TUBE 43842 09/09/17 INSERTION OF FEEDING DEVICE INTO STOMACH, PERC APPROACH [id number] 09/09/17 POS AIRWAY PRESSURE CPAP 95188 09/09/17 Assessment/Plan - Assessment Assessment: Patient is awake, non verbal. Yesterday patient had a O2 desaturation episode and was transfered to ICU and BIPAP was used. Today PO2 is normal with respiratory alcalosis. WBC improving, Na, improving, Patient is breathing better today with nasal canule. Feeding restarted yesterday. Dx: Peg displacement, sepsis, Hypernatremia, DM, Dementia, Schizophrenia, bed bound. Will continue to monitor - Plan Plan: Peg was replaced. NS changed to D5, on Zosyn, vanco and Metronidazole. PEG feeding restarted yesterday. TPN is requested. Patient not responding to treatment. Prognosis continue being poor. Will continue monitoring. Nutritional Asmnt/Malnutr-PDOC - Dietary Evaluation Malnutrition Findings (Please click <Entered> for more info): Nutritional Asmnt/Malnutrition Start: 09/10/17 16: 17 Text: Status: Complete Freq: Document 09/10/17 16:19 LCHENG (Rec: 09/10/17 16:29 LCHENG [email or web address]) Nutritional Asmnt/Malnutrition Patient General Information Nutritional Screening High Risk Diagnosis g-tube placement (reason for visit) Pertinent Medical Hx/Surgical Hx DM, hyperlipidemia, dementia, schizophrenia, PEG/Gtube Subjective Information Pt seen lying in bed at time of visit, non-verbal. Pt has PEG placement today. Current Diet Order/ Nutrition Support fibersource HN start at 40ml/ hr, goal rate 60ml/hr continuous Pertinent Medications vit D3, vancomycin, theragran, nacl 0.9% Pertinent Labs 09/10 glucose 125, alb 4.1 09/09 glucose 129 Nutritional Hx/Data Height 1.68 m Height (Calculated Centimeters) 167.6 Current Weight (lbs) 63.957 kg Weight (Calculated Kilograms) 64.0 Weight (Calculated Grams) 87325.5 [place] Body Weight 142 Body Mass Index (BMI) 22.7 Weight Status Approriate GI Symptoms GI Symptoms None Last BM no record Difficult in: None Skin Integrity/Comment: reddened to coccyx, bruise to hand, rash to back Estimated Nutritional Goals BEE in Kcals: Using Current wt Calories/Kcals/Kg 25-30 Kcals Calculated [id number] Protein: Using Current wt Protein g/k-1.2 Protein Calculated 64-77 Fluid: ml 1600-1920ml (1ml/kcal) Nutritional Problem No current Nutrition Prob Problem N/A Malnutrition Alert Protein-Calorie Malnutrition N/A Is there a minimum of two criteria No selected? Query Text:Check all the applicable criteria. A minimum of two criteria are recommended for diagnosis of either severe or non-severe malnutrition. Intervention/Recommendation Comments 1. Initiate TF as ordered. It provides 1728kcal, 77g protein , 1178ml free water, meeting 100% of nutritional needs. 2. Monitor TF rate, tolerance, wt weekly, skin integrity and labs 3. F/U as high risk in 2-3 days, 09/12-09/13 Expected Outcomes/Goals Expected Outcomes/Goals 1. Pt to meet at least 75% of nutritional needs via nutrition support with tolerance 2. Wt stability, skin to remain intact, labs to approach WNL.
[2017-09-19] MEDS: Potassium Chloride Elixir 20 mEq /15 mL UDC GT SCH (12:45)
[2017-09-19] MEDS ORDERED: Potassium Phosphate 20 MMOLE in Sodium Chloride 0.9% 250 ML IV ONE (13:40)
[2017-09-19] MEDS: TPN 8.5%-70% CUSTOM IV SCH (18:00)
[2017-09-19 19:11] LABS: A1C % 6.1 % (4.0-6.0)
[2017-09-19] MEDS: Atorvastatin Calcium 10 MG TAB GT SCH (20:56)
--- NOTE | 2017-09-19 23:29 | Infectious Disease Prog Note ---
Infectious Disease Subjective - Review of Systems Service Date: 09/19/17 Subjective: Short of breath on BiPAP.Leukocytosis is improving again. Infectious Disease Objective - Results Result Diagrams: 09/19/17 04:20 09/19/17 04:20 Recent Labs: Laboratory Last Values WBC 13.2 Th/cmm (4.8-10.8) H 09/19/17 04:20 RBC 3.93 Mil/cmm (3.80-5.80) 09/19/17 04:20 Hgb 11.5 gm/dL (12-16) L 09/19/17 04:20 Hct 34.7 % (41.0-60) L 09/19/17 04:20 MCV 88.1 fl (80-99) 09/19/17 04:20 MCH 29.2 pg (27.0-31.0) 09/19/17 04:20 MCHC Differential 33.1 pg (28.0-36.0) 09/19/17 04:20 RDW 15.4 % (11.5-20.0) 09/19/17 04:20 Plt Count 299 Th/cmm (150-400) 09/19/17 04:20 MPV 11.9 fl 09/19/17 04:20 Neutrophils % 89.7 % (40.0-80.0) H 09/18/17 05:40 Band Neutrophils % 6 % (0-10) 09/19/17 04:20 Lymphocytes % 6.7 % (20.0-50.0) L 09/18/17 05:40 Monocytes % 2.5 % (2.0-10.0) 09/18/17 05:40 Eosinophils % 0.9 % (0.0-5.0) 09/18/17 05:40 Basophils % 0.2 % (0.0-2.0) 09/18/17 05:40 Neutrophils (Manual) 87 % (40-80) H 09/19/17 04:20 Lymphocytes 6 % (20-50) L 09/19/17 04:20 Monocytes 1 % (2-10) L 09/19/17 04:20 Eosinophils 3 % (0-5) 09/15/17 04:45 PT 10.3 SECONDS (9.5-11.5) 09/09/17 12:30 INR 0.99 (0.5-1.4) 09/09/17 12:30 PTT (Actin FS) 26.3 SECONDS (26.0-38.0) 09/09/17 12:30 Specimen Source Arterial 09/19/17 09:00 Sample Site Right Radial 09/19/17 09:00 pH 7.47 (7.35-7.45) H 09/19/17 09:00 pCO2 38.0 mmHg (35.0-45.0) 09/19/17 09:00 pO2 81.0 mmHg (80.0-100.0) 09/19/17 09:00 HCO3 28.0 mEq/L (20.0-26.0) H 09/19/17 09:00 Base Excess 3.9 mEq/L (-3.0-3.0) H 09/19/17 09:00 O2 Saturation 97.0 % (92.0-100.0) 09/19/17 09:00 Matthew Test Positive 09/19/17 09:00 Vent Rate NA 09/19/17 09:00 Inspired O2 45 09/19/17 09:00 Tidal Volume NA 09/19/17 09:00 PEEP NA 09/19/17 09:00 Pressure (ins/psv/peep) NA 09/19/17 09:00 Critical Value SH 09/19/17 09:00 Sodium 158 mEq/L (136-145) H 09/19/17 04:20 Potassium 3.0 mEq/L (3.5-5.1) L 09/19/17 04:20 Chloride 125 mEq/L (98-107) H 09/19/17 04:20 Carbon Dioxide 25.9 mEq/L (21.0-31.0) 09/19/17 04:20 Anion Gap 10.1 (7.0-16.0) 09/19/17 04:20 BUN 35 mg/dL (7-25) H 09/19/17 04:20 Creatinine 1.2 mg/dL (0.7-1.3) 09/19/17 04:20 Est GFR ( Amer) > 60.0 ml/min (>90) 09/19/17 04:20 Est GFR (Non-Af Amer) > 60.0 ml/min 09/19/17 04:20 BUN/Creatinine Ratio 29.2 09/19/17 04:20 Glucose 235 mg/dL (70-105) H D 09/19/17 04:20 POC Glucose 211 MG/DL (70 - 105) H 09/19/17 05:30 Hemoglobin A1c % 6.1 % (4.0-6.0) H 09/19/17 04:20 Whole Bld Lactic Acid 1.35 mmol/L (0.60-1.99) 09/15/17 10:45 Calcium 8.7 mg/dL (8.6-10.3) 09/19/17 04:20 Phosphorus 2.2 mg/dL (2.5-5.0) L 09/19/17 04:20 Magnesium 2.5 mg/dL (1.9-2.7) 09/19/17 04:20 Total Bilirubin 0.3 mg/dL (0.3-1.0) 09/19/17 04:20 AST 14 U/L (13-39) 09/19/17 04:20 ALT 8 U/L (7-52) 09/19/17 04:20 Alkaline Phosphatase 45 U/L (34-104) 09/19/17 04:20 C-Reactive Protein 17.2 mg/dL (0.0-0.9) H 09/19/17 04:20 B-Natriuretic Peptide 47.8 pg/mL (5.0-100.0) 09/15/17 04:45 Total Protein 5.4 gm/dL (6.0-8.3) L 09/19/17 04:20 Albumin 2.6 gm/dL (4.2-5.5) L 09/19/17 04:20 Globulin 2.8 gm/dL 09/19/17 04:20 Albumin/Globulin Ratio 0.9 (1.0-1.8) L 09/19/17 04:20 Triglycerides 73 mg/dL (<150) 09/19/17 04:20 Total Cortisol 28.9 09/12/17 01:00 Urine Source [place] 09/15/17 10:30 Urine Color GREEN 09/15/17 10:30 Urine Clarity CLOUDY (CLEAR) 09/15/17 10:30 Urine pH 6.5 (4.6 - 8.0) 09/15/17 10:30 Ur Specific [place] 1.015 (1.005-1.030) 09/15/17 10:30 Urine Protein 30 mg/dL (NEGATIVE) H 09/15/17 10:30 Urine Glucose (UA) NEGATIVE mg/dL (NEGATIVE) 09/15/17 10:30 Urine Ketones NEGATIVE mg/dL (NEGATIVE) 09/15/17 10:30 Urine Blood LARGE (NEGATIVE) H 09/15/17 10:30 Urine Nitrate POSITIVE (NEGATIVE) H 09/15/17 10:30 Urine Bilirubin MODERATE (NEGATIVE) H 09/15/17 10:30 Urine Urobilinogen 0.2 E.U./dL (0.2 - 1.0) 09/15/17 10:30 Ur Leukocyte Esterase TRACE (NEGATIVE) H 09/15/17 10:30 Urine RBC 50-100 /hpf (0-5) H 09/15/17 10:30 Urine WBC 25-50 /hpf (0-5) H 09/15/17 10:30 Ur Epithelial Cells MANY /lpf (FEW) 09/15/17 10:30 Urine Bacteria 4+ /hpf (NONE SEEN) H 09/15/17 10:30 Ur Random Sodium 23 mmol/L 09/19/17 15:42 Vancomycin Trough 19.6 ug/mL (5-10) H 09/16/17 15:18 - Physical Exam Vitals and I&O: Vital Signs Temp 97.2 F 09/19/17 20:00 Pulse 61 09/19/17 23:00 Resp 30 09/19/17 23:00 BP 115/61 09/19/17 23:00 Pulse Ox 99 09/19/17 23:00 Intake & Output 09/19/17 09/19/17 09/20/17 06:59 18:59 06:59 Intake Total 1380 800 Output Total 850 1050 Balance 530 -250 Weight (lbs) 71.441 kg 72.121 kg Intake: Intake, IV Amount 200 100 metroNIDAZOLE 500mg/NS 200 100 100mL 500 mg In 100 ml @ 100 mls/hr IV Q8HR [facility] Rx #:[id number] Oral 0 Tube Feeding 300 TPN/PPN 680 Other 200 700 Output: Urine 850 550 Stool 500 Other: # Bowel Movements 1 Stool Characteristics Soft Brown Weight Source Bedscale Bedscale Active Medications: Current Medications Acetaminophen (Tylenol) 650 mg PO Q6H PRN PRN Reason: Fever > 101 OR MILD PAIN Stop: 11/11/17 20:45 Last Admin: 09/12/17 21:16 Dose: 650 mg Al Hydrox/Mg Hydrox/Simethicone (Maalox) 30 ml PO Q6H PRN PRN Reason: GI DISTRESS Stop: 11/08/17 15:49 Albuterol/Ipratropium (Duoneb Neb) 3 ml HHN Q4HRT [facility] Stop: 11/14/17 22:59 Last Admin: 09/19/17 19:54 Dose: 3 ml Amlodipine Besylate (Norvasc) 5 mg PO DAILY [facility]ON Stop: 11/09/17 08:59 Last Admin: 09/19/17 09:46 Dose: Not Given Atorvastatin Calcium (Lipitor) 20 mg GT HS [facility]ON PRN Reason: Protocol Stop: 11/08/17 20:59 Last Admin: 09/19/17 20:56 Dose: 20 mg Cholecalciferol (Vitamin D3) 1,000 iu GT DAILY [facility]ON Stop: 11/09/17 08:59 Last Admin: 09/19/17 08:42 Dose: 1,000 iu Donepezil HCl (Aricept) 10 mg GT HS [facility]ON Stop: 11/08/17 20:59 Last Admin: 09/19/17 20:55 Dose: 10 mg Enoxaparin Sodium (Lovenox) 70 mg SUBQ Q12HR [facility] Stop: 11/16/17 08:59 Last Admin: 09/19/17 20:56 Dose: 70 mg Metronidazole (Flagyl) 500 mg in 100 mls @ 100 mls/hr IV Q8HR [facility] Stop: 11/13/17 12:59 Last Admin: 09/19/17 20:51 Dose: 100 mls/hr Dextrose (D5w) 1,000 mls @ 20 mls/hr IV .Q24H [facility] Stop: 11/17/17 15:59 Last Admin: 09/18/17 15:49 Dose: 20 mls/hr Vancomycin HCl 1.5 gm/ (Dextrose) 500 mls @ 250 mls/hr IV Q24H [facility] Stop: 11/19/17 09:59 Multivitamins/Minerals 10 ml/Insulin Human Regular 10 units / Dextrose/ Amino Acids/Electrolytes/ Sterile Water/Fat Emulsion Intravenous 2,000.1 mls @ 80 mls /hr IV .Q24H [facility] Stop: 10/17/17 15:59 Last Admin: 09/19/17 18:00 Dose: 80 mls/hr Insulin Aspart (Novolog Insulin Sliding Scale) 0 units SUBQ Q6HR [facility] PRN Reason: Protocol Stop: 11/18/17 00:00 Last Admin: 09/19/17 18:32 Dose: 2 units Lactobacillus Rhamnosus (Culturelle 15b) 1 each PO DAILY [facility] Stop: 11/12/17 08:59 Last Admin: 09/19/17 08:43 Dose: 1 each Magnesium Hydroxide (Milk Of Magnesia) 30 ml PO HS PRN PRN Reason: Constipation Stop: 11/08/17 15:49 Memantine (Namenda) 5 mg GT BID [facility]SE [facility]ON Stop: 11/08/17 16:59 Last Admin: 09/19/17 17:54 Dose: 5 mg Methylprednisolone Sodium Succinate (Solu-Medrol) 40 mg IVP Q8HR [facility] Stop: 11/17/17 20:59 Last Admin: 09/19/17 20:57 Dose: 40 mg Miscellaneous (Zosyn Iv Per Pharmacy) 1 [facility] PRN PRN PRN Reason: PROTOCOL Stop: 11/10/17 08:34 Miscellaneous (Probiotic Screen) 1 [facility] PRN PRN PRN Reason: PROTOCOL Stop: 11/12/17 08:59 Miscellaneous (Vancomycin Iv Per Pharmacy) 1 ea DAILY [facility]ON Stop: 11/15/17 16:59 Miscellaneous (Ppn Per Pharmacy) 1 [facility] PRN PRN PRN Reason: PROTOCOL Stop: 11/18/17 15:41 Potassium Chloride (Potassium Chloride Elixir) 40 meq GT DAILY JOSE RAMON Stop: 11/18/17 10:14 Last Admin: 09/19/17 12:45 Dose: 40 meq General: no acute distress, well developed, well nourished HEENT: atraumatic, normocephalic, PERRLA Neck: supple, no thyromegaly Cardiovascular: S1S2, regular Lungs: clear to auscultation bilaterally, clear to percussion Abdomen: soft, no tender, no distended, no rebound Extremities: no cyanosis, no clubbing, no edema Neurological: other (nonverbal) - Procedures Procedures: Procedures Procedure Code Date ASSISTANCE WITH RESPIRATORY VENTILATION, <24 HRS, CPAP [id number] 09/09/[address] GASTROSTOMY TUBE 79191 09/09/17 INSERTION OF FEEDING DEVICE INTO STOMACH, PERC APPROACH [id number] 09/09/17 POS AIRWAY PRESSURE CPAP 17284 09/09/17 Infectious Disease Assmt/Plan - Assessment Assessment: 1. Leukopcytosis, likely reactive. Sepsis. 2. Aspiration pneumonia 3. Dysphasia. G tube placement. 4. Dementia. 5. Respiratory failure on BiPAP. - Plan Plan: cpm. Nutritional Asmnt/Malnutr-PDOC - Dietary Evaluation Malnutrition Findings (Please click <Entered> for more info): Nutritional Asmnt/Malnutrition Start: 09/10/17 16: 17 Text: Status: Complete Freq: Document 09/10/17 16:19 BEN (Rec: 09/10/17 16:29 BEN [email or web address]) Nutritional Asmnt/Malnutrition Patient General Information Nutritional Screening High Risk Diagnosis g-tube placement (reason for visit) Pertinent Medical Hx/Surgical Hx DM, hyperlipidemia, dementia, schizophrenia, PEG/Gtube Subjective Information Pt seen lying in bed at time of visit, non-verbal. Pt has PEG placement today. Current Diet Order/ Nutrition Support fibersource HN start at 40ml/ hr, goal rate 60ml/hr continuous Pertinent Medications vit D3, vancomycin, theragran, nacl 0.9% Pertinent Labs 09/10 glucose 125, alb 4.1 09/09 glucose 129 Nutritional Hx/Data Height 1.68 m Height (Calculated Centimeters) 167.6 Current Weight (lbs) 63.957 kg Weight (Calculated Kilograms) 64.0 Weight (Calculated Grams) 02634.5 [facility] Body Weight 142 Body Mass Index (BMI) 22.7 Weight Status Approriate GI Symptoms GI Symptoms None Last BM no record Difficult in: None Skin Integrity/Comment: reddened to coccyx, bruise to hand, rash to back Estimated Nutritional Goals BEE in Kcals: Using Current wt Calories/Kcals/Kg 25-30 Kcals Calculated 0978-5675 Protein: Using Current wt Protein g/k-1.2 Protein Calculated 64-77 Fluid: ml 1600-1920ml (1ml/kcal) Nutritional Problem No current Nutrition Prob Problem N/A Malnutrition Alert Protein-Calorie Malnutrition N/A Is there a minimum of two criteria No selected? Query Text:Check all the applicable criteria. A minimum of two criteria are recommended for diagnosis of either severe or non-severe malnutrition. Intervention/Recommendation Comments 1. Initiate TF as ordered. It provides 1728kcal, 77g protein , 1178ml free water, meeting 100% of nutritional needs. 2. Monitor TF rate, tolerance, wt weekly, skin integrity and labs 3. F/U as high risk in 2-3 days, 09/12-09/13 Expected Outcomes/Goals Expected Outcomes/Goals 1. Pt to meet at least 75% of nutritional needs via nutrition support with tolerance 2. Wt stability, skin to remain intact, labs to approach WNL.
[2017-09-20] MEDS: INSULIN ASPART SLIDING SCALE 100 UNITS/ML UNIT SUBQ SCH ×4 (00:13→18:26)
[2017-09-20] MEDS: Albuterol/Ipratropium Neb 3 ML AERS HHN SCH ×6 (03:48→23:12)
[2017-09-20] MEDS: metroNIDAZOLE 500mg/NS 100mL 500 MG/100 ML BAG IV SCH ×3 (05:13→22:00)
[2017-09-20] MEDS: methylPREDNISolone SS 40 mg Vial IVP SCH ×3 (05:14→20:52)
[2017-09-20 05:16] LABS: ALBUMIN 2.3 gm/dL (4.2-5.5); ALKALINE PHOSPHATASE 42 U/L (34-104); ANION GAP 9.9 (7.0-16.0); BILIRUBIN,TOTAL 0.2 mg/dL (0.3-1.0); BUN - UREA NITROGEN 39 mg/dL (7-25); CALCIUM SERUM 8.3 mg/dL (8.6-10.3); CARBON DIOXIDE 24.2 mEq/L (21.0-31.0); CHLORIDE 122 mEq/L (98-107); GFR AFRICAN-AMERICAN > 60.0 ml/min (>90); GFR NON AFRICAN-AMERICAN > 60.0 ml/min; GLUCOSE 285 mg/dL (70-105); MAGNESIUM 2.2 mg/dL (1.9-2.7); PHOSPHOROUS 2.2 mg/dL (2.5-5.0); POTASSIUM SERUM 3.1 mEq/L (3.5-5.1); SGOT 10 U/L (13-39); SGPT/ALT 8 U/L (7-52); SODIUM SERUM 153 mEq/L (136-145); TOTAL PROTEIN,SERUM 4.7 gm/dL (6.0-8.3)
[2017-09-20 05:17] LABS: MANUAL DIFF REQUIRED? YES; MEAN CORPUSCULAR HEMOGLOBIN 29.1 pg (27.0-31.0); MEAN CORPUSCULAR HGB CONC 33.1 pg (28.0-36.0)
[2017-09-20 05:20] LABS: HEMOGLOBIN 10.3 gm/dL (12-16); MEAN CELL VOLUME 87.8 fl (80-99); MEAN PLATELET VOLUME 12.3 fl; PLATELET COUNT 301 Th/cmm (150-400); RED BLOOD COUNT 3.54 Mil/cmm (3.80-5.80); RED CELL DISTRIBUTION WIDTH 14.8 % (11.5-20.0)
[2017-09-20 05:29] LABS: WHITE BLOOD COUNT 19.9 Th/cmm (4.8-10.8)
[2017-09-20 07:27] LABS: BAND NEUTROPHILE 4 % (0-10); LYMPHOCYTE 2 % (20-50); MONOCYTE 2 % (2-10); NEUTROPHILS 92 % (40-80); TOTAL CELLS COUNTED 100
[2017-09-20] MEDS ORDERED: Potassium Phosphate 20 MMOLE in Sodium Chloride 0.9% 250 ML IV ONE (07:45)
--- NOTE | 2017-09-20 08:30 | GI Progress Note ---
Subjective - Review of Systems Service Date: 09/20/17 Subjective: Feeding is at 60cc/hr. still on PPN. Leukocytosis up to 19 Objective - Results Result Diagrams: 09/20/17 04:20 09/20/17 04:20 Recent Labs: Laboratory Last Values WBC 19.9 Th/cmm (4.8-10.8) H D 09/20/17 04:20 RBC 3.54 Mil/cmm (3.80-5.80) L 09/20/17 04:20 Hgb 10.3 gm/dL (12-16) L 09/20/17 04:20 Hct 31.0 % (41.0-60) L 09/20/17 04:20 MCV 87.8 fl (80-99) 09/20/17 04:20 MCH 29.1 pg (27.0-31.0) 09/20/17 04:20 MCHC Differential 33.1 pg (28.0-36.0) 09/20/17 04:20 RDW 14.8 % (11.5-20.0) 09/20/17 04:20 Plt Count 301 Th/cmm (150-400) 09/20/17 04:20 MPV 12.3 fl 09/20/17 04:20 Neutrophils % 89.7 % (40.0-80.0) H 09/18/17 05:40 Band Neutrophils % 4 % (0-10) 09/20/17 04:20 Lymphocytes % 6.7 % (20.0-50.0) L 09/18/17 05:40 Monocytes % 2.5 % (2.0-10.0) 09/18/17 05:40 Eosinophils % 0.9 % (0.0-5.0) 09/18/17 05:40 Basophils % 0.2 % (0.0-2.0) 09/18/17 05:40 Neutrophils (Manual) 92 % (40-80) H 09/20/17 04:20 Lymphocytes 2 % (20-50) L 09/20/17 04:20 Monocytes 2 % (2-10) 09/20/17 04:20 Eosinophils 3 % (0-5) 09/15/17 04:45 PT 10.3 SECONDS (9.5-11.5) 09/09/17 12:30 INR 0.99 (0.5-1.4) 09/09/17 12:30 PTT (Actin FS) 26.3 SECONDS (26.0-38.0) 09/09/17 12:30 Specimen Source Arterial 09/19/17 09:00 Sample Site Right Radial 09/19/17 09:00 pH 7.47 (7.35-7.45) H 09/19/17 09:00 pCO2 38.0 mmHg (35.0-45.0) 09/19/17 09:00 pO2 81.0 mmHg (80.0-100.0) 09/19/17 09:00 HCO3 28.0 mEq/L (20.0-26.0) H 09/19/17 09:00 Base Excess 3.9 mEq/L (-3.0-3.0) H 09/19/17 09:00 O2 Saturation 97.0 % (92.0-100.0) 09/19/17 09:00 Matthew Test Positive 09/19/17 09:00 Vent Rate NA 09/19/17 09:00 Inspired O2 45 09/19/17 09:00 Tidal Volume NA 09/19/17 09:00 PEEP NA 09/19/17 09:00 Pressure (ins/psv/peep) NA 09/19/17 09:00 Critical Value SH 09/19/17 09:00 Sodium 153 mEq/L (136-145) H 09/20/17 04:20 Potassium 3.1 mEq/L (3.5-5.1) L 09/20/17 04:20 Chloride 122 mEq/L (98-107) H 09/20/17 04:20 Carbon Dioxide 24.2 mEq/L (21.0-31.0) 09/20/17 04:20 Anion Gap 9.9 (7.0-16.0) 09/20/17 04:20 BUN 39 mg/dL (7-25) H 09/20/17 04:20 Creatinine 1.0 mg/dL (0.7-1.3) 09/20/17 04:20 Est GFR ( Amer) > 60.0 ml/min (>90) 09/20/17 04:20 Est GFR (Non-Af Amer) > 60.0 ml/min 09/20/17 04:20 BUN/Creatinine Ratio 39.0 09/20/17 04:20 Glucose 285 mg/dL (70-105) H 09/20/17 04:20 POC Glucose 256 MG/DL (70 - 105) H 09/20/17 05:21 Hemoglobin A1c % 6.1 % (4.0-6.0) H 09/19/17 04:20 Whole Bld Lactic Acid 1.35 mmol/L (0.60-1.99) 09/15/17 10:45 Calcium 8.3 mg/dL (8.6-10.3) L 09/20/17 04:20 Phosphorus 2.2 mg/dL (2.5-5.0) L 09/20/17 04:20 Magnesium 2.2 mg/dL (1.9-2.7) 09/20/17 04:20 Total Bilirubin 0.2 mg/dL (0.3-1.0) L 09/20/17 04:20 AST 10 U/L (13-39) L 09/20/17 04:20 ALT 8 U/L (7-52) 09/20/17 04:20 Alkaline Phosphatase 42 U/L (34-104) 09/20/17 04:20 C-Reactive Protein 17.2 mg/dL (0.0-0.9) H 09/19/17 04:20 B-Natriuretic Peptide 47.8 pg/mL (5.0-100.0) 09/15/17 04:45 Total Protein 4.7 gm/dL (6.0-8.3) L 09/20/17 04:20 Albumin 2.3 gm/dL (4.2-5.5) L 09/20/17 04:20 Globulin 2.4 gm/dL 09/20/17 04:20 Albumin/Globulin Ratio 1.0 (1.0-1.8) 09/20/17 04:20 Prealbumin 6 mg/dL (10-36) L 09/19/17 04:20 Triglycerides 73 mg/dL (<150) 09/19/17 04:20 Total Cortisol 28.9 09/12/17 01:00 Urine Source [place] 09/15/17 10:30 Urine Color GREEN 09/15/17 10:30 Urine Clarity CLOUDY (CLEAR) 09/15/17 10:30 Urine pH 6.5 (4.6 - 8.0) 09/15/17 10:30 Ur Specific [place] 1.015 (1.005-1.030) 09/15/17 10:30 Urine Protein 30 mg/dL (NEGATIVE) H 09/15/17 10:30 Urine Glucose (UA) NEGATIVE mg/dL (NEGATIVE) 09/15/17 10:30 Urine Ketones NEGATIVE mg/dL (NEGATIVE) 09/15/17 10:30 Urine Blood LARGE (NEGATIVE) H 09/15/17 10:30 Urine Nitrate POSITIVE (NEGATIVE) H 09/15/17 10:30 Urine Bilirubin MODERATE (NEGATIVE) H 09/15/17 10:30 Urine Urobilinogen 0.2 E.U./dL (0.2 - 1.0) 09/15/17 10:30 Ur Leukocyte Esterase TRACE (NEGATIVE) H 09/15/17 10:30 Urine RBC 50-100 /hpf (0-5) H 09/15/17 10:30 Urine WBC 25-50 /hpf (0-5) H 09/15/17 10:30 Ur Epithelial Cells MANY /lpf (FEW) 09/15/17 10:30 Urine Bacteria 4+ /hpf (NONE SEEN) H 09/15/17 10:30 Ur Random Sodium 23 mmol/L 09/19/17 15:42 Vancomycin Trough 19.6 ug/mL (5-10) H 09/16/17 15:18 - Physical Exam Vitals and I&O: Vital Signs Temp 98.5 F 09/20/17 06:00 Pulse 74 09/20/17 06:32 Resp 37 09/20/17 06:32 BP 128/63 09/20/17 06:00 Pulse Ox 94 09/20/17 06:32 Intake & Output 09/19/17 09/20/17 09/20/17 18:59 06:59 18:59 Intake Total 800 2230 Output Total 1050 750 Balance -250 1480 Weight (lbs) 72.121 kg 72.121 kg Intake: Intake, IV Amount 100 100 metroNIDAZOLE 500mg/NS 100 100 100mL 500 mg In 100 ml @ 100 mls/hr IV Q8HR JOSE RAMON Rx #:[id number] Tube Feeding 670 TPN/PPN 960 Other 700 500 Output: Urine 550 750 Stool 500 Other: # Bowel Movements 1 0 Stool Characteristics Soft Brown Weight Source Bedscale Bedscale Active Medications: Current Medications Acetaminophen (Tylenol) 650 mg PO Q6H PRN PRN Reason: Fever > 101 OR MILD PAIN Stop: 11/11/17 20:45 Last Admin: 09/20/17 01:28 Dose: 650 mg Al Hydrox/Mg Hydrox/Simethicone (Maalox) 30 ml PO Q6H PRN PRN Reason: GI DISTRESS Stop: 11/08/17 15:49 Albuterol/Ipratropium (Duoneb Neb) 3 ml HHN Q4HRT JOSE RAMON Stop: 11/14/17 22:59 Last Admin: 09/20/17 06:31 Dose: 3 ml Amlodipine Besylate (Norvasc) 5 mg PO DAILY JOSE RAMON Stop: 11/09/17 08:59 Last Admin: 09/19/17 09:46 Dose: Not Given Atorvastatin Calcium (Lipitor) 20 mg GT HS JOSE RAMON PRN Reason: Protocol Stop: 11/08/17 20:59 Last Admin: 09/19/17 20:56 Dose: 20 mg Cholecalciferol (Vitamin D3) 1,000 iu GT DAILY JOSE RAMON Stop: 11/09/17 08:59 Last Admin: 09/19/17 08:42 Dose: 1,000 iu Donepezil HCl (Aricept) 10 mg GT HS JOSE RAMON Stop: 11/08/17 20:59 Last Admin: 09/19/17 20:55 Dose: 10 mg Enoxaparin Sodium (Lovenox) 70 mg SUBQ Q12HR JOSE RAMON Stop: 11/16/17 08:59 Last Admin: 09/19/17 20:56 Dose: 70 mg Metronidazole (Flagyl) 500 mg in 100 mls @ 100 mls/hr IV Q8HR JOSE RAMON Stop: 11/13/17 12:59 Last Admin: 09/20/17 05:13 Dose: 100 mls/hr Dextrose (D5w) 1,000 mls @ 20 mls/hr IV .Q24H JOSE RAMON Stop: 11/17/17 15:59 Last Admin: 09/18/17 15:49 Dose: 20 mls/hr Vancomycin HCl 1.5 gm/ (Dextrose) 500 mls @ 250 mls/hr IV Q24H JOSE RAMON Stop: 11/19/17 09:59 Multivitamins/Minerals 10 ml/Insulin Human Regular 10 units / Dextrose/ Amino Acids/Electrolytes/ Sterile Water/Fat Emulsion Intravenous 2,000.1 mls @ 80 mls /hr IV .Q24H JOSE RAMON Stop: 10/17/17 15:59 Last Admin: 09/19/17 18:00 Dose: 80 mls/hr Potassium Phosphate 20 mmole/ (Sodium Chloride) 256.6667 mls @ 42.5 mls/hr IV X1 ONE Stop: 09/20/17 13:47 Insulin Aspart (Novolog Insulin Sliding Scale) 0 units SUBQ Q6HR JOSE RAMON PRN Reason: Protocol Stop: 11/18/17 00:00 Last Admin: 09/20/17 06:02 Dose: 6 units Lactobacillus Rhamnosus (Culturelle 15b) 1 each PO DAILY JOSE RAMON Stop: 11/12/17 08:59 Last Admin: 09/19/17 08:43 Dose: 1 each Magnesium Hydroxide (Milk Of Magnesia) 30 ml PO HS PRN PRN Reason: Constipation Stop: 11/08/17 15:49 Memantine (Namenda) 5 mg GT BID JOSE RAMON Stop: 11/08/17 16:59 Last Admin: 09/19/17 17:54 Dose: 5 mg Methylprednisolone Sodium Succinate (Solu-Medrol) 40 mg IVP Q8HR JOSE RAMON Stop: 11/17/17 20:59 Last Admin: 09/20/17 05:14 Dose: 40 mg Miscellaneous (Zosyn Iv Per Pharmacy) 1 [facility] PRN PRN PRN Reason: PROTOCOL Stop: 11/10/17 08:34 Miscellaneous (Probiotic Screen) 1 [facility] PRN PRN PRN Reason: PROTOCOL Stop: 11/12/17 08:59 Miscellaneous (Vancomycin Iv Per Pharmacy) 1 ea DAILY JOSE RAMON Stop: 11/15/17 16:59 Miscellaneous (Ppn Per Pharmacy) 1 [facility] PRN PRN PRN Reason: PROTOCOL Stop: 11/18/17 15:41 Pantoprazole Sodium (Protonix) 40 mg IVP DAILY JOSE RAMON Stop: 11/19/17 08:59 Potassium Chloride (Potassium Chloride Elixir) 40 meq GT DAILY JOSE RAMON Stop: 11/18/17 10:14 Last Admin: 09/19/17 12:45 Dose: 40 meq General: No acute distress HEENT: Atraumatic Neck: Supple Cardiovascular: Regular rate Lungs: Other (Rude respiration, less congestion) Abdomen: Bowel sounds, Soft, Distended (MILD), Other (Peg in place. ), no Tender , no Hepatomegaly, no Rebound, no Mass, no Guarding Extremities: Other (No edema) Neurological: Other (Non ambulatory) Skin: Other (Warm and dry) Psych/Mental Status: Other (Patient non verbal. ) - Procedures Procedures: Procedures Procedure Code Date ASSISTANCE WITH RESPIRATORY VENTILATION, <24 HRS, CPAP [id number] 09/09/[address] GASTROSTOMY TUBE 87674 09/09/17 INSERTION OF FEEDING DEVICE INTO STOMACH, PERC APPROACH [id number] 09/09/17 POS AIRWAY PRESSURE CPAP [id number] 09/09/17 Assessment/Plan - Assessment Assessment: IMPRESSION: 1. DYSPHAGIA WITH GT DISPLACEMENT - S/P REINSERTION X 2. 2. LEUKOCYTOSIS WITH SEPSIS, POSSIBLY DUE TO PERITONITIS FROM RECENT GT CHANGE. - NONCONTRAST CT SHOWED FREE INTRAPERITONEAL AIR. CONTRAST VIA GT NOT NOTED TO LEAK OR EXTRAVASATE VIA GT SITE. 3. ENCEPHALOPATHY. RECS: 1. Now started again on G tube feeding and tolerating this well. Monitor for any peritoneal signs or leukocytosis worsening. Thus far belly remains soft and there is low residuals at 20-30cc. 2. Recommend weaning PPN if possible at this point 3. ABX PER ID. 4. MONITOR WBC. 5. Will get another CT if leukocytosis continues to trend up or belly becomes hardened with peritoneal signs
--- NOTE | 2017-09-20 08:33 | Consultation ---
DATE OF CONSULTATION: 09/19/2017 ATTENDING PHYSICIAN: Jayjay Henry M.D. REASON FOR CONSULTATION: Worsening kidney function, electrolyte imbalance, and fluid management. HISTORY OF PRESENT ILLNESS: This is a 71-year-old male with past medical history of schizoaffective disorder, who was brought in because of accidental removal of his gastrostomy tube. The patient underwent replacement of his gastrostomy tube twice. He was initiated on feedings and tolerating it well while previously on TPN. His white count gradually increased. He was seen by Infectious Disease. He was maintained on Zosyn, metronidazole, and vancomycin for possible aspiration pneumonia. His blood culture and urine cultures turned out to be negative. He suddenly desaturated yesterday. He was placed on BiPAP and transferred to ICU. His respiratory status had improved and now on nasal cannula. He was admitted with normal electrolytes as well as kidney function. However, his sodium has gradually increased since last week and now is up to 158. He also has a BUN/creatinine of 35/1.2. He had no history of nausea and vomiting as well as diarrhea. PAST MEDICAL HISTORY: 1. Schizoaffective disorder. 2. Dyslipidemia. 3. Dysphagia, status post gastrostomy tube placement. 4. Advanced dementia. 5. Essential hypertension. CURRENT MEDICATIONS: He is currently on acetaminophen, atorvastatin, amlodipine, cholecalciferol, donepezil, enoxaparin, lactobacillus, magnesium hydroxide, Namenda, methylprednisolone, metronidazole, multivitamins, potassium chloride, probiotic. ALLERGIES: No known drug allergies. SOCIAL AND FAMILY HISTORY: I was not able to obtain directly from the patient because he remains nonverbal at the present time. REVIEW OF SYSTEMS: Again, I was not able to decipher from the patient because of above reasons. PHYSICAL EXAMINATION: GENERAL: The patient is arousable, not in any distress, on nasal cannula. VITAL SIGNS: He is afebrile now, pulse 82, blood pressure 105/58. SKIN: Poor turgor, warm, no rash, no jaundice appreciated. HEENT: Head: Normocephalic, atraumatic. Eyes: Extraocular muscles intact. Pupils equal, round, reactive to light and accommodates. Anicteric sclerae, pale conjunctivae. Nose, midline nasal septum. Mouth: Dry mucosa. Poor dentition. NECK: Supple, no adenopathy, no thyromegaly, no bruits. Trachea palpated in the midline. CHEST AND CVS: S1, S2. No rub, murmur, nor gallop appreciated. Point of maximal impulse in fifth intercostal space, left midclavicular line. No abdominal or femoral bruits appreciated. LUNGS: Equal expansion. No use of accessory muscles. No supraclavicular retractions. Few rhonchi, but no rales nor wheezes appreciated. ABDOMEN: Mildly globular, soft. Positive for bowel sounds. No bruits either diastolic or systolic. RECTAL: Lax sphincter tone. GENITOURINARY: Normal appearing male genitalia. MUSCULOSKELETAL: No effusions present in his joints, but unable to assess his range of motion. EXTREMITIES: He has minimal left lower extremity edema, but no evidence of any edema on his right lower extremity. He has a palpable femoral, but unable to fully appreciate popliteal and dorsalis pedis pulses. NEUROLOGIC: The patient is as mentioned stuporous, but arousable, not in any form of distress, unable to follow my neuro commands, so I was not able to pursue further my neuro exam. LABORATORY DATA: Labs did reveal sodium 158, potassium is 3, chloride 125, bicarbonate 25, BUN 35, creatinine 1.2, glucose 235, calcium is 8.7, phosphorus is 2.2, magnesium 2.5, albumin 2.6. White count is 13.2, hemoglobin 11.5, hematocrit 34.7, platelets is 299, polys 87%. IMPRESSION: 1. Acute kidney injury more likely prerenal azotemia. 2. Hypernatremia secondary to underlying dehydration. 3. Persistent leukocytosis secondary to aspiration pneumonia. 4. Severe malnutrition. 5. Schizoaffective disorder. 6. Electrolyte imbalance. 7. Dysphagia, status post PEG placement. 8. Dyslipidemia. 9. Advanced dementia. 10. Essential hypertension. PLAN: 1. Urine spot sodium and osmolality. 2. Continue IV fluids with D5W. 3. Water flushes. 4. Follow up electrolytes, CBC. Thank you, Dr. Henry for this consult. We will follow the patient closely with you. JOB# [id number]
[2017-09-20] MEDS: Potassium Chloride Elixir 20 mEq /15 mL UDC GT SCH (08:46)
[2017-09-20] MEDS: Enoxaparin 80 mg/0.8 mL 0.8mL Syr SUBQ SCH ×2 (08:47→20:52)
[2017-09-20] MEDS: Lactobacillus Rhamnosus GG 15 Billion CFU CAP.SPRINK PO SCH (08:47)
--- NOTE | 2017-09-20 11:04 | General Progress Note ---
Subjective - Review of Systems Service Date: 09/20/17 Subjective: Patient is non verbal Objective - Results Result Diagrams: 09/20/17 04:20 09/20/17 04:20 Recent Labs: Laboratory Last Values WBC 19.9 Th/cmm (4.8-10.8) H D 09/20/17 04:20 RBC 3.54 Mil/cmm (3.80-5.80) L 09/20/17 04:20 Hgb 10.3 gm/dL (12-16) L 09/20/17 04:20 Hct 31.0 % (41.0-60) L 09/20/17 04:20 MCV 87.8 fl (80-99) 09/20/17 04:20 MCH 29.1 pg (27.0-31.0) 09/20/17 04:20 MCHC Differential 33.1 pg (28.0-36.0) 09/20/17 04:20 RDW 14.8 % (11.5-20.0) 09/20/17 04:20 Plt Count 301 Th/cmm (150-400) 09/20/17 04:20 MPV 12.3 fl 09/20/17 04:20 Neutrophils % 89.7 % (40.0-80.0) H 09/18/17 05:40 Band Neutrophils % 4 % (0-10) 09/20/17 04:20 Lymphocytes % 6.7 % (20.0-50.0) L 09/18/17 05:40 Monocytes % 2.5 % (2.0-10.0) 09/18/17 05:40 Eosinophils % 0.9 % (0.0-5.0) 09/18/17 05:40 Basophils % 0.2 % (0.0-2.0) 09/18/17 05:40 Neutrophils (Manual) 92 % (40-80) H 09/20/17 04:20 Lymphocytes 2 % (20-50) L 09/20/17 04:20 Monocytes 2 % (2-10) 09/20/17 04:20 Eosinophils 3 % (0-5) 09/15/17 04:45 PT 10.3 SECONDS (9.5-11.5) 09/09/17 12:30 INR 0.99 (0.5-1.4) 09/09/17 12:30 PTT (Actin FS) 26.3 SECONDS (26.0-38.0) 09/09/17 12:30 Specimen Source Arterial 09/19/17 09:00 Sample Site Right Radial 09/19/17 09:00 pH 7.47 (7.35-7.45) H 09/19/17 09:00 pCO2 38.0 mmHg (35.0-45.0) 09/19/17 09:00 pO2 81.0 mmHg (80.0-100.0) 09/19/17 09:00 HCO3 28.0 mEq/L (20.0-26.0) H 09/19/17 09:00 Base Excess 3.9 mEq/L (-3.0-3.0) H 09/19/17 09:00 O2 Saturation 97.0 % (92.0-100.0) 09/19/17 09:00 Matthew Test Positive 09/19/17 09:00 Vent Rate NA 09/19/17 09:00 Inspired O2 45 09/19/17 09:00 Tidal Volume NA 09/19/17 09:00 PEEP NA 09/19/17 09:00 Pressure (ins/psv/peep) NA 09/19/17 09:00 Critical Value SH 09/19/17 09:00 Sodium 153 mEq/L (136-145) H 09/20/17 04:20 Potassium 3.1 mEq/L (3.5-5.1) L 09/20/17 04:20 Chloride 122 mEq/L (98-107) H 09/20/17 04:20 Carbon Dioxide 24.2 mEq/L (21.0-31.0) 09/20/17 04:20 Anion Gap 9.9 (7.0-16.0) 09/20/17 04:20 BUN 39 mg/dL (7-25) H 09/20/17 04:20 Creatinine 1.0 mg/dL (0.7-1.3) 09/20/17 04:20 Est GFR ( Amer) > 60.0 ml/min (>90) 09/20/17 04:20 Est GFR (Non-Af Amer) > 60.0 ml/min 09/20/17 04:20 BUN/Creatinine Ratio 39.0 09/20/17 04:20 Glucose 285 mg/dL (70-105) H 09/20/17 04:20 POC Glucose 256 MG/DL (70 - 105) H 09/20/17 05:21 Hemoglobin A1c % 6.1 % (4.0-6.0) H 09/19/17 04:20 Whole Bld Lactic Acid 1.35 mmol/L (0.60-1.99) 09/15/17 10:45 Calcium 8.3 mg/dL (8.6-10.3) L 09/20/17 04:20 Phosphorus 2.2 mg/dL (2.5-5.0) L 09/20/17 04:20 Magnesium 2.2 mg/dL (1.9-2.7) 09/20/17 04:20 Total Bilirubin 0.2 mg/dL (0.3-1.0) L 09/20/17 04:20 AST 10 U/L (13-39) L 09/20/17 04:20 ALT 8 U/L (7-52) 09/20/17 04:20 Alkaline Phosphatase 42 U/L (34-104) 09/20/17 04:20 C-Reactive Protein 17.2 mg/dL (0.0-0.9) H 09/19/17 04:20 B-Natriuretic Peptide 47.8 pg/mL (5.0-100.0) 09/15/17 04:45 Total Protein 4.7 gm/dL (6.0-8.3) L 09/20/17 04:20 Albumin 2.3 gm/dL (4.2-5.5) L 09/20/17 04:20 Globulin 2.4 gm/dL 09/20/17 04:20 Albumin/Globulin Ratio 1.0 (1.0-1.8) 09/20/17 04:20 Prealbumin 6 mg/dL (10-36) L 09/19/17 04:20 Triglycerides 73 mg/dL (<150) 09/19/17 04:20 Total Cortisol 28.9 09/12/17 01:00 Urine Source [place] 09/15/17 10:30 Urine Color GREEN 09/15/17 10:30 Urine Clarity CLOUDY (CLEAR) 09/15/17 10:30 Urine pH 6.5 (4.6 - 8.0) 09/15/17 10:30 Ur Specific [place] 1.015 (1.005-1.030) 09/15/17 10:30 Urine Protein 30 mg/dL (NEGATIVE) H 09/15/17 10:30 Urine Glucose (UA) NEGATIVE mg/dL (NEGATIVE) 09/15/17 10:30 Urine Ketones NEGATIVE mg/dL (NEGATIVE) 09/15/17 10:30 Urine Blood LARGE (NEGATIVE) H 09/15/17 10:30 Urine Nitrate POSITIVE (NEGATIVE) H 09/15/17 10:30 Urine Bilirubin MODERATE (NEGATIVE) H 09/15/17 10:30 Urine Urobilinogen 0.2 E.U./dL (0.2 - 1.0) 09/15/17 10:30 Ur Leukocyte Esterase TRACE (NEGATIVE) H 09/15/17 10:30 Urine RBC 50-100 /hpf (0-5) H 09/15/17 10:30 Urine WBC 25-50 /hpf (0-5) H 09/15/17 10:30 Ur Epithelial Cells MANY /lpf (FEW) 09/15/17 10:30 Urine Bacteria 4+ /hpf (NONE SEEN) H 09/15/17 10:30 Ur Random Sodium 23 mmol/L 09/19/17 15:42 Vancomycin Trough 12.7 ug/mL (5-10) H 09/20/17 08:00 - Physical Exam Vitals and I&O: Vital Signs Temp 98.2 F 09/20/17 08:00 Pulse 77 09/20/17 10:00 Resp 29 09/20/17 10:00 BP 124/67 09/20/17 10:00 Pulse Ox 95 09/20/17 10:00 Intake & Output 09/19/17 09/20/17 09/20/17 18:59 06:59 18:59 Intake Total 800 2230 Output Total 1050 750 Balance -250 1480 Weight (lbs) 72.121 kg 72.121 kg Intake: Intake, IV Amount 100 100 metroNIDAZOLE 500mg/NS 100 100 100mL 500 mg In 100 ml @ 100 mls/hr IV Q8HR [facility] Rx #:[id number] Tube Feeding 670 TPN/PPN 960 Other 700 500 Output: Urine 550 750 Stool 500 Other: # Bowel Movements 1 0 Stool Characteristics Soft Brown Weight Source Bedscale Bedscale Active Medications: Current Medications Acetaminophen (Tylenol) 650 mg PO Q6H PRN PRN Reason: Fever > 101 OR MILD PAIN Stop: 11/11/17 20:45 Last Admin: 09/20/17 01:28 Dose: 650 mg Al Hydrox/Mg Hydrox/Simethicone (Maalox) 30 ml PO Q6H PRN PRN Reason: GI DISTRESS Stop: 11/08/17 15:49 Albuterol/Ipratropium (Duoneb Neb) 3 ml HHN Q4HRT JOSE RAMON Stop: 11/14/17 22:59 Last Admin: 09/20/17 11:01 Dose: 3 ml Amlodipine Besylate (Norvasc) 5 mg PO DAILY JOSE RAMON Stop: 11/09/17 08:59 Last Admin: 09/20/17 08:46 Dose: 5 mg Atorvastatin Calcium (Lipitor) 20 mg GT HS JOSE RAMON PRN Reason: Protocol Stop: 11/08/17 20:59 Last Admin: 09/19/17 20:56 Dose: 20 mg Cholecalciferol (Vitamin D3) 1,000 iu GT DAILY JOSE RAMON Stop: 11/09/17 08:59 Last Admin: 09/20/17 08:46 Dose: 1,000 iu Donepezil HCl (Aricept) 10 mg GT HS JOSE RAMON Stop: 11/08/17 20:59 Last Admin: 09/19/17 20:55 Dose: 10 mg Enoxaparin Sodium (Lovenox) 70 mg SUBQ Q12HR JOSE RAMON Stop: 11/16/17 08:59 Last Admin: 09/20/17 08:47 Dose: 70 mg Metronidazole (Flagyl) 500 mg in 100 mls @ 100 mls/hr IV Q8HR JOSE RAMON Stop: 11/13/17 12:59 Last Admin: 09/20/17 05:13 Dose: 100 mls/hr Dextrose (D5w) 1,000 mls @ 20 mls/hr IV .Q24H JOSE RAMON Stop: 11/17/17 15:59 Last Admin: 09/18/17 15:49 Dose: 20 mls/hr Vancomycin HCl 1.5 gm/ (Dextrose) 500 mls @ 250 mls/hr IV Q24H JOSE RAMON Stop: 11/19/17 09:59 Last Admin: 09/20/17 09:03 Dose: 250 mls/hr Multivitamins/Minerals 10 ml/Insulin Human Regular 10 units / Dextrose/ Amino Acids/Electrolytes/ Sterile Water/Fat Emulsion Intravenous 2,000.1 mls @ 80 mls /hr IV .Q24H JOSE RAMON Stop: 10/17/17 15:59 Last Admin: 09/19/17 18:00 Dose: 80 mls/hr Potassium Phosphate 20 mmole/ (Sodium Chloride) 256.6667 mls @ 42.5 mls/hr IV X1 ONE Stop: 09/20/17 13:47 Last Admin: 09/20/17 08:45 Dose: 42.5 mls/hr Insulin Aspart (Novolog Insulin Sliding Scale) 0 units SUBQ Q6HR JOSE RAMON PRN Reason: Protocol Stop: 11/18/17 00:00 Last Admin: 09/20/17 06:02 Dose: 6 units Lactobacillus Rhamnosus (Culturelle 15b) 1 each PO DAILY JOSE RAMON Stop: 11/12/17 08:59 Last Admin: 09/20/17 08:47 Dose: 1 each Magnesium Hydroxide (Milk Of Magnesia) 30 ml PO HS PRN PRN Reason: Constipation Stop: 11/08/17 15:49 Memantine (Namenda) 5 mg GT BID JOSE RAMON Stop: 11/08/17 16:59 Last Admin: 09/20/17 08:47 Dose: 5 mg Methylprednisolone Sodium Succinate (Solu-Medrol) 40 mg IVP Q8HR JOSE RAMON Stop: 11/17/17 20:59 Last Admin: 09/20/17 05:14 Dose: 40 mg Miscellaneous (Zosyn Iv Per Pharmacy) 1 ea PRN PRN PRN Reason: PROTOCOL Stop: 11/10/17 08:34 Miscellaneous (Probiotic Screen) 1 ea PRN PRN PRN Reason: PROTOCOL Stop: 11/12/17 08:59 Miscellaneous (Vancomycin Iv Per Pharmacy) 1 ea DAILY JOSE RAMON Stop: 11/15/17 16:59 Miscellaneous (Ppn Per Pharmacy) 1 [facility] PRN PRN PRN Reason: PROTOCOL Stop: 11/18/17 15:41 Pantoprazole Sodium (Protonix) 40 mg IVP DAILY JOSE RAMON Stop: 11/19/17 08:59 Last Admin: 09/20/17 09:05 Dose: 40 mg Potassium Chloride (Potassium Chloride Elixir) 40 meq GT DAILY JOSE RAMON Stop: 11/18/17 10:14 Last Admin: 09/20/17 08:46 Dose: 40 meq General: No acute distress HEENT: Atraumatic Neck: Supple Cardiovascular: Regular rate Lungs: Other (Rude respiration, less congestion) Abdomen: Bowel sounds, Soft, Distended (MILD), Other (Peg in place. ), no Tender , no Hepatomegaly, no Rebound, no Mass, no Guarding Extremities: Other (No edema) Neurological: Other (Non ambulatory) Skin: Other (Warm and dry) Psych/Mental Status: Other (Patient non verbal. ) - Procedures Procedures: Procedures Procedure Code Date ASSISTANCE WITH RESPIRATORY VENTILATION, <24 HRS, CPAP [id number] 09/09/[address] GASTROSTOMY TUBE [id number] 09/09/17 INSERTION OF FEEDING DEVICE INTO STOMACH, PERC APPROACH [id number] 09/09/17 POS AIRWAY PRESSURE CPAP [id number] 09/09/17 Assessment/Plan - Assessment Assessment: Patient is awake, non verbal. he is in 5 litters O2 nasal canula. WBC increasing today, Na, improving, Patient is breathing better today with nasal canule. Feeding restarted. Dx: Peg displacement, sepsis, Hypernatremia, DM, Dementia, Schizophrenia, bed bound. Will continue to monitor - Plan Plan: Peg was replaced. NS changed to D5, on Zosyn, vanco and Metronidazole. PEG feeding restarted, in TPN. Patient not responding to treatment. Prognosis continue being poor. Will continue monitoring. Nutritional Asmnt/Malnutr-PDOC - Dietary Evaluation Malnutrition Findings (Please click <Entered> for more info): Nutritional Asmnt/Malnutrition Start: 09/10/17 16: 17 Text: Status: Complete Freq: Document 09/10/17 16:19 [facility] (Rec: 09/10/17 16:29 [id number]) Nutritional Asmnt/Malnutrition Patient General Information Nutritional Screening High Risk Diagnosis g-tube placement (reason for visit) Pertinent Medical Hx/Surgical Hx DM, hyperlipidemia, dementia, schizophrenia, PEG/Gtube Subjective Information Pt seen lying in bed at time of visit, non-verbal. Pt has PEG placement today. Current Diet Order/ Nutrition Support fibersource HN start at 40ml/ hr, goal rate 60ml/hr continuous Pertinent Medications vit D3, vancomycin, theragran, nacl 0.9% Pertinent Labs 09/10 glucose 125, alb 4.1 09/09 glucose 129 Nutritional Hx/Data Height 1.68 m Height (Calculated Centimeters) 167.6 Current Weight (lbs) 63.957 kg Weight (Calculated Kilograms) 64.0 Weight (Calculated Grams) 82267.5 [place] Body Weight 142 Body Mass Index (BMI) 22.7 Weight Status Approriate GI Symptoms GI Symptoms None Last BM no record Difficult in: None Skin Integrity/Comment: reddened to coccyx, bruise to hand, rash to back Estimated Nutritional Goals BEE in Kcals: Using Current wt Calories/Kcals/Kg 25-30 Kcals Calculated 1399-5650 Protein: Using Current wt Protein g/k-1.2 Protein Calculated 64-77 Fluid: ml 1600-1920ml (1ml/kcal) Nutritional Problem No current Nutrition Prob Problem N/A Malnutrition Alert Protein-Calorie Malnutrition N/A Is there a minimum of two criteria No selected? Query Text:Check all the applicable criteria. A minimum of two criteria are recommended for diagnosis of either severe or non-severe malnutrition. Intervention/Recommendation Comments 1. Initiate TF as ordered. It provides 1728kcal, 77g protein , 1178ml free water, meeting 100% of nutritional needs. 2. Monitor TF rate, tolerance, wt weekly, skin integrity and labs 3. F/U as high risk in 2-3 days, 09/12-09/13 Expected Outcomes/Goals Expected Outcomes/Goals 1. Pt to meet at least 75% of nutritional needs via nutrition support with tolerance 2. Wt stability, skin to remain intact, labs to approach WNL.
[2017-09-20] MEDS ORDERED: METHYLPREDNISOLONE SS IV SCH (14:30)
[2017-09-20] MEDS ORDERED: SODIUM CHLORIDE 0.9% IV SCH (14:30)
[2017-09-20] MEDS: TPN 8.5%-70% CUSTOM IV SCH (16:00)
--- NOTE | 2017-09-20 17:07 | General Progress Note ---
Subjective - Review of Systems Service Date: 09/20/17 Subjective: comfortable Objective - Results Result Diagrams: 09/20/17 04:20 09/20/17 04:20 Recent Labs: Laboratory Last Values WBC 19.9 Th/cmm (4.8-10.8) H D 09/20/17 04:20 RBC 3.54 Mil/cmm (3.80-5.80) L 09/20/17 04:20 Hgb 10.3 gm/dL (12-16) L 09/20/17 04:20 Hct 31.0 % (41.0-60) L 09/20/17 04:20 MCV 87.8 fl (80-99) 09/20/17 04:20 MCH 29.1 pg (27.0-31.0) 09/20/17 04:20 MCHC Differential 33.1 pg (28.0-36.0) 09/20/17 04:20 RDW 14.8 % (11.5-20.0) 09/20/17 04:20 Plt Count 301 Th/cmm (150-400) 09/20/17 04:20 MPV 12.3 fl 09/20/17 04:20 Neutrophils % 89.7 % (40.0-80.0) H 09/18/17 05:40 Band Neutrophils % 4 % (0-10) 09/20/17 04:20 Lymphocytes % 6.7 % (20.0-50.0) L 09/18/17 05:40 Monocytes % 2.5 % (2.0-10.0) 09/18/17 05:40 Eosinophils % 0.9 % (0.0-5.0) 09/18/17 05:40 Basophils % 0.2 % (0.0-2.0) 09/18/17 05:40 Neutrophils (Manual) 92 % (40-80) H 09/20/17 04:20 Lymphocytes 2 % (20-50) L 09/20/17 04:20 Monocytes 2 % (2-10) 09/20/17 04:20 Eosinophils 3 % (0-5) 09/15/17 04:45 PT 10.3 SECONDS (9.5-11.5) 09/09/17 12:30 INR 0.99 (0.5-1.4) 09/09/17 12:30 PTT (Actin FS) 26.3 SECONDS (26.0-38.0) 09/09/17 12:30 Specimen Source Arterial 09/19/17 09:00 Sample Site Right Radial 09/19/17 09:00 pH 7.47 (7.35-7.45) H 09/19/17 09:00 pCO2 38.0 mmHg (35.0-45.0) 09/19/17 09:00 pO2 81.0 mmHg (80.0-100.0) 09/19/17 09:00 HCO3 28.0 mEq/L (20.0-26.0) H 09/19/17 09:00 Base Excess 3.9 mEq/L (-3.0-3.0) H 09/19/17 09:00 O2 Saturation 97.0 % (92.0-100.0) 09/19/17 09:00 Matthew Test Positive 09/19/17 09:00 Vent Rate NA 09/19/17 09:00 Inspired O2 45 09/19/17 09:00 Tidal Volume NA 09/19/17 09:00 PEEP NA 09/19/17 09:00 Pressure (ins/psv/peep) NA 09/19/17 09:00 Critical Value SH 09/19/17 09:00 Sodium 153 mEq/L (136-145) H 09/20/17 04:20 Potassium 3.1 mEq/L (3.5-5.1) L 09/20/17 04:20 Chloride 122 mEq/L (98-107) H 09/20/17 04:20 Carbon Dioxide 24.2 mEq/L (21.0-31.0) 09/20/17 04:20 Anion Gap 9.9 (7.0-16.0) 09/20/17 04:20 BUN 39 mg/dL (7-25) H 09/20/17 04:20 Creatinine 1.0 mg/dL (0.7-1.3) 09/20/17 04:20 Est GFR ( Amer) > 60.0 ml/min (>90) 09/20/17 04:20 Est GFR (Non-Af Amer) > 60.0 ml/min 09/20/17 04:20 BUN/Creatinine Ratio 39.0 09/20/17 04:20 Glucose 285 mg/dL (70-105) H 09/20/17 04:20 POC Glucose 256 MG/DL (70 - 105) H 09/20/17 05:21 Hemoglobin A1c % 6.1 % (4.0-6.0) H 09/19/17 04:20 Whole Bld Lactic Acid 1.35 mmol/L (0.60-1.99) 09/15/17 10:45 Calcium 8.3 mg/dL (8.6-10.3) L 09/20/17 04:20 Phosphorus 2.2 mg/dL (2.5-5.0) L 09/20/17 04:20 Magnesium 2.2 mg/dL (1.9-2.7) 09/20/17 04:20 Total Bilirubin 0.2 mg/dL (0.3-1.0) L 09/20/17 04:20 AST 10 U/L (13-39) L 09/20/17 04:20 ALT 8 U/L (7-52) 09/20/17 04:20 Alkaline Phosphatase 42 U/L (34-104) 09/20/17 04:20 C-Reactive Protein 17.2 mg/dL (0.0-0.9) H 09/19/17 04:20 B-Natriuretic Peptide 47.8 pg/mL (5.0-100.0) 09/15/17 04:45 Total Protein 4.7 gm/dL (6.0-8.3) L 09/20/17 04:20 Albumin 2.3 gm/dL (4.2-5.5) L 09/20/17 04:20 Globulin 2.4 gm/dL 09/20/17 04:20 Albumin/Globulin Ratio 1.0 (1.0-1.8) 09/20/17 04:20 Prealbumin 6 mg/dL (10-36) L 09/19/17 04:20 Triglycerides 73 mg/dL (<150) 09/19/17 04:20 Total Cortisol 28.9 09/12/17 01:00 Urine Source [place] 09/15/17 10:30 Urine Color GREEN 09/15/17 10:30 Urine Clarity CLOUDY (CLEAR) 09/15/17 10:30 Urine pH 6.5 (4.6 - 8.0) 09/15/17 10:30 Ur Specific [place] 1.015 (1.005-1.030) 09/15/17 10:30 Urine Protein 30 mg/dL (NEGATIVE) H 09/15/17 10:30 Urine Glucose (UA) NEGATIVE mg/dL (NEGATIVE) 09/15/17 10:30 Urine Ketones NEGATIVE mg/dL (NEGATIVE) 09/15/17 10:30 Urine Blood LARGE (NEGATIVE) H 09/15/17 10:30 Urine Nitrate POSITIVE (NEGATIVE) H 09/15/17 10:30 Urine Bilirubin MODERATE (NEGATIVE) H 09/15/17 10:30 Urine Urobilinogen 0.2 E.U./dL (0.2 - 1.0) 09/15/17 10:30 Ur Leukocyte Esterase TRACE (NEGATIVE) H 09/15/17 10:30 Urine RBC 50-100 /hpf (0-5) H 09/15/17 10:30 Urine WBC 25-50 /hpf (0-5) H 09/15/17 10:30 Ur Epithelial Cells MANY /lpf (FEW) 09/15/17 10:30 Urine Bacteria 4+ /hpf (NONE SEEN) H 09/15/17 10:30 Ur Random Sodium 23 mmol/L 09/19/17 15:42 Vancomycin Trough 12.7 ug/mL (5-10) H 09/20/17 08:00 - Physical Exam Vitals and I&O: Vital Signs Temp 99.1 F 09/20/17 16:00 Pulse 87 09/20/17 16:00 Resp 34 09/20/17 16:00 BP 117/62 09/20/17 16:00 Pulse Ox 96 09/20/17 16:00 Intake & Output 09/19/17 09/20/17 09/20/17 18:59 06:59 18:59 Intake Total 800 2230 700 Output Total 1050 750 Balance -250 1480 700 Weight (lbs) 72.121 kg 72.121 kg Intake: Intake, IV Amount 100 100 700 Vancomycin HCl 1.5 gm In 500 Dextrose 5% 500 ml @ 250 mls/hr IV Q24H [facility] Rx#: [id number] metroNIDAZOLE 500mg/NS 100 100 200 100mL 500 mg In 100 ml @ 100 mls/hr IV Q8HR [facility] RAM[facility] Rx #:[id number] Tube Feeding 670 TPN/PPN 960 Other 700 500 Output: Urine 550 750 Stool 500 Other: # Bowel Movements 1 0 Stool Characteristics Soft Brown Weight Source Bedscale Bedscale Active Medications: Current Medications Acetaminophen (Tylenol) 650 mg PO Q6H PRN PRN Reason: Fever > 101 OR MILD PAIN Stop: 11/11/17 20:45 Last Admin: 09/20/17 15:37 Dose: 650 mg Al Hydrox/Mg Hydrox/Simethicone (Maalox) 30 ml PO Q6H PRN PRN Reason: GI DISTRESS Stop: 11/08/17 15:49 Albuterol/Ipratropium (Duoneb Neb) 3 ml HHN Q4HRT [facility] Stop: 11/14/17 22:59 Last Admin: 09/20/17 14:35 Dose: 3 ml Amlodipine Besylate (Norvasc) 5 mg PO DAILY [facility] Stop: 11/09/17 08:59 Last Admin: 09/20/17 08:46 Dose: 5 mg Atorvastatin Calcium (Lipitor) 20 mg GT HS [facility] PRN Reason: Protocol Stop: 11/08/17 20:59 Last Admin: 09/19/17 20:56 Dose: 20 mg Cholecalciferol (Vitamin D3) 1,000 iu GT DAILY [facility] Stop: 11/09/17 08:59 Last Admin: 09/20/17 08:46 Dose: 1,000 iu Donepezil HCl (Aricept) 10 mg GT HS [facility] Stop: 11/08/17 20:59 Last Admin: 09/19/17 20:55 Dose: 10 mg Enoxaparin Sodium (Lovenox) 70 mg SUBQ Q12HR [facility] Stop: 11/16/17 08:59 Last Admin: 09/20/17 08:47 Dose: 70 mg Metronidazole (Flagyl) 500 mg in 100 mls @ 100 mls/hr IV Q8HR [facility] Stop: 09/27/17 12:59 Last Infusion: 09/20/17 13:20 Dose: Infused Dextrose (D5w) 1,000 mls @ 20 mls/hr IV .Q24H [facility] Stop: 11/17/17 15:59 Last Admin: 09/18/17 15:49 Dose: 20 mls/hr Vancomycin HCl 1.5 gm/ (Dextrose) 500 mls @ 250 mls/hr IV Q24H [facility] Stop: 11/19/17 09:59 Last Infusion: 09/20/17 11:30 Dose: Infused Multivitamins/Minerals 10 ml/Insulin Human Regular 10 units / Dextrose/ Amino Acids/Electrolytes/ Sterile Water/Fat Emulsion Intravenous 2,000.1 mls @ 80 mls /hr IV .Q24H [facility] Stop: 10/17/17 15:59 Last Admin: 09/19/17 18:00 Dose: 80 mls/hr Piperacillin Sod/Tazobactam (Sod 4.5 gm/ Sodium Chloride) 100 mls @ 100 mls/hr IV Q8HR [facility] Stop: 11/19/17 20:59 Insulin Aspart (Novolog Insulin Sliding Scale) 0 units SUBQ Q6HR [facility] RAMON PRN Reason: Protocol Stop: 11/18/17 00:00 Last Admin: 09/20/17 12:01 Dose: 6 units Lactobacillus Rhamnosus (Culturelle 15b) 1 each PO DAILY JO[facility] Stop: 11/12/17 08:59 Last Admin: 09/20/17 08:47 Dose: 1 each Magnesium Hydroxide (Milk Of Magnesia) 30 ml PO HS PRN PRN Reason: Constipation Stop: 11/08/17 15:49 Memantine (Namenda) 5 mg GT BID [facility] Stop: 11/08/17 16:59 Last Admin: 09/20/17 08:47 Dose: 5 mg Methylprednisolone Sodium Succinate (Solu-Medrol) 40 mg IVP Q12HR [facility] Stop: 11/19/17 20:59 Miscellaneous (Zosyn Iv Per Pharmacy) 1 [facility] PRN PRN PRN Reason: PROTOCOL Stop: 11/10/17 08:34 Miscellaneous (Probiotic Screen) 1 [facility] PRN PRN PRN Reason: PROTOCOL Stop: 11/12/17 08:59 Miscellaneous (Vancomycin Iv Per Pharmacy) 1 ea DAILY JOSE [facility] Stop: 11/15/17 16:59 Miscellaneous (Ppn Per Pharmacy) 1 [facility] PRN PRN PRN Reason: PROTOCOL Stop: 11/18/17 15:41 Pantoprazole Sodium (Protonix) 40 mg IVP DAILY JO[facility] Stop: 11/19/17 08:59 Last Admin: 09/20/17 09:05 Dose: 40 mg Potassium Chloride (Potassium Chloride Elixir) 40 meq GT DAILY JOSE RAMON Stop: 11/18/17 10:14 Last Admin: 09/20/17 08:46 Dose: 40 meq General: No acute distress HEENT: Atraumatic Neck: Supple Cardiovascular: Regular rate, Normal S1, Normal S2 Lungs: Other (few rhonchi) Abdomen: Bowel sounds, Soft, Distended (MILD), Other (Peg in place. ), no Tender , no Hepatomegaly, no Rebound, no Mass, no Guarding Extremities: no Edema Neurological: Sensation intact Skin: no Rash Psych/Mental Status: Other (schizoaffective) - Procedures Procedures: Procedures Procedure Code Date ASSISTANCE WITH RESPIRATORY VENTILATION, <24 HRS, CPAP [id number] 09/09/[address] GASTROSTOMY TUBE 04156 09/09/17 INSERTION OF FEEDING DEVICE INTO STOMACH, PERC APPROACH [id number] 09/09/17 POS AIRWAY PRESSURE CPAP [id number] 09/09/17 Assessment/Plan - Assessment Assessment: Pre-Renal Azotemia Hypernatremia Asp Pna Schizoaffective Disorder - Plan Plan: Lab - Result Diagrams 09/20/17 04:20 09/20/17 04:20 Current Medications Acetaminophen (Tylenol) 650 mg PO Q6H PRN PRN Reason: Fever > 101 OR MILD PAIN Stop: 11/11/17 20:45 Last Admin: 09/20/17 15:37 Dose: 650 mg Al Hydrox/Mg Hydrox/Simethicone (Maalox) 30 ml PO Q6H PRN PRN Reason: GI DISTRESS Stop: 11/08/17 15:49 Albuterol/Ipratropium (Duoneb Neb) 3 ml HHN Q4HRT [facility] Stop: 11/14/17 22:59 Last Admin: 09/20/17 14:35 Dose: 3 ml Amlodipine Besylate (Norvasc) 5 mg PO DAILY JO[facility] Stop: 11/09/17 08:59 Last Admin: 09/20/17 08:46 Dose: 5 mg Atorvastatin Calcium (Lipitor) 20 mg GT HS [facility]ON PRN Reason: Protocol Stop: 11/08/17 20:59 Last Admin: 09/19/17 20:56 Dose: 20 mg Cholecalciferol (Vitamin D3) 1,000 iu GT DAILY JOSE [facility] Stop: 11/09/17 08:59 Last Admin: 09/20/17 08:46 Dose: 1,000 iu Donepezil HCl (Aricept) 10 mg GT HS [facility] Stop: 11/08/17 20:59 Last Admin: 09/19/17 20:55 Dose: 10 mg Enoxaparin Sodium (Lovenox) 70 mg SUBQ Q12HR [facility] Stop: 11/16/17 08:59 Last Admin: 09/20/17 08:47 Dose: 70 mg Metronidazole (Flagyl) 500 mg in 100 mls @ 100 mls/hr IV Q8HR [facility] Stop: 09/27/17 12:59 Last Infusion: 09/20/17 13:20 Dose: Infused Dextrose (D5w) 1,000 mls @ 20 mls/hr IV .Q24H [facility] Stop: 11/17/17 15:59 Last Admin: 09/18/17 15:49 Dose: 20 mls/hr Vancomycin HCl 1.5 gm/ (Dextrose) 500 mls @ 250 mls/hr IV Q24H [facility] Stop: 11/19/17 09:59 Last Infusion: 09/20/17 11:30 Dose: Infused Multivitamins/Minerals 10 ml/Insulin Human Regular 10 units / Dextrose/ Amino Acids/Electrolytes/ Sterile Water/Fat Emulsion Intravenous 2,000.1 mls @ 80 mls /hr IV .Q24H [facility] Stop: 10/17/17 15:59 Last Admin: 09/19/17 18:00 Dose: 80 mls/hr Piperacillin Sod/Tazobactam (Sod 4.5 gm/ Sodium Chloride) 100 mls @ 100 mls/hr IV Q8HR [facility] Stop: 11/19/17 20:59 Insulin Aspart (Novolog Insulin Sliding Scale) 0 units SUBQ Q6HR [facility] PRN Reason: Protocol Stop: 11/18/17 00:00 Last Admin: 09/20/17 12:01 Dose: 6 units Lactobacillus Rhamnosus (Culturelle 15b) 1 each PO DAILY [facility] Stop: 11/12/17 08:59 Last Admin: 09/20/17 08:47 Dose: 1 each Magnesium Hydroxide (Milk Of Magnesia) 30 ml PO HS PRN PRN Reason: Constipation Stop: 11/08/17 15:49 Memantine (Namenda) 5 mg GT BID [facility] Stop: 11/08/17 16:59 Last Admin: 09/20/17 08:47 Dose: 5 mg Methylprednisolone Sodium Succinate (Solu-Medrol) 40 mg IVP Q12HR [facility] Stop: 11/19/17 20:59 Miscellaneous (Zosyn Iv Per Pharmacy) 1 ea PRN PRN PRN Reason: PROTOCOL Stop: 11/10/17 08:34 Miscellaneous (Probiotic Screen) 1 ea PRN PRN PRN Reason: PROTOCOL Stop: 11/12/17 08:59 Miscellaneous (Vancomycin Iv Per Pharmacy) 1 ea [facility] DAILY [facility] Stop: 11/15/17 16:59 Miscellaneous (Ppn Per Pharmacy) 1 [facility] PRN PRN PRN Reason: PROTOCOL Stop: 11/18/17 15:41 Pantoprazole Sodium (Protonix) 40 mg IVP DAILY [facility] Stop: 11/19/17 08:59 Last Admin: 09/20/17 09:05 Dose: 40 mg Potassium Chloride (Potassium Chloride Elixir) 40 meq GT DAILY JOSE RAMON Stop: 11/18/17 10:14 Last Admin: 09/20/17 08:46 Dose: 40 meq Lab - Result Diagrams 09/20/17 04:20 09/20/17 04:20 replace K/P04, Na down to 153 WBC up to 19 coninue IVF, ABx f/u electrolytes, cbc Nutritional Asmnt/Malnutr-PDOC - Dietary Evaluation Malnutrition Findings (Please click <Entered> for more info): Nutritional Asmnt/Malnutrition Start: 09/10/17 16: 17 Text: Status: Complete Freq: Document 09/10/17 16:19 YESENIA (Rec: 09/10/17 16:29 YESENIA [id number]) Nutritional Asmnt/Malnutrition Patient General Information Nutritional Screening High Risk Diagnosis g-tube placement (reason for visit) Pertinent Medical Hx/Surgical Hx DM, hyperlipidemia, dementia, schizophrenia, PEG/Gtube Subjective Information Pt seen lying in bed at time of visit, non-verbal. Pt has PEG placement today. Current Diet Order/ Nutrition Support fibersource HN start at 40ml/ hr, goal rate 60ml/hr continuous Pertinent Medications vit D3, vancomycin, theragran, nacl 0.9% Pertinent Labs 09/10 glucose 125, alb 4.1 09/09 glucose 129 Nutritional Hx/Data Height 1.68 m Height (Calculated Centimeters) 167.6 Current Weight (lbs) 63.957 kg Weight (Calculated Kilograms) 64.0 Weight (Calculated Grams) 15415.5 Sandy Body Weight 142 Body Mass Index (BMI) 22.7 Weight Status Approriate GI Symptoms GI Symptoms None Last BM no record Difficult in: None Skin Integrity/Comment: reddened to coccyx, bruise to hand, rash to back Estimated Nutritional Goals BEE in Kcals: Using Current wt Calories/Kcals/Kg 25-30 Kcals Calculated 5716-3644 Protein: Using Current wt Protein g/k-1.2 Protein Calculated 64-77 Fluid: ml 1600-1920ml (1ml/kcal) Nutritional Problem No current Nutrition Prob Problem N/A Malnutrition Alert Protein-Calorie Malnutrition N/A Is there a minimum of two criteria No selected? Query Text:Check all the applicable criteria. A minimum of two criteria are recommended for diagnosis of either severe or non-severe malnutrition. Intervention/Recommendation Comments 1. Initiate TF as ordered. It provides 1728kcal, 77g protein , 1178ml free water, meeting 100% of nutritional needs. 2. Monitor TF rate, tolerance, wt weekly, skin integrity and labs 3. F/U as high risk in 2-3 days, 09/12-09/13 Expected Outcomes/Goals Expected Outcomes/Goals 1. Pt to meet at least 75% of nutritional needs via nutrition support with tolerance 2. Wt stability, skin to remain intact, labs to approach WNL.
--- NOTE | 2017-09-20 20:01 | Infectious Disease Prog Note ---
Infectious Disease Subjective - Review of Systems Service Date: 09/20/17 Subjective: No change, no fever. Infectious Disease Objective - Results Result Diagrams: 09/20/17 04:20 09/20/17 04:20 Recent Labs: Laboratory Last Values WBC 19.9 Th/cmm (4.8-10.8) H D 09/20/17 04:20 RBC 3.54 Mil/cmm (3.80-5.80) L 09/20/17 04:20 Hgb 10.3 gm/dL (12-16) L 09/20/17 04:20 Hct 31.0 % (41.0-60) L 09/20/17 04:20 MCV 87.8 fl (80-99) 09/20/17 04:20 MCH 29.1 pg (27.0-31.0) 09/20/17 04:20 MCHC Differential 33.1 pg (28.0-36.0) 09/20/17 04:20 RDW 14.8 % (11.5-20.0) 09/20/17 04:20 Plt Count 301 Th/cmm (150-400) 09/20/17 04:20 MPV 12.3 fl 09/20/17 04:20 Neutrophils % 89.7 % (40.0-80.0) H 09/18/17 05:40 Band Neutrophils % 4 % (0-10) 09/20/17 04:20 Lymphocytes % 6.7 % (20.0-50.0) L 09/18/17 05:40 Monocytes % 2.5 % (2.0-10.0) 09/18/17 05:40 Eosinophils % 0.9 % (0.0-5.0) 09/18/17 05:40 Basophils % 0.2 % (0.0-2.0) 09/18/17 05:40 Neutrophils (Manual) 92 % (40-80) H 09/20/17 04:20 Lymphocytes 2 % (20-50) L 09/20/17 04:20 Monocytes 2 % (2-10) 09/20/17 04:20 Eosinophils 3 % (0-5) 09/15/17 04:45 PT 10.3 SECONDS (9.5-11.5) 09/09/17 12:30 INR 0.99 (0.5-1.4) 09/09/17 12:30 PTT (Actin FS) 26.3 SECONDS (26.0-38.0) 09/09/17 12:30 Specimen Source Arterial 09/19/17 09:00 Sample Site Right Radial 09/19/17 09:00 pH 7.47 (7.35-7.45) H 09/19/17 09:00 pCO2 38.0 mmHg (35.0-45.0) 09/19/17 09:00 pO2 81.0 mmHg (80.0-100.0) 09/19/17 09:00 HCO3 28.0 mEq/L (20.0-26.0) H 09/19/17 09:00 Base Excess 3.9 mEq/L (-3.0-3.0) H 09/19/17 09:00 O2 Saturation 97.0 % (92.0-100.0) 09/19/17 09:00 Matthew Test Positive 09/19/17 09:00 Vent Rate NA 09/19/17 09:00 Inspired O2 45 09/19/17 09:00 Tidal Volume NA 09/19/17 09:00 PEEP NA 09/19/17 09:00 Pressure (ins/psv/peep) NA 09/19/17 09:00 Critical Value SH 09/19/17 09:00 Sodium 153 mEq/L (136-145) H 09/20/17 04:20 Potassium 3.1 mEq/L (3.5-5.1) L 09/20/17 04:20 Chloride 122 mEq/L (98-107) H 09/20/17 04:20 Carbon Dioxide 24.2 mEq/L (21.0-31.0) 09/20/17 04:20 Anion Gap 9.9 (7.0-16.0) 09/20/17 04:20 BUN 39 mg/dL (7-25) H 09/20/17 04:20 Creatinine 1.0 mg/dL (0.7-1.3) 09/20/17 04:20 Est GFR ( Amer) > 60.0 ml/min (>90) 09/20/17 04:20 Est GFR (Non-Af Amer) > 60.0 ml/min 09/20/17 04:20 BUN/Creatinine Ratio 39.0 09/20/17 04:20 Glucose 285 mg/dL (70-105) H 09/20/17 04:20 POC Glucose 256 MG/DL (70 - 105) H 09/20/17 05:21 Hemoglobin A1c % 6.1 % (4.0-6.0) H 09/19/17 04:20 Whole Bld Lactic Acid 1.35 mmol/L (0.60-1.99) 09/15/17 10:45 Calcium 8.3 mg/dL (8.6-10.3) L 09/20/17 04:20 Phosphorus 2.2 mg/dL (2.5-5.0) L 09/20/17 04:20 Magnesium 2.2 mg/dL (1.9-2.7) 09/20/17 04:20 Total Bilirubin 0.2 mg/dL (0.3-1.0) L 09/20/17 04:20 AST 10 U/L (13-39) L 09/20/17 04:20 ALT 8 U/L (7-52) 09/20/17 04:20 Alkaline Phosphatase 42 U/L (34-104) 09/20/17 04:20 C-Reactive Protein 17.2 mg/dL (0.0-0.9) H 09/19/17 04:20 B-Natriuretic Peptide 47.8 pg/mL (5.0-100.0) 09/15/17 04:45 Total Protein 4.7 gm/dL (6.0-8.3) L 09/20/17 04:20 Albumin 2.3 gm/dL (4.2-5.5) L 09/20/17 04:20 Globulin 2.4 gm/dL 09/20/17 04:20 Albumin/Globulin Ratio 1.0 (1.0-1.8) 09/20/17 04:20 Prealbumin 6 mg/dL (10-36) L 09/19/17 04:20 Triglycerides 73 mg/dL (<150) 09/19/17 04:20 Total Cortisol 28.9 09/12/17 01:00 Urine Source [place] 09/15/17 10:30 Urine Color GREEN 09/15/17 10:30 Urine Clarity CLOUDY (CLEAR) 09/15/17 10:30 Urine pH 6.5 (4.6 - 8.0) 09/15/17 10:30 Ur Specific [place] 1.015 (1.005-1.030) 09/15/17 10:30 Urine Protein 30 mg/dL (NEGATIVE) H 09/15/17 10:30 Urine Glucose (UA) NEGATIVE mg/dL (NEGATIVE) 09/15/17 10:30 Urine Ketones NEGATIVE mg/dL (NEGATIVE) 09/15/17 10:30 Urine Blood LARGE (NEGATIVE) H 09/15/17 10:30 Urine Nitrate POSITIVE (NEGATIVE) H 09/15/17 10:30 Urine Bilirubin MODERATE (NEGATIVE) H 09/15/17 10:30 Urine Urobilinogen 0.2 E.U./dL (0.2 - 1.0) 09/15/17 10:30 Ur Leukocyte Esterase TRACE (NEGATIVE) H 09/15/17 10:30 Urine RBC 50-100 /hpf (0-5) H 09/15/17 10:30 Urine WBC 25-50 /hpf (0-5) H 09/15/17 10:30 Ur Epithelial Cells MANY /lpf (FEW) 09/15/17 10:30 Urine Bacteria 4+ /hpf (NONE SEEN) H 09/15/17 10:30 Ur Random Sodium 23 mmol/L 09/19/17 15:42 Vancomycin Trough 12.7 ug/mL (5-10) H 09/20/17 08:00 - Physical Exam Vitals and I&O: Vital Signs Temp 99.1 F 09/20/17 18:00 Pulse 75 09/20/17 19:26 Resp 35 09/20/17 19:26 BP 118/60 09/20/17 18:00 Pulse Ox 93 09/20/17 19:26 Intake & Output 09/20/17 09/20/17 09/21/17 06:59 18:59 06:59 Intake Total 2230 2330 Output Total 750 980 Balance 1480 1350 Weight (lbs) 72.121 kg 72.291 kg Intake: Intake, IV Amount 100 700 Vancomycin HCl 1.5 gm In 500 Dextrose 5% 500 ml @ 250 mls/hr IV Q24H [facility] Rx#: [id number] metroNIDAZOLE 500mg/NS 100 200 100mL 500 mg In 100 ml @ 100 mls/hr IV Q8HR [facility] Rx #:[id number] Tube Feeding 670 780 TPN/PPN 960 Other 500 850 Output: Urine 750 980 Other: # Bowel Movements 0 0 Weight Source Bedscale Bedscale Active Medications: Current Medications Acetaminophen (Tylenol) 650 mg PO Q6H PRN PRN Reason: Fever > 101 OR MILD PAIN Stop: 11/11/17 20:45 Last Admin: 09/20/17 15:37 Dose: 650 mg Al Hydrox/Mg Hydrox/Simethicone (Maalox) 30 ml PO Q6H PRN PRN Reason: GI DISTRESS Stop: 11/08/17 15:49 Albuterol/Ipratropium (Duoneb Neb) 3 ml HHN Q4HRT [facility] Stop: 11/14/17 22:59 Last Admin: 09/20/17 19:25 Dose: 3 ml Amlodipine Besylate (Norvasc) 5 mg PO DAILY [facility] Stop: 11/09/17 08:59 Last Admin: 09/20/17 08:46 Dose: 5 mg Atorvastatin Calcium (Lipitor) 20 mg GT HS [facility] PRN Reason: Protocol Stop: 11/08/17 20:59 Last Admin: 09/19/17 20:56 Dose: 20 mg Cholecalciferol (Vitamin D3) 1,000 iu GT DAILY [facility] Stop: 11/09/17 08:59 Last Admin: 09/20/17 08:46 Dose: 1,000 iu Donepezil HCl (Aricept) 10 mg GT HS [facility] Stop: 11/08/17 20:59 Last Admin: 09/19/17 20:55 Dose: 10 mg Enoxaparin Sodium (Lovenox) 70 mg SUBQ Q12HR [facility] Stop: 11/16/17 08:59 Last Admin: 09/20/17 08:47 Dose: 70 mg Metronidazole (Flagyl) 500 mg in 100 mls @ 100 mls/hr IV Q8HR [facility] Stop: 09/27/17 12:59 Last Infusion: 09/20/17 13:20 Dose: Infused Dextrose (D5w) 1,000 mls @ 20 mls/hr IV .Q24H [facility] Stop: 11/17/17 15:59 Last Admin: 09/18/17 15:49 Dose: 20 mls/hr Vancomycin HCl 1.5 gm/ (Dextrose) 500 mls @ 250 mls/hr IV Q24H [facility] Stop: 11/19/17 09:59 Last Infusion: 09/20/17 11:30 Dose: Infused Multivitamins/Minerals 10 ml/Insulin Human Regular 10 units / Dextrose/ Amino Acids/Electrolytes/ Sterile Water/Fat Emulsion Intravenous 2,000.1 mls @ 80 mls /hr IV .Q24H [facility] Stop: 10/17/17 15:59 Last Admin: 09/20/17 16:00 Dose: Not Given Piperacillin Sod/Tazobactam (Sod 4.5 gm/ Sodium Chloride) 100 mls @ 100 mls/hr IV Q8HR [facility] Stop: 11/19/17 20:59 Insulin Aspart (Novolog Insulin Sliding Scale) 0 units SUBQ Q6HR [facility] PRN Reason: Protocol Stop: 11/18/17 00:00 Last Admin: 09/20/17 18:26 Dose: 2 units Lactobacillus Rhamnosus (Culturelle 15b) 1 each PO DAILY [facility] Stop: 11/12/17 08:59 Last Admin: 09/20/17 08:47 Dose: 1 each Magnesium Hydroxide (Milk Of Magnesia) 30 ml PO HS PRN PRN Reason: Constipation Stop: 11/08/17 15:49 Memantine (Namenda) 5 mg GT BID [facility] Stop: 11/08/17 16:59 Last Admin: 09/20/17 18:17 Dose: 5 mg Methylprednisolone Sodium Succinate (Solu-Medrol) 40 mg IVP Q12HR [facility] Stop: 11/19/17 20:59 Miscellaneous (Zosyn Iv Per Pharmacy) 1 [facility] PRN PRN PRN Reason: PROTOCOL Stop: 11/10/17 08:34 Miscellaneous (Probiotic Screen) 1 [facility] PRN PRN PRN Reason: PROTOCOL Stop: 11/12/17 08:59 Miscellaneous (Vancomycin Iv Per Pharmacy) 1 [facility] DAILY [facility] Stop: 11/15/17 16:59 Pantoprazole Sodium (Protonix) 40 mg IVP DAILY [facility] Stop: 11/19/17 08:59 Last Admin: 09/20/17 09:05 Dose: 40 mg Potassium Chloride (Potassium Chloride Elixir) 40 meq GT DAILY [facility] Stop: 11/18/17 10:14 Last Admin: 09/20/17 08:46 Dose: 40 meq General: no acute distress, cachectic HEENT: atraumatic, normocephalic, PERRLA, EOMI Neck: supple Cardiovascular: S1S2, regular Lungs: clear to auscultation bilaterally, clear to percussion Abdomen: soft, no tender, no distended, no mass, no hepatomegaly Extremities: no cyanosis, no clubbing, no edema - Procedures Procedures: Procedures Procedure Code Date ASSISTANCE WITH RESPIRATORY VENTILATION, <24 HRS, CPAP [id number] 09/09/[address] GASTROSTOMY TUBE 06440 09/09/17 INSERTION OF FEEDING DEVICE INTO STOMACH, PERC APPROACH [id number] 09/09/17 POS AIRWAY PRESSURE CPAP 63385 09/09/17 Infectious Disease Assmt/Plan - Assessment Assessment: 1. Leukopcytosis, likely reactive. Sepsis. 2. Aspiration pneumonia 3. Dysphasia. G tube placement. 4. Dementia. 5. Respiratory failure. - Plan Plan: cpm. Nutritional Asmnt/Malnutr-PDOC - Dietary Evaluation Malnutrition Findings (Please click <Entered> for more info): Nutritional Asmnt/Malnutrition Start: 09/10/17 16: 17 Text: Status: Complete Freq: Document 09/10/17 16:19 LEONILA (Rec: 09/10/17 16:29 [facility] Nutritional Asmnt/Malnutrition Patient General Information Nutritional Screening High Risk Diagnosis g-tube placement (reason for visit) Pertinent Medical Hx/Surgical Hx DM, hyperlipidemia, dementia, schizophrenia, PEG/Gtube Subjective Information Pt seen lying in bed at time of visit, non-verbal. Pt has PEG placement today. Current Diet Order/ Nutrition Support fibersource HN start at 40ml/ hr, goal rate 60ml/hr continuous Pertinent Medications vit D3, vancomycin, theragran, nacl 0.9% Pertinent Labs 09/10 glucose 125, alb 4.1 09/09 glucose 129 Nutritional Hx/Data Height 1.68 m Height (Calculated Centimeters) 167.6 Current Weight (lbs) 63.957 kg Weight (Calculated Kilograms) 64.0 Weight (Calculated Grams) 59959.5 [place] Body Weight 142 Body Mass Index (BMI) 22.7 Weight Status Approriate GI Symptoms GI Symptoms None Last BM no record Difficult in: None Skin Integrity/Comment: reddened to coccyx, bruise to hand, rash to back Estimated Nutritional Goals BEE in Kcals: Using Current wt Calories/Kcals/Kg 25-30 Kcals Calculated 5986-7224 Protein: Using Current wt Protein g/k-1.2 Protein Calculated 64-77 Fluid: ml 1600-1920ml (1ml/kcal) Nutritional Problem No current Nutrition Prob Problem N/A Malnutrition Alert Protein-Calorie Malnutrition N/A Is there a minimum of two criteria No selected? Query Text:Check all the applicable criteria. A minimum of two criteria are recommended for diagnosis of either severe or non-severe malnutrition. Intervention/Recommendation Comments 1. Initiate TF as ordered. It provides 1728kcal, 77g protein , 1178ml free water, meeting 100% of nutritional needs. 2. Monitor TF rate, tolerance, wt weekly, skin integrity and labs 3. F/U as high risk in 2-3 days, 09/12-09/13 Expected Outcomes/Goals Expected Outcomes/Goals 1. Pt to meet at least 75% of nutritional needs via nutrition support with tolerance 2. Wt stability, skin to remain intact, labs to approach WNL.
[2017-09-20] MEDS: Atorvastatin Calcium 10 MG TAB GT SCH (20:51)
[2017-09-21] MEDS: INSULIN ASPART SLIDING SCALE 100 UNITS/ML UNIT SUBQ SCH ×5 (00:10→23:41)
[2017-09-21] MEDS: Albuterol/Ipratropium Neb 3 ML AERS HHN SCH ×6 (03:24→22:33)
[2017-09-21] MEDS: metroNIDAZOLE 500mg/NS 100mL 500 MG/100 ML BAG IV SCH ×3 (04:59→21:17)
[2017-09-21 05:11] LABS: MANUAL DIFF REQUIRED? YES
[2017-09-21 05:24] LABS: HEMATOCRIT 31.4 % (41.0-60); HEMOGLOBIN 10.6 gm/dL (12-16); MEAN CELL VOLUME 86.6 fl (80-99); MEAN CORPUSCULAR HGB CONC 33.5 pg (28.0-36.0); MEAN PLATELET VOLUME 11.9 fl; PLATELET COUNT 325 Th/cmm (150-400); RED BLOOD COUNT 3.63 Mil/cmm (3.80-5.80); RED CELL DISTRIBUTION WIDTH 14.9 % (11.5-20.0)
[2017-09-21 05:34] LABS: ALBUMIN 2.4 gm/dL (4.2-5.5); ALKALINE PHOSPHATASE 47 U/L (34-104); ANION GAP 10.7 (7.0-16.0); BILIRUBIN,TOTAL 0.2 mg/dL (0.3-1.0); BUN - UREA NITROGEN 36 mg/dL (7-25); CALCIUM SERUM 8.1 mg/dL (8.6-10.3); CARBON DIOXIDE 24.9 mEq/L (21.0-31.0); CHLORIDE 120 mEq/L (98-107); GFR AFRICAN-AMERICAN > 60.0 ml/min (>90); GFR NON AFRICAN-AMERICAN > 60.0 ml/min; GLUCOSE 189 mg/dL (70-105); MAGNESIUM 2.2 mg/dL (1.9-2.7); PHOSPHOROUS 2.3 mg/dL (2.5-5.0); POTASSIUM SERUM 3.6 mEq/L (3.5-5.1); SGOT 19 U/L (13-39); SGPT/ALT 12 U/L (7-52); SODIUM SERUM 152 mEq/L (136-145); TOTAL PROTEIN,SERUM 4.7 gm/dL (6.0-8.3)
[2017-09-21 05:59] LABS: WHITE BLOOD COUNT 19.5 Th/cmm (4.8-10.8)
[2017-09-21 06:05] LABS: BAND NEUTROPHILE 5 % (0-10); BASOPHIL 0 % (0-3); EOSINOPHIL 0 % (0-5); LYMPHOCYTE 3 % (20-50); MONOCYTE 2 % (2-10); NEUTROPHILS 90 % (40-80); PLATELET ESTIMATE ADEQUATE (NORMAL); PLATELET MORPHOLOGY NORMAL (NORMAL); TOTAL CELLS COUNTED 100
--- NOTE | 2017-09-21 08:19 | Diagnostic Imaging Report ---
Exam: Chest portable examination. HISTORY: Shortness of breath. Findings: Portable examination of the chest at 0757 hours reviewed and compared to prior study 09/18/2017 demonstrates left lower lobe infiltrate superimposed effusion. Mediastinal structures midline the heart is not enlarged. Bony thorax intact. IMPRESSION: Left basilar infiltrate superimposed effusion.
--- NOTE | 2017-09-21 08:39 | General Progress Note ---
Subjective - Review of Systems Service Date: 09/21/17 Subjective: Patient is non verbal Objective - Results Result Diagrams: 09/21/17 04:20 09/21/17 04:20 Recent Labs: Laboratory Last Values WBC 19.5 Th/cmm (4.8-10.8) H 09/21/17 04:20 RBC 3.63 Mil/cmm (3.80-5.80) L 09/21/17 04:20 Hgb 10.6 gm/dL (12-16) L 09/21/17 04:20 Hct 31.4 % (41.0-60) L 09/21/17 04:20 MCV 86.6 fl (80-99) 09/21/17 04:20 MCH 29.0 pg (27.0-31.0) 09/21/17 04:20 MCHC Differential 33.5 pg (28.0-36.0) 09/21/17 04:20 RDW 14.9 % (11.5-20.0) 09/21/17 04:20 Plt Count 325 Th/cmm (150-400) 09/21/17 04:20 MPV 11.9 fl 09/21/17 04:20 Neutrophils % 89.7 % (40.0-80.0) H 09/18/17 05:40 Band Neutrophils % 5 % (0-10) 09/21/17 04:20 Lymphocytes % 6.7 % (20.0-50.0) L 09/18/17 05:40 Monocytes % 2.5 % (2.0-10.0) 09/18/17 05:40 Eosinophils % 0.9 % (0.0-5.0) 09/18/17 05:40 Basophils % 0.2 % (0.0-2.0) 09/18/17 05:40 Neutrophils (Manual) 90 % (40-80) H 09/21/17 04:20 Lymphocytes 3 % (20-50) L 09/21/17 04:20 Monocytes 2 % (2-10) 09/21/17 04:20 Eosinophils 0 % (0-5) 09/21/17 04:20 Basophils 0 % (0-3) 09/21/17 04:20 Platelet Estimate ADEQUATE (NORMAL) 09/21/17 04:20 Platelet Morphology NORMAL (NORMAL) 09/21/17 04:20 RBC Morph Micro Appear NORMAL (NORMAL) 09/21/17 04:20 PT 10.3 SECONDS (9.5-11.5) 09/09/17 12:30 INR 0.99 (0.5-1.4) 09/09/17 12:30 PTT (Actin FS) 26.3 SECONDS (26.0-38.0) 09/09/17 12:30 Specimen Source Arterial 09/19/17 09:00 Sample Site Right Radial 09/19/17 09:00 pH 7.47 (7.35-7.45) H 09/19/17 09:00 pCO2 38.0 mmHg (35.0-45.0) 09/19/17 09:00 pO2 81.0 mmHg (80.0-100.0) 09/19/17 09:00 HCO3 28.0 mEq/L (20.0-26.0) H 09/19/17 09:00 Base Excess 3.9 mEq/L (-3.0-3.0) H 09/19/17 09:00 O2 Saturation 97.0 % (92.0-100.0) 09/19/17 09:00 Matthew Test Positive 09/19/17 09:00 Vent Rate NA 09/19/17 09:00 Inspired O2 45 09/19/17 09:00 Tidal Volume NA 09/19/17 09:00 PEEP NA 09/19/17 09:00 Pressure (ins/psv/peep) NA 09/19/17 09:00 Critical Value SH 09/19/17 09:00 Sodium 152 mEq/L (136-145) H 09/21/17 04:20 Potassium 3.6 mEq/L (3.5-5.1) 09/21/17 04:20 Chloride 120 mEq/L (98-107) H 09/21/17 04:20 Carbon Dioxide 24.9 mEq/L (21.0-31.0) 09/21/17 04:20 Anion Gap 10.7 (7.0-16.0) 09/21/17 04:20 BUN 36 mg/dL (7-25) H 09/21/17 04:20 Creatinine 1.0 mg/dL (0.7-1.3) 09/21/17 04:20 Est GFR ( Amer) > 60.0 ml/min (>90) 09/21/17 04:20 Est GFR (Non-Af Amer) > 60.0 ml/min 09/21/17 04:20 BUN/Creatinine Ratio 36.0 09/21/17 04:20 Glucose 189 mg/dL (70-105) H 09/21/17 04:20 POC Glucose 172 MG/DL (70 - 105) H 09/21/17 05:02 Hemoglobin A1c % 6.1 % (4.0-6.0) H 09/19/17 04:20 Whole Bld Lactic Acid 1.35 mmol/L (0.60-1.99) 09/15/17 10:45 Calcium 8.1 mg/dL (8.6-10.3) L 09/21/17 04:20 Phosphorus 2.3 mg/dL (2.5-5.0) L 09/21/17 04:20 Magnesium 2.2 mg/dL (1.9-2.7) 09/21/17 04:20 Total Bilirubin 0.2 mg/dL (0.3-1.0) L 09/21/17 04:20 AST 19 U/L (13-39) 09/21/17 04:20 ALT 12 U/L (7-52) 09/21/17 04:20 Alkaline Phosphatase 47 U/L (34-104) 09/21/17 04:20 C-Reactive Protein 17.2 mg/dL (0.0-0.9) H 09/19/17 04:20 B-Natriuretic Peptide 47.8 pg/mL (5.0-100.0) 09/15/17 04:45 Total Protein 4.7 gm/dL (6.0-8.3) L 09/21/17 04:20 Albumin 2.4 gm/dL (4.2-5.5) L 09/21/17 04:20 Globulin 2.3 gm/dL 09/21/17 04:20 Albumin/Globulin Ratio 1.0 (1.0-1.8) 09/21/17 04:20 Prealbumin 6 mg/dL (10-36) L 09/19/17 04:20 Triglycerides 73 mg/dL (<150) 09/19/17 04:20 Total Cortisol 28.9 09/12/17 01:00 Urine Source [place] 09/15/17 10:30 Urine Color GREEN 09/15/17 10:30 Urine Clarity CLOUDY (CLEAR) 09/15/17 10:30 Urine pH 6.5 (4.6 - 8.0) 09/15/17 10:30 Ur Specific [place] 1.015 (1.005-1.030) 09/15/17 10:30 Urine Protein 30 mg/dL (NEGATIVE) H 09/15/17 10:30 Urine Glucose (UA) NEGATIVE mg/dL (NEGATIVE) 09/15/17 10:30 Urine Ketones NEGATIVE mg/dL (NEGATIVE) 09/15/17 10:30 Urine Blood LARGE (NEGATIVE) H 09/15/17 10:30 Urine Nitrate POSITIVE (NEGATIVE) H 09/15/17 10:30 Urine Bilirubin MODERATE (NEGATIVE) H 09/15/17 10:30 Urine Urobilinogen 0.2 E.U./dL (0.2 - 1.0) 09/15/17 10:30 Ur Leukocyte Esterase TRACE (NEGATIVE) H 09/15/17 10:30 Urine RBC 50-100 /hpf (0-5) H 09/15/17 10:30 Urine WBC 25-50 /hpf (0-5) H 09/15/17 10:30 Ur Epithelial Cells MANY /lpf (FEW) 09/15/17 10:30 Urine Bacteria 4+ /hpf (NONE SEEN) H 09/15/17 10:30 Ur Random Sodium 23 mmol/L 09/19/17 15:42 Vancomycin Trough 12.7 ug/mL (5-10) H 09/20/17 08:00 - Physical Exam Vitals and I&O: Vital Signs Temp 98.9 F 09/21/17 06:00 Pulse 67 09/21/17 06:56 Resp 32 09/21/17 06:56 BP 111/54 09/21/17 06:00 Pulse Ox 97 09/21/17 06:56 Intake & Output 09/20/17 09/21/17 09/21/17 18:59 06:59 18:59 Intake Total 2330 1480 Output Total 980 850 Balance 1350 630 Weight (lbs) 72.291 kg 72.291 kg Intake: Intake, IV Amount 700 300 Piperacillin Sodium/ 100 Tazobact 4.5 gm In Sodium Chloride 0.9% 100 ml @ 100 mls/hr IV Q8HR [facility] Rx #:[id number] Vancomycin HCl 1.5 gm In 500 Dextrose 5% 500 ml @ 250 mls/hr IV Q24H [facility] Rx#: [id number] metroNIDAZOLE 500mg/NS 200 200 100mL 500 mg In 100 ml @ 100 mls/hr IV Q8HR [facility] Rx #:[id number] Tube Feeding 780 780 Other 850 400 Output: Urine 980 850 Other: # Bowel Movements 0 1 Stool Characteristics Soft Brown Weight Source Bedscale Bedscale Active Medications: Current Medications Acetaminophen (Tylenol) 650 mg PO Q6H PRN PRN Reason: Fever > 101 OR MILD PAIN Stop: 11/11/17 20:45 Last Admin: 09/20/17 15:37 Dose: 650 mg Al Hydrox/Mg Hydrox/Simethicone (Maalox) 30 ml PO Q6H PRN PRN Reason: GI DISTRESS Stop: 11/08/17 15:49 Albuterol/Ipratropium (Duoneb Neb) 3 ml HHN Q4HRT [facility] Stop: 11/14/17 22:59 Last Admin: 09/21/17 06:56 Dose: 3 ml Amlodipine Besylate (Norvasc) 5 mg PO DAILY [facility] Stop: 11/09/17 08:59 Last Admin: 09/20/17 08:46 Dose: 5 mg Atorvastatin Calcium (Lipitor) 20 mg GT HS [facility] PRN Reason: Protocol Stop: 11/08/17 20:59 Last Admin: 09/20/17 20:51 Dose: 20 mg Cholecalciferol (Vitamin D3) 1,000 iu GT DAILY [facility] Stop: 11/09/17 08:59 Last Admin: 09/20/17 08:46 Dose: 1,000 iu Donepezil HCl (Aricept) 10 mg GT HS [facility] Stop: 11/08/17 20:59 Last Admin: 09/20/17 20:51 Dose: 10 mg Enoxaparin Sodium (Lovenox) 70 mg SUBQ Q12HR [facility] Stop: 11/16/17 08:59 Last Admin: 09/20/17 20:52 Dose: 70 mg Metronidazole (Flagyl) 500 mg in 100 mls @ 100 mls/hr IV Q8HR [facility] Stop: 09/27/17 12:59 Last Infusion: 09/21/17 06:05 Dose: Infused Dextrose (D5w) 1,000 mls @ 20 mls/hr IV .Q24H [facility] Stop: 11/17/17 15:59 Last Admin: 09/18/17 15:49 Dose: 20 mls/hr Vancomycin HCl 1.5 gm/ (Dextrose) 500 mls @ 250 mls/hr IV Q24H [facility] Stop: 09/21/17 13:00 Last Infusion: 09/20/17 11:30 Dose: Infused Multivitamins/Minerals 10 ml/Insulin Human Regular 10 units / Dextrose/ Amino Acids/Electrolytes/ Sterile Water/Fat Emulsion Intravenous 2,000.1 mls @ 80 mls /hr IV .Q24H [facility] Stop: 10/17/17 15:59 Last Admin: 09/20/17 16:00 Dose: Not Given Piperacillin Sod/Tazobactam (Sod 4.5 gm/ Sodium Chloride) 100 mls @ 100 mls/hr IV Q8HR [facility] Stop: 11/19/17 20:59 Last Admin: 09/21/17 06:05 Dose: 100 mls/hr Vancomycin HCl 1.5 gm/ Sodium (Chloride) 500 mls @ 250 mls/hr IV Q18H [facility] Stop: 11/21/17 02:59 Potassium Phosphate 20 mmole/ (Sodium Chloride) 256.6667 mls @ 42.5 mls/hr IV X1 ONE Stop: 09/21/17 14:36 Insulin Aspart (Novolog Insulin Sliding Scale) 0 units SUBQ Q6HR [facility] PRN Reason: Protocol Stop: 11/18/17 00:00 Last Admin: 09/21/17 06:28 Dose: 2 units Lactobacillus Rhamnosus (Culturelle 15b) 1 each PO DAILY [facility] Stop: 11/12/17 08:59 Last Admin: 09/20/17 08:47 Dose: 1 each Magnesium Hydroxide (Milk Of Magnesia) 30 ml PO HS PRN PRN Reason: Constipation Stop: 11/08/17 15:49 Memantine (Namenda) 5 mg GT BID [facility] Stop: 11/08/17 16:59 Last Admin: 09/20/17 18:17 Dose: 5 mg Methylprednisolone Sodium Succinate (Solu-Medrol) 40 mg IVP Q12HR [facility] Stop: 11/19/17 20:59 Last Admin: 09/20/17 20:52 Dose: 40 mg Miscellaneous (Zosyn Iv Per Pharmacy) 1 [facility] PRN PRN PRN Reason: PROTOCOL Stop: 11/10/17 08:34 Miscellaneous (Probiotic Screen) 1 e[facility] PRN PRN PRN Reason: PROTOCOL Stop: 11/12/17 08:59 Miscellaneous (Vancomycin Iv Per Pharmacy) 1 ea [facility] DAILY [facility] Stop: 11/15/17 16:59 Pantoprazole Sodium (Protonix) 40 mg IVP DAILY [facility] Stop: 11/19/17 08:59 Last Admin: 09/20/17 09:05 Dose: 40 mg Potassium Chloride (Potassium Chloride Elixir) 40 meq GT DAILY [facility] Stop: 11/18/17 10:14 Last Admin: 09/20/17 08:46 Dose: 40 meq General: No acute distress HEENT: Atraumatic Neck: Supple Cardiovascular: Regular rate, Normal S1, Normal S2 Lungs: Other (few rhonchi) Abdomen: Bowel sounds, Soft, Distended (MILD), Other (Peg in place. ), no Tender , no Hepatomegaly, no Rebound, no Mass, no Guarding Extremities: no Edema Neurological: Sensation intact Skin: no Rash Psych/Mental Status: Other (schizoaffective) - Procedures Procedures: Procedures Procedure Code Date ASSISTANCE WITH RESPIRATORY VENTILATION, <24 HRS, CPAP [id number] 09/09/[address] GASTROSTOMY TUBE 11639 09/09/17 INSERTION OF FEEDING DEVICE INTO STOMACH, PERC APPROACH [id number] 09/09/17 POS AIRWAY PRESSURE CPAP [id number] 09/09/17 Assessment/Plan - Assessment Assessment: Patient is awake, non verbal. he is in 5 litters O2 nasal canula. Last miller he had fever, WBC decreasing today, Na, improving, Patient is breathing better today with nasal canule. Feeding restarted. TPN DC. Dx: Peg displacement, sepsis, Hypernatremia, DM, Dementia, Schizophrenia, bed bound. Will continue to monitor - Plan Plan: Peg was replaced. NS changed to D5, on Zosyn, vanco and Metronidazole. PEG feeding restarted, TPN DC. Patient not responding to treatment. Prognosis continue being poor. Will continue monitoring. Nutritional Asmnt/Malnutr-PDOC - Dietary Evaluation Malnutrition Findings (Please click <Entered> for more info): Nutritional Asmnt/Malnutrition Start: 09/10/17 16: 17 Text: Status: Complete Freq: Document 09/10/17 16:19 LCHENG (Rec: 09/10/17 16:29 [id number] [id number]) Nutritional Asmnt/Malnutrition Patient General Information Nutritional Screening High Risk Diagnosis g-tube placement (reason for visit) Pertinent Medical Hx/Surgical Hx DM, hyperlipidemia, dementia, schizophrenia, PEG/Gtube Subjective Information Pt seen lying in bed at time of visit, non-verbal. Pt has PEG placement today. Current Diet Order/ Nutrition Support fibersource HN start at 40ml/ hr, goal rate 60ml/hr continuous Pertinent Medications vit D3, vancomycin, theragran, nacl 0.9% Pertinent Labs 09/10 glucose 125, alb 4.1 09/09 glucose 129 Nutritional Hx/Data Height 1.68 m Height (Calculated Centimeters) 167.6 Current Weight (lbs) 63.957 kg Weight (Calculated Kilograms) 64.0 Weight (Calculated Grams) 22939.5 [place] Body Weight 142 Body Mass Index (BMI) 22.7 Weight Status Approriate GI Symptoms GI Symptoms None Last BM no record Difficult in: None Skin Integrity/Comment: reddened to coccyx, bruise to hand, rash to back Estimated Nutritional Goals BEE in Kcals: Using Current wt Calories/Kcals/Kg 25-30 Kcals Calculated [id number] Protein: Using Current wt Protein g/k-1.2 Protein Calculated 64-77 Fluid: ml 1600-1920ml (1ml/kcal) Nutritional Problem No current Nutrition Prob Problem N/A Malnutrition Alert Protein-Calorie Malnutrition N/A Is there a minimum of two criteria No selected? Query Text:Check all the applicable criteria. A minimum of two criteria are recommended for diagnosis of either severe or non-severe malnutrition. Intervention/Recommendation Comments 1. Initiate TF as ordered. It provides 1728kcal, 77g protein , 1178ml free water, meeting 100% of nutritional needs. 2. Monitor TF rate, tolerance, wt weekly, skin integrity and labs 3. F/U as high risk in 2-3 days, 09/12-09/13 Expected Outcomes/Goals Expected Outcomes/Goals 1. Pt to meet at least 75% of nutritional needs via nutrition support with tolerance 2. Wt stability, skin to remain intact, labs to approach WNL.
[2017-09-21] MEDS: Dextrose 5% 1,000 ML IV SCH ×2 (08:55→23:29)
[2017-09-21 09:22] LABS: pH 7.49 (7.35-7.45)
[2017-09-21 09:23] LABS: ALLEN TEST Y
[2017-09-21] MEDS ORDERED: POTASSIUM PHOSPHATE IV ONE (09:30)
[2017-09-21] MEDS ORDERED: DEXTROSE IV ONE (09:30)
[2017-09-21] MEDS ORDERED: Potassium Phosphate 20 MMOLE in Sodium Chloride 0.9% 250 ML IV ONE (09:30)
[2017-09-21] MEDS: Potassium Chloride Elixir 20 mEq /15 mL UDC GT SCH (09:56)
[2017-09-21] MEDS: methylPREDNISolone SS 40 mg Vial IVP SCH ×2 (09:56→20:10)
[2017-09-21] MEDS: Lactobacillus Rhamnosus GG 15 Billion CFU CAP.SPRINK PO SCH (09:56)
[2017-09-21] MEDS: Enoxaparin 80 mg/0.8 mL 0.8mL Syr SUBQ SCH ×2 (09:58→20:10)
--- NOTE | 2017-09-21 11:34 | GI Progress Note ---
Subjective - Review of Systems Service Date: 09/21/17 Subjective: EVENTS NOTED. TUBE FEEDS HELD DUE TO MILDLY ELEVATED GASTRIC RESIDUALS. Objective - Results Result Diagrams: 09/21/17 04:20 09/21/17 04:20 Recent Labs: Laboratory Last Values WBC 19.5 Th/cmm (4.8-10.8) H 09/21/17 04:20 RBC 3.63 Mil/cmm (3.80-5.80) L 09/21/17 04:20 Hgb 10.6 gm/dL (12-16) L 09/21/17 04:20 Hct 31.4 % (41.0-60) L 09/21/17 04:20 MCV 86.6 fl (80-99) 09/21/17 04:20 MCH 29.0 pg (27.0-31.0) 09/21/17 04:20 MCHC Differential 33.5 pg (28.0-36.0) 09/21/17 04:20 RDW 14.9 % (11.5-20.0) 09/21/17 04:20 Plt Count 325 Th/cmm (150-400) 09/21/17 04:20 MPV 11.9 fl 09/21/17 04:20 Neutrophils % 89.7 % (40.0-80.0) H 09/18/17 05:40 Band Neutrophils % 5 % (0-10) 09/21/17 04:20 Lymphocytes % 6.7 % (20.0-50.0) L 09/18/17 05:40 Monocytes % 2.5 % (2.0-10.0) 09/18/17 05:40 Eosinophils % 0.9 % (0.0-5.0) 09/18/17 05:40 Basophils % 0.2 % (0.0-2.0) 09/18/17 05:40 Neutrophils (Manual) 90 % (40-80) H 09/21/17 04:20 Lymphocytes 3 % (20-50) L 09/21/17 04:20 Monocytes 2 % (2-10) 09/21/17 04:20 Eosinophils 0 % (0-5) 09/21/17 04:20 Basophils 0 % (0-3) 09/21/17 04:20 Platelet Estimate ADEQUATE (NORMAL) 09/21/17 04:20 Platelet Morphology NORMAL (NORMAL) 09/21/17 04:20 RBC Morph Micro Appear NORMAL (NORMAL) 09/21/17 04:20 PT 10.3 SECONDS (9.5-11.5) 09/09/17 12:30 INR 0.99 (0.5-1.4) 09/09/17 12:30 PTT (Actin FS) 26.3 SECONDS (26.0-38.0) 09/09/17 12:30 Specimen Source Arterial 09/21/17 09:10 Sample Site Right Radial 09/21/17 09:10 pH 7.49 (7.35-7.45) H 09/21/17 09:10 pCO2 34.0 mmHg (35.0-45.0) L 09/21/17 09:10 pO2 56.0 mmHg (80.0-100.0) L 09/21/17 09:10 HCO3 27.0 mEq/L (20.0-26.0) H 09/21/17 09:10 Base Excess 2.8 mEq/L (-3.0-3.0) 09/21/17 09:10 O2 Saturation 91.0 % (92.0-100.0) L 09/21/17 09:10 Matthew Test Y 09/21/17 09:10 Vent Rate n/a 09/21/17 09:10 Inspired O2 36 09/21/17 09:10 Tidal Volume n/a 09/21/17 09:10 PEEP n/a 09/21/17 09:10 Pressure (ins/psv/peep) n/a 09/21/17 09:10 Critical Value Courtney Beasley 09/21/17 09:10 Sodium 152 mEq/L (136-145) H 09/21/17 04:20 Potassium 3.6 mEq/L (3.5-5.1) 09/21/17 04:20 Chloride 120 mEq/L (98-107) H 09/21/17 04:20 Carbon Dioxide 24.9 mEq/L (21.0-31.0) 09/21/17 04:20 Anion Gap 10.7 (7.0-16.0) 09/21/17 04:20 BUN 36 mg/dL (7-25) H 09/21/17 04:20 Creatinine 1.0 mg/dL (0.7-1.3) 09/21/17 04:20 Est GFR ( Amer) > 60.0 ml/min (>90) 09/21/17 04:20 Est GFR (Non-Af Amer) > 60.0 ml/min 09/21/17 04:20 BUN/Creatinine Ratio 36.0 09/21/17 04:20 Glucose 189 mg/dL (70-105) H 09/21/17 04:20 POC Glucose 172 MG/DL (70 - 105) H 09/21/17 05:02 Hemoglobin A1c % 6.1 % (4.0-6.0) H 09/19/17 04:20 Whole Bld Lactic Acid 1.35 mmol/L (0.60-1.99) 09/15/17 10:45 Calcium 8.1 mg/dL (8.6-10.3) L 09/21/17 04:20 Phosphorus 2.3 mg/dL (2.5-5.0) L 09/21/17 04:20 Magnesium 2.2 mg/dL (1.9-2.7) 09/21/17 04:20 Total Bilirubin 0.2 mg/dL (0.3-1.0) L 09/21/17 04:20 AST 19 U/L (13-39) 09/21/17 04:20 ALT 12 U/L (7-52) 09/21/17 04:20 Alkaline Phosphatase 47 U/L (34-104) 09/21/17 04:20 C-Reactive Protein 17.2 mg/dL (0.0-0.9) H 09/19/17 04:20 B-Natriuretic Peptide 47.8 pg/mL (5.0-100.0) 09/15/17 04:45 Total Protein 4.7 gm/dL (6.0-8.3) L 09/21/17 04:20 Albumin 2.4 gm/dL (4.2-5.5) L 09/21/17 04:20 Globulin 2.3 gm/dL 09/21/17 04:20 Albumin/Globulin Ratio 1.0 (1.0-1.8) 09/21/17 04:20 Prealbumin 6 mg/dL (10-36) L 09/19/17 04:20 Triglycerides 73 mg/dL (<150) 09/19/17 04:20 Cholesterol 61 mg/dL (<200) 09/21/17 04:20 Total Cortisol 28.9 09/12/17 01:00 Urine Source [place] 09/15/17 10:30 Urine Color GREEN 09/15/17 10:30 Urine Clarity CLOUDY (CLEAR) 09/15/17 10:30 Urine pH 6.5 (4.6 - 8.0) 09/15/17 10:30 Ur Specific [place] 1.015 (1.005-1.030) 09/15/17 10:30 Urine Protein 30 mg/dL (NEGATIVE) H 09/15/17 10:30 Urine Glucose (UA) NEGATIVE mg/dL (NEGATIVE) 09/15/17 10:30 Urine Ketones NEGATIVE mg/dL (NEGATIVE) 09/15/17 10:30 Urine Blood LARGE (NEGATIVE) H 09/15/17 10:30 Urine Nitrate POSITIVE (NEGATIVE) H 09/15/17 10:30 Urine Bilirubin MODERATE (NEGATIVE) H 09/15/17 10:30 Urine Urobilinogen 0.2 E.U./dL (0.2 - 1.0) 09/15/17 10:30 Ur Leukocyte Esterase TRACE (NEGATIVE) H 09/15/17 10:30 Urine RBC 50-100 /hpf (0-5) H 09/15/17 10:30 Urine WBC 25-50 /hpf (0-5) H 09/15/17 10:30 Ur Epithelial Cells MANY /lpf (FEW) 09/15/17 10:30 Urine Bacteria 4+ /hpf (NONE SEEN) H 09/15/17 10:30 Ur Random Sodium 23 mmol/L 09/19/17 15:42 Vancomycin Trough 12.7 ug/mL (5-10) H 09/20/17 08:00 - Physical Exam Vitals and I&O: Vital Signs Temp 98.6 F 09/21/17 11:00 Pulse 82 09/21/17 11:00 Resp 32 09/21/17 11:00 BP 115/59 09/21/17 11:00 Pulse Ox 96 09/21/17 11:00 Intake & Output 09/20/17 09/21/17 09/21/17 18:59 06:59 18:59 Intake Total 2330 1480 100 Output Total 980 850 Balance 1350 630 100 Weight (lbs) 72.291 kg 72.291 kg Intake: Intake, IV Amount 700 300 100 Piperacillin Sodium/ 100 100 Tazobact 4.5 gm In Sodium Chloride 0.9% 100 ml @ 100 mls/hr IV Q8HR [facility] Rx #:[id number] Vancomycin HCl 1.5 gm In 500 Dextrose 5% 500 ml @ 250 mls/hr IV Q24H [facility] Rx#: [id number] metroNIDAZOLE 500mg/NS 200 200 100mL 500 mg In 100 ml @ 100 mls/hr IV Q8HR [facility] Rx #:[id number] Tube Feeding 780 780 Other 850 400 Output: Urine 980 850 Other: # Bowel Movements 0 1 Stool Characteristics Soft Soft Brown Liquid Brown Weight Source Bedscale Bedscale Active Medications: Current Medications Acetaminophen (Tylenol) 650 mg PO Q6H PRN PRN Reason: Fever > 101 OR MILD PAIN Stop: 11/11/17 20:45 Last Admin: 09/21/17 10:03 Dose: 650 mg Al Hydrox/Mg Hydrox/Simethicone (Maalox) 30 ml PO Q6H PRN PRN Reason: GI DISTRESS Stop: 11/08/17 15:49 Albuterol/Ipratropium (Duoneb Neb) 3 ml HHN Q4HRT [facility] Stop: 11/14/17 22:59 Last Admin: 09/21/17 10:39 Dose: 3 ml Amlodipine Besylate (Norvasc) 5 mg PO DAILY [facility] Stop: 11/09/17 08:59 Last Admin: 09/21/17 09:57 Dose: Not Given Atorvastatin Calcium (Lipitor) 20 mg GT HS [facility] PRN Reason: Protocol Stop: 11/08/17 20:59 Last Admin: 09/20/17 20:51 Dose: 20 mg Cholecalciferol (Vitamin D3) 1,000 iu GT DAILY [facility] Stop: 11/09/17 08:59 Last Admin: 09/21/17 09:56 Dose: 1,000 iu Donepezil HCl (Aricept) 10 mg GT HS [facility] Stop: 11/08/17 20:59 Last Admin: 09/20/17 20:51 Dose: 10 mg Enoxaparin Sodium (Lovenox) 70 mg SUBQ Q12HR [facility] Stop: 11/16/17 08:59 Last Admin: 09/21/17 09:58 Dose: 70 mg Metronidazole (Flagyl) 500 mg in 100 mls @ 100 mls/hr IV Q8HR [facility] Stop: 09/27/17 12:59 Last Infusion: 09/21/17 06:05 Dose: Infused Vancomycin HCl 1.5 gm/ (Dextrose) 500 mls @ 250 mls/hr IV Q24H [facility] Stop: 09/21/17 13:00 Last Admin: 09/21/17 10:08 Dose: 250 mls/hr Piperacillin Sod/Tazobactam (Sod 4.5 gm/ Sodium Chloride) 100 mls @ 100 mls/hr IV Q8HR [facility] Stop: 11/19/17 20:59 Last Infusion: 09/21/17 07:05 Dose: Infused Vancomycin HCl 1.5 gm/ Sodium (Chloride) 500 mls @ 250 mls/hr IV Q18H [facility] Stop: 11/21/17 02:59 Potassium Phosphate 30 mmole/ (Dextrose) 260 mls @ 42.5 mls/hr IV X1 ONE Stop: 09/21/17 15:37 Last Admin: 09/21/17 09:40 Dose: 42.5 mls/hr Dextrose (D5w) 1,000 mls @ 70 mls/hr IV .[id number] [facility] Stop: 11/20/17 08:57 Last Admin: 09/21/17 08:55 Dose: 70 mls/hr Insulin Aspart (Novolog Insulin Sliding Scale) 0 units SUBQ Q6HR [facility] PRN Reason: Protocol Stop: 11/18/17 00:00 Last Admin: 09/21/17 06:28 Dose: 2 units Lactobacillus Rhamnosus (Culturelle 15b) 1 each PO DAILY [facility] Stop: 11/12/17 08:59 Last Admin: 09/21/17 09:56 Dose: 1 each Magnesium Hydroxide (Milk Of Magnesia) 30 ml PO HS PRN PRN Reason: Constipation Stop: 11/08/17 15:49 Memantine (Namenda) 5 mg GT BID [facility] Stop: 11/08/17 16:59 Last Admin: 09/21/17 09:56 Dose: 5 mg Methylprednisolone Sodium Succinate (Solu-Medrol) 40 mg IVP Q12HR [facility] Stop: 11/19/17 20:59 Last Admin: 09/21/17 09:56 Dose: 40 mg Miscellaneous (Zosyn Iv Per Pharmacy) 1 ea [facility] PRN PRN PRN Reason: PROTOCOL Stop: 11/10/17 08:34 Miscellaneous (Probiotic Screen) 1 [facility] PRN PRN PRN Reason: PROTOCOL Stop: 11/12/17 08:59 Miscellaneous (Vancomycin Iv Per Pharmacy) 1 ea MC DAILY [facility] Stop: 11/15/17 16:59 Pantoprazole Sodium (Protonix) 40 mg IVP DAILY [facility] Stop: 11/19/17 08:59 Last Admin: 09/21/17 09:56 Dose: 40 mg Potassium Chloride (Potassium Chloride Elixir) 40 meq GT DAILY [facility] Stop: 11/18/17 10:14 Last Admin: 09/21/17 09:56 Dose: 40 meq General: No acute distress HEENT: Atraumatic Neck: Supple Cardiovascular: Regular rate, Normal S1, Normal S2 Lungs: Other (few rhonchi) Abdomen: Bowel sounds, Soft, Distended (MILD), Other (Peg in place. ), no Tender , no Hepatomegaly, no Rebound, no Mass, no Guarding Extremities: no Edema Neurological: Sensation intact Skin: no Rash Psych/Mental Status: Other (schizoaffective) - Procedures Procedures: Procedures Procedure Code Date ASSISTANCE WITH RESPIRATORY VENTILATION, <24 HRS, CPAP [id number] 09/09/[address] GASTROSTOMY TUBE 18882 09/09/17 INSERTION OF FEEDING DEVICE INTO STOMACH, PERC APPROACH [id number] 09/09/17 POS AIRWAY PRESSURE CPAP 21606 09/09/17 Assessment/Plan - Assessment Assessment: IMPRESSION: 1. DYSPHAGIA WITH GT DISPLACEMENT - S/P REINSERTION X 2. 2. LEUKOCYTOSIS WITH SEPSIS, POSSIBLY DUE TO PERITONITIS FROM RECENT GT CHANGE. - NONCONTRAST CT SHOWED FREE INTRAPERITONEAL AIR. SUBSEQUENT CONTRAST ENHANCED CT SHOWED CONTRAST VIA GT NOT NOTED TO LEAK OR EXTRAVASATE VIA GT SITE. 3. ENCEPHALOPATHY. RECS: 1. G TUBE FEEDS WINIFRED. Monitor for any peritoneal signs or leukocytosis worsening. 2. Recommend weaning PPN if possible at this point 3. ABX PER ID. 4. MONITOR WBC. 5. WILL REPEAT CT A/P TODAY.
[2017-09-21] MEDS ORDERED: Diatrizoate Meglumine/Diatri 30 mL Sol PO ONE (11:35)
--- NOTE | 2017-09-21 12:43 | Infectious Disease Prog Note ---
Infectious Disease Subjective - Review of Systems Service Date: 09/21/17 Subjective: No change, no fever. Infectious Disease Objective - Results Result Diagrams: 09/21/17 04:20 09/21/17 04:20 Recent Labs: Laboratory Last Values WBC 19.5 Th/cmm (4.8-10.8) H 09/21/17 04:20 RBC 3.63 Mil/cmm (3.80-5.80) L 09/21/17 04:20 Hgb 10.6 gm/dL (12-16) L 09/21/17 04:20 Hct 31.4 % (41.0-60) L 09/21/17 04:20 MCV 86.6 fl (80-99) 09/21/17 04:20 MCH 29.0 pg (27.0-31.0) 09/21/17 04:20 MCHC Differential 33.5 pg (28.0-36.0) 09/21/17 04:20 RDW 14.9 % (11.5-20.0) 09/21/17 04:20 Plt Count 325 Th/cmm (150-400) 09/21/17 04:20 MPV 11.9 fl 09/21/17 04:20 Neutrophils % 89.7 % (40.0-80.0) H 09/18/17 05:40 Band Neutrophils % 5 % (0-10) 09/21/17 04:20 Lymphocytes % 6.7 % (20.0-50.0) L 09/18/17 05:40 Monocytes % 2.5 % (2.0-10.0) 09/18/17 05:40 Eosinophils % 0.9 % (0.0-5.0) 09/18/17 05:40 Basophils % 0.2 % (0.0-2.0) 09/18/17 05:40 Neutrophils (Manual) 90 % (40-80) H 09/21/17 04:20 Lymphocytes 3 % (20-50) L 09/21/17 04:20 Monocytes 2 % (2-10) 09/21/17 04:20 Eosinophils 0 % (0-5) 09/21/17 04:20 Basophils 0 % (0-3) 09/21/17 04:20 Platelet Estimate ADEQUATE (NORMAL) 09/21/17 04:20 Platelet Morphology NORMAL (NORMAL) 09/21/17 04:20 RBC Morph Micro Appear NORMAL (NORMAL) 09/21/17 04:20 PT 10.3 SECONDS (9.5-11.5) 09/09/17 12:30 INR 0.99 (0.5-1.4) 09/09/17 12:30 PTT (Actin FS) 26.3 SECONDS (26.0-38.0) 09/09/17 12:30 Specimen Source Arterial 09/21/17 09:10 Sample Site Right Radial 09/21/17 09:10 pH 7.49 (7.35-7.45) H 09/21/17 09:10 pCO2 34.0 mmHg (35.0-45.0) L 09/21/17 09:10 pO2 56.0 mmHg (80.0-100.0) L 09/21/17 09:10 HCO3 27.0 mEq/L (20.0-26.0) H 09/21/17 09:10 Base Excess 2.8 mEq/L (-3.0-3.0) 09/21/17 09:10 O2 Saturation 91.0 % (92.0-100.0) L 09/21/17 09:10 Matthew Test Y 09/21/17 09:10 Vent Rate n/a 09/21/17 09:10 Inspired O2 36 09/21/17 09:10 Tidal Volume n/a 09/21/17 09:10 PEEP n/a 09/21/17 09:10 Pressure (ins/psv/peep) n/a 09/21/17 09:10 Critical Value Courtney Baesley 09/21/17 09:10 Sodium 152 mEq/L (136-145) H 09/21/17 04:20 Potassium 3.6 mEq/L (3.5-5.1) 09/21/17 04:20 Chloride 120 mEq/L (98-107) H 09/21/17 04:20 Carbon Dioxide 24.9 mEq/L (21.0-31.0) 09/21/17 04:20 Anion Gap 10.7 (7.0-16.0) 09/21/17 04:20 BUN 36 mg/dL (7-25) H 09/21/17 04:20 Creatinine 1.0 mg/dL (0.7-1.3) 09/21/17 04:20 Est GFR ( Amer) > 60.0 ml/min (>90) 09/21/17 04:20 Est GFR (Non-Af Amer) > 60.0 ml/min 09/21/17 04:20 BUN/Creatinine Ratio 36.0 09/21/17 04:20 Glucose 189 mg/dL (70-105) H 09/21/17 04:20 POC Glucose 172 MG/DL (70 - 105) H 09/21/17 05:02 Hemoglobin A1c % 6.1 % (4.0-6.0) H 09/19/17 04:20 Whole Bld Lactic Acid 1.35 mmol/L (0.60-1.99) 09/15/17 10:45 Calcium 8.1 mg/dL (8.6-10.3) L 09/21/17 04:20 Phosphorus 2.3 mg/dL (2.5-5.0) L 09/21/17 04:20 Magnesium 2.2 mg/dL (1.9-2.7) 09/21/17 04:20 Total Bilirubin 0.2 mg/dL (0.3-1.0) L 09/21/17 04:20 AST 19 U/L (13-39) 09/21/17 04:20 ALT 12 U/L (7-52) 09/21/17 04:20 Alkaline Phosphatase 47 U/L (34-104) 09/21/17 04:20 C-Reactive Protein 17.2 mg/dL (0.0-0.9) H 09/19/17 04:20 B-Natriuretic Peptide 47.8 pg/mL (5.0-100.0) 09/15/17 04:45 Total Protein 4.7 gm/dL (6.0-8.3) L 09/21/17 04:20 Albumin 2.4 gm/dL (4.2-5.5) L 09/21/17 04:20 Globulin 2.3 gm/dL 09/21/17 04:20 Albumin/Globulin Ratio 1.0 (1.0-1.8) 09/21/17 04:20 Prealbumin 6 mg/dL (10-36) L 09/19/17 04:20 Triglycerides 73 mg/dL (<150) 09/19/17 04:20 Cholesterol 61 mg/dL (<200) 09/21/17 04:20 Total Cortisol 28.9 09/12/17 01:00 Urine Source [place] 09/15/17 10:30 Urine Color GREEN 09/15/17 10:30 Urine Clarity CLOUDY (CLEAR) 09/15/17 10:30 Urine pH 6.5 (4.6 - 8.0) 09/15/17 10:30 Ur Specific [place] 1.015 (1.005-1.030) 09/15/17 10:30 Urine Protein 30 mg/dL (NEGATIVE) H 09/15/17 10:30 Urine Glucose (UA) NEGATIVE mg/dL (NEGATIVE) 09/15/17 10:30 Urine Ketones NEGATIVE mg/dL (NEGATIVE) 09/15/17 10:30 Urine Blood LARGE (NEGATIVE) H 09/15/17 10:30 Urine Nitrate POSITIVE (NEGATIVE) H 09/15/17 10:30 Urine Bilirubin MODERATE (NEGATIVE) H 09/15/17 10:30 Urine Urobilinogen 0.2 E.U./dL (0.2 - 1.0) 09/15/17 10:30 Ur Leukocyte Esterase TRACE (NEGATIVE) H 09/15/17 10:30 Urine RBC 50-100 /hpf (0-5) H 09/15/17 10:30 Urine WBC 25-50 /hpf (0-5) H 09/15/17 10:30 Ur Epithelial Cells MANY /lpf (FEW) 09/15/17 10:30 Urine Bacteria 4+ /hpf (NONE SEEN) H 09/15/17 10:30 Ur Random Sodium 23 mmol/L 09/19/17 15:42 Vancomycin Trough 12.7 ug/mL (5-10) H 09/20/17 08:00 - Physical Exam Vitals and I&O: Vital Signs Temp 98.6 F 09/21/17 12:00 Pulse 77 09/21/17 12:00 Resp 24 09/21/17 12:00 BP 121/64 09/21/17 12:00 Pulse Ox 96 09/21/17 12:00 Intake & Output 09/20/17 09/21/17 09/21/17 18:59 06:59 18:59 Intake Total 2330 1480 100 Output Total 980 850 Balance 1350 630 100 Weight (lbs) 72.291 kg 72.291 kg Intake: Intake, IV Amount 700 300 100 Piperacillin Sodium/ 100 100 Tazobact 4.5 gm In Sodium Chloride 0.9% 100 ml @ 100 mls/hr IV Q8HR [facility] Rx #:[id number] Vancomycin HCl 1.5 gm In 500 Dextrose 5% 500 ml @ 250 mls/hr IV Q24H [facility] Rx#: [id number] metroNIDAZOLE 500mg/NS 200 200 100mL 500 mg In 100 ml @ 100 mls/hr IV Q8HR [facility] Rx #:[id number] Tube Feeding 780 780 Other 850 400 Output: Urine 980 850 Other: # Bowel Movements 0 1 Stool Characteristics Soft Soft Brown Liquid Brown Weight Source Bedscale Bedscale Active Medications: Current Medications Acetaminophen (Tylenol) 650 mg PO Q6H PRN PRN Reason: Fever > 101 OR MILD PAIN Stop: 11/11/17 20:45 Last Admin: 09/21/17 10:03 Dose: 650 mg Al Hydrox/Mg Hydrox/Simethicone (Maalox) 30 ml PO Q6H PRN PRN Reason: GI DISTRESS Stop: 11/08/17 15:49 Albuterol/Ipratropium (Duoneb Neb) 3 ml HHN Q4HRT [facility] Stop: 11/14/17 22:59 Last Admin: 09/21/17 10:39 Dose: 3 ml Amlodipine Besylate (Norvasc) 5 mg PO DAILY [facility] Stop: 11/09/17 08:59 Last Admin: 09/21/17 09:57 Dose: Not Given Atorvastatin Calcium (Lipitor) 20 mg GT HS [facility] PRN Reason: Protocol Stop: 11/08/17 20:59 Last Admin: 09/20/17 20:51 Dose: 20 mg Cholecalciferol (Vitamin D3) 1,000 iu GT DAILY [facility] Stop: 11/09/17 08:59 Last Admin: 09/21/17 09:56 Dose: 1,000 iu Donepezil HCl (Aricept) 10 mg GT HS [facility] Stop: 11/08/17 20:59 Last Admin: 09/20/17 20:51 Dose: 10 mg Enoxaparin Sodium (Lovenox) 70 mg SUBQ Q12HR [facility] Stop: 11/16/17 08:59 Last Admin: 09/21/17 09:58 Dose: 70 mg Metronidazole (Flagyl) 500 mg in 100 mls @ 100 mls/hr IV Q8HR [facility] Stop: 09/27/17 12:59 Last Admin: 09/21/17 12:21 Dose: 100 mls/hr Vancomycin HCl 1.5 gm/ (Dextrose) 500 mls @ 250 mls/hr IV Q24H [facility] Stop: 09/21/17 13:00 Last Admin: 09/21/17 10:08 Dose: 250 mls/hr Piperacillin Sod/Tazobactam (Sod 4.5 gm/ Sodium Chloride) 100 mls @ 100 mls/hr IV Q8HR [facility] Stop: 11/19/17 20:59 Last Admin: 09/21/17 12:00 Dose: 100 mls/hr Vancomycin HCl 1.5 gm/ Sodium (Chloride) 500 mls @ 250 mls/hr IV Q18H [facility] Stop: 11/21/17 02:59 Potassium Phosphate 30 mmole/ (Dextrose) 260 mls @ 42.5 mls/hr IV X1 ONE Stop: 09/21/17 15:37 Last Admin: 09/21/17 09:40 Dose: 42.5 mls/hr Dextrose (D5w) 1,000 mls @ 70 mls/hr IV .[id number] [facility] Stop: 11/20/17 08:57 Last Admin: 09/21/17 08:55 Dose: 70 mls/hr Insulin Aspart (Novolog Insulin Sliding Scale) 0 units SUBQ Q6HR [facility] PRN Reason: Protocol Stop: 11/18/17 00:00 Last Admin: 09/21/17 12:24 Dose: Not Given Lactobacillus Rhamnosus (Culturelle 15b) 1 each PO DAILY [facility] Stop: 11/12/17 08:59 Last Admin: 09/21/17 09:56 Dose: 1 each Magnesium Hydroxide (Milk Of Magnesia) 30 ml PO HS PRN PRN Reason: Constipation Stop: 11/08/17 15:49 Memantine (Namenda) 5 mg GT BID [facility] Stop: 11/08/17 16:59 Last Admin: 09/21/17 09:56 Dose: 5 mg Methylprednisolone Sodium Succinate (Solu-Medrol) 40 mg IVP Q12HR [facility] Stop: 11/19/17 20:59 Last Admin: 09/21/17 09:56 Dose: 40 mg Miscellaneous (Zosyn Iv Per Pharmacy) 1 ea PRN PRN PRN Reason: PROTOCOL Stop: 11/10/17 08:34 Miscellaneous (Probiotic Screen) 1 ea PRN PRN PRN Reason: PROTOCOL Stop: 11/12/17 08:59 Miscellaneous (Vancomycin Iv Per Pharmacy) 1 ea [facility] DAILY [facility] Stop: 11/15/17 16:59 Pantoprazole Sodium (Protonix) 40 mg IVP DAILY [facility] Stop: 11/19/17 08:59 Last Admin: 09/21/17 09:56 Dose: 40 mg Potassium Chloride (Potassium Chloride Elixir) 40 meq GT DAILY [facility] Stop: 11/18/17 10:14 Last Admin: 09/21/17 09:56 Dose: 40 meq General: no acute distress, well developed, well nourished HEENT: atraumatic, normocephalic, PERRLA Neck: supple, no thyromegaly Cardiovascular: S1S2, regular Lungs: clear to auscultation bilaterally, clear to percussion Abdomen: soft, other, no tender, no distended, no rebound Extremities: no cyanosis, no clubbing, no edema Neurological: awake, alert - Procedures Procedures: Procedures Procedure Code Date ASSISTANCE WITH RESPIRATORY VENTILATION, <24 HRS, CPAP [id number] 09/09/[address] GASTROSTOMY TUBE 18059 09/09/17 INSERTION OF FEEDING DEVICE INTO STOMACH, PERC APPROACH [id number] 09/09/17 POS AIRWAY PRESSURE CPAP 49128 09/09/17 Infectious Disease Assmt/Plan - Assessment Assessment: 1. Leukopcytosis, likely reactive. Sepsis. 2. Aspiration pneumonia 3. Dysphasia. G tube placement. 4. Dementia. 5. Respiratory failure. - Plan Plan: Continue antibiotics for at least 7 day if get discahrged. Nutritional Asmnt/Malnutr-PDOC - Dietary Evaluation Malnutrition Findings (Please click <Entered> for more info): Nutritional Asmnt/Malnutrition Start: 09/10/17 16: 17 Text: Status: Complete Freq: Document 09/10/17 16:19 YESENIA (Rec: 09/10/17 16:29 YESENIA [id number]) Nutritional Asmnt/Malnutrition Patient General Information Nutritional Screening High Risk Diagnosis g-tube placement (reason for visit) Pertinent Medical Hx/Surgical Hx DM, hyperlipidemia, dementia, schizophrenia, PEG/Gtube Subjective Information Pt seen lying in bed at time of visit, non-verbal. Pt has PEG placement today. Current Diet Order/ Nutrition Support fibersource HN start at 40ml/ hr, goal rate 60ml/hr continuous Pertinent Medications vit D3, vancomycin, theragran, nacl 0.9% Pertinent Labs 09/10 glucose 125, alb 4.1 09/09 glucose 129 Nutritional Hx/Data Height 1.68 m Height (Calculated Centimeters) 167.6 Current Weight (lbs) 63.957 kg Weight (Calculated Kilograms) 64.0 Weight (Calculated Grams) 15191.5 [place] Body Weight 142 Body Mass Index (BMI) 22.7 Weight Status Approriate GI Symptoms GI Symptoms None Last BM no record Difficult in: None Skin Integrity/Comment: reddened to coccyx, bruise to hand, rash to back Estimated Nutritional Goals BEE in Kcals: Using Current wt Calories/Kcals/Kg 25-30 Kcals Calculated 1517-1203 Protein: Using Current wt Protein g/k-1.2 Protein Calculated 64-77 Fluid: ml 1600-1920ml (1ml/kcal) Nutritional Problem No current Nutrition Prob Problem N/A Malnutrition Alert Protein-Calorie Malnutrition N/A Is there a minimum of two criteria No selected? Query Text:Check all the applicable criteria. A minimum of two criteria are recommended for diagnosis of either severe or non-severe malnutrition. Intervention/Recommendation Comments 1. Initiate TF as ordered. It provides 1728kcal, 77g protein , 1178ml free water, meeting 100% of nutritional needs. 2. Monitor TF rate, tolerance, wt weekly, skin integrity and labs 3. F/U as high risk in 2-3 days, 09/12-09/13 Expected Outcomes/Goals Expected Outcomes/Goals 1. Pt to meet at least 75% of nutritional needs via nutrition support with tolerance 2. Wt stability, skin to remain intact, labs to approach WNL.
--- NOTE | 2017-09-21 15:06 | Diagnostic Imaging Report ---
CT scan abdomen and pelvis without intravenous contrast HISTORY: Pain, free intraperitoneal air Total DLP equals 781 CTDI equals 15.9 Axial sections were obtained from the xiphoid process down to the pubic symphysis. The exam is compared with a prior study of September 16, 2017. Limited sections through the lower chest demonstrate abnormal pulmonary parenchymal density consistent with consolidation and/or atelectasis within the right and left lower lobes of the lungs. Compared with the prior exam, previously noted small amount of free intraperitoneal air is no longer appreciated. No definite focal hepatic lesions are seen. The spleen appears normal. Vascular calcification noted in the renal hilar areas. No hydronephrosis. Gastrostomy tube is seen. The pelvis demonstrates preservation of normal fat planes. No abnormal soft tissue masses or abnormal fluid collections. There remains mild generalized dilatation of the abdominal aorta with somewhat more focal aneurysmal dilatation at the level below the renal vasculature. Maximum diameter equals approximately 3.1 cm. This extends into the iliac artery regions. Severe degenerative changes seen within the spine. IMPRESSION: 1. Resolution in previously reported free intraperitoneal air 2. No abnormal fluid collections 3. No other significant changes from the prior study 09/16/2017.
[2017-09-21] MEDS: Atorvastatin Calcium 10 MG TAB GT SCH (20:10)
--- NOTE | 2017-09-21 20:56 | Progress Notes ---
DATE: LOCATION: [facility] ICU bed 9. SUBJECTIVE: The patient is lethargic with good urine output through Sotomayor catheter. Urine is clear and normal color. Tolerating tube feeding well. He is receiving water, NG tube feeding. OBJECTIVE:. VITAL SIGNS: Temperature 98.9, pulse 73, and blood pressure 111/54. Yesterday's intake 3030, output 1800 with positive balance of 1230. HEART: Regular. LUNGS: Good air entry. ABDOMEN: Soft, not distended. EXTREMITIES: No edema. SKIN: Dry. LABORATORY DATA: WBC 19.5, hemoglobin 10.5, and platelet normal. Sodium 152, potassium 3.6, chloride 120, CO2 24.9, phosphorus 2.3, and calcium 8.1. ASSESSMENT: 1. Acute kidney injury. 2. Hypernatremia. 3. Water deficit. 4. Prerenal failure. 5. Malnutrition. PLAN: 1. Continue water 250 mL q.6h. G-tube. 2. Increase IV to D5W at 70 mL per hour. 3. Give 30 mEq of K phosphate in D5W IV fluid. 4. Check CMP, phosphorus, magnesium, TSH in the morning. 5. Discussed with ICU nursing staff at length. JOB# [id number]
[2017-09-22] MEDS: Albuterol/Ipratropium Neb 3 ML AERS HHN SCH ×6 (02:11→22:30)
[2017-09-22] MEDS ORDERED: Vancomycin HCl 1.5 GM in Sodium Chloride 0.9% 500 ML IV SCH (03:00)
[2017-09-22 04:47] LABS: HEMATOCRIT 33.5 % (41.0-60); HEMOGLOBIN 11.3 gm/dL (12-16); MEAN CORPUSCULAR HEMOGLOBIN 29.3 pg (27.0-31.0); MEAN CORPUSCULAR HGB CONC 33.7 pg (28.0-36.0); MEAN PLATELET VOLUME 11.8 fl; PLATELET COUNT 294 Th/cmm (150-400); RED BLOOD COUNT 3.85 Mil/cmm (3.80-5.80); RED CELL DISTRIBUTION WIDTH 14.7 % (11.5-20.0)
[2017-09-22 05:08] LABS: MANUAL DIFF REQUIRED? YES; WHITE BLOOD COUNT 19.8 Th/cmm (4.8-10.8)
[2017-09-22 05:27] LABS: ALBUMIN 2.5 gm/dL (4.2-5.5); ALKALINE PHOSPHATASE 42 U/L (34-104); ANION GAP 12.4 (7.0-16.0); BILIRUBIN,TOTAL 0.3 mg/dL (0.3-1.0); BUN - UREA NITROGEN 31 mg/dL (7-25); CALCIUM SERUM 8.2 mg/dL (8.6-10.3); CARBON DIOXIDE 24.4 mEq/L (21.0-31.0); CHLORIDE 115 mEq/L (98-107); GFR AFRICAN-AMERICAN > 60.0 ml/min (>90); GFR NON AFRICAN-AMERICAN > 60.0 ml/min; GLUCOSE 150 mg/dL (70-105); LIPASE 34 U/L (11-82); MAGNESIUM 2.4 mg/dL (1.9-2.7); PHOSPHOROUS 3.3 mg/dL (2.5-5.0); POTASSIUM SERUM 3.8 mEq/L (3.5-5.1); SGOT 26 U/L (13-39); SGPT/ALT 21 U/L (7-52); SODIUM SERUM 148 mEq/L (136-145); TOTAL PROTEIN,SERUM 4.9 gm/dL (6.0-8.3)
[2017-09-22] MEDS: metroNIDAZOLE 500mg/NS 100mL 500 MG/100 ML BAG IV SCH (06:14)
[2017-09-22 06:23] LABS: BAND NEUTROPHILE 6 % (0-10); LYMPHOCYTE 13 % (20-50); NEUTROPHILS 80 % (40-80); TOTAL CELLS COUNTED 100
[2017-09-22 06:24] LABS: MONOCYTE 1 % (2-10)
[2017-09-22] MEDS: INSULIN ASPART SLIDING SCALE 100 UNITS/ML UNIT SUBQ SCH ×3 (06:31→18:24)
[2017-09-22] MEDS: Potassium Chloride Elixir 20 mEq /15 mL UDC GT SCH (08:09)
[2017-09-22] MEDS: methylPREDNISolone SS 40 mg Vial IVP SCH (08:10)
[2017-09-22] MEDS: Enoxaparin 80 mg/0.8 mL 0.8mL Syr SUBQ SCH ×2 (08:10→21:01)
[2017-09-22] MEDS: Lactobacillus Rhamnosus GG 15 Billion CFU CAP.SPRINK PO SCH (08:10)
--- NOTE | 2017-09-22 10:04 | Infectious Disease Prog Note ---
Infectious Disease Subjective - Review of Systems Service Date: 09/22/17 Subjective: No change, no fever. Infectious Disease Objective - Results Result Diagrams: 09/22/17 04:30 09/22/17 04:30 Recent Labs: Laboratory Last Values WBC 19.8 Th/cmm (4.8-10.8) H 09/22/17 04:30 RBC 3.85 Mil/cmm (3.80-5.80) 09/22/17 04:30 Hgb 11.3 gm/dL (12-16) L 09/22/17 04:30 Hct 33.5 % (41.0-60) L 09/22/17 04:30 MCV 87.0 fl (80-99) 09/22/17 04:30 MCH 29.3 pg (27.0-31.0) 09/22/17 04:30 MCHC Differential 33.7 pg (28.0-36.0) 09/22/17 04:30 RDW 14.7 % (11.5-20.0) 09/22/17 04:30 Plt Count 294 Th/cmm (150-400) 09/22/17 04:30 MPV 11.8 fl 09/22/17 04:30 Neutrophils % 89.7 % (40.0-80.0) H 09/18/17 05:40 Band Neutrophils % 6 % (0-10) 09/22/17 04:30 Lymphocytes % 6.7 % (20.0-50.0) L 09/18/17 05:40 Monocytes % 2.5 % (2.0-10.0) 09/18/17 05:40 Eosinophils % 0.9 % (0.0-5.0) 09/18/17 05:40 Basophils % 0.2 % (0.0-2.0) 09/18/17 05:40 Neutrophils (Manual) 80 % (40-80) 09/22/17 04:30 Lymphocytes 13 % (20-50) L 09/22/17 04:30 Monocytes 1 % (2-10) L 09/22/17 04:30 Eosinophils 0 % (0-5) 09/21/17 04:20 Basophils 0 % (0-3) 09/21/17 04:20 Platelet Estimate ADEQUATE (NORMAL) 09/21/17 04:20 Platelet Morphology NORMAL (NORMAL) 09/21/17 04:20 RBC Morph Micro Appear NORMAL (NORMAL) 09/21/17 04:20 PT 10.3 SECONDS (9.5-11.5) 09/09/17 12:30 INR 0.99 (0.5-1.4) 09/09/17 12:30 PTT (Actin FS) 26.3 SECONDS (26.0-38.0) 09/09/17 12:30 Specimen Source Arterial 09/21/17 09:10 Sample Site Right Radial 09/21/17 09:10 pH 7.49 (7.35-7.45) H 09/21/17 09:10 pCO2 34.0 mmHg (35.0-45.0) L 09/21/17 09:10 pO2 56.0 mmHg (80.0-100.0) L 09/21/17 09:10 HCO3 27.0 mEq/L (20.0-26.0) H 09/21/17 09:10 Base Excess 2.8 mEq/L (-3.0-3.0) 09/21/17 09:10 O2 Saturation 91.0 % (92.0-100.0) L 09/21/17 09:10 Matthew Test Y 09/21/17 09:10 Vent Rate n/a 09/21/17 09:10 Inspired O2 36 09/21/17 09:10 Tidal Volume n/a 09/21/17 09:10 PEEP n/a 09/21/17 09:10 Pressure (ins/psv/peep) n/a 09/21/17 09:10 Critical Value Courtney Beasley 09/21/17 09:10 Sodium 148 mEq/L (136-145) H 09/22/17 04:30 Potassium 3.8 mEq/L (3.5-5.1) 09/22/17 04:30 Chloride 115 mEq/L (98-107) H 09/22/17 04:30 Carbon Dioxide 24.4 mEq/L (21.0-31.0) 09/22/17 04:30 Anion Gap 12.4 (7.0-16.0) 09/22/17 04:30 BUN 31 mg/dL (7-25) H 09/22/17 04:30 Creatinine 1.0 mg/dL (0.7-1.3) 09/22/17 04:30 Est GFR ( Amer) > 60.0 ml/min (>90) 09/22/17 04:30 Est GFR (Non-Af Amer) > 60.0 ml/min 09/22/17 04:30 BUN/Creatinine Ratio 31.0 09/22/17 04:30 Glucose 150 mg/dL (70-105) H 09/22/17 04:30 POC Glucose 141 MG/DL (70 - 105) H 09/22/17 05:53 Hemoglobin A1c % 6.1 % (4.0-6.0) H 09/19/17 04:20 Whole Bld Lactic Acid 1.35 mmol/L (0.60-1.99) 09/15/17 10:45 Calcium 8.2 mg/dL (8.6-10.3) L 09/22/17 04:30 Phosphorus 3.3 mg/dL (2.5-5.0) 09/22/17 04:30 Magnesium 2.4 mg/dL (1.9-2.7) 09/22/17 04:30 Total Bilirubin 0.3 mg/dL (0.3-1.0) 09/22/17 04:30 AST 26 U/L (13-39) 09/22/17 04:30 ALT 21 U/L (7-52) 09/22/17 04:30 Alkaline Phosphatase 42 U/L (34-104) 09/22/17 04:30 C-Reactive Protein 17.2 mg/dL (0.0-0.9) H 09/19/17 04:20 B-Natriuretic Peptide 47.8 pg/mL (5.0-100.0) 09/15/17 04:45 Total Protein 4.9 gm/dL (6.0-8.3) L 09/22/17 04:30 Albumin 2.5 gm/dL (4.2-5.5) L 09/22/17 04:30 Globulin 2.4 gm/dL 09/22/17 04:30 Albumin/Globulin Ratio 1.0 (1.0-1.8) 09/22/17 04:30 Prealbumin 18 09/21/17 04:20 Triglycerides 73 mg/dL (<150) 09/19/17 04:20 Cholesterol 61 mg/dL (<200) 09/21/17 04:20 Lipase 34 U/L (11-82) 09/22/17 04:30 Total Cortisol 28.9 09/12/17 01:00 Urine Source [place] 09/15/17 10:30 Urine Color GREEN 09/15/17 10:30 Urine Clarity CLOUDY (CLEAR) 09/15/17 10:30 Urine pH 6.5 (4.6 - 8.0) 09/15/17 10:30 Ur Specific [place] 1.015 (1.005-1.030) 09/15/17 10:30 Urine Protein 30 mg/dL (NEGATIVE) H 09/15/17 10:30 Urine Glucose (UA) NEGATIVE mg/dL (NEGATIVE) 09/15/17 10:30 Urine Ketones NEGATIVE mg/dL (NEGATIVE) 09/15/17 10:30 Urine Blood LARGE (NEGATIVE) H 09/15/17 10:30 Urine Nitrate POSITIVE (NEGATIVE) H 09/15/17 10:30 Urine Bilirubin MODERATE (NEGATIVE) H 09/15/17 10:30 Urine Urobilinogen 0.2 E.U./dL (0.2 - 1.0) 09/15/17 10:30 Ur Leukocyte Esterase TRACE (NEGATIVE) H 09/15/17 10:30 Urine RBC 50-100 /hpf (0-5) H 09/15/17 10:30 Urine WBC 25-50 /hpf (0-5) H 09/15/17 10:30 Ur Epithelial Cells MANY /lpf (FEW) 09/15/17 10:30 Urine Bacteria 4+ /hpf (NONE SEEN) H 09/15/17 10:30 Urine Osmolality 784 mOsmol/kg 09/19/17 15:42 Ur Random Sodium 23 mmol/L 09/19/17 15:42 Vancomycin Trough 12.7 ug/mL (5-10) H 09/20/17 08:00 - Physical Exam Vitals and I&O: Vital Signs Temp 98.6 F 09/22/17 08:00 Pulse 67 09/22/17 09:00 Resp 27 09/22/17 09:00 BP 109/59 09/22/17 09:00 Pulse Ox 95 09/22/17 09:00 Intake & Output 09/21/17 09/22/17 09/22/17 18:59 06:59 18:59 Intake Total 800 2830 Output Total 1800 Balance 800 1030 Weight (lbs) 72.167 kg Intake: Intake, IV Amount 800 1800 Dextrose 5% 1,000 ml @ 70 1000 mls/hr IV .[id number] [facility] Rx#:[id number] Piperacillin Sodium/ 200 200 Tazobact 4.5 gm In Sodium Chloride 0.9% 100 ml @ 100 mls/hr IV Q8HR [facility] Rx #:[id number] Vancomycin HCl 1.5 gm In 500 Dextrose 5% 500 ml @ 250 mls/hr IV Q24H [facility] Rx#: [id number] Vancomycin HCl 1.5 gm In 500 Sodium Chloride 0.9% 500 ml @ 250 mls/hr IV Q18H [facility] Rx#:[id number] metroNIDAZOLE 500mg/NS 100 100 100mL 500 mg In 100 ml @ 100 mls/hr IV Q8HR [facility] Rx #:[id number] Tube Feeding 780 Other 250 Output: Urine 1800 Other: # Bowel Movements 1 Stool Characteristics Soft Soft Soft Liquid Brown Brown Brown Weight Source Bedscale Active Medications: Current Medications Acetaminophen (Tylenol) 650 mg PO Q6H PRN PRN Reason: Fever > 101 OR MILD PAIN Stop: 11/11/17 20:45 Last Admin: 09/21/17 15:01 Dose: 650 mg Al Hydrox/Mg Hydrox/Simethicone (Maalox) 30 ml PO Q6H PRN PRN Reason: GI DISTRESS Stop: 11/08/17 15:49 Albuterol/Ipratropium (Duoneb Neb) 3 ml HHN Q4HRT [facility] Stop: 11/14/17 22:59 Last Admin: 09/22/17 07:42 Dose: 3 ml Amlodipine Besylate (Norvasc) 5 mg PO DAILY [facility] Stop: 11/09/17 08:59 Last Admin: 09/22/17 08:11 Dose: Not Given Atorvastatin Calcium (Lipitor) 20 mg GT HS [facility] PRN Reason: Protocol Stop: 11/08/17 20:59 Last Admin: 09/21/17 20:10 Dose: 20 mg Cholecalciferol (Vitamin D3) 1,000 iu GT DAILY [facility] Stop: 11/09/17 08:59 Last Admin: 09/22/17 08:10 Dose: 1,000 iu Donepezil HCl (Aricept) 10 mg GT HS [facility] Stop: 11/08/17 20:59 Last Admin: 09/21/17 20:10 Dose: 10 mg Enoxaparin Sodium (Lovenox) 70 mg SUBQ Q12HR [facility] Stop: 11/16/17 08:59 Last Admin: 09/22/17 08:10 Dose: 70 mg Dextrose (D5w) 1,000 mls @ 70 mls/hr IV .[id number] [facility] Stop: 11/20/17 08:57 Last Admin: 09/21/17 23:29 Dose: 70 mls/hr Insulin Aspart (Novolog Insulin Sliding Scale) 0 units SUBQ Q6HR [facility] PRN Reason: Protocol Stop: 11/18/17 00:00 Last Admin: 09/22/17 06:31 Dose: Not Given Lactobacillus Rhamnosus (Culturelle 15b) 1 each PO DAILY [facility] Stop: 11/12/17 08:59 Last Admin: 09/22/17 08:10 Dose: 1 each Magnesium Hydroxide (Milk Of Magnesia) 30 ml PO HS PRN PRN Reason: Constipation Stop: 11/08/17 15:49 Memantine (Namenda) 5 mg GT BID [facility] Stop: 11/08/17 16:59 Last Admin: 09/22/17 08:10 Dose: 5 mg Methylprednisolone Sodium Succinate (Solu-Medrol) 20 mg IVP DAILY [facility] Stop: 11/22/17 08:59 Miscellaneous (Probiotic Screen) 1 ea MC PRN PRN PRN Reason: PROTOCOL Stop: 11/12/17 08:59 Pantoprazole Sodium (Protonix) 40 mg IVP DAILY [facility] Stop: 11/19/17 08:59 Last Admin: 09/22/17 08:10 Dose: 40 mg Potassium Chloride (Potassium Chloride Elixir) 40 meq GT DAILY [facility] Stop: 11/18/17 10:14 Last Admin: 09/22/17 08:09 Dose: 40 meq General: no acute distress, well developed, well nourished, cachectic HEENT: atraumatic, normocephalic, PERRLA Neck: supple, no thyromegaly Cardiovascular: S1S2, regular Lungs: clear to auscultation bilaterally, clear to percussion Abdomen: soft, no tender, no distended Extremities: no cyanosis, no clubbing Neurological: awake, alert, oriented - Procedures Procedures: Procedures Procedure Code Date ASSISTANCE WITH RESPIRATORY VENTILATION, <24 HRS, CPAP [id number] 09/09/[address] GASTROSTOMY TUBE 13317 09/09/17 INSERTION OF FEEDING DEVICE INTO STOMACH, PERC APPROACH [id number] 09/09/17 POS AIRWAY PRESSURE CPAP 28311 09/09/17 Infectious Disease Assmt/Plan - Assessment Assessment: 1. Leukopcytosis, likely reactive. Sepsis. 2. Aspiration pneumonia 3. Dysphasia. G tube placement. 4. Dementia. 5. Respiratory failure. - Plan Plan: Continue antibiotics for at least 6 day if get discahrged. Nutritional Asmnt/Malnutr-PDOC - Dietary Evaluation Malnutrition Findings (Please click <Entered> for more info): Nutritional Asmnt/Malnutrition Start: 09/10/17 16: 17 Text: Status: Complete Freq: Document 09/10/17 16:19 [facility] (Rec: 09/10/17 16:29 [facility] [id number]) Nutritional Asmnt/Malnutrition Patient General Information Nutritional Screening High Risk Diagnosis g-tube placement (reason for visit) Pertinent Medical Hx/Surgical Hx DM, hyperlipidemia, dementia, schizophrenia, PEG/Gtube Subjective Information Pt seen lying in bed at time of visit, non-verbal. Pt has PEG placement today. Current Diet Order/ Nutrition Support fibersource HN start at 40ml/ hr, goal rate 60ml/hr continuous Pertinent Medications vit D3, vancomycin, theragran, nacl 0.9% Pertinent Labs 09/10 glucose 125, alb 4.1 09/09 glucose 129 Nutritional Hx/Data Height 1.68 m Height (Calculated Centimeters) 167.6 Current Weight (lbs) 63.957 kg Weight (Calculated Kilograms) 64.0 Weight (Calculated Grams) 47711.5 [place] Body Weight 142 Body Mass Index (BMI) 22.7 Weight Status Approriate GI Symptoms GI Symptoms None Last BM no record Difficult in: None Skin Integrity/Comment: reddened to coccyx, bruise to hand, rash to back Estimated Nutritional Goals BEE in Kcals: Using Current wt Calories/Kcals/Kg 25-30 Kcals Calculated 6734-4408 Protein: Using Current wt Protein g/k-1.2 Protein Calculated 64-77 Fluid: ml 1600-1920ml (1ml/kcal) Nutritional Problem No current Nutrition Prob Problem N/A Malnutrition Alert Protein-Calorie Malnutrition N/A Is there a minimum of two criteria No selected? Query Text:Check all the applicable criteria. A minimum of two criteria are recommended for diagnosis of either severe or non-severe malnutrition. Intervention/Recommendation Comments 1. Initiate TF as ordered. It provides 1728kcal, 77g protein , 1178ml free water, meeting 100% of nutritional needs. 2. Monitor TF rate, tolerance, wt weekly, skin integrity and labs 3. F/U as high risk in 2-3 days, 09/12-09/13 Expected Outcomes/Goals Expected Outcomes/Goals 1. Pt to meet at least 75% of nutritional needs via nutrition support with tolerance 2. Wt stability, skin to remain intact, labs to approach WNL.
--- NOTE | 2017-09-22 16:53 | GI Progress Note ---
Subjective - Review of Systems Service Date: 09/22/17 Subjective: EVENTS NOTED. Objective - Results Result Diagrams: 09/22/17 04:30 09/22/17 04:30 Recent Labs: Laboratory Last Values WBC 19.8 Th/cmm (4.8-10.8) H 09/22/17 04:30 RBC 3.85 Mil/cmm (3.80-5.80) 09/22/17 04:30 Hgb 11.3 gm/dL (12-16) L 09/22/17 04:30 Hct 33.5 % (41.0-60) L 09/22/17 04:30 MCV 87.0 fl (80-99) 09/22/17 04:30 MCH 29.3 pg (27.0-31.0) 09/22/17 04:30 MCHC Differential 33.7 pg (28.0-36.0) 09/22/17 04:30 RDW 14.7 % (11.5-20.0) 09/22/17 04:30 Plt Count 294 Th/cmm (150-400) 09/22/17 04:30 MPV 11.8 fl 09/22/17 04:30 Neutrophils % 89.7 % (40.0-80.0) H 09/18/17 05:40 Band Neutrophils % 6 % (0-10) 09/22/17 04:30 Lymphocytes % 6.7 % (20.0-50.0) L 09/18/17 05:40 Monocytes % 2.5 % (2.0-10.0) 09/18/17 05:40 Eosinophils % 0.9 % (0.0-5.0) 09/18/17 05:40 Basophils % 0.2 % (0.0-2.0) 09/18/17 05:40 Neutrophils (Manual) 80 % (40-80) 09/22/17 04:30 Lymphocytes 13 % (20-50) L 09/22/17 04:30 Monocytes 1 % (2-10) L 09/22/17 04:30 Eosinophils 0 % (0-5) 09/21/17 04:20 Basophils 0 % (0-3) 09/21/17 04:20 Platelet Estimate ADEQUATE (NORMAL) 09/21/17 04:20 Platelet Morphology NORMAL (NORMAL) 09/21/17 04:20 RBC Morph Micro Appear NORMAL (NORMAL) 09/21/17 04:20 PT 10.3 SECONDS (9.5-11.5) 09/09/17 12:30 INR 0.99 (0.5-1.4) 09/09/17 12:30 PTT (Actin FS) 26.3 SECONDS (26.0-38.0) 09/09/17 12:30 Specimen Source Arterial 09/21/17 09:10 Sample Site Right Radial 09/21/17 09:10 pH 7.49 (7.35-7.45) H 09/21/17 09:10 pCO2 34.0 mmHg (35.0-45.0) L 09/21/17 09:10 pO2 56.0 mmHg (80.0-100.0) L 09/21/17 09:10 HCO3 27.0 mEq/L (20.0-26.0) H 09/21/17 09:10 Base Excess 2.8 mEq/L (-3.0-3.0) 09/21/17 09:10 O2 Saturation 91.0 % (92.0-100.0) L 09/21/17 09:10 Matthew Test Y 09/21/17 09:10 Vent Rate n/a 09/21/17 09:10 Inspired O2 36 09/21/17 09:10 Tidal Volume n/a 09/21/17 09:10 PEEP n/a 09/21/17 09:10 Pressure (ins/psv/peep) n/a 09/21/17 09:10 Critical Value Courtney Beasley 09/21/17 09:10 Sodium 148 mEq/L (136-145) H 09/22/17 04:30 Potassium 3.8 mEq/L (3.5-5.1) 09/22/17 04:30 Chloride 115 mEq/L (98-107) H 09/22/17 04:30 Carbon Dioxide 24.4 mEq/L (21.0-31.0) 09/22/17 04:30 Anion Gap 12.4 (7.0-16.0) 09/22/17 04:30 BUN 31 mg/dL (7-25) H 09/22/17 04:30 Creatinine 1.0 mg/dL (0.7-1.3) 09/22/17 04:30 Est GFR ( Amer) > 60.0 ml/min (>90) 09/22/17 04:30 Est GFR (Non-Af Amer) > 60.0 ml/min 09/22/17 04:30 BUN/Creatinine Ratio 31.0 09/22/17 04:30 Glucose 150 mg/dL (70-105) H 09/22/17 04:30 POC Glucose 132 MG/DL (70 - 105) H 09/22/17 12:06 Hemoglobin A1c % 6.1 % (4.0-6.0) H 09/19/17 04:20 Whole Bld Lactic Acid 1.35 mmol/L (0.60-1.99) 09/15/17 10:45 Calcium 8.2 mg/dL (8.6-10.3) L 09/22/17 04:30 Phosphorus 3.3 mg/dL (2.5-5.0) 09/22/17 04:30 Magnesium 2.4 mg/dL (1.9-2.7) 09/22/17 04:30 Total Bilirubin 0.3 mg/dL (0.3-1.0) 09/22/17 04:30 AST 26 U/L (13-39) 09/22/17 04:30 ALT 21 U/L (7-52) 09/22/17 04:30 Alkaline Phosphatase 42 U/L (34-104) 09/22/17 04:30 C-Reactive Protein 17.2 mg/dL (0.0-0.9) H 09/19/17 04:20 B-Natriuretic Peptide 47.8 pg/mL (5.0-100.0) 09/15/17 04:45 Total Protein 4.9 gm/dL (6.0-8.3) L 09/22/17 04:30 Albumin 2.5 gm/dL (4.2-5.5) L 09/22/17 04:30 Globulin 2.4 gm/dL 09/22/17 04:30 Albumin/Globulin Ratio 1.0 (1.0-1.8) 09/22/17 04:30 Prealbumin 18 09/21/17 04:20 Triglycerides 73 mg/dL (<150) 09/19/17 04:20 Cholesterol 61 mg/dL (<200) 09/21/17 04:20 Lipase 34 U/L (11-82) 09/22/17 04:30 Total Cortisol 28.9 09/12/17 01:00 Urine Source [place] 09/15/17 10:30 Urine Color GREEN 09/15/17 10:30 Urine Clarity CLOUDY (CLEAR) 09/15/17 10:30 Urine pH 6.5 (4.6 - 8.0) 09/15/17 10:30 Ur Specific [place] 1.015 (1.005-1.030) 09/15/17 10:30 Urine Protein 30 mg/dL (NEGATIVE) H 09/15/17 10:30 Urine Glucose (UA) NEGATIVE mg/dL (NEGATIVE) 09/15/17 10:30 Urine Ketones NEGATIVE mg/dL (NEGATIVE) 09/15/17 10:30 Urine Blood LARGE (NEGATIVE) H 09/15/17 10:30 Urine Nitrate POSITIVE (NEGATIVE) H 09/15/17 10:30 Urine Bilirubin MODERATE (NEGATIVE) H 09/15/17 10:30 Urine Urobilinogen 0.2 E.U./dL (0.2 - 1.0) 09/15/17 10:30 Ur Leukocyte Esterase TRACE (NEGATIVE) H 09/15/17 10:30 Urine RBC 50-100 /hpf (0-5) H 09/15/17 10:30 Urine WBC 25-50 /hpf (0-5) H 09/15/17 10:30 Ur Epithelial Cells MANY /lpf (FEW) 09/15/17 10:30 Urine Bacteria 4+ /hpf (NONE SEEN) H 09/15/17 10:30 Urine Osmolality 784 mOsmol/kg 09/19/17 15:42 Ur Random Sodium 23 mmol/L 09/19/17 15:42 Vancomycin Trough 12.7 ug/mL (5-10) H 09/20/17 08:00 - Physical Exam Vitals and I&O: Vital Signs Temp 98.2 F 09/22/17 12:23 Pulse 68 09/22/17 14:26 Resp 20 09/22/17 15:45 BP 121/59 09/22/17 12:23 Pulse Ox 97 09/22/17 14:26 Intake & Output 09/21/17 09/22/17 09/22/17 18:59 06:59 18:59 Intake Total 800 2830 Output Total 1800 Balance 800 1030 Weight (lbs) 72.167 kg Intake: Intake, IV Amount 800 1800 Dextrose 5% 1,000 ml @ 70 1000 mls/hr IV .[id number] [facility] Rx#:[id number] Piperacillin Sodium/ 200 200 Tazobact 4.5 gm In Sodium Chloride 0.9% 100 ml @ 100 mls/hr IV Q8HR [facility] Rx #:[id number] Vancomycin HCl 1.5 gm In 500 Dextrose 5% 500 ml @ 250 mls/hr IV Q24H [facility] Rx#: [id number] Vancomycin HCl 1.5 gm In 500 Sodium Chloride 0.9% 500 ml @ 250 mls/hr IV Q18H [facility] Rx#:[id number] metroNIDAZOLE 500mg/NS 100 100 100mL 500 mg In 100 ml @ 100 mls/hr IV Q8HR [facility] Rx #:[id number] Tube Feeding 780 Other 250 Output: Urine 1800 Other: # Bowel Movements 1 Stool Characteristics Soft Soft Soft Liquid Brown Brown Brown Weight Source Bedscale Active Medications: Current Medications Acetaminophen (Tylenol) 650 mg PO Q6H PRN PRN Reason: Fever > 101 OR MILD PAIN Stop: 11/11/17 20:45 Last Admin: 09/21/17 15:01 Dose: 650 mg Al Hydrox/Mg Hydrox/Simethicone (Maalox) 30 ml PO Q6H PRN PRN Reason: GI DISTRESS Stop: 11/08/17 15:49 Albuterol/Ipratropium (Duoneb Neb) 3 ml HHN Q4HRT [facility] Stop: 11/14/17 22:59 Last Admin: 09/22/17 14:26 Dose: 3 ml Amlodipine Besylate (Norvasc) 5 mg PO DAILY [facility] Stop: 11/09/17 08:59 Last Admin: 09/22/17 08:11 Dose: Not Given Atorvastatin Calcium (Lipitor) 20 mg GT HS [facility] PRN Reason: Protocol Stop: 11/08/17 20:59 Last Admin: 09/21/17 20:10 Dose: 20 mg Cholecalciferol (Vitamin D3) 1,000 iu GT DAILY [facility] Stop: 11/09/17 08:59 Last Admin: 09/22/17 08:10 Dose: 1,000 iu Donepezil HCl (Aricept) 10 mg GT HS [facility] Stop: 06/10/18 20:59 Last Admin: 09/21/17 20:10 Dose: 10 mg Enoxaparin Sodium (Lovenox) 70 mg SUBQ Q12HR [facility] Stop: 11/16/17 08:59 Last Admin: 09/22/17 08:10 Dose: 70 mg Dextrose (D5w) 1,000 mls @ 70 mls/hr IV .[id number] [facility] Stop: 11/20/17 08:57 Last Admin: 09/21/17 23:29 Dose: 70 mls/hr Insulin Aspart (Novolog Insulin Sliding Scale) 0 units SUBQ Q6HR [facility] PRN Reason: Protocol Stop: 11/18/17 00:00 Last Admin: 09/22/17 12:10 Dose: Not Given Lactobacillus Rhamnosus (Culturelle 15b) 1 each PO DAILY [facility] Stop: 11/12/17 08:59 Last Admin: 09/22/17 08:10 Dose: 1 each Magnesium Hydroxide (Milk Of Magnesia) 30 ml PO HS PRN PRN Reason: Constipation Stop: 11/08/17 15:49 Memantine (Namenda) 5 mg GT BID [facility] Stop: 11/08/17 16:59 Last Admin: 09/22/17 08:10 Dose: 5 mg Methylprednisolone Sodium Succinate (Solu-Medrol) 20 mg IVP DAILY [facility] Stop: 11/22/17 08:59 Miscellaneous (Probiotic Screen) 1 ea [facility] PRN PRN PRN Reason: PROTOCOL Stop: 11/12/17 08:59 Pantoprazole Sodium (Protonix) 40 mg IVP DAILY [facility] Stop: 11/19/17 08:59 Last Admin: 09/22/17 08:10 Dose: 40 mg Potassium Chloride (Potassium Chloride Elixir) 40 meq GT DAILY [facility] Stop: 11/18/17 10:14 Last Admin: 09/22/17 08:09 Dose: 40 meq General: No acute distress HEENT: Atraumatic Neck: Supple Cardiovascular: Regular rate, Normal S1, Normal S2 Lungs: Other (few rhonchi) Abdomen: Bowel sounds, Soft, Distended (MILD), Other (Peg in place. ), no Tender , no Hepatomegaly, no Rebound, no Mass, no Guarding Extremities: no Edema Neurological: Sensation intact Skin: no Rash Psych/Mental Status: Other (schizoaffective) - Procedures Procedures: Procedures Procedure Code Date ASSISTANCE WITH RESPIRATORY VENTILATION, <24 HRS, CPAP [id number] 09/09/[address] GASTROSTOMY TUBE 21318 09/09/17 INSERTION OF FEEDING DEVICE INTO STOMACH, PERC APPROACH [id number] 09/09/17 POS AIRWAY PRESSURE CPAP 11125 09/09/17 Assessment/Plan - Assessment Assessment: IMPRESSION: 1. DYSPHAGIA WITH GT DISPLACEMENT - S/P REINSERTION X 2. 2. LEUKOCYTOSIS WITH SEPSIS, POSSIBLY DUE TO PERITONITIS FROM RECENT GT CHANGE. - NONCONTRAST CT SHOWED FREE INTRAPERITONEAL AIR. SUBSEQUENT CONTRAST ENHANCED CT SHOWED CONTRAST VIA GT NOT NOTED TO LEAK OR EXTRAVASATE VIA GT SITE. REPEAT CT 09/21 SHOWED NO INTRAPERITONEAL FREE AIR. 3. ENCEPHALOPATHY. RECS: 1. G TUBE FEEDS WINIFRED. Monitor for any peritoneal signs or leukocytosis worsening. 2. ABX PER ID. 3. GT CARE. 4. PROTONIX. 5. PROBIOTICS.
[2017-09-22] MEDS: Dextrose 5% 1,000 ML IV SCH (18:22)
--- NOTE | 2017-09-22 19:43 | General Progress Note ---
Subjective - Review of Systems Service Date: 09/22/17 Subjective: awake, comfortable Objective - Results Result Diagrams: 09/22/17 04:30 09/22/17 04:30 Recent Labs: Laboratory Last Values WBC 19.8 Th/cmm (4.8-10.8) H 09/22/17 04:30 RBC 3.85 Mil/cmm (3.80-5.80) 09/22/17 04:30 Hgb 11.3 gm/dL (12-16) L 09/22/17 04:30 Hct 33.5 % (41.0-60) L 09/22/17 04:30 MCV 87.0 fl (80-99) 09/22/17 04:30 MCH 29.3 pg (27.0-31.0) 09/22/17 04:30 MCHC Differential 33.7 pg (28.0-36.0) 09/22/17 04:30 RDW 14.7 % (11.5-20.0) 09/22/17 04:30 Plt Count 294 Th/cmm (150-400) 09/22/17 04:30 MPV 11.8 fl 09/22/17 04:30 Neutrophils % 89.7 % (40.0-80.0) H 09/18/17 05:40 Band Neutrophils % 6 % (0-10) 09/22/17 04:30 Lymphocytes % 6.7 % (20.0-50.0) L 09/18/17 05:40 Monocytes % 2.5 % (2.0-10.0) 09/18/17 05:40 Eosinophils % 0.9 % (0.0-5.0) 09/18/17 05:40 Basophils % 0.2 % (0.0-2.0) 09/18/17 05:40 Neutrophils (Manual) 80 % (40-80) 09/22/17 04:30 Lymphocytes 13 % (20-50) L 09/22/17 04:30 Monocytes 1 % (2-10) L 09/22/17 04:30 Eosinophils 0 % (0-5) 09/21/17 04:20 Basophils 0 % (0-3) 09/21/17 04:20 Platelet Estimate ADEQUATE (NORMAL) 09/21/17 04:20 Platelet Morphology NORMAL (NORMAL) 09/21/17 04:20 RBC Morph Micro Appear NORMAL (NORMAL) 09/21/17 04:20 PT 10.3 SECONDS (9.5-11.5) 09/09/17 12:30 INR 0.99 (0.5-1.4) 09/09/17 12:30 PTT (Actin FS) 26.3 SECONDS (26.0-38.0) 09/09/17 12:30 Specimen Source Arterial 09/21/17 09:10 Sample Site Right Radial 09/21/17 09:10 pH 7.49 (7.35-7.45) H 09/21/17 09:10 pCO2 34.0 mmHg (35.0-45.0) L 09/21/17 09:10 pO2 56.0 mmHg (80.0-100.0) L 09/21/17 09:10 HCO3 27.0 mEq/L (20.0-26.0) H 09/21/17 09:10 Base Excess 2.8 mEq/L (-3.0-3.0) 09/21/17 09:10 O2 Saturation 91.0 % (92.0-100.0) L 09/21/17 09:10 Matthew Test Y 09/21/17 09:10 Vent Rate n/a 09/21/17 09:10 Inspired O2 36 09/21/17 09:10 Tidal Volume n/a 09/21/17 09:10 PEEP n/a 09/21/17 09:10 Pressure (ins/psv/peep) n/a 09/21/17 09:10 Critical Value Courtney Beasley 09/21/17 09:10 Sodium 148 mEq/L (136-145) H 09/22/17 04:30 Potassium 3.8 mEq/L (3.5-5.1) 09/22/17 04:30 Chloride 115 mEq/L (98-107) H 09/22/17 04:30 Carbon Dioxide 24.4 mEq/L (21.0-31.0) 09/22/17 04:30 Anion Gap 12.4 (7.0-16.0) 09/22/17 04:30 BUN 31 mg/dL (7-25) H 09/22/17 04:30 Creatinine 1.0 mg/dL (0.7-1.3) 09/22/17 04:30 Est GFR ( Amer) > 60.0 ml/min (>90) 09/22/17 04:30 Est GFR (Non-Af Amer) > 60.0 ml/min 09/22/17 04:30 BUN/Creatinine Ratio 31.0 09/22/17 04:30 Glucose 150 mg/dL (70-105) H 09/22/17 04:30 POC Glucose 142 MG/DL (70 - 105) H 09/22/17 17:25 Hemoglobin A1c % 6.1 % (4.0-6.0) H 09/19/17 04:20 Whole Bld Lactic Acid 1.35 mmol/L (0.60-1.99) 09/15/17 10:45 Calcium 8.2 mg/dL (8.6-10.3) L 09/22/17 04:30 Phosphorus 3.3 mg/dL (2.5-5.0) 09/22/17 04:30 Magnesium 2.4 mg/dL (1.9-2.7) 09/22/17 04:30 Total Bilirubin 0.3 mg/dL (0.3-1.0) 09/22/17 04:30 AST 26 U/L (13-39) 09/22/17 04:30 ALT 21 U/L (7-52) 09/22/17 04:30 Alkaline Phosphatase 42 U/L (34-104) 09/22/17 04:30 C-Reactive Protein 17.2 mg/dL (0.0-0.9) H 09/19/17 04:20 B-Natriuretic Peptide 47.8 pg/mL (5.0-100.0) 09/15/17 04:45 Total Protein 4.9 gm/dL (6.0-8.3) L 09/22/17 04:30 Albumin 2.5 gm/dL (4.2-5.5) L 09/22/17 04:30 Globulin 2.4 gm/dL 09/22/17 04:30 Albumin/Globulin Ratio 1.0 (1.0-1.8) 09/22/17 04:30 Prealbumin 18 09/21/17 04:20 Triglycerides 73 mg/dL (<150) 09/19/17 04:20 Cholesterol 61 mg/dL (<200) 09/21/17 04:20 Lipase 34 U/L (11-82) 09/22/17 04:30 Total Cortisol 28.9 09/12/17 01:00 Urine Source [place] 09/15/17 10:30 Urine Color GREEN 09/15/17 10:30 Urine Clarity CLOUDY (CLEAR) 09/15/17 10:30 Urine pH 6.5 (4.6 - 8.0) 09/15/17 10:30 Ur Specific Burt 1.015 (1.005-1.030) 09/15/17 10:30 Urine Protein 30 mg/dL (NEGATIVE) H 09/15/17 10:30 Urine Glucose (UA) NEGATIVE mg/dL (NEGATIVE) 09/15/17 10:30 Urine Ketones NEGATIVE mg/dL (NEGATIVE) 09/15/17 10:30 Urine Blood LARGE (NEGATIVE) H 09/15/17 10:30 Urine Nitrate POSITIVE (NEGATIVE) H 09/15/17 10:30 Urine Bilirubin MODERATE (NEGATIVE) H 09/15/17 10:30 Urine Urobilinogen 0.2 E.U./dL (0.2 - 1.0) 09/15/17 10:30 Ur Leukocyte Esterase TRACE (NEGATIVE) H 09/15/17 10:30 Urine RBC 50-100 /hpf (0-5) H 09/15/17 10:30 Urine WBC 25-50 /hpf (0-5) H 09/15/17 10:30 Ur Epithelial Cells MANY /lpf (FEW) 09/15/17 10:30 Urine Bacteria 4+ /hpf (NONE SEEN) H 09/15/17 10:30 Urine Osmolality 784 mOsmol/kg 09/19/17 15:42 Ur Random Sodium 23 mmol/L 09/19/17 15:42 Vancomycin Trough 12.7 ug/mL (5-10) H 09/20/17 08:00 - Physical Exam Vitals and I&O: Vital Signs Temp 98.2 F 09/22/17 12:23 Pulse 67 09/22/17 18:45 Resp 27 09/22/17 18:45 BP 127/60 09/22/17 16:00 Pulse Ox 94 09/22/17 18:45 Intake & Output 09/22/17 09/22/17 09/23/17 06:59 18:59 06:59 Intake Total 2830 1028 Output Total 1800 Balance 1030 1028 Weight (lbs) 72.167 kg Intake: Intake, IV Amount 1800 1028 Dextrose 5% 1,000 ml @ 70 1000 1028 mls/hr IV .[id number] [facility] Rx#:[id number] Piperacillin Sodium/ 200 Tazobact 4.5 gm In Sodium Chloride 0.9% 100 ml @ 100 mls/hr IV Q8HR [facility] Rx #:[id number] Vancomycin HCl 1.5 gm In 500 Sodium Chloride 0.9% 500 ml @ 250 mls/hr IV Q18H [facility] Rx#:[id number] metroNIDAZOLE 500mg/NS 100 100mL 500 mg In 100 ml @ 100 mls/hr IV Q8HR [facility] Rx #:[id number] Tube Feeding 780 Other 250 Output: Urine 1800 Other: # Bowel Movements 1 Stool Characteristics Soft Soft Brown Brown Weight Source Bedscale Active Medications: Current Medications Acetaminophen (Tylenol) 650 mg PO Q6H PRN PRN Reason: Fever > 101 OR MILD PAIN Stop: 11/11/17 20:45 Last Admin: 09/21/17 15:01 Dose: 650 mg Al Hydrox/Mg Hydrox/Simethicone (Maalox) 30 ml PO Q6H PRN PRN Reason: GI DISTRESS Stop: 11/08/17 15:49 Albuterol/Ipratropium (Duoneb Neb) 3 ml HHN Q4HRT [facility] Stop: 11/14/17 22:59 Last Admin: 09/22/17 18:45 Dose: 3 ml Amlodipine Besylate (Norvasc) 5 mg PO DAILY [facility] Stop: 11/09/17 08:59 Last Admin: 09/22/17 08:11 Dose: Not Given Atorvastatin Calcium (Lipitor) 20 mg GT HS [facility] PRN Reason: Protocol Stop: 11/08/17 20:59 Last Admin: 09/21/17 20:10 Dose: 20 mg Cholecalciferol (Vitamin D3) 1,000 iu GT DAILY [facility] Stop: 11/09/17 08:59 Last Admin: 09/22/17 08:10 Dose: 1,000 iu Donepezil HCl (Aricept) 10 mg GT HS [facility] Stop: 11/08/17 20:59 Last Admin: 09/21/17 20:10 Dose: 10 mg Enoxaparin Sodium (Lovenox) 70 mg SUBQ Q12HR [facility] Stop: 11/16/17 08:59 Last Admin: 09/22/17 08:10 Dose: 70 mg Dextrose (D5w) 1,000 mls @ 70 mls/hr IV .[id number] [facility] Stop: 11/20/17 08:57 Last Infusion: 09/22/17 18:46 Dose: 70 mls/hr Insulin Aspart (Novolog Insulin Sliding Scale) 0 units SUBQ Q6HR [facility] PRN Reason: Protocol Stop: 11/18/17 00:00 Last Admin: 09/22/17 18:24 Dose: Not Given Lactobacillus Rhamnosus (Culturelle 15b) 1 each PO DAILY [facility] Stop: 11/12/17 08:59 Last Admin: 09/22/17 08:10 Dose: 1 each Magnesium Hydroxide (Milk Of Magnesia) 30 ml PO HS PRN PRN Reason: Constipation Stop: 11/08/17 15:49 Memantine (Namenda) 5 mg GT BID [facility] Stop: 11/08/17 16:59 Last Admin: 09/22/17 17:26 Dose: 5 mg Methylprednisolone Sodium Succinate (Solu-Medrol) 20 mg IVP DAILY [facility] Stop: 11/22/17 08:59 Metoclopramide HCl (Reglan) 5 mg PO Q6H PRN PRN Reason: Nausea / Vomiting Stop: 11/21/17 17:44 Miscellaneous (Probiotic Screen) 1 ea MC PRN PRN PRN Reason: PROTOCOL Stop: 11/12/17 08:59 Pantoprazole Sodium (Protonix) 40 mg IVP DAILY [facility] Stop: 11/19/17 08:59 Last Admin: 09/22/17 08:10 Dose: 40 mg Potassium Chloride (Potassium Chloride Elixir) 40 meq GT DAILY [facility] Stop: 11/18/17 10:14 Last Admin: 09/22/17 08:09 Dose: 40 meq General: Alert, No acute distress HEENT: Atraumatic, EOMI Neck: Supple Cardiovascular: Regular rate, Normal S1, Normal S2 Lungs: Other (few rhonchi) Abdomen: Bowel sounds, Soft, Distended (MILD), Other (Peg in place. ), no Tender , no Hepatomegaly, no Rebound, no Mass, no Guarding Extremities: no Edema Neurological: Sensation intact Skin: no Rash Psych/Mental Status: Other (schizoaffective) - Procedures Procedures: Procedures Procedure Code Date ASSISTANCE WITH RESPIRATORY VENTILATION, <24 HRS, CPAP [id number] 09/09/[address] GASTROSTOMY TUBE 89525 09/09/17 INSERTION OF FEEDING DEVICE INTO STOMACH, PERC APPROACH [id number] 09/09/17 POS AIRWAY PRESSURE CPAP [id number] 09/09/17 Assessment/Plan - Assessment Assessment: Pre-Renal Azotemia Hypernatremia Asp Pna Schizoaffective Disorder Left HAP, Effusion - Plan Plan: Lab - Result Diagrams 09/20/17 04:20 09/20/17 04:20 Current Medications Acetaminophen (Tylenol) 650 mg PO Q6H PRN PRN Reason: Fever > 101 OR MILD PAIN Stop: 11/11/17 20:45 Last Admin: 09/20/17 15:37 Dose: 650 mg Al Hydrox/Mg Hydrox/Simethicone (Maalox) 30 ml PO Q6H PRN PRN Reason: GI DISTRESS Stop: 11/08/17 15:49 Albuterol/Ipratropium (Duoneb Neb) 3 ml HHN Q4HRT [facility] Stop: 11/14/17 22:59 Last Admin: 09/20/17 14:35 Dose: 3 ml Amlodipine Besylate (Norvasc) 5 mg PO DAILY [facility] Stop: 11/09/17 08:59 Last Admin: 09/20/17 08:46 Dose: 5 mg Atorvastatin Calcium (Lipitor) 20 mg GT HS [facility] PRN Reason: Protocol Stop: 11/08/17 20:59 Last Admin: 09/19/17 20:56 Dose: 20 mg Cholecalciferol (Vitamin D3) 1,000 iu GT DAILY [facility] Stop: 11/09/17 08:59 Last Admin: 09/20/17 08:46 Dose: 1,000 iu Donepezil HCl (Aricept) 10 mg GT HS [facility] Stop: 11/08/17 20:59 Last Admin: 09/19/17 20:55 Dose: 10 mg Enoxaparin Sodium (Lovenox) 70 mg SUBQ Q12HR [facility] Stop: 11/16/17 08:59 Last Admin: 09/20/17 08:47 Dose: 70 mg Metronidazole (Flagyl) 500 mg in 100 mls @ 100 mls/hr IV Q8HR [facility] Stop: 09/27/17 12:59 Last Infusion: 09/20/17 13:20 Dose: Infused Dextrose (D5w) 1,000 mls @ 20 mls/hr IV .Q24H [facility] Stop: 11/17/17 15:59 Last Admin: 09/18/17 15:49 Dose: 20 mls/hr Vancomycin HCl 1.5 gm/ (Dextrose) 500 mls @ 250 mls/hr IV Q24H [facility] Stop: 11/19/17 09:59 Last Infusion: 09/20/17 11:30 Dose: Infused Multivitamins/Minerals 10 ml/Insulin Human Regular 10 units / Dextrose/ Amino Acids/Electrolytes/ Sterile Water/Fat Emulsion Intravenous 2,000.1 mls @ 80 mls /hr IV .Q24H [facility] Stop: 10/17/17 15:59 Last Admin: 09/19/17 18:00 Dose: 80 mls/hr Piperacillin Sod/Tazobactam (Sod 4.5 gm/ Sodium Chloride) 100 mls @ 100 mls/hr IV Q8HR [facility] Stop: 11/19/17 20:59 Insulin Aspart (Novolog Insulin Sliding Scale) 0 units SUBQ Q6HR [facility] PRN Reason: Protocol Stop: 11/18/17 00:00 Last Admin: 09/20/17 12:01 Dose: 6 units Lactobacillus Rhamnosus (Culturelle 15b) 1 each PO DAILY [facility] Stop: 11/12/17 08:59 Last Admin: 09/20/17 08:47 Dose: 1 each Magnesium Hydroxide (Milk Of Magnesia) 30 ml PO HS PRN PRN Reason: Constipation Stop: 11/08/17 15:49 Memantine (Namenda) 5 mg GT BID [facility] Stop: 11/08/17 16:59 Last Admin: 09/20/17 08:47 Dose: 5 mg Methylprednisolone Sodium Succinate (Solu-Medrol) 40 mg IVP Q12HR [facility] Stop: 11/19/17 20:59 Miscellaneous (Zosyn Iv Per Pharmacy) 1 ea PRN PRN PRN Reason: PROTOCOL Stop: 11/10/17 08:34 Miscellaneous (Probiotic Screen) 1 ea PRN PRN PRN Reason: PROTOCOL Stop: 11/12/17 08:59 Miscellaneous (Vancomycin Iv Per Pharmacy) 1 ea DAILY [facility] Stop: 11/15/17 16:59 Miscellaneous (Ppn Per Pharmacy) 1 ea PRN PRN PRN Reason: PROTOCOL Stop: 11/18/17 15:41 Pantoprazole Sodium (Protonix) 40 mg IVP DAILY [facility] Stop: 11/19/17 08:59 Last Admin: 09/20/17 09:05 Dose: 40 mg Potassium Chloride (Potassium Chloride Elixir) 40 meq GT DAILY [facility] Stop: 11/18/17 10:14 Last Admin: 09/20/17 08:46 Dose: 40 meq Lab - Result Diagrams 09/22/17 04:30 09/22/17 04:30 Azotemia better w/ BUN/CR 01/07 replace K/P04, Na down to 148 WBC up to 19 coninue IVF, ABx f/u electrolytes, cbc Nutritional Asmnt/Malnutr-PDOC - Dietary Evaluation Malnutrition Findings (Please click <Entered> for more info): Nutritional Asmnt/Malnutrition Start: 09/10/17 16: 17 Text: Status: Complete Freq: Document 09/10/17 16:19 BEN (Rec: 09/10/17 16:29 [facility] Nutritional Asmnt/Malnutrition Patient General Information Nutritional Screening High Risk Diagnosis g-tube placement (reason for visit) Pertinent Medical Hx/Surgical Hx DM, hyperlipidemia, dementia, schizophrenia, PEG/Gtube Subjective Information Pt seen lying in bed at time of visit, non-verbal. Pt has PEG placement today. Current Diet Order/ Nutrition Support fibersource HN start at 40ml/ hr, goal rate 60ml/hr continuous Pertinent Medications vit D3, vancomycin, theragran, nacl 0.9% Pertinent Labs 09/10 glucose 125, alb 4.1 09/09 glucose 129 Nutritional Hx/Data Height 1.68 m Height (Calculated Centimeters) 167.6 Current Weight (lbs) 63.957 kg Weight (Calculated Kilograms) 64.0 Weight (Calculated Grams) 53737.5 [place] Body Weight 142 Body Mass Index (BMI) 22.7 Weight Status Approriate GI Symptoms GI Symptoms None Last BM no record Difficult in: None Skin Integrity/Comment: reddened to coccyx, bruise to hand, rash to back Estimated Nutritional Goals BEE in Kcals: Using Current wt Calories/Kcals/Kg 25-30 Kcals Calculated 1092-9963 Protein: Using Current wt Protein g/k-1.2 Protein Calculated 64-77 Fluid: ml 1600-1920ml (1ml/kcal) Nutritional Problem No current Nutrition Prob Problem N/A Malnutrition Alert Protein-Calorie Malnutrition N/A Is there a minimum of two criteria No selected? Query Text:Check all the applicable criteria. A minimum of two criteria are recommended for diagnosis of either severe or non-severe malnutrition. Intervention/Recommendation Comments 1. Initiate TF as ordered. It provides 1728kcal, 77g protein , 1178ml free water, meeting 100% of nutritional needs. 2. Monitor TF rate, tolerance, wt weekly, skin integrity and labs 3. F/U as high risk in 2-3 days, 09/12-09/13 Expected Outcomes/Goals Expected Outcomes/Goals 1. Pt to meet at least 75% of nutritional needs via nutrition support with tolerance 2. Wt stability, skin to remain intact, labs to approach WNL.
[2017-09-22] MEDS: Atorvastatin Calcium 10 MG TAB GT SCH (21:01)
[2017-09-23] MEDS: INSULIN ASPART SLIDING SCALE 100 UNITS/ML UNIT SUBQ SCH ×4 (00:26→19:13)
[2017-09-23] MEDS: Albuterol/Ipratropium Neb 3 ML AERS HHN SCH ×6 (02:43→22:16)
[2017-09-23 05:45] LABS: % BASOPHILS 0.2 % (0.0-2.0); % EOSINOPHILS 0.6 % (0.0-5.0); % LYMPHOCYTES 14.5 % (20.0-50.0); % MONOCYTES 2.3 % (2.0-10.0); % NEUTROPHILS 82.4 % (40.0-80.0); EOSINOPHILE ABSOLUTE 0.1 Th/cmm (0.1-0.4); HEMATOCRIT 33.6 % (41.0-60); HEMOGLOBIN 11.3 gm/dL (12-16); LYMPHOCYTE ABSOLUTE 2.6 Th/cmm (1.5-3.0); MEAN CELL VOLUME 86.4 fl (80-99); MEAN CORPUSCULAR HGB CONC 33.6 pg (28.0-36.0); MONOCYTE ABSOLUTE 0.4 Th/cmm (0.3-1.0); NEUTROPHILE ABSOLUTE 14.7 Th/cmm (1.8-8.0); PLATELET COUNT 272 Th/cmm (150-400); RED BLOOD COUNT 3.89 Mil/cmm (3.80-5.80); RED CELL DISTRIBUTION WIDTH 14.6 % (11.5-20.0)
[2017-09-23 05:48] LABS: WHITE BLOOD COUNT 17.8 Th/cmm (4.8-10.8)
[2017-09-23 06:03] LABS: ALB/GLOB RATIO 1.1 (1.0-1.8); ALBUMIN 2.4 gm/dL (4.2-5.5); ALKALINE PHOSPHATASE 44 U/L (34-104); ANION GAP 9.3 (7.0-16.0); BILIRUBIN,TOTAL 0.3 mg/dL (0.3-1.0); BUN - UREA NITROGEN 32 mg/dL (7-25); CALCIUM SERUM 7.9 mg/dL (8.6-10.3); CARBON DIOXIDE 24.2 mEq/L (21.0-31.0); CHLORIDE 111 mEq/L (98-107); CREATININE - SERUM 0.9 mg/dL (0.7-1.3); GFR AFRICAN-AMERICAN > 60.0 ml/min (>90); GFR NON AFRICAN-AMERICAN > 60.0 ml/min; GLUCOSE 115 mg/dL (70-105); MAGNESIUM 2.4 mg/dL (1.9-2.7); PHOSPHOROUS 2.5 mg/dL (2.5-5.0); POTASSIUM SERUM 3.5 mEq/L (3.5-5.1); SGOT 23 U/L (13-39); SGPT/ALT 25 U/L (7-52); SODIUM SERUM 141 mEq/L (136-145); TOTAL PROTEIN,SERUM 4.5 gm/dL (6.0-8.3)
--- NOTE | 2017-09-23 08:41 | Infectious Disease Prog Note ---
Infectious Disease Subjective - Review of Systems Service Date: 09/23/17 Subjective: No change, no fever. Infectious Disease Objective - Results Result Diagrams: 09/23/17 05:21 09/23/17 05:21 Recent Labs: Laboratory Last Values WBC 17.8 Th/cmm (4.8-10.8) H 09/23/17 05:21 RBC 3.89 Mil/cmm (3.80-5.80) 09/23/17 05:21 Hgb 11.3 gm/dL (12-16) L 09/23/17 05:21 Hct 33.6 % (41.0-60) L 09/23/17 05:21 MCV 86.4 fl (80-99) 09/23/17 05:21 MCH 29.0 pg (27.0-31.0) 09/23/17 05:21 MCHC Differential 33.6 pg (28.0-36.0) 09/23/17 05:21 RDW 14.6 % (11.5-20.0) 09/23/17 05:21 Plt Count 272 Th/cmm (150-400) 09/23/17 05:21 MPV 12.0 fl 09/23/17 05:21 Neutrophils % 82.4 % (40.0-80.0) H 09/23/17 05:21 Band Neutrophils % 6 % (0-10) 09/22/17 04:30 Lymphocytes % 14.5 % (20.0-50.0) L 09/23/17 05:21 Monocytes % 2.3 % (2.0-10.0) 09/23/17 05:21 Eosinophils % 0.6 % (0.0-5.0) 09/23/17 05:21 Basophils % 0.2 % (0.0-2.0) 09/23/17 05:21 Neutrophils (Manual) 80 % (40-80) 09/22/17 04:30 Lymphocytes 13 % (20-50) L 09/22/17 04:30 Monocytes 1 % (2-10) L 09/22/17 04:30 Eosinophils 0 % (0-5) 09/21/17 04:20 Basophils 0 % (0-3) 09/21/17 04:20 Platelet Estimate ADEQUATE (NORMAL) 09/21/17 04:20 Platelet Morphology NORMAL (NORMAL) 09/21/17 04:20 RBC Morph Micro Appear NORMAL (NORMAL) 09/21/17 04:20 PT 10.3 SECONDS (9.5-11.5) 09/09/17 12:30 INR 0.99 (0.5-1.4) 09/09/17 12:30 PTT (Actin FS) 26.3 SECONDS (26.0-38.0) 09/09/17 12:30 Specimen Source Arterial 09/21/17 09:10 Sample Site Right Radial 09/21/17 09:10 pH 7.49 (7.35-7.45) H 09/21/17 09:10 pCO2 34.0 mmHg (35.0-45.0) L 09/21/17 09:10 pO2 56.0 mmHg (80.0-100.0) L 09/21/17 09:10 HCO3 27.0 mEq/L (20.0-26.0) H 09/21/17 09:10 Base Excess 2.8 mEq/L (-3.0-3.0) 09/21/17 09:10 O2 Saturation 91.0 % (92.0-100.0) L 09/21/17 09:10 Matthew Test Y 09/21/17 09:10 Vent Rate n/a 09/21/17 09:10 Inspired O2 36 09/21/17 09:10 Tidal Volume n/a 09/21/17 09:10 PEEP n/a 09/21/17 09:10 Pressure (ins/psv/peep) n/a 09/21/17 09:10 Critical Value Courtney Beasley 09/21/17 09:10 Sodium 141 mEq/L (136-145) 09/23/17 05:21 Potassium 3.5 mEq/L (3.5-5.1) 09/23/17 05:21 Chloride 111 mEq/L (98-107) H 09/23/17 05:21 Carbon Dioxide 24.2 mEq/L (21.0-31.0) 09/23/17 05:21 Anion Gap 9.3 (7.0-16.0) 09/23/17 05:21 BUN 32 mg/dL (7-25) H 09/23/17 05:21 Creatinine 0.9 mg/dL (0.7-1.3) 09/23/17 05:21 Est GFR ( Amer) > 60.0 ml/min (>90) 09/23/17 05:21 Est GFR (Non-Af Amer) > 60.0 ml/min 09/23/17 05:21 BUN/Creatinine Ratio 35.6 09/23/17 05:21 Glucose 115 mg/dL (70-105) H 09/23/17 05:21 POC Glucose 112 MG/DL (70 - 105) H 09/23/17 05:19 Hemoglobin A1c % 6.1 % (4.0-6.0) H 09/19/17 04:20 Whole Bld Lactic Acid 1.35 mmol/L (0.60-1.99) 09/15/17 10:45 Calcium 7.9 mg/dL (8.6-10.3) L 09/23/17 05:21 Phosphorus 2.5 mg/dL (2.5-5.0) 09/23/17 05:21 Magnesium 2.4 mg/dL (1.9-2.7) 09/23/17 05:21 Total Bilirubin 0.3 mg/dL (0.3-1.0) 09/23/17 05:21 AST 23 U/L (13-39) 09/23/17 05:21 ALT 25 U/L (7-52) 09/23/17 05:21 Alkaline Phosphatase 44 U/L (34-104) 09/23/17 05:21 C-Reactive Protein 17.2 mg/dL (0.0-0.9) H 09/19/17 04:20 B-Natriuretic Peptide 47.8 pg/mL (5.0-100.0) 09/15/17 04:45 Total Protein 4.5 gm/dL (6.0-8.3) L 09/23/17 05:21 Albumin 2.4 gm/dL (4.2-5.5) L 09/23/17 05:21 Globulin 2.1 gm/dL 09/23/17 05:21 Albumin/Globulin Ratio 1.1 (1.0-1.8) 09/23/17 05:21 Prealbumin 18 09/21/17 04:20 Triglycerides 73 mg/dL (<150) 09/19/17 04:20 Cholesterol 61 mg/dL (<200) 09/21/17 04:20 Lipase 34 U/L (11-82) 09/22/17 04:30 Total Cortisol 28.9 09/12/17 01:00 Urine Source [place] 09/15/17 10:30 Urine Color GREEN 09/15/17 10:30 Urine Clarity CLOUDY (CLEAR) 09/15/17 10:30 Urine pH 6.5 (4.6 - 8.0) 09/15/17 10:30 Ur Specific [place] 1.015 (1.005-1.030) 09/15/17 10:30 Urine Protein 30 mg/dL (NEGATIVE) H 09/15/17 10:30 Urine Glucose (UA) NEGATIVE mg/dL (NEGATIVE) 09/15/17 10:30 Urine Ketones NEGATIVE mg/dL (NEGATIVE) 09/15/17 10:30 Urine Blood LARGE (NEGATIVE) H 09/15/17 10:30 Urine Nitrate POSITIVE (NEGATIVE) H 09/15/17 10:30 Urine Bilirubin MODERATE (NEGATIVE) H 09/15/17 10:30 Urine Urobilinogen 0.2 E.U./dL (0.2 - 1.0) 09/15/17 10:30 Ur Leukocyte Esterase TRACE (NEGATIVE) H 09/15/17 10:30 Urine RBC 50-100 /hpf (0-5) H 09/15/17 10:30 Urine WBC 25-50 /hpf (0-5) H 09/15/17 10:30 Ur Epithelial Cells MANY /lpf (FEW) 09/15/17 10:30 Urine Bacteria 4+ /hpf (NONE SEEN) H 09/15/17 10:30 Urine Osmolality 784 mOsmol/kg 09/19/17 15:42 Ur Random Sodium 23 mmol/L 09/19/17 15:42 Vancomycin Trough 12.7 ug/mL (5-10) H 09/20/17 08:00 - Physical Exam Vitals and I&O: Vital Signs Temp 97.6 F 09/23/17 08:00 Pulse 55 09/23/17 08:00 Resp 20 09/23/17 08:00 BP 111/61 09/23/17 08:00 Pulse Ox 92 09/23/17 08:00 Intake & Output 09/22/17 09/23/17 09/23/17 18:59 06:59 18:59 Intake Total 1028 1050 Output Total 2700 Balance 1028 -1650 Weight (lbs) 72.121 kg Intake: Intake, IV Amount 1028 Dextrose 5% 1,000 ml @ 70 1028 mls/hr IV .[id number] [facility] Rx#:[id number] Tube Feeding 700 Other 350 Output: Urine 2700 Other: # Bowel Movements 0 Stool Characteristics Soft Brown Weight Source Bedscale Active Medications: Current Medications Acetaminophen (Tylenol) 650 mg PO Q6H PRN PRN Reason: Fever > 101 OR MILD PAIN Stop: 11/11/17 20:45 Last Admin: 09/21/17 15:01 Dose: 650 mg Al Hydrox/Mg Hydrox/Simethicone (Maalox) 30 ml PO Q6H PRN PRN Reason: GI DISTRESS Stop: 11/08/17 15:49 Albuterol/Ipratropium (Duoneb Neb) 3 ml HHN Q4HRT [facility] Stop: 11/14/17 22:59 Last Admin: 09/23/17 07:22 Dose: 3 ml Amlodipine Besylate (Norvasc) 5 mg PO DAILY [facility] Stop: 11/09/17 08:59 Last Admin: 09/22/17 08:11 Dose: Not Given Atorvastatin Calcium (Lipitor) 20 mg GT HS [facility] PRN Reason: Protocol Stop: 11/08/17 20:59 Last Admin: 09/22/17 21:01 Dose: 20 mg Cholecalciferol (Vitamin D3) 1,000 iu GT DAILY [facility] Stop: 11/09/17 08:59 Last Admin: 09/22/17 08:10 Dose: 1,000 iu Donepezil HCl (Aricept) 10 mg GT HS [facility] Stop: 11/08/17 20:59 Last Admin: 09/22/17 21:01 Dose: 10 mg Enoxaparin Sodium (Lovenox) 70 mg SUBQ Q12HR [facility] Stop: 11/16/17 08:59 Last Admin: 09/22/17 21:01 Dose: 70 mg Dextrose (D5w) 1,000 mls @ 70 mls/hr IV .[id number] [facility] Stop: 11/20/17 08:57 Last Infusion: 09/22/17 18:46 Dose: 70 mls/hr Insulin Aspart (Novolog Insulin Sliding Scale) 0 units SUBQ Q6HR [facility] PRN Reason: Protocol Stop: 11/18/17 00:00 Last Admin: 09/23/17 05:21 Dose: Not Given Lactobacillus Rhamnosus (Culturelle 15b) 1 each PO DAILY [facility] Stop: 11/12/17 08:59 Last Admin: 09/22/17 08:10 Dose: 1 each Magnesium Hydroxide (Milk Of Magnesia) 30 ml PO HS PRN PRN Reason: Constipation Stop: 11/08/17 15:49 Memantine (Namenda) 5 mg GT BID [facility] Stop: 11/08/17 16:59 Last Admin: 09/22/17 17:26 Dose: 5 mg Methylprednisolone Sodium Succinate (Solu-Medrol) 20 mg IVP DAILY [facility] Stop: 11/22/17 08:59 Metoclopramide HCl (Reglan) 5 mg PO Q6H PRN PRN Reason: Nausea / Vomiting Stop: 11/21/17 17:44 Miscellaneous (Probiotic Screen) 1 ea MC PRN PRN PRN Reason: PROTOCOL Stop: 11/12/17 08:59 Pantoprazole Sodium (Protonix) 40 mg IVP DAILY [facility] Stop: 11/19/17 08:59 Last Admin: 09/22/17 08:10 Dose: 40 mg Potassium Chloride (Potassium Chloride Elixir) 40 meq GT DAILY [facility] Stop: 11/18/17 10:14 Last Admin: 09/22/17 08:09 Dose: 40 meq General: no acute distress, well developed, well nourished HEENT: atraumatic, normocephalic, PERRLA Neck: supple, no thyromegaly Cardiovascular: S1S2, regular Lungs: clear to auscultation bilaterally, clear to percussion Abdomen: soft, no tender, no distended Extremities: no cyanosis, no clubbing Neurological: awake, alert - Procedures Procedures: Procedures Procedure Code Date ASSISTANCE WITH RESPIRATORY VENTILATION, <24 HRS, CPAP [id number] 09/09/[address] GASTROSTOMY TUBE 46611 09/09/17 INSERTION OF FEEDING DEVICE INTO STOMACH, PERC APPROACH [id number] 09/09/17 POS AIRWAY PRESSURE CPAP 67971 09/09/17 Infectious Disease Assmt/Plan - Assessment Assessment: 1. Leukopcytosis, likely reactive. Sepsis. 2. Aspiration pneumonia 3. Dysphasia. G tube placement. 4. Dementia. 5. Respiratory failure. - Plan Plan: Continue antibiotics for at least 5 day if get discharged. Abx on discharge, levaquin 500mg po daily and flagyl 500mg po bid x 5 days. Nutritional Asmnt/Malnutr-PDOC - Dietary Evaluation Malnutrition Findings (Please click <Entered> for more info): Nutritional Asmnt/Malnutrition Start: 09/10/17 16: 17 Text: Status: Complete Freq: Document 09/10/17 16:19 LCYESENIAG (Rec: 09/10/17 16:29 LCHENG [email or web address]) Nutritional Asmnt/Malnutrition Patient General Information Nutritional Screening High Risk Diagnosis g-tube placement (reason for visit) Pertinent Medical Hx/Surgical Hx DM, hyperlipidemia, dementia, schizophrenia, PEG/Gtube Subjective Information Pt seen lying in bed at time of visit, non-verbal. Pt has PEG placement today. Current Diet Order/ Nutrition Support fibersource HN start at 40ml/ hr, goal rate 60ml/hr continuous Pertinent Medications vit D3, vancomycin, theragran, nacl 0.9% Pertinent Labs 09/10 glucose 125, alb 4.1 09/09 glucose 129 Nutritional Hx/Data Height 1.68 m Height (Calculated Centimeters) 167.6 Current Weight (lbs) 63.957 kg Weight (Calculated Kilograms) 64.0 Weight (Calculated Grams) 32999.5 [place] Body Weight 142 Body Mass Index (BMI) 22.7 Weight Status Approriate GI Symptoms GI Symptoms None Last BM no record Difficult in: None Skin Integrity/Comment: reddened to coccyx, bruise to hand, rash to back Estimated Nutritional Goals BEE in Kcals: Using Current wt Calories/Kcals/Kg 25-30 Kcals Calculated 6703-3102 Protein: Using Current wt Protein g/k-1.2 Protein Calculated 64-77 Fluid: ml 1600-1920ml (1ml/kcal) Nutritional Problem No current Nutrition Prob Problem N/A Malnutrition Alert Protein-Calorie Malnutrition N/A Is there a minimum of two criteria No selected? Query Text:Check all the applicable criteria. A minimum of two criteria are recommended for diagnosis of either severe or non-severe malnutrition. Intervention/Recommendation Comments 1. Initiate TF as ordered. It provides 1728kcal, 77g protein , 1178ml free water, meeting 100% of nutritional needs. 2. Monitor TF rate, tolerance, wt weekly, skin integrity and labs 3. F/U as high risk in 2-3 days, 09/12-09/13 Expected Outcomes/Goals Expected Outcomes/Goals 1. Pt to meet at least 75% of nutritional needs via nutrition support with tolerance 2. Wt stability, skin to remain intact, labs to approach WNL.
--- NOTE | 2017-09-23 08:45 | General Progress Note ---
Subjective - Review of Systems Service Date: 09/23/17 Subjective: Patient is non verbal Objective - Results Result Diagrams: 09/23/17 05:21 09/23/17 05:21 Recent Labs: Laboratory Last Values WBC 17.8 Th/cmm (4.8-10.8) H 09/23/17 05:21 RBC 3.89 Mil/cmm (3.80-5.80) 09/23/17 05:21 Hgb 11.3 gm/dL (12-16) L 09/23/17 05:21 Hct 33.6 % (41.0-60) L 09/23/17 05:21 MCV 86.4 fl (80-99) 09/23/17 05:21 MCH 29.0 pg (27.0-31.0) 09/23/17 05:21 MCHC Differential 33.6 pg (28.0-36.0) 09/23/17 05:21 RDW 14.6 % (11.5-20.0) 09/23/17 05:21 Plt Count 272 Th/cmm (150-400) 09/23/17 05:21 MPV 12.0 fl 09/23/17 05:21 Neutrophils % 82.4 % (40.0-80.0) H 09/23/17 05:21 Band Neutrophils % 6 % (0-10) 09/22/17 04:30 Lymphocytes % 14.5 % (20.0-50.0) L 09/23/17 05:21 Monocytes % 2.3 % (2.0-10.0) 09/23/17 05:21 Eosinophils % 0.6 % (0.0-5.0) 09/23/17 05:21 Basophils % 0.2 % (0.0-2.0) 09/23/17 05:21 Neutrophils (Manual) 80 % (40-80) 09/22/17 04:30 Lymphocytes 13 % (20-50) L 09/22/17 04:30 Monocytes 1 % (2-10) L 09/22/17 04:30 Eosinophils 0 % (0-5) 09/21/17 04:20 Basophils 0 % (0-3) 09/21/17 04:20 Platelet Estimate ADEQUATE (NORMAL) 09/21/17 04:20 Platelet Morphology NORMAL (NORMAL) 09/21/17 04:20 RBC Morph Micro Appear NORMAL (NORMAL) 09/21/17 04:20 PT 10.3 SECONDS (9.5-11.5) 09/09/17 12:30 INR 0.99 (0.5-1.4) 09/09/17 12:30 PTT (Actin FS) 26.3 SECONDS (26.0-38.0) 09/09/17 12:30 Specimen Source Arterial 09/21/17 09:10 Sample Site Right Radial 09/21/17 09:10 pH 7.49 (7.35-7.45) H 09/21/17 09:10 pCO2 34.0 mmHg (35.0-45.0) L 09/21/17 09:10 pO2 56.0 mmHg (80.0-100.0) L 09/21/17 09:10 HCO3 27.0 mEq/L (20.0-26.0) H 09/21/17 09:10 Base Excess 2.8 mEq/L (-3.0-3.0) 09/21/17 09:10 O2 Saturation 91.0 % (92.0-100.0) L 09/21/17 09:10 Matthew Test Y 09/21/17 09:10 Vent Rate n/a 09/21/17 09:10 Inspired O2 36 09/21/17 09:10 Tidal Volume n/a 09/21/17 09:10 PEEP n/a 09/21/17 09:10 Pressure (ins/psv/peep) n/a 09/21/17 09:10 Critical Value Courtney Beasley 09/21/17 09:10 Sodium 141 mEq/L (136-145) 09/23/17 05:21 Potassium 3.5 mEq/L (3.5-5.1) 09/23/17 05:21 Chloride 111 mEq/L (98-107) H 09/23/17 05:21 Carbon Dioxide 24.2 mEq/L (21.0-31.0) 09/23/17 05:21 Anion Gap 9.3 (7.0-16.0) 09/23/17 05:21 BUN 32 mg/dL (7-25) H 09/23/17 05:21 Creatinine 0.9 mg/dL (0.7-1.3) 09/23/17 05:21 Est GFR ( Amer) > 60.0 ml/min (>90) 09/23/17 05:21 Est GFR (Non-Af Amer) > 60.0 ml/min 09/23/17 05:21 BUN/Creatinine Ratio 35.6 09/23/17 05:21 Glucose 115 mg/dL (70-105) H 09/23/17 05:21 POC Glucose 112 MG/DL (70 - 105) H 09/23/17 05:19 Hemoglobin A1c % 6.1 % (4.0-6.0) H 09/19/17 04:20 Whole Bld Lactic Acid 1.35 mmol/L (0.60-1.99) 09/15/17 10:45 Calcium 7.9 mg/dL (8.6-10.3) L 09/23/17 05:21 Phosphorus 2.5 mg/dL (2.5-5.0) 09/23/17 05:21 Magnesium 2.4 mg/dL (1.9-2.7) 09/23/17 05:21 Total Bilirubin 0.3 mg/dL (0.3-1.0) 09/23/17 05:21 AST 23 U/L (13-39) 09/23/17 05:21 ALT 25 U/L (7-52) 09/23/17 05:21 Alkaline Phosphatase 44 U/L (34-104) 09/23/17 05:21 C-Reactive Protein 17.2 mg/dL (0.0-0.9) H 09/19/17 04:20 B-Natriuretic Peptide 47.8 pg/mL (5.0-100.0) 09/15/17 04:45 Total Protein 4.5 gm/dL (6.0-8.3) L 09/23/17 05:21 Albumin 2.4 gm/dL (4.2-5.5) L 09/23/17 05:21 Globulin 2.1 gm/dL 09/23/17 05:21 Albumin/Globulin Ratio 1.1 (1.0-1.8) 09/23/17 05:21 Prealbumin 18 09/21/17 04:20 Triglycerides 73 mg/dL (<150) 09/19/17 04:20 Cholesterol 61 mg/dL (<200) 09/21/17 04:20 Lipase 34 U/L (11-82) 09/22/17 04:30 Total Cortisol 28.9 09/12/17 01:00 Urine Source [place] 09/15/17 10:30 Urine Color GREEN 09/15/17 10:30 Urine Clarity CLOUDY (CLEAR) 09/15/17 10:30 Urine pH 6.5 (4.6 - 8.0) 09/15/17 10:30 Ur Specific [place] 1.015 (1.005-1.030) 09/15/17 10:30 Urine Protein 30 mg/dL (NEGATIVE) H 09/15/17 10:30 Urine Glucose (UA) NEGATIVE mg/dL (NEGATIVE) 09/15/17 10:30 Urine Ketones NEGATIVE mg/dL (NEGATIVE) 09/15/17 10:30 Urine Blood LARGE (NEGATIVE) H 09/15/17 10:30 Urine Nitrate POSITIVE (NEGATIVE) H 09/15/17 10:30 Urine Bilirubin MODERATE (NEGATIVE) H 09/15/17 10:30 Urine Urobilinogen 0.2 E.U./dL (0.2 - 1.0) 09/15/17 10:30 Ur Leukocyte Esterase TRACE (NEGATIVE) H 09/15/17 10:30 Urine RBC 50-100 /hpf (0-5) H 09/15/17 10:30 Urine WBC 25-50 /hpf (0-5) H 09/15/17 10:30 Ur Epithelial Cells MANY /lpf (FEW) 09/15/17 10:30 Urine Bacteria 4+ /hpf (NONE SEEN) H 09/15/17 10:30 Urine Osmolality 784 mOsmol/kg 09/19/17 15:42 Ur Random Sodium 23 mmol/L 09/19/17 15:42 Vancomycin Trough 12.7 ug/mL (5-10) H 09/20/17 08:00 - Physical Exam Vitals and I&O: Vital Signs Temp 97.6 F 09/23/17 08:00 Pulse 55 09/23/17 08:00 Resp 20 09/23/17 08:00 BP 111/61 09/23/17 08:00 Pulse Ox 92 09/23/17 08:00 Intake & Output 09/22/17 09/23/17 09/23/17 18:59 06:59 18:59 Intake Total 1028 1050 Output Total 2700 Balance 1028 -1650 Weight (lbs) 72.121 kg Intake: Intake, IV Amount 1028 Dextrose 5% 1,000 ml @ 70 1028 mls/hr IV .[id number] [facility] Rx#:[id number] Tube Feeding 700 Other 350 Output: Urine 2700 Other: # Bowel Movements 0 Stool Characteristics Soft Brown Weight Source Bedscale Active Medications: Current Medications Acetaminophen (Tylenol) 650 mg PO Q6H PRN PRN Reason: Fever > 101 OR MILD PAIN Stop: 11/11/17 20:45 Last Admin: 09/21/17 15:01 Dose: 650 mg Al Hydrox/Mg Hydrox/Simethicone (Maalox) 30 ml PO Q6H PRN PRN Reason: GI DISTRESS Stop: 11/08/17 15:49 Albuterol/Ipratropium (Duoneb Neb) 3 ml HHN Q4HRT [facility] Stop: 11/14/17 22:59 Last Admin: 09/23/17 07:22 Dose: 3 ml Amlodipine Besylate (Norvasc) 5 mg PO DAILY [facility] Stop: 11/09/17 08:59 Last Admin: 09/22/17 08:11 Dose: Not Given Atorvastatin Calcium (Lipitor) 20 mg GT HS [facility] PRN Reason: Protocol Stop: 11/08/17 20:59 Last Admin: 09/22/17 21:01 Dose: 20 mg Cholecalciferol (Vitamin D3) 1,000 iu GT DAILY [facility] Stop: 11/09/17 08:59 Last Admin: 09/22/17 08:10 Dose: 1,000 iu Donepezil HCl (Aricept) 10 mg GT HS [facility] Stop: 11/08/17 20:59 Last Admin: 09/22/17 21:01 Dose: 10 mg Enoxaparin Sodium (Lovenox) 70 mg SUBQ Q12HR [facility] Stop: 11/16/17 08:59 Last Admin: 09/22/17 21:01 Dose: 70 mg Dextrose (D5w) 1,000 mls @ 70 mls/hr IV .[id number] [facility] Stop: 11/20/17 08:57 Last Infusion: 09/22/17 18:46 Dose: 70 mls/hr Insulin Aspart (Novolog Insulin Sliding Scale) 0 units SUBQ Q6HR [facility] PRN Reason: Protocol Stop: 11/18/17 00:00 Last Admin: 09/23/17 05:21 Dose: Not Given Lactobacillus Rhamnosus (Culturelle 15b) 1 each PO DAILY [facility] Stop: 11/12/17 08:59 Last Admin: 09/22/17 08:10 Dose: 1 each Magnesium Hydroxide (Milk Of Magnesia) 30 ml PO HS PRN PRN Reason: Constipation Stop: 11/08/17 15:49 Memantine (Namenda) 5 mg GT BID [facility] Stop: 11/08/17 16:59 Last Admin: 09/22/17 17:26 Dose: 5 mg Methylprednisolone Sodium Succinate (Solu-Medrol) 20 mg IVP DAILY [facility] Stop: 11/22/17 08:59 Metoclopramide HCl (Reglan) 5 mg PO Q6H PRN PRN Reason: Nausea / Vomiting Stop: 11/21/17 17:44 Miscellaneous (Probiotic Screen) 1 ea [facility] PRN PRN PRN Reason: PROTOCOL Stop: 11/12/17 08:59 Pantoprazole Sodium (Protonix) 40 mg IVP DAILY [facility] Stop: 11/19/17 08:59 Last Admin: 09/22/17 08:10 Dose: 40 mg Potassium Chloride (Potassium Chloride Elixir) 40 meq GT DAILY [facility] Stop: 11/18/17 10:14 Last Admin: 09/22/17 08:09 Dose: 40 meq General: Alert, No acute distress HEENT: Atraumatic, EOMI Neck: Supple Cardiovascular: Regular rate, Normal S1, Normal S2 Lungs: Other (few rhonchi) Abdomen: Bowel sounds, Soft, Distended (MILD), Other (Peg in place. ), no Tender , no Hepatomegaly, no Rebound, no Mass, no Guarding Extremities: no Edema Neurological: Sensation intact Skin: no Rash Psych/Mental Status: Other (schizoaffective) - Procedures Procedures: Procedures Procedure Code Date ASSISTANCE WITH RESPIRATORY VENTILATION, <24 HRS, CPAP [id number] 09/09/[address] GASTROSTOMY TUBE 13982 09/09/17 INSERTION OF FEEDING DEVICE INTO STOMACH, PERC APPROACH [id number] 09/09/17 POS AIRWAY PRESSURE CPAP [id number] 09/09/17 Assessment/Plan - Assessment Assessment: Patient is awake, non verbal. he is in 5 litters O2 nasal canula. WBC decreasing today, Na is normal. Patient is breathing better today with nasal canule. Continue with tube Feeding. Dx: Peg displacement, sepsis, Hypernatremia , DM, Dementia, Schizophrenia, bed bound. Will continue to monitor - Plan Plan: Peg was replaced. NS changed to D5, AB DC, and WBC improved. Yesterday I called to the [employer] organization that administrate his financial matter and they told me they do not have any contact center consultant for this patient. Case will be discussed with ID and Pulmonology. Patient not responding to treatment. Prognosis continue being poor. Will continue monitoring. Nutritional Asmnt/Malnutr-PDOC - Dietary Evaluation Malnutrition Findings (Please click <Entered> for more info): Nutritional Asmnt/Malnutrition Start: 09/10/17 16: 17 Text: Status: Complete Freq: Document 09/10/17 16:19 YESENIA (Rec: 09/10/17 16:29 [email or web address]) Nutritional Asmnt/Malnutrition Patient General Information Nutritional Screening High Risk Diagnosis g-tube placement (reason for visit) Pertinent Medical Hx/Surgical Hx DM, hyperlipidemia, dementia, schizophrenia, PEG/Gtube Subjective Information Pt seen lying in bed at time of visit, non-verbal. Pt has PEG placement today. Current Diet Order/ Nutrition Support fibersource HN start at 40ml/ hr, goal rate 60ml/hr continuous Pertinent Medications vit D3, vancomycin, theragran, nacl 0.9% Pertinent Labs 09/10 glucose 125, alb 4.1 09/09 glucose 129 Nutritional Hx/Data Height 1.68 m Height (Calculated Centimeters) 167.6 Current Weight (lbs) 63.957 kg Weight (Calculated Kilograms) 64.0 Weight (Calculated Grams) 42944.5 [place] Body Weight 142 Body Mass Index (BMI) 22.7 Weight Status Approriate GI Symptoms GI Symptoms None Last BM no record Difficult in: None Skin Integrity/Comment: reddened to coccyx, bruise to hand, rash to back Estimated Nutritional Goals BEE in Kcals: Using Current wt Calories/Kcals/Kg 25-30 Kcals Calculated 6949-7002 Protein: Using Current wt Protein g/k-1.2 Protein Calculated 64-77 Fluid: ml 1600-1920ml (1ml/kcal) Nutritional Problem No current Nutrition Prob Problem N/A Malnutrition Alert Protein-Calorie Malnutrition N/A Is there a minimum of two criteria No selected? Query Text:Check all the applicable criteria. A minimum of two criteria are recommended for diagnosis of either severe or non-severe malnutrition. Intervention/Recommendation Comments 1. Initiate TF as ordered. It provides 1728kcal, 77g protein , 1178ml free water, meeting 100% of nutritional needs. 2. Monitor TF rate, tolerance, wt weekly, skin integrity and labs 3. F/U as high risk in 2-3 days, 09/12-09/13 Expected Outcomes/Goals Expected Outcomes/Goals 1. Pt to meet at least 75% of nutritional needs via nutrition support with tolerance 2. Wt stability, skin to remain intact, labs to approach WNL.
[2017-09-23] MEDS: Lactobacillus Rhamnosus GG 15 Billion CFU CAP.SPRINK PO SCH (08:57)
[2017-09-23] MEDS: Potassium Chloride Elixir 20 mEq /15 mL UDC GT SCH (08:58)
[2017-09-23] MEDS: Enoxaparin 80 mg/0.8 mL 0.8mL Syr SUBQ SCH ×2 (08:58→22:38)
[2017-09-23] MEDS ORDERED: methylPREDNISolone SS 40 mg Vial IVP SCH (09:00)
[2017-09-23] MEDS: Dextrose 5% 1,000 ML IV SCH (09:13)
--- NOTE | 2017-09-23 11:46 | GI Progress Note ---
Subjective - Review of Systems Service Date: 09/23/17 Subjective: EVENTS NOTED. WINIFRED GT FEEDS. Objective - Results Result Diagrams: 09/23/17 05:21 09/23/17 05:21 Recent Labs: Laboratory Last Values WBC 17.8 Th/cmm (4.8-10.8) H 09/23/17 05:21 RBC 3.89 Mil/cmm (3.80-5.80) 09/23/17 05:21 Hgb 11.3 gm/dL (12-16) L 09/23/17 05:21 Hct 33.6 % (41.0-60) L 09/23/17 05:21 MCV 86.4 fl (80-99) 09/23/17 05:21 MCH 29.0 pg (27.0-31.0) 09/23/17 05:21 MCHC Differential 33.6 pg (28.0-36.0) 09/23/17 05:21 RDW 14.6 % (11.5-20.0) 09/23/17 05:21 Plt Count 272 Th/cmm (150-400) 09/23/17 05:21 MPV 12.0 fl 09/23/17 05:21 Neutrophils % 82.4 % (40.0-80.0) H 09/23/17 05:21 Band Neutrophils % 6 % (0-10) 09/22/17 04:30 Lymphocytes % 14.5 % (20.0-50.0) L 09/23/17 05:21 Monocytes % 2.3 % (2.0-10.0) 09/23/17 05:21 Eosinophils % 0.6 % (0.0-5.0) 09/23/17 05:21 Basophils % 0.2 % (0.0-2.0) 09/23/17 05:21 Neutrophils (Manual) 80 % (40-80) 09/22/17 04:30 Lymphocytes 13 % (20-50) L 09/22/17 04:30 Monocytes 1 % (2-10) L 09/22/17 04:30 Eosinophils 0 % (0-5) 09/21/17 04:20 Basophils 0 % (0-3) 09/21/17 04:20 Platelet Estimate ADEQUATE (NORMAL) 09/21/17 04:20 Platelet Morphology NORMAL (NORMAL) 09/21/17 04:20 RBC Morph Micro Appear NORMAL (NORMAL) 09/21/17 04:20 PT 10.3 SECONDS (9.5-11.5) 09/09/17 12:30 INR 0.99 (0.5-1.4) 09/09/17 12:30 PTT (Actin FS) 26.3 SECONDS (26.0-38.0) 09/09/17 12:30 Specimen Source Arterial 09/21/17 09:10 Sample Site Right Radial 09/21/17 09:10 pH 7.49 (7.35-7.45) H 09/21/17 09:10 pCO2 34.0 mmHg (35.0-45.0) L 09/21/17 09:10 pO2 56.0 mmHg (80.0-100.0) L 09/21/17 09:10 HCO3 27.0 mEq/L (20.0-26.0) H 09/21/17 09:10 Base Excess 2.8 mEq/L (-3.0-3.0) 09/21/17 09:10 O2 Saturation 91.0 % (92.0-100.0) L 09/21/17 09:10 Matthew Test Y 09/21/17 09:10 Vent Rate n/a 09/21/17 09:10 Inspired O2 36 09/21/17 09:10 Tidal Volume n/a 09/21/17 09:10 PEEP n/a 09/21/17 09:10 Pressure (ins/psv/peep) n/a 09/21/17 09:10 Critical Value Courtney Beasley 09/21/17 09:10 Sodium 141 mEq/L (136-145) 09/23/17 05:21 Potassium 3.5 mEq/L (3.5-5.1) 09/23/17 05:21 Chloride 111 mEq/L (98-107) H 09/23/17 05:21 Carbon Dioxide 24.2 mEq/L (21.0-31.0) 09/23/17 05:21 Anion Gap 9.3 (7.0-16.0) 09/23/17 05:21 BUN 32 mg/dL (7-25) H 09/23/17 05:21 Creatinine 0.9 mg/dL (0.7-1.3) 09/23/17 05:21 Est GFR ( Amer) > 60.0 ml/min (>90) 09/23/17 05:21 Est GFR (Non-Af Amer) > 60.0 ml/min 09/23/17 05:21 BUN/Creatinine Ratio 35.6 09/23/17 05:21 Glucose 115 mg/dL (70-105) H 09/23/17 05:21 POC Glucose 112 MG/DL (70 - 105) H 09/23/17 05:19 Hemoglobin A1c % 6.1 % (4.0-6.0) H 09/19/17 04:20 Whole Bld Lactic Acid 1.35 mmol/L (0.60-1.99) 09/15/17 10:45 Calcium 7.9 mg/dL (8.6-10.3) L 09/23/17 05:21 Phosphorus 2.5 mg/dL (2.5-5.0) 09/23/17 05:21 Magnesium 2.4 mg/dL (1.9-2.7) 09/23/17 05:21 Total Bilirubin 0.3 mg/dL (0.3-1.0) 09/23/17 05:21 AST 23 U/L (13-39) 09/23/17 05:21 ALT 25 U/L (7-52) 09/23/17 05:21 Alkaline Phosphatase 44 U/L (34-104) 09/23/17 05:21 C-Reactive Protein 17.2 mg/dL (0.0-0.9) H 09/19/17 04:20 B-Natriuretic Peptide 47.8 pg/mL (5.0-100.0) 09/15/17 04:45 Total Protein 4.5 gm/dL (6.0-8.3) L 09/23/17 05:21 Albumin 2.4 gm/dL (4.2-5.5) L 09/23/17 05:21 Globulin 2.1 gm/dL 09/23/17 05:21 Albumin/Globulin Ratio 1.1 (1.0-1.8) 09/23/17 05:21 Prealbumin 18 09/21/17 04:20 Triglycerides 73 mg/dL (<150) 09/19/17 04:20 Cholesterol 61 mg/dL (<200) 09/21/17 04:20 Lipase 34 U/L (11-82) 09/22/17 04:30 Total Cortisol 28.9 09/12/17 01:00 Urine Source [place] 09/15/17 10:30 Urine Color GREEN 09/15/17 10:30 Urine Clarity CLOUDY (CLEAR) 09/15/17 10:30 Urine pH 6.5 (4.6 - 8.0) 09/15/17 10:30 Ur Specific [place] 1.015 (1.005-1.030) 09/15/17 10:30 Urine Protein 30 mg/dL (NEGATIVE) H 09/15/17 10:30 Urine Glucose (UA) NEGATIVE mg/dL (NEGATIVE) 09/15/17 10:30 Urine Ketones NEGATIVE mg/dL (NEGATIVE) 09/15/17 10:30 Urine Blood LARGE (NEGATIVE) H 09/15/17 10:30 Urine Nitrate POSITIVE (NEGATIVE) H 09/15/17 10:30 Urine Bilirubin MODERATE (NEGATIVE) H 09/15/17 10:30 Urine Urobilinogen 0.2 E.U./dL (0.2 - 1.0) 09/15/17 10:30 Ur Leukocyte Esterase TRACE (NEGATIVE) H 09/15/17 10:30 Urine RBC 50-100 /hpf (0-5) H 09/15/17 10:30 Urine WBC 25-50 /hpf (0-5) H 09/15/17 10:30 Ur Epithelial Cells MANY /lpf (FEW) 09/15/17 10:30 Urine Bacteria 4+ /hpf (NONE SEEN) H 09/15/17 10:30 Urine Osmolality 784 mOsmol/kg 09/19/17 15:42 Ur Random Sodium 23 mmol/L 09/19/17 15:42 Vancomycin Trough 12.7 ug/mL (5-10) H 09/20/17 08:00 - Physical Exam Vitals and I&O: Vital Signs Temp 97.6 F 09/23/17 08:00 Pulse 60 09/23/17 11:32 Resp 22 09/23/17 11:32 BP 111/61 09/23/17 08:57 Pulse Ox 95 09/23/17 11:32 Intake & Output 09/22/17 09/23/17 09/23/17 18:59 06:59 18:59 Intake Total 1028 1050 972 Output Total 2700 Balance 1028 -1650 972 Weight (lbs) 72.121 kg Intake: Intake, IV Amount 1028 972 Dextrose 5% 1,000 ml @ 70 1028 972 mls/hr IV .[id number] [facility] Rx#:[id number] Tube Feeding 700 Other 350 Output: Urine 2700 Other: # Bowel Movements 0 Stool Characteristics Soft Brown Weight Source Bedscale Active Medications: Current Medications Acetaminophen (Tylenol) 650 mg PO Q6H PRN PRN Reason: Fever > 101 OR MILD PAIN Stop: 11/11/17 20:45 Last Admin: 09/21/17 15:01 Dose: 650 mg Al Hydrox/Mg Hydrox/Simethicone (Maalox) 30 ml PO Q6H PRN PRN Reason: GI DISTRESS Stop: 11/08/17 15:49 Albuterol/Ipratropium (Duoneb Neb) 3 ml HHN Q4HRT [facility] Stop: 11/14/17 22:59 Last Admin: 09/23/17 11:31 Dose: 3 ml Amlodipine Besylate (Norvasc) 5 mg PO DAILY [facility] Stop: 11/09/17 08:59 Last Admin: 09/23/17 08:57 Dose: 5 mg Atorvastatin Calcium (Lipitor) 20 mg GT HS [facility] PRN Reason: Protocol Stop: 11/08/17 20:59 Last Admin: 09/22/17 21:01 Dose: 20 mg Cholecalciferol (Vitamin D3) 1,000 iu GT DAILY [facility] Stop: 11/09/17 08:59 Last Admin: 09/23/17 08:57 Dose: 1,000 iu Donepezil HCl (Aricept) 10 mg GT HS [facility] Stop: 11/08/17 20:59 Last Admin: 09/22/17 21:01 Dose: 10 mg Enoxaparin Sodium (Lovenox) 70 mg SUBQ Q12HR [facility] Stop: 11/16/17 08:59 Last Admin: 09/23/17 08:58 Dose: 70 mg Dextrose (D5w) 1,000 mls @ 70 mls/hr IV .[id number] [facility] Stop: 11/20/17 08:57 Last Admin: 09/23/17 09:13 Dose: 70 mls/hr Insulin Aspart (Novolog Insulin Sliding Scale) 0 units SUBQ Q6HR [facility] PRN Reason: Protocol Stop: 11/18/17 00:00 Last Admin: 09/23/17 05:21 Dose: Not Given Lactobacillus Rhamnosus (Culturelle 15b) 1 each PO DAILY [facility] Stop: 11/12/17 08:59 Last Admin: 09/23/17 08:57 Dose: 1 each Magnesium Hydroxide (Milk Of Magnesia) 30 ml PO HS PRN PRN Reason: Constipation Stop: 11/08/17 15:49 Memantine (Namenda) 5 mg GT BID [facility] Stop: 11/08/17 16:59 Last Admin: 09/23/17 08:57 Dose: 5 mg Methylprednisolone Sodium Succinate (Solu-Medrol) 20 mg IVP DAILY [facility] Stop: 11/22/17 08:59 Last Admin: 09/23/17 08:56 Dose: 20 mg Metoclopramide HCl (Reglan) 5 mg PO Q6H PRN PRN Reason: Nausea / Vomiting Stop: 11/21/17 17:44 Miscellaneous (Probiotic Screen) 1 ea MC PRN PRN PRN Reason: PROTOCOL Stop: 11/12/17 08:59 Pantoprazole Sodium (Protonix) 40 mg IVP DAILY [facility] Stop: 11/19/17 08:59 Last Admin: 09/23/17 08:57 Dose: 40 mg Potassium Chloride (Potassium Chloride Elixir) 40 meq GT DAILY [facility] Stop: 11/18/17 10:14 Last Admin: 09/23/17 08:58 Dose: 40 meq General: No acute distress HEENT: Atraumatic Cardiovascular: Regular rate Lungs: Other (few rhonchi) Abdomen: Bowel sounds, Soft, Other (Peg in place. ), no Tender, no Hepatomegaly , no Rebound, no Mass, no Guarding Neurological: Sensation intact - Procedures Procedures: Procedures Procedure Code Date ASSISTANCE WITH RESPIRATORY VENTILATION, <24 HRS, CPAP [id number] 09/09/[address] GASTROSTOMY TUBE 39041 09/09/17 INSERTION OF FEEDING DEVICE INTO STOMACH, PERC APPROACH [id number] 09/09/17 POS AIRWAY PRESSURE CPAP [id number] 09/09/17 Assessment/Plan - Assessment Assessment: IMPRESSION: 1. DYSPHAGIA WITH GT DISPLACEMENT - S/P REINSERTION X 2. 2. LEUKOCYTOSIS WITH SEPSIS, POSSIBLY DUE TO PERITONITIS FROM RECENT GT CHANGE. - NONCONTRAST CT SHOWED FREE INTRAPERITONEAL AIR. SUBSEQUENT CONTRAST ENHANCED CT SHOWED CONTRAST VIA GT NOT NOTED TO LEAK OR EXTRAVASATE VIA GT SITE. REPEAT CT 09/21 SHOWED NO INTRAPERITONEAL FREE AIR. 3. ENCEPHALOPATHY. RECS: 1. G TUBE FEEDS WINIFRED. 2. ABX PER ID. 3. GT CARE. 4. PROTONIX. 5. PROBIOTICS.
--- NOTE | 2017-09-23 12:55 | Cardiology ---
09/16/2017 ECHOCARDIOGRAM REPORT The patient of Dr. Carl Ro. M-MODE ECHOCARDIOGRAM: Mitral valve, anterior leaflet of mitral valve shows normal excursion, EF velocity. Posterior leaflet of mitral valve shows normal excursion. Rest of the structures are poorly visualized, ejection fraction 50%. 2D ECHO: Only structure visualized in apical 4 chamber view showed normal sized left ventricle, left atrium, right ventricular cavity, right atrium, ejection fraction 50%. Normal antegrade flow across the mitral valve and aortic valve. Poor quality echo. [facility]# [id number]
--- NOTE | 2017-09-23 16:12 | General Progress Note ---
Subjective - Review of Systems Service Date: 09/23/17 Subjective: awake, comfortable Objective - Results Result Diagrams: 09/23/17 05:21 09/23/17 05:21 Recent Labs: Laboratory Last Values WBC 17.8 Th/cmm (4.8-10.8) H 09/23/17 05:21 RBC 3.89 Mil/cmm (3.80-5.80) 09/23/17 05:21 Hgb 11.3 gm/dL (12-16) L 09/23/17 05:21 Hct 33.6 % (41.0-60) L 09/23/17 05:21 MCV 86.4 fl (80-99) 09/23/17 05:21 MCH 29.0 pg (27.0-31.0) 09/23/17 05:21 MCHC Differential 33.6 pg (28.0-36.0) 09/23/17 05:21 RDW 14.6 % (11.5-20.0) 09/23/17 05:21 Plt Count 272 Th/cmm (150-400) 09/23/17 05:21 MPV 12.0 fl 09/23/17 05:21 Neutrophils % 82.4 % (40.0-80.0) H 09/23/17 05:21 Band Neutrophils % 6 % (0-10) 09/22/17 04:30 Lymphocytes % 14.5 % (20.0-50.0) L 09/23/17 05:21 Monocytes % 2.3 % (2.0-10.0) 09/23/17 05:21 Eosinophils % 0.6 % (0.0-5.0) 09/23/17 05:21 Basophils % 0.2 % (0.0-2.0) 09/23/17 05:21 Neutrophils (Manual) 80 % (40-80) 09/22/17 04:30 Lymphocytes 13 % (20-50) L 09/22/17 04:30 Monocytes 1 % (2-10) L 09/22/17 04:30 Eosinophils 0 % (0-5) 09/21/17 04:20 Basophils 0 % (0-3) 09/21/17 04:20 Platelet Estimate ADEQUATE (NORMAL) 09/21/17 04:20 Platelet Morphology NORMAL (NORMAL) 09/21/17 04:20 RBC Morph Micro Appear NORMAL (NORMAL) 09/21/17 04:20 PT 10.3 SECONDS (9.5-11.5) 09/09/17 12:30 INR 0.99 (0.5-1.4) 09/09/17 12:30 PTT (Actin FS) 26.3 SECONDS (26.0-38.0) 09/09/17 12:30 Specimen Source Arterial 09/21/17 09:10 Sample Site Right Radial 09/21/17 09:10 pH 7.49 (7.35-7.45) H 09/21/17 09:10 pCO2 34.0 mmHg (35.0-45.0) L 09/21/17 09:10 pO2 56.0 mmHg (80.0-100.0) L 09/21/17 09:10 HCO3 27.0 mEq/L (20.0-26.0) H 09/21/17 09:10 Base Excess 2.8 mEq/L (-3.0-3.0) 09/21/17 09:10 O2 Saturation 91.0 % (92.0-100.0) L 09/21/17 09:10 Matthew Test Y 09/21/17 09:10 Vent Rate n/a 09/21/17 09:10 Inspired O2 36 09/21/17 09:10 Tidal Volume n/a 09/21/17 09:10 PEEP n/a 09/21/17 09:10 Pressure (ins/psv/peep) n/a 09/21/17 09:10 Critical Value Courtney Beasley 09/21/17 09:10 Sodium 141 mEq/L (136-145) 09/23/17 05:21 Potassium 3.5 mEq/L (3.5-5.1) 09/23/17 05:21 Chloride 111 mEq/L (98-107) H 09/23/17 05:21 Carbon Dioxide 24.2 mEq/L (21.0-31.0) 09/23/17 05:21 Anion Gap 9.3 (7.0-16.0) 09/23/17 05:21 BUN 32 mg/dL (7-25) H 09/23/17 05:21 Creatinine 0.9 mg/dL (0.7-1.3) 09/23/17 05:21 Est GFR ( Amer) > 60.0 ml/min (>90) 09/23/17 05:21 Est GFR (Non-Af Amer) > 60.0 ml/min 09/23/17 05:21 BUN/Creatinine Ratio 35.6 09/23/17 05:21 Glucose 115 mg/dL (70-105) H 09/23/17 05:21 POC Glucose 151 MG/DL (70 - 105) H 09/23/17 12:25 Hemoglobin A1c % 6.1 % (4.0-6.0) H 09/19/17 04:20 Whole Bld Lactic Acid 1.35 mmol/L (0.60-1.99) 09/15/17 10:45 Calcium 7.9 mg/dL (8.6-10.3) L 09/23/17 05:21 Phosphorus 2.5 mg/dL (2.5-5.0) 09/23/17 05:21 Magnesium 2.4 mg/dL (1.9-2.7) 09/23/17 05:21 Total Bilirubin 0.3 mg/dL (0.3-1.0) 09/23/17 05:21 AST 23 U/L (13-39) 09/23/17 05:21 ALT 25 U/L (7-52) 09/23/17 05:21 Alkaline Phosphatase 44 U/L (34-104) 09/23/17 05:21 C-Reactive Protein 17.2 mg/dL (0.0-0.9) H 09/19/17 04:20 B-Natriuretic Peptide 47.8 pg/mL (5.0-100.0) 09/15/17 04:45 Total Protein 4.5 gm/dL (6.0-8.3) L 09/23/17 05:21 Albumin 2.4 gm/dL (4.2-5.5) L 09/23/17 05:21 Globulin 2.1 gm/dL 09/23/17 05:21 Albumin/Globulin Ratio 1.1 (1.0-1.8) 09/23/17 05:21 Prealbumin 18 09/21/17 04:20 Triglycerides 73 mg/dL (<150) 09/19/17 04:20 Cholesterol 61 mg/dL (<200) 09/21/17 04:20 Lipase 34 U/L (11-82) 09/22/17 04:30 Total Cortisol 28.9 09/12/17 01:00 Urine Source [place] 09/15/17 10:30 Urine Color GREEN 09/15/17 10:30 Urine Clarity CLOUDY (CLEAR) 09/15/17 10:30 Urine pH 6.5 (4.6 - 8.0) 09/15/17 10:30 Ur Specific [place] 1.015 (1.005-1.030) 09/15/17 10:30 Urine Protein 30 mg/dL (NEGATIVE) H 09/15/17 10:30 Urine Glucose (UA) NEGATIVE mg/dL (NEGATIVE) 09/15/17 10:30 Urine Ketones NEGATIVE mg/dL (NEGATIVE) 09/15/17 10:30 Urine Blood LARGE (NEGATIVE) H 09/15/17 10:30 Urine Nitrate POSITIVE (NEGATIVE) H 09/15/17 10:30 Urine Bilirubin MODERATE (NEGATIVE) H 09/15/17 10:30 Urine Urobilinogen 0.2 E.U./dL (0.2 - 1.0) 09/15/17 10:30 Ur Leukocyte Esterase TRACE (NEGATIVE) H 09/15/17 10:30 Urine RBC 50-100 /hpf (0-5) H 09/15/17 10:30 Urine WBC 25-50 /hpf (0-5) H 09/15/17 10:30 Ur Epithelial Cells MANY /lpf (FEW) 09/15/17 10:30 Urine Bacteria 4+ /hpf (NONE SEEN) H 09/15/17 10:30 Urine Osmolality 784 mOsmol/kg 09/19/17 15:42 Ur Random Sodium 23 mmol/L 09/19/17 15:42 Vancomycin Trough 12.7 ug/mL (5-10) H 09/20/17 08:00 - Physical Exam Vitals and I&O: Vital Signs Temp 97.4 F 09/23/17 12:00 Pulse 63 09/23/17 15:41 Resp 22 09/23/17 15:41 BP 106/56 09/23/17 12:00 Pulse Ox 95 09/23/17 15:41 Intake & Output 09/22/17 09/23/17 09/23/17 18:59 06:59 18:59 Intake Total 1028 1050 972 Output Total 2700 Balance 1028 -1650 972 Weight (lbs) 72.121 kg Intake: Intake, IV Amount 1028 972 Dextrose 5% 1,000 ml @ 70 1028 972 mls/hr IV .[id number] [facility] Rx#:[id number] Tube Feeding 700 Other 350 Output: Urine 2700 Other: # Bowel Movements 0 Stool Characteristics Soft Brown Weight Source Bedscale Active Medications: Current Medications Acetaminophen (Tylenol) 650 mg PO Q6H PRN PRN Reason: Fever > 101 OR MILD PAIN Stop: 11/11/17 20:45 Last Admin: 09/21/17 15:01 Dose: 650 mg Al Hydrox/Mg Hydrox/Simethicone (Maalox) 30 ml PO Q6H PRN PRN Reason: GI DISTRESS Stop: 11/08/17 15:49 Albuterol/Ipratropium (Duoneb Neb) 3 ml HHN Q4HRT [facility] Stop: 11/14/17 22:59 Last Admin: 09/23/17 15:41 Dose: 3 ml Amlodipine Besylate (Norvasc) 5 mg PO DAILY [facility] Stop: 11/09/17 08:59 Last Admin: 09/23/17 08:57 Dose: 5 mg Atorvastatin Calcium (Lipitor) 20 mg GT HS [facility] PRN Reason: Protocol Stop: 11/08/17 20:59 Last Admin: 09/22/17 21:01 Dose: 20 mg Cholecalciferol (Vitamin D3) 1,000 iu GT DAILY [facility] Stop: 11/09/17 08:59 Last Admin: 09/23/17 08:57 Dose: 1,000 iu Donepezil HCl (Aricept) 10 mg GT HS [facility] Stop: 11/08/17 20:59 Last Admin: 09/22/17 21:01 Dose: 10 mg Enoxaparin Sodium (Lovenox) 70 mg SUBQ Q12HR [facility] Stop: 11/16/17 08:59 Last Admin: 09/23/17 08:58 Dose: 70 mg Dextrose (D5w) 1,000 mls @ 70 mls/hr IV .[id number] [facility] Stop: 11/20/17 08:57 Last Admin: 09/23/17 09:13 Dose: 70 mls/hr Insulin Aspart (Novolog Insulin Sliding Scale) 0 units SUBQ Q6HR [facility] PRN Reason: Protocol Stop: 11/18/17 00:00 Last Admin: 09/23/17 12:32 Dose: 2 units Lactobacillus Rhamnosus (Culturelle 15b) 1 each PO DAILY [facility] Stop: 11/12/17 08:59 Last Admin: 09/23/17 08:57 Dose: 1 each Magnesium Hydroxide (Milk Of Magnesia) 30 ml PO HS PRN PRN Reason: Constipation Stop: 11/08/17 15:49 Memantine (Namenda) 5 mg GT BID [facility] Stop: 11/08/17 16:59 Last Admin: 09/23/17 08:57 Dose: 5 mg Methylprednisolone Sodium Succinate (Solu-Medrol) 20 mg IVP DAILY [facility] Stop: 11/22/17 08:59 Last Admin: 09/23/17 08:56 Dose: 20 mg Metoclopramide HCl (Reglan) 5 mg PO Q6H PRN PRN Reason: Nausea / Vomiting Stop: 11/21/17 17:44 Miscellaneous (Probiotic Screen) 1 ea MC PRN PRN PRN Reason: PROTOCOL Stop: 11/12/17 08:59 Pantoprazole Sodium (Protonix) 40 mg IVP DAILY [facility] Stop: 11/19/17 08:59 Last Admin: 09/23/17 08:57 Dose: 40 mg Potassium Chloride (Potassium Chloride Elixir) 40 meq GT DAILY [facility] Stop: 11/18/17 10:14 Last Admin: 09/23/17 08:58 Dose: 40 meq General: No acute distress HEENT: Atraumatic Neck: Supple, +2 carotid pulse wo bruit Cardiovascular: Regular rate, Normal S1, Normal S2 Lungs: Other (few rhonchi) Abdomen: Bowel sounds, Soft, Other (Peg in place. ), no Tender, no Hepatomegaly , no Rebound, no Mass, no Guarding Extremities: no Edema Neurological: Sensation intact Skin: no Rash Psych/Mental Status: Other (schizoaffective) - Procedures Procedures: Procedures Procedure Code Date ASSISTANCE WITH RESPIRATORY VENTILATION, <24 HRS, CPAP [id number] 09/09/[address] GASTROSTOMY TUBE 61894 09/09/17 INSERTION OF FEEDING DEVICE INTO STOMACH, PERC APPROACH [id number] 09/09/17 POS AIRWAY PRESSURE CPAP [id number] 09/09/17 Assessment/Plan - Assessment Assessment: Pre-Renal Azotemia Hypernatremia Asp Pna Schizoaffective Disorder Left HAP, Effusion - Plan Plan: Lab - Result Diagrams 09/20/17 04:20 09/20/17 04:20 Current Medications Acetaminophen (Tylenol) 650 mg PO Q6H PRN PRN Reason: Fever > 101 OR MILD PAIN Stop: 11/11/17 20:45 Last Admin: 09/20/17 15:37 Dose: 650 mg Al Hydrox/Mg Hydrox/Simethicone (Maalox) 30 ml PO Q6H PRN PRN Reason: GI DISTRESS Stop: 11/08/17 15:49 Albuterol/Ipratropium (Duoneb Neb) 3 ml HHN Q4HRT [facility] Stop: 11/14/17 22:59 Last Admin: 09/20/17 14:35 Dose: 3 ml Amlodipine Besylate (Norvasc) 5 mg PO DAILY [facility] Stop: 11/09/17 08:59 Last Admin: 09/20/17 08:46 Dose: 5 mg Atorvastatin Calcium (Lipitor) 20 mg GT HS [facility] PRN Reason: Protocol Stop: 11/08/17 20:59 Last Admin: 09/19/17 20:56 Dose: 20 mg Cholecalciferol (Vitamin D3) 1,000 iu GT DAILY [facility] Stop: 11/09/17 08:59 Last Admin: 09/20/17 08:46 Dose: 1,000 iu Donepezil HCl (Aricept) 10 mg GT HS [facility] Stop: 11/08/17 20:59 Last Admin: 09/19/17 20:55 Dose: 10 mg Enoxaparin Sodium (Lovenox) 70 mg SUBQ Q12HR [facility] Stop: 11/16/17 08:59 Last Admin: 09/20/17 08:47 Dose: 70 mg Metronidazole (Flagyl) 500 mg in 100 mls @ 100 mls/hr IV Q8HR [facility] Stop: 09/27/17 12:59 Last Infusion: 09/20/17 13:20 Dose: Infused Dextrose (D5w) 1,000 mls @ 20 mls/hr IV .Q24H [facility] Stop: 11/17/17 15:59 Last Admin: 09/18/17 15:49 Dose: 20 mls/hr Vancomycin HCl 1.5 gm/ (Dextrose) 500 mls @ 250 mls/hr IV Q24H [facility] Stop: 11/19/17 09:59 Last Infusion: 09/20/17 11:30 Dose: Infused Multivitamins/Minerals 10 ml/Insulin Human Regular 10 units / Dextrose/ Amino Acids/Electrolytes/ Sterile Water/Fat Emulsion Intravenous 2,000.1 mls @ 80 mls /hr IV .Q24H [facility] Stop: 10/17/17 15:59 Last Admin: 09/19/17 18:00 Dose: 80 mls/hr Piperacillin Sod/Tazobactam (Sod 4.5 gm/ Sodium Chloride) 100 mls @ 100 mls/hr IV Q8HR [facility] Stop: 11/19/17 20:59 Insulin Aspart (Novolog Insulin Sliding Scale) 0 units SUBQ Q6HR [facility] PRN Reason: Protocol Stop: 11/18/17 00:00 Last Admin: 09/20/17 12:01 Dose: 6 units Lactobacillus Rhamnosus (Culturelle 15b) 1 each PO DAILY [facility] Stop: 11/12/17 08:59 Last Admin: 09/20/17 08:47 Dose: 1 each Magnesium Hydroxide (Milk Of Magnesia) 30 ml PO HS PRN PRN Reason: Constipation Stop: 11/08/17 15:49 Memantine (Namenda) 5 mg GT BID JOSE RAMON Stop: 11/08/17 16:59 Last Admin: 09/20/17 08:47 Dose: 5 mg Methylprednisolone Sodium Succinate (Solu-Medrol) 40 mg IVP Q12HR JOSE RAMON Stop: 11/19/17 20:59 Miscellaneous (Zosyn Iv Per Pharmacy) 1 ea PRN PRN PRN Reason: PROTOCOL Stop: 11/10/17 08:34 Miscellaneous (Probiotic Screen) 1 ea PRN PRN PRN Reason: PROTOCOL Stop: 11/12/17 08:59 Miscellaneous (Vancomycin Iv Per Pharmacy) 1 ea DAILY JOSE RAMON Stop: 11/15/17 16:59 Miscellaneous (Ppn Per Pharmacy) 1 ea PRN PRN PRN Reason: PROTOCOL Stop: 11/18/17 15:41 Pantoprazole Sodium (Protonix) 40 mg IVP DAILY JOSE RAMON Stop: 11/19/17 08:59 Last Admin: 09/20/17 09:05 Dose: 40 mg Potassium Chloride (Potassium Chloride Elixir) 40 meq GT DAILY JOSE RAMON Stop: 06/20/18 10:14 Last Admin: 09/20/17 08:46 Dose: 40 meq Lab - Result Diagrams 09/23/17 05:21 09/23/17 05:21 Kidney fnc same w/ BUN/CR of 32/0.9 replace K/P04, Na down to 141 WBC down to 17.8 continue D5W @ 70 ml/hr f/u electrolytes, cbc Nutritional Asmnt/Malnutr-PDOC - Dietary Evaluation Malnutrition Findings (Please click <Entered> for more info): Nutritional Asmnt/Malnutrition Start: 09/10/17 16: 17 Text: Status: Complete Freq: Document 09/10/17 16:19 LCHENG (Rec: 09/10/17 16:29 LCHENG [id number]) Nutritional Asmnt/Malnutrition Patient General Information Nutritional Screening High Risk Diagnosis g-tube placement (reason for visit) Pertinent Medical Hx/Surgical Hx DM, hyperlipidemia, dementia, schizophrenia, PEG/Gtube Subjective Information Pt seen lying in bed at time of visit, non-verbal. Pt has PEG placement today. Current Diet Order/ Nutrition Support fibersource HN start at 40ml/ hr, goal rate 60ml/hr continuous Pertinent Medications vit D3, vancomycin, theragran, nacl 0.9% Pertinent Labs 09/10 glucose 125, alb 4.1 09/09 glucose 129 Nutritional Hx/Data Height 1.68 m Height (Calculated Centimeters) 167.6 Current Weight (lbs) 63.957 kg Weight (Calculated Kilograms) 64.0 Weight (Calculated Grams) 56293.5 [place] Body Weight 142 Body Mass Index (BMI) 22.7 Weight Status Approriate GI Symptoms GI Symptoms None Last BM no record Difficult in: None Skin Integrity/Comment: reddened to coccyx, bruise to hand, rash to back Estimated Nutritional Goals BEE in Kcals: Using Current wt Calories/Kcals/Kg 25-30 Kcals Calculated 2498-1347 Protein: Using Current wt Protein g/k-1.2 Protein Calculated 64-77 Fluid: ml 1600-1920ml (1ml/kcal) Nutritional Problem No current Nutrition Prob Problem N/A Malnutrition Alert Protein-Calorie Malnutrition N/A Is there a minimum of two criteria No selected? Query Text:Check all the applicable criteria. A minimum of two criteria are recommended for diagnosis of either severe or non-severe malnutrition. Intervention/Recommendation Comments 1. Initiate TF as ordered. It provides 1728kcal, 77g protein , 1178ml free water, meeting 100% of nutritional needs. 2. Monitor TF rate, tolerance, wt weekly, skin integrity and labs 3. F/U as high risk in 2-3 days, 09/12-09/13 Expected Outcomes/Goals Expected Outcomes/Goals 1. Pt to meet at least 75% of nutritional needs via nutrition support with tolerance 2. Wt stability, skin to remain intact, labs to approach WNL.
[2017-09-23] MEDS: Atorvastatin Calcium 10 MG TAB GT SCH (22:38)
[2017-09-24] MEDS: Albuterol/Ipratropium Neb 3 ML AERS HHN SCH ×6 (02:10→23:23)
[2017-09-24] MEDS: INSULIN ASPART SLIDING SCALE 100 UNITS/ML UNIT SUBQ SCH ×5 (02:14→23:32)
[2017-09-24] MEDS: Dextrose 5% 1,000 ML IV SCH (02:15)
[2017-09-24 06:48] LABS: % BASOPHILS 0.4 % (0.0-2.0); % EOSINOPHILS 1.1 % (0.0-5.0); % LYMPHOCYTES 14.3 % (20.0-50.0); % MONOCYTES 2.8 % (2.0-10.0); % NEUTROPHILS 81.4 % (40.0-80.0); BASOPHILE ABSOLUTE 0.1 Th/cumm (0-0.2); EOSINOPHILE ABSOLUTE 0.2 Th/cmm (0.1-0.4); HEMATOCRIT 34.3 % (41.0-60); HEMOGLOBIN 11.6 gm/dL (12-16); LYMPHOCYTE ABSOLUTE 2.3 Th/cmm (1.5-3.0); MEAN CELL VOLUME 87.2 fl (80-99); MEAN CORPUSCULAR HEMOGLOBIN 29.4 pg (27.0-31.0); MEAN CORPUSCULAR HGB CONC 33.7 pg (28.0-36.0); MONOCYTE ABSOLUTE 0.4 Th/cmm (0.3-1.0); NEUTROPHILE ABSOLUTE 12.9 Th/cmm (1.8-8.0); PLATELET COUNT 276 Th/cmm (150-400); RED BLOOD COUNT 3.93 Mil/cmm (3.80-5.80); RED CELL DISTRIBUTION WIDTH 14.8 % (11.5-20.0)
[2017-09-24 06:51] LABS: WHITE BLOOD COUNT 15.9 Th/cmm (4.8-10.8)
[2017-09-24 07:15] LABS: ALBUMIN 2.3 gm/dL (4.2-5.5); ALKALINE PHOSPHATASE 45 U/L (34-104); BILIRUBIN,TOTAL 0.3 mg/dL (0.3-1.0); BUN - UREA NITROGEN 27 mg/dL (7-25); CALCIUM SERUM 7.9 mg/dL (8.6-10.3); CARBON DIOXIDE 23.6 mEq/L (21.0-31.0); CHLORIDE 109 mEq/L (98-107); CREATININE - SERUM 0.9 mg/dL (0.7-1.3); GFR AFRICAN-AMERICAN > 60.0 ml/min (>90); GFR NON AFRICAN-AMERICAN > 60.0 ml/min; GLUCOSE 116 mg/dL (70-105); POTASSIUM SERUM 3.6 mEq/L (3.5-5.1); SGOT 21 U/L (13-39); SGPT/ALT 25 U/L (7-52); SODIUM SERUM 139 mEq/L (136-145); TOTAL PROTEIN,SERUM 4.6 gm/dL (6.0-8.3)
--- NOTE | 2017-09-24 07:57 | Diagnostic Imaging Report ---
CHEST X-RAY: AP view INDICATION: Shortness of breath COMPARISON: 09/21/2017 FINDINGS: Mild increased interstitial lung markings are noted. Small left effusion is noted. Left basal atelectatic changes are noted. Heart size is at the upper limits of normal. IMPRESSION: Mild increased interstitial lung markings, nonspecific. Small left effusion is again noted with left basal atelectasis. There may be residual infiltrate of the left lung base.
[2017-09-24] MEDS: Potassium Chloride Elixir 20 mEq /15 mL UDC GT SCH (08:19)
[2017-09-24] MEDS: Enoxaparin 80 mg/0.8 mL 0.8mL Syr SUBQ SCH ×2 (08:19→20:26)
[2017-09-24] MEDS: Lactobacillus Rhamnosus GG 15 Billion CFU CAP.SPRINK PO SCH (08:19)
[2017-09-24] MEDS ORDERED: D5-0.9%NS 1,000 ML IV SCH (09:15)
--- NOTE | 2017-09-24 09:18 | General Progress Note ---
Subjective - Review of Systems Service Date: 09/24/17 Subjective: Patient is non verbal Objective - Results Result Diagrams: 09/24/17 06:10 09/24/17 06:10 Recent Labs: Laboratory Last Values WBC 15.9 Th/cmm (4.8-10.8) H 09/24/17 06:10 RBC 3.93 Mil/cmm (3.80-5.80) 09/24/17 06:10 Hgb 11.6 gm/dL (12-16) L 09/24/17 06:10 Hct 34.3 % (41.0-60) L 09/24/17 06:10 MCV 87.2 fl (80-99) 09/24/17 06:10 MCH 29.4 pg (27.0-31.0) 09/24/17 06:10 MCHC Differential 33.7 pg (28.0-36.0) 09/24/17 06:10 RDW 14.8 % (11.5-20.0) 09/24/17 06:10 Plt Count 276 Th/cmm (150-400) 09/24/17 06:10 MPV 13.0 fl 09/24/17 06:10 Neutrophils % 81.4 % (40.0-80.0) H 09/24/17 06:10 Band Neutrophils % 6 % (0-10) 09/22/17 04:30 Lymphocytes % 14.3 % (20.0-50.0) L 09/24/17 06:10 Monocytes % 2.8 % (2.0-10.0) 09/24/17 06:10 Eosinophils % 1.1 % (0.0-5.0) 09/24/17 06:10 Basophils % 0.4 % (0.0-2.0) 09/24/17 06:10 Neutrophils (Manual) 80 % (40-80) 09/22/17 04:30 Lymphocytes 13 % (20-50) L 09/22/17 04:30 Monocytes 1 % (2-10) L 09/22/17 04:30 Eosinophils 0 % (0-5) 09/21/17 04:20 Basophils 0 % (0-3) 09/21/17 04:20 Platelet Estimate ADEQUATE (NORMAL) 09/21/17 04:20 Platelet Morphology NORMAL (NORMAL) 09/21/17 04:20 RBC Morph Micro Appear NORMAL (NORMAL) 09/21/17 04:20 PT 10.3 SECONDS (9.5-11.5) 09/09/17 12:30 INR 0.99 (0.5-1.4) 09/09/17 12:30 PTT (Actin FS) 26.3 SECONDS (26.0-38.0) 09/09/17 12:30 Specimen Source Arterial 09/21/17 09:10 Sample Site Right Radial 09/21/17 09:10 pH 7.49 (7.35-7.45) H 09/21/17 09:10 pCO2 34.0 mmHg (35.0-45.0) L 09/21/17 09:10 pO2 56.0 mmHg (80.0-100.0) L 09/21/17 09:10 HCO3 27.0 mEq/L (20.0-26.0) H 09/21/17 09:10 Base Excess 2.8 mEq/L (-3.0-3.0) 09/21/17 09:10 O2 Saturation 91.0 % (92.0-100.0) L 09/21/17 09:10 Matthew Test Y 09/21/17 09:10 Vent Rate n/a 09/21/17 09:10 Inspired O2 36 09/21/17 09:10 Tidal Volume n/a 09/21/17 09:10 PEEP n/a 09/21/17 09:10 Pressure (ins/psv/peep) n/a 09/21/17 09:10 Critical Value Courtney Beasley 09/21/17 09:10 Sodium 139 mEq/L (136-145) 09/24/17 06:10 Potassium 3.6 mEq/L (3.5-5.1) 09/24/17 06:10 Chloride 109 mEq/L (98-107) H 09/24/17 06:10 Carbon Dioxide 23.6 mEq/L (21.0-31.0) 09/24/17 06:10 Anion Gap 10.0 (7.0-16.0) 09/24/17 06:10 BUN 27 mg/dL (7-25) H 09/24/17 06:10 Creatinine 0.9 mg/dL (0.7-1.3) 09/24/17 06:10 Est GFR ( Amer) > 60.0 ml/min (>90) 09/24/17 06:10 Est GFR (Non-Af Amer) > 60.0 ml/min 09/24/17 06:10 BUN/Creatinine Ratio 30.0 09/24/17 06:10 Glucose 116 mg/dL (70-105) H 09/24/17 06:10 POC Glucose 110 MG/DL (70 - 105) H 09/24/17 06:55 Hemoglobin A1c % 6.1 % (4.0-6.0) H 09/19/17 04:20 Whole Bld Lactic Acid 1.35 mmol/L (0.60-1.99) 09/15/17 10:45 Calcium 7.9 mg/dL (8.6-10.3) L 09/24/17 06:10 Phosphorus 2.5 mg/dL (2.5-5.0) 09/23/17 05:21 Magnesium 2.4 mg/dL (1.9-2.7) 09/23/17 05:21 Total Bilirubin 0.3 mg/dL (0.3-1.0) 09/24/17 06:10 AST 21 U/L (13-39) 09/24/17 06:10 ALT 25 U/L (7-52) 09/24/17 06:10 Alkaline Phosphatase 45 U/L (34-104) 09/24/17 06:10 C-Reactive Protein 17.2 mg/dL (0.0-0.9) H 09/19/17 04:20 B-Natriuretic Peptide 47.8 pg/mL (5.0-100.0) 09/15/17 04:45 Total Protein 4.6 gm/dL (6.0-8.3) L 09/24/17 06:10 Albumin 2.3 gm/dL (4.2-5.5) L 09/24/17 06:10 Globulin 2.3 gm/dL 09/24/17 06:10 Albumin/Globulin Ratio 1.0 (1.0-1.8) 09/24/17 06:10 Prealbumin 18 09/21/17 04:20 Triglycerides 73 mg/dL (<150) 09/19/17 04:20 Cholesterol 61 mg/dL (<200) 09/21/17 04:20 Lipase 34 U/L (11-82) 09/22/17 04:30 Total Cortisol 28.9 09/12/17 01:00 Urine Source [place] 09/15/17 10:30 Urine Color GREEN 09/15/17 10:30 Urine Clarity CLOUDY (CLEAR) 09/15/17 10:30 Urine pH 6.5 (4.6 - 8.0) 09/15/17 10:30 Ur Specific [place] 1.015 (1.005-1.030) 09/15/17 10:30 Urine Protein 30 mg/dL (NEGATIVE) H 09/15/17 10:30 Urine Glucose (UA) NEGATIVE mg/dL (NEGATIVE) 09/15/17 10:30 Urine Ketones NEGATIVE mg/dL (NEGATIVE) 09/15/17 10:30 Urine Blood LARGE (NEGATIVE) H 09/15/17 10:30 Urine Nitrate POSITIVE (NEGATIVE) H 09/15/17 10:30 Urine Bilirubin MODERATE (NEGATIVE) H 09/15/17 10:30 Urine Urobilinogen 0.2 E.U./dL (0.2 - 1.0) 09/15/17 10:30 Ur Leukocyte Esterase TRACE (NEGATIVE) H 09/15/17 10:30 Urine RBC 50-100 /hpf (0-5) H 09/15/17 10:30 Urine WBC 25-50 /hpf (0-5) H 09/15/17 10:30 Ur Epithelial Cells MANY /lpf (FEW) 09/15/17 10:30 Urine Bacteria 4+ /hpf (NONE SEEN) H 09/15/17 10:30 Urine Osmolality 784 mOsmol/kg 09/19/17 15:42 Ur Random Sodium 23 mmol/L 09/19/17 15:42 Vancomycin Trough 11.2 ug/mL (5-10) H 09/23/17 14:30 - Physical Exam Vitals and I&O: Vital Signs Temp 97.5 F 09/24/17 08:50 Pulse 91 09/24/17 09:01 Resp 19 09/24/17 08:50 BP 99/51 09/24/17 09:01 Pulse Ox 91 09/24/17 08:50 Intake & Output 09/23/17 09/24/17 09/24/17 18:59 06:59 18:59 Intake Total 2132 1850 Output Total 2250 1851 Balance -118 -1 Weight (lbs) 72.348 kg 72.121 kg Intake: Intake, IV Amount 972 1000 Dextrose 5% 1,000 ml @ 70 972 1000 mls/hr IV .[id number] [facility] Rx#:[id number] Tube Feeding 1160 850 Output: Urine 2250 1850 Stool 1 Other: # Bowel Movements 1 Stool Characteristics Soft Formed Weight Source Bedscale Bedscale Active Medications: Current Medications Acetaminophen (Tylenol) 650 mg PO Q6H PRN PRN Reason: Fever > 101 OR MILD PAIN Stop: 11/11/17 20:45 Last Admin: 09/21/17 15:01 Dose: 650 mg Al Hydrox/Mg Hydrox/Simethicone (Maalox) 30 ml PO Q6H PRN PRN Reason: GI DISTRESS Stop: 11/08/17 15:49 Albuterol/Ipratropium (Duoneb Neb) 3 ml HHN Q4HRT [facility] Stop: 11/14/17 22:59 Last Admin: 09/24/17 07:55 Dose: 3 ml Amlodipine Besylate (Norvasc) 5 mg PO DAILY [facility] Stop: 11/09/17 08:59 Last Admin: 09/24/17 09:01 Dose: Not Given Atorvastatin Calcium (Lipitor) 20 mg GT HS [facility] PRN Reason: Protocol Stop: 11/08/17 20:59 Last Admin: 09/23/17 22:38 Dose: 20 mg Cholecalciferol (Vitamin D3) 1,000 iu GT DAILY [facility] Stop: 11/09/17 08:59 Last Admin: 09/24/17 08:19 Dose: 1,000 iu Donepezil HCl (Aricept) 10 mg GT HS [facility] Stop: 11/08/17 20:59 Last Admin: 09/23/17 22:39 Dose: 10 mg Enoxaparin Sodium (Lovenox) 70 mg SUBQ Q12HR [facility] Stop: 11/16/17 08:59 Last Admin: 09/24/17 08:19 Dose: 70 mg Dextrose/Sodium Chloride (D5-0.9%Ns) 1,000 mls @ 50 mls/hr IV .Q20H [facility] Stop: 11/23/17 09:14 Insulin Aspart (Novolog Insulin Sliding Scale) 0 units SUBQ Q6HR [facility] RAMON PRN Reason: Protocol Stop: 11/18/17 00:00 Last Admin: 09/24/17 08:21 Dose: Not Given Lactobacillus Rhamnosus (Culturelle 15b) 1 each PO DAILY [facility] RAMON Stop: 11/12/17 08:59 Last Admin: 09/24/17 08:19 Dose: 1 each Magnesium Hydroxide (Milk Of Magnesia) 30 ml PO HS PRN PRN Reason: Constipation Stop: 11/08/17 15:49 Memantine (Namenda) 5 mg GT BID [facility] RAMON Stop: 11/08/17 16:59 Last Admin: 09/24/17 08:19 Dose: 5 mg Metoclopramide HCl (Reglan) 5 mg PO Q6H PRN PRN Reason: Nausea / Vomiting Stop: 11/21/17 17:44 Miscellaneous (Probiotic Screen) 1 ea MC PRN PRN PRN Reason: PROTOCOL Stop: 11/12/17 08:59 Pantoprazole Sodium (Protonix) 40 mg IVP DAILY [facility] Stop: 11/19/17 08:59 Last Admin: 09/24/17 08:21 Dose: 40 mg Potassium Chloride (Potassium Chloride Elixir) 40 meq GT DAILY [facility] RAM[facility] Stop: 11/18/17 10:14 Last Admin: 09/24/17 08:19 Dose: 40 meq General: No acute distress HEENT: Atraumatic Neck: Supple, +2 carotid pulse wo bruit Cardiovascular: Regular rate, Normal S1, Normal S2 Lungs: Other (few rhonchi) Abdomen: Bowel sounds, Soft, Other (Peg in place. ), no Tender, no Hepatomegaly , no Rebound, no Mass, no Guarding Extremities: no Edema Neurological: Sensation intact Skin: no Rash Psych/Mental Status: Other (schizoaffective) - Procedures Procedures: Procedures Procedure Code Date ASSISTANCE WITH RESPIRATORY VENTILATION, <24 HRS, CPAP [id number] 09/09/[address] GASTROSTOMY TUBE 22708 09/09/17 INSERTION OF FEEDING DEVICE INTO STOMACH, PERC APPROACH [id number] 09/09/17 POS AIRWAY PRESSURE CPAP 90294 09/09/17 Assessment/Plan - Assessment Assessment: Patient is awake, non verbal. he is in 5 litters O2 nasal canula. WBC decreasing with out AB. Na is normal. Patient is breathing better today with nasal canule. Continue with tube Feeding. Dx: Peg displacement, sepsis, Hypernatremia, DM, Dementia, Schizophrenia, bed bound. Will continue to monitor - Plan Plan: Peg was replaced. D5 changed to D5/NS, AB DC, and WBC improved. Yesterday I called to the [employer] Pro[employer] organization that administrate his financial matter and they told me they do not have any husbandry person for this patient. Case discussed with ID and Pulmonology. Case will presented to ethics committee. Patient not responding to treatment. Prognosis continue being poor. Will continue monitoring. Nutritional Asmnt/Malnutr-PDOC - Dietary Evaluation Malnutrition Findings (Please click <Entered> for more info): Nutritional Asmnt/Malnutrition Start: 09/10/17 16: 17 Text: Status: Complete Freq: Document 09/10/17 16:19 [email or web address] (Rec: 09/10/17 16:29 YESENIA [email or web address]) Nutritional Asmnt/Malnutrition Patient General Information Nutritional Screening High Risk Diagnosis g-tube placement (reason for visit) Pertinent Medical Hx/Surgical Hx DM, hyperlipidemia, dementia, schizophrenia, PEG/Gtube Subjective Information Pt seen lying in bed at time of visit, non-verbal. Pt has PEG placement today. Current Diet Order/ Nutrition Support fibersource HN start at 40ml/ hr, goal rate 60ml/hr continuous Pertinent Medications vit D3, vancomycin, theragran, nacl 0.9% Pertinent Labs 09/10 glucose 125, alb 4.1 09/09 glucose 129 Nutritional Hx/Data Height 1.68 m Height (Calculated Centimeters) 167.6 Current Weight (lbs) 63.957 kg Weight (Calculated Kilograms) 64.0 Weight (Calculated Grams) 41759.5 [place] Body Weight 142 Body Mass Index (BMI) 22.7 Weight Status Approriate GI Symptoms GI Symptoms None Last BM no record Difficult in: None Skin Integrity/Comment: reddened to coccyx, bruise to hand, rash to back Estimated Nutritional Goals BEE in Kcals: Using Current wt Calories/Kcals/Kg 25-30 Kcals Calculated 6058-1961 Protein: Using Current wt Protein g/k-1.2 Protein Calculated 64-77 Fluid: ml 1600-1920ml (1ml/kcal) Nutritional Problem No current Nutrition Prob Problem N/A Malnutrition Alert Protein-Calorie Malnutrition N/A Is there a minimum of two criteria No selected? Query Text:Check all the applicable criteria. A minimum of two criteria are recommended for diagnosis of either severe or non-severe malnutrition. Intervention/Recommendation Comments 1. Initiate TF as ordered. It provides 1728kcal, 77g protein , 1178ml free water, meeting 100% of nutritional needs. 2. Monitor TF rate, tolerance, wt weekly, skin integrity and labs 3. F/U as high risk in 2-3 days, 09/12-09/13 Expected Outcomes/Goals Expected Outcomes/Goals 1. Pt to meet at least 75% of nutritional needs via nutrition support with tolerance 2. Wt stability, skin to remain intact, labs to approach WNL.
--- NOTE | 2017-09-24 17:21 | Infectious Disease Prog Note ---
Infectious Disease Subjective - Review of Systems Service Date: 09/24/17 Subjective: No change, no fever. Infectious Disease Objective - Results Result Diagrams: 09/24/17 06:10 09/24/17 06:10 Recent Labs: Laboratory Last Values WBC 15.9 Th/cmm (4.8-10.8) H 09/24/17 06:10 RBC 3.93 Mil/cmm (3.80-5.80) 09/24/17 06:10 Hgb 11.6 gm/dL (12-16) L 09/24/17 06:10 Hct 34.3 % (41.0-60) L 09/24/17 06:10 MCV 87.2 fl (80-99) 09/24/17 06:10 MCH 29.4 pg (27.0-31.0) 09/24/17 06:10 MCHC Differential 33.7 pg (28.0-36.0) 09/24/17 06:10 RDW 14.8 % (11.5-20.0) 09/24/17 06:10 Plt Count 276 Th/cmm (150-400) 09/24/17 06:10 MPV 13.0 fl 09/24/17 06:10 Neutrophils % 81.4 % (40.0-80.0) H 09/24/17 06:10 Band Neutrophils % 6 % (0-10) 09/22/17 04:30 Lymphocytes % 14.3 % (20.0-50.0) L 09/24/17 06:10 Monocytes % 2.8 % (2.0-10.0) 09/24/17 06:10 Eosinophils % 1.1 % (0.0-5.0) 09/24/17 06:10 Basophils % 0.4 % (0.0-2.0) 09/24/17 06:10 Neutrophils (Manual) 80 % (40-80) 09/22/17 04:30 Lymphocytes 13 % (20-50) L 09/22/17 04:30 Monocytes 1 % (2-10) L 09/22/17 04:30 Eosinophils 0 % (0-5) 09/21/17 04:20 Basophils 0 % (0-3) 09/21/17 04:20 Platelet Estimate ADEQUATE (NORMAL) 09/21/17 04:20 Platelet Morphology NORMAL (NORMAL) 09/21/17 04:20 RBC Morph Micro Appear NORMAL (NORMAL) 09/21/17 04:20 PT 10.3 SECONDS (9.5-11.5) 09/09/17 12:30 INR 0.99 (0.5-1.4) 09/09/17 12:30 PTT (Actin FS) 26.3 SECONDS (26.0-38.0) 09/09/17 12:30 Specimen Source Arterial 09/21/17 09:10 Sample Site Right Radial 09/21/17 09:10 pH 7.49 (7.35-7.45) H 09/21/17 09:10 pCO2 34.0 mmHg (35.0-45.0) L 09/21/17 09:10 pO2 56.0 mmHg (80.0-100.0) L 09/21/17 09:10 HCO3 27.0 mEq/L (20.0-26.0) H 09/21/17 09:10 Base Excess 2.8 mEq/L (-3.0-3.0) 09/21/17 09:10 O2 Saturation 91.0 % (92.0-100.0) L 09/21/17 09:10 Matthew Test Y 09/21/17 09:10 Vent Rate n/a 09/21/17 09:10 Inspired O2 36 09/21/17 09:10 Tidal Volume n/a 09/21/17 09:10 PEEP n/a 09/21/17 09:10 Pressure (ins/psv/peep) n/a 09/21/17 09:10 Critical Value Courtney Beasley 09/21/17 09:10 Sodium 139 mEq/L (136-145) 09/24/17 06:10 Potassium 3.6 mEq/L (3.5-5.1) 09/24/17 06:10 Chloride 109 mEq/L (98-107) H 09/24/17 06:10 Carbon Dioxide 23.6 mEq/L (21.0-31.0) 09/24/17 06:10 Anion Gap 10.0 (7.0-16.0) 09/24/17 06:10 BUN 27 mg/dL (7-25) H 09/24/17 06:10 Creatinine 0.9 mg/dL (0.7-1.3) 09/24/17 06:10 Est GFR ( Amer) > 60.0 ml/min (>90) 09/24/17 06:10 Est GFR (Non-Af Amer) > 60.0 ml/min 09/24/17 06:10 BUN/Creatinine Ratio 30.0 09/24/17 06:10 Glucose 116 mg/dL (70-105) H 09/24/17 06:10 POC Glucose 122 MG/DL (70 - 105) H 09/24/17 11:57 Hemoglobin A1c % 6.1 % (4.0-6.0) H 09/19/17 04:20 Whole Bld Lactic Acid 1.35 mmol/L (0.60-1.99) 09/15/17 10:45 Calcium 7.9 mg/dL (8.6-10.3) L 09/24/17 06:10 Phosphorus 2.5 mg/dL (2.5-5.0) 09/23/17 05:21 Magnesium 2.4 mg/dL (1.9-2.7) 09/23/17 05:21 Total Bilirubin 0.3 mg/dL (0.3-1.0) 09/24/17 06:10 AST 21 U/L (13-39) 09/24/17 06:10 ALT 25 U/L (7-52) 09/24/17 06:10 Alkaline Phosphatase 45 U/L (34-104) 09/24/17 06:10 C-Reactive Protein 17.2 mg/dL (0.0-0.9) H 09/19/17 04:20 B-Natriuretic Peptide 47.8 pg/mL (5.0-100.0) 09/15/17 04:45 Total Protein 4.6 gm/dL (6.0-8.3) L 09/24/17 06:10 Albumin 2.3 gm/dL (4.2-5.5) L 09/24/17 06:10 Globulin 2.3 gm/dL 09/24/17 06:10 Albumin/Globulin Ratio 1.0 (1.0-1.8) 09/24/17 06:10 Prealbumin 18 09/21/17 04:20 Triglycerides 73 mg/dL (<150) 09/19/17 04:20 Cholesterol 61 mg/dL (<200) 09/21/17 04:20 Lipase 34 U/L (11-82) 09/22/17 04:30 Total Cortisol 28.9 09/12/17 01:00 Urine Source [place] 09/15/17 10:30 Urine Color GREEN 09/15/17 10:30 Urine Clarity CLOUDY (CLEAR) 09/15/17 10:30 Urine pH 6.5 (4.6 - 8.0) 09/15/17 10:30 Ur Specific [place] 1.015 (1.005-1.030) 09/15/17 10:30 Urine Protein 30 mg/dL (NEGATIVE) H 09/15/17 10:30 Urine Glucose (UA) NEGATIVE mg/dL (NEGATIVE) 09/15/17 10:30 Urine Ketones NEGATIVE mg/dL (NEGATIVE) 09/15/17 10:30 Urine Blood LARGE (NEGATIVE) H 09/15/17 10:30 Urine Nitrate POSITIVE (NEGATIVE) H 09/15/17 10:30 Urine Bilirubin MODERATE (NEGATIVE) H 09/15/17 10:30 Urine Urobilinogen 0.2 E.U./dL (0.2 - 1.0) 09/15/17 10:30 Ur Leukocyte Esterase TRACE (NEGATIVE) H 09/15/17 10:30 Urine RBC 50-100 /hpf (0-5) H 09/15/17 10:30 Urine WBC 25-50 /hpf (0-5) H 09/15/17 10:30 Ur Epithelial Cells MANY /lpf (FEW) 09/15/17 10:30 Urine Bacteria 4+ /hpf (NONE SEEN) H 09/15/17 10:30 Urine Osmolality 784 mOsmol/kg 09/19/17 15:42 Ur Random Sodium 23 mmol/L 09/19/17 15:42 Vancomycin Trough 11.2 ug/mL (5-10) H 09/23/17 14:30 - Physical Exam Vitals and I&O: Vital Signs Temp 97.8 F 09/24/17 15:42 Pulse 60 09/24/17 15:46 Resp 20 09/24/17 16:00 BP 104/59 09/24/17 15:42 Pulse Ox 97 09/24/17 15:46 Intake & Output 09/23/17 09/24/17 09/24/17 18:59 06:59 18:59 Intake Total 2132 1850 Output Total 2250 1851 Balance -118 -1 Weight (lbs) 72.348 kg 72.121 kg Intake: Intake, IV Amount 972 1000 Dextrose 5% 1,000 ml @ 70 972 1000 mls/hr IV .[id number] [facility] Rx#:[id number] Tube Feeding 1160 850 Output: Urine 2250 1850 Stool 1 Other: # Bowel Movements 1 Stool Characteristics Soft Soft Formed Formed Weight Source Bedscale Bedscale Active Medications: Current Medications Acetaminophen (Tylenol) 650 mg PO Q6H PRN PRN Reason: Fever > 101 OR MILD PAIN Stop: 11/11/17 20:45 Last Admin: 09/21/17 15:01 Dose: 650 mg Al Hydrox/Mg Hydrox/Simethicone (Maalox) 30 ml PO Q6H PRN PRN Reason: GI DISTRESS Stop: 11/08/17 15:49 Albuterol/Ipratropium (Duoneb Neb) 3 ml HHN Q4HRT [facility] Stop: 11/14/17 22:59 Last Admin: 09/24/17 15:42 Dose: 3 ml Amlodipine Besylate (Norvasc) 5 mg PO DAILY [facility] Stop: 11/09/17 08:59 Last Admin: 09/24/17 09:01 Dose: Not Given Atorvastatin Calcium (Lipitor) 20 mg GT HS [facility] PRN Reason: Protocol Stop: 11/08/17 20:59 Last Admin: 09/23/17 22:38 Dose: 20 mg Cholecalciferol (Vitamin D3) 1,000 iu GT DAILY [facility] Stop: 11/09/17 08:59 Last Admin: 09/24/17 08:19 Dose: 1,000 iu Donepezil HCl (Aricept) 10 mg GT HS [facility] Stop: 11/08/17 20:59 Last Admin: 09/23/17 22:39 Dose: 10 mg Enoxaparin Sodium (Lovenox) 70 mg SUBQ Q12HR [facility] Stop: 11/16/17 08:59 Last Admin: 09/24/17 08:19 Dose: 70 mg Dextrose/Sodium Chloride (D5-0.9%Ns) 1,000 mls @ 50 mls/hr IV .Q20H [facility] Stop: 11/23/17 09:14 Insulin Aspart (Novolog Insulin Sliding Scale) 0 units SUBQ Q6HR [facility]ON PRN Reason: Protocol Stop: 11/18/17 00:00 Last Admin: 09/24/17 12:04 Dose: Not Given Lactobacillus Rhamnosus (Culturelle 15b) 1 each PO DAILY [facility] RAMON Stop: 11/12/17 08:59 Last Admin: 09/24/17 08:19 Dose: 1 each Magnesium Hydroxide (Milk Of Magnesia) 30 ml PO HS PRN PRN Reason: Constipation Stop: 11/08/17 15:49 Memantine (Namenda) 5 mg GT BID [facility] RAMON Stop: 11/08/17 16:59 Last Admin: 09/24/17 16:34 Dose: 5 mg Metoclopramide HCl (Reglan) 5 mg PO Q6H PRN PRN Reason: Nausea / Vomiting Stop: 11/21/17 17:44 Miscellaneous (Probiotic Screen) 1 ea MC PRN PRN PRN Reason: PROTOCOL Stop: 11/12/17 08:59 Pantoprazole Sodium (Protonix) 40 mg IVP DAILY [facility] Stop: 11/19/17 08:59 Last Admin: 09/24/17 08:21 Dose: 40 mg Potassium Chloride (Potassium Chloride Elixir) 40 meq GT DAILY [facility] Stop: 11/18/17 10:14 Last Admin: 09/24/17 08:19 Dose: 40 meq General: no acute distress, well developed, well nourished - Procedures Procedures: Procedures Procedure Code Date ASSISTANCE WITH RESPIRATORY VENTILATION, <24 HRS, CPAP [id number] 09/09/[address] GASTROSTOMY TUBE 35400 09/09/17 INSERTION OF FEEDING DEVICE INTO STOMACH, PERC APPROACH [id number] 09/09/17 POS AIRWAY PRESSURE CPAP 84513 09/09/17 Infectious Disease Assmt/Plan - Assessment Assessment: 1. Leukopcytosis, likely reactive. Sepsis. 2. Aspiration pneumonia 3. Dysphasia. G tube placement. 4. Dementia. 5. Respiratory failure. - Plan Plan: Continue antibiotics for at least 5 day if get discharged. Abx on discharge, levaquin 500mg po daily and flagyl 500mg po bid x 5 days. Nutritional Asmnt/Malnutr-PDOC - Dietary Evaluation Malnutrition Findings (Please click <Entered> for more info): Nutritional Asmnt/Malnutrition Start: 09/10/17 16: 17 Text: Status: Complete Freq: Document 09/10/17 16:19 LCHEN (Rec: 09/10/17 16:29 [email or web address]) Nutritional Asmnt/Malnutrition Patient General Information Nutritional Screening High Risk Diagnosis g-tube placement (reason for visit) Pertinent Medical Hx/Surgical Hx DM, hyperlipidemia, dementia, schizophrenia, PEG/Gtube Subjective Information Pt seen lying in bed at time of visit, non-verbal. Pt has PEG placement today. Current Diet Order/ Nutrition Support fibersource HN start at 40ml/ hr, goal rate 60ml/hr continuous Pertinent Medications vit D3, vancomycin, theragran, nacl 0.9% Pertinent Labs 09/10 glucose 125, alb 4.1 09/09 glucose 129 Nutritional Hx/Data Height 1.68 m Height (Calculated Centimeters) 167.6 Current Weight (lbs) 63.957 kg Weight (Calculated Kilograms) 64.0 Weight (Calculated Grams) 56283.5 [place] Body Weight 142 Body Mass Index (BMI) 22.7 Weight Status Approriate GI Symptoms GI Symptoms None Last BM no record Difficult in: None Skin Integrity/Comment: reddened to coccyx, bruise to hand, rash to back Estimated Nutritional Goals BEE in Kcals: Using Current wt Calories/Kcals/Kg 25-30 Kcals Calculated 0236-8355 Protein: Using Current wt Protein g/k-1.2 Protein Calculated 64-77 Fluid: ml 1600-1920ml (1ml/kcal) Nutritional Problem No current Nutrition Prob Problem N/A Malnutrition Alert Protein-Calorie Malnutrition N/A Is there a minimum of two criteria No selected? Query Text:Check all the applicable criteria. A minimum of two criteria are recommended for diagnosis of either severe or non-severe malnutrition. Intervention/Recommendation Comments 1. Initiate TF as ordered. It provides 1728kcal, 77g protein , 1178ml free water, meeting 100% of nutritional needs. 2. Monitor TF rate, tolerance, wt weekly, skin integrity and labs 3. F/U as high risk in 2-3 days, 09/12-09/13 Expected Outcomes/Goals Expected Outcomes/Goals 1. Pt to meet at least 75% of nutritional needs via nutrition support with tolerance 2. Wt stability, skin to remain intact, labs to approach WNL.
--- NOTE | 2017-09-24 19:57 | General Progress Note ---
Subjective - Review of Systems Service Date: 09/24/17 Subjective: awake, comfortable Objective - Results Result Diagrams: 09/24/17 06:10 09/24/17 06:10 Recent Labs: Laboratory Last Values WBC 15.9 Th/cmm (4.8-10.8) H 09/24/17 06:10 RBC 3.93 Mil/cmm (3.80-5.80) 09/24/17 06:10 Hgb 11.6 gm/dL (12-16) L 09/24/17 06:10 Hct 34.3 % (41.0-60) L 09/24/17 06:10 MCV 87.2 fl (80-99) 09/24/17 06:10 MCH 29.4 pg (27.0-31.0) 09/24/17 06:10 MCHC Differential 33.7 pg (28.0-36.0) 09/24/17 06:10 RDW 14.8 % (11.5-20.0) 09/24/17 06:10 Plt Count 276 Th/cmm (150-400) 09/24/17 06:10 MPV 13.0 fl 09/24/17 06:10 Neutrophils % 81.4 % (40.0-80.0) H 09/24/17 06:10 Band Neutrophils % 6 % (0-10) 09/22/17 04:30 Lymphocytes % 14.3 % (20.0-50.0) L 09/24/17 06:10 Monocytes % 2.8 % (2.0-10.0) 09/24/17 06:10 Eosinophils % 1.1 % (0.0-5.0) 09/24/17 06:10 Basophils % 0.4 % (0.0-2.0) 09/24/17 06:10 Neutrophils (Manual) 80 % (40-80) 09/22/17 04:30 Lymphocytes 13 % (20-50) L 09/22/17 04:30 Monocytes 1 % (2-10) L 09/22/17 04:30 Eosinophils 0 % (0-5) 09/21/17 04:20 Basophils 0 % (0-3) 09/21/17 04:20 Platelet Estimate ADEQUATE (NORMAL) 09/21/17 04:20 Platelet Morphology NORMAL (NORMAL) 09/21/17 04:20 RBC Morph Micro Appear NORMAL (NORMAL) 09/21/17 04:20 PT 10.3 SECONDS (9.5-11.5) 09/09/17 12:30 INR 0.99 (0.5-1.4) 09/09/17 12:30 PTT (Actin FS) 26.3 SECONDS (26.0-38.0) 09/09/17 12:30 Specimen Source Arterial 09/21/17 09:10 Sample Site Right Radial 09/21/17 09:10 pH 7.49 (7.35-7.45) H 09/21/17 09:10 pCO2 34.0 mmHg (35.0-45.0) L 09/21/17 09:10 pO2 56.0 mmHg (80.0-100.0) L 09/21/17 09:10 HCO3 27.0 mEq/L (20.0-26.0) H 09/21/17 09:10 Base Excess 2.8 mEq/L (-3.0-3.0) 09/21/17 09:10 O2 Saturation 91.0 % (92.0-100.0) L 09/21/17 09:10 Matthew Test Y 09/21/17 09:10 Vent Rate n/a 09/21/17 09:10 Inspired O2 36 09/21/17 09:10 Tidal Volume n/a 09/21/17 09:10 PEEP n/a 09/21/17 09:10 Pressure (ins/psv/peep) n/a 09/21/17 09:10 Critical Value Courtney Beasley 09/21/17 09:10 Sodium 139 mEq/L (136-145) 09/24/17 06:10 Potassium 3.6 mEq/L (3.5-5.1) 09/24/17 06:10 Chloride 109 mEq/L (98-107) H 09/24/17 06:10 Carbon Dioxide 23.6 mEq/L (21.0-31.0) 09/24/17 06:10 Anion Gap 10.0 (7.0-16.0) 09/24/17 06:10 BUN 27 mg/dL (7-25) H 09/24/17 06:10 Creatinine 0.9 mg/dL (0.7-1.3) 09/24/17 06:10 Est GFR ( Amer) > 60.0 ml/min (>90) 09/24/17 06:10 Est GFR (Non-Af Amer) > 60.0 ml/min 09/24/17 06:10 BUN/Creatinine Ratio 30.0 09/24/17 06:10 Glucose 116 mg/dL (70-105) H 09/24/17 06:10 POC Glucose 122 MG/DL (70 - 105) H 09/24/17 11:57 Hemoglobin A1c % 6.1 % (4.0-6.0) H 09/19/17 04:20 Whole Bld Lactic Acid 1.35 mmol/L (0.60-1.99) 09/15/17 10:45 Calcium 7.9 mg/dL (8.6-10.3) L 09/24/17 06:10 Phosphorus 2.5 mg/dL (2.5-5.0) 09/23/17 05:21 Magnesium 2.4 mg/dL (1.9-2.7) 09/23/17 05:21 Total Bilirubin 0.3 mg/dL (0.3-1.0) 09/24/17 06:10 AST 21 U/L (13-39) 09/24/17 06:10 ALT 25 U/L (7-52) 09/24/17 06:10 Alkaline Phosphatase 45 U/L (34-104) 09/24/17 06:10 C-Reactive Protein 17.2 mg/dL (0.0-0.9) H 09/19/17 04:20 B-Natriuretic Peptide 47.8 pg/mL (5.0-100.0) 09/15/17 04:45 Total Protein 4.6 gm/dL (6.0-8.3) L 09/24/17 06:10 Albumin 2.3 gm/dL (4.2-5.5) L 09/24/17 06:10 Globulin 2.3 gm/dL 09/24/17 06:10 Albumin/Globulin Ratio 1.0 (1.0-1.8) 09/24/17 06:10 Prealbumin 18 09/21/17 04:20 Triglycerides 73 mg/dL (<150) 09/19/17 04:20 Cholesterol 61 mg/dL (<200) 09/21/17 04:20 Lipase 34 U/L (11-82) 09/22/17 04:30 Total Cortisol 28.9 09/12/17 01:00 Urine Source [place] 09/15/17 10:30 Urine Color GREEN 09/15/17 10:30 Urine Clarity CLOUDY (CLEAR) 09/15/17 10:30 Urine pH 6.5 (4.6 - 8.0) 09/15/17 10:30 Ur Specific [place] 1.015 (1.005-1.030) 09/15/17 10:30 Urine Protein 30 mg/dL (NEGATIVE) H 09/15/17 10:30 Urine Glucose (UA) NEGATIVE mg/dL (NEGATIVE) 09/15/17 10:30 Urine Ketones NEGATIVE mg/dL (NEGATIVE) 09/15/17 10:30 Urine Blood LARGE (NEGATIVE) H 09/15/17 10:30 Urine Nitrate POSITIVE (NEGATIVE) H 09/15/17 10:30 Urine Bilirubin MODERATE (NEGATIVE) H 09/15/17 10:30 Urine Urobilinogen 0.2 E.U./dL (0.2 - 1.0) 09/15/17 10:30 Ur Leukocyte Esterase TRACE (NEGATIVE) H 09/15/17 10:30 Urine RBC 50-100 /hpf (0-5) H 09/15/17 10:30 Urine WBC 25-50 /hpf (0-5) H 09/15/17 10:30 Ur Epithelial Cells MANY /lpf (FEW) 09/15/17 10:30 Urine Bacteria 4+ /hpf (NONE SEEN) H 09/15/17 10:30 Urine Osmolality 784 mOsmol/kg 09/19/17 15:42 Ur Random Sodium 23 mmol/L 09/19/17 15:42 Vancomycin Trough 11.2 ug/mL (5-10) H 09/23/17 14:30 - Physical Exam Vitals and I&O: Vital Signs Temp 97.8 F 09/24/17 15:42 Pulse 64 09/24/17 18:47 Resp 18 09/24/17 18:47 BP 104/59 09/24/17 15:42 Pulse Ox 95 09/24/17 18:47 Intake & Output 09/24/17 09/24/17 09/25/17 06:59 18:59 06:59 Intake Total 1850 780 Output Total 1851 400 Balance -1 380 Weight (lbs) 72.121 kg 72.121 kg Intake: Intake, IV Amount 1000 Dextrose 5% 1,000 ml @ 70 1000 mls/hr IV .[id number] [facility] Rx#:[id number] Tube Feeding 850 780 Output: Urine 1850 400 Stool 1 Other: # Bowel Movements 1 Stool Characteristics Soft Soft Formed Formed Weight Source Bedscale Bedscale Active Medications: Current Medications Acetaminophen (Tylenol) 650 mg PO Q6H PRN PRN Reason: Fever > 101 OR MILD PAIN Stop: 11/11/17 20:45 Last Admin: 09/21/17 15:01 Dose: 650 mg Al Hydrox/Mg Hydrox/Simethicone (Maalox) 30 ml PO Q6H PRN PRN Reason: GI DISTRESS Stop: 11/08/17 15:49 Albuterol/Ipratropium (Duoneb Neb) 3 ml HHN Q4HRT [facility] Stop: 11/14/17 22:59 Last Admin: 09/24/17 18:47 Dose: 3 ml Amlodipine Besylate (Norvasc) 5 mg PO DAILY [facility] Stop: 11/09/17 08:59 Last Admin: 09/24/17 09:01 Dose: Not Given Atorvastatin Calcium (Lipitor) 20 mg GT HS [facility] PRN Reason: Protocol Stop: 11/08/17 20:59 Last Admin: 09/23/17 22:38 Dose: 20 mg Cholecalciferol (Vitamin D3) 1,000 iu GT DAILY [facility] Stop: 11/09/17 08:59 Last Admin: 09/24/17 08:19 Dose: 1,000 iu Donepezil HCl (Aricept) 10 mg GT HS [facility] Stop: 11/08/17 20:59 Last Admin: 09/23/17 22:39 Dose: 10 mg Enoxaparin Sodium (Lovenox) 70 mg SUBQ Q12HR [facility] Stop: 11/16/17 08:59 Last Admin: 09/24/17 08:19 Dose: 70 mg Dextrose/Sodium Chloride (D5-0.9%Ns) 1,000 mls @ 50 mls/hr IV .Q20H [facility] Stop: 11/23/17 09:14 Insulin Aspart (Novolog Insulin Sliding Scale) 0 units SUBQ Q6HR [facility] PRN Reason: Protocol Stop: 11/18/17 00:00 Last Admin: 04/26/18 17:50 Dose: Not Given Lactobacillus Rhamnosus (Culturelle 15b) 1 each PO DAILY [facility] Stop: 11/12/17 08:59 Last Admin: 09/24/17 08:19 Dose: 1 each Magnesium Hydroxide (Milk Of Magnesia) 30 ml PO HS PRN PRN Reason: Constipation Stop: 11/08/17 15:49 Memantine (Namenda) 5 mg GT BID [facility] Stop: 11/08/17 16:59 Last Admin: 09/24/17 16:34 Dose: 5 mg Metoclopramide HCl (Reglan) 5 mg PO Q6H PRN PRN Reason: Nausea / Vomiting Stop: 11/21/17 17:44 Miscellaneous (Probiotic Screen) 1 ea [facility] PRN PRN PRN Reason: PROTOCOL Stop: 11/12/17 08:59 Pantoprazole Sodium (Protonix) 40 mg IVP DAILY [facility] Stop: 11/19/17 08:59 Last Admin: 09/24/17 08:21 Dose: 40 mg Potassium Chloride (Potassium Chloride Elixir) 40 meq GT DAILY [facility] Stop: 11/18/17 10:14 Last Admin: 09/24/17 08:19 Dose: 40 meq General: Alert, No acute distress HEENT: Atraumatic, PERRLA, Mucous membr. moist/pink Neck: Supple, +2 carotid pulse wo bruit Cardiovascular: Regular rate, Normal S1, Normal S2 Lungs: Other (few rhonchi) Abdomen: Bowel sounds, Soft, Other (Peg in place. ), no Tender, no Hepatomegaly , no Rebound, no Mass, no Guarding Extremities: no Edema Neurological: Sensation intact Skin: no Rash Psych/Mental Status: Other (schizoaffective) - Procedures Procedures: Procedures Procedure Code Date ASSISTANCE WITH RESPIRATORY VENTILATION, <24 HRS, CPAP [id number] 09/09/[address] GASTROSTOMY TUBE 49854 09/09/17 INSERTION OF FEEDING DEVICE INTO STOMACH, PERC APPROACH [id number] 09/09/17 POS AIRWAY PRESSURE CPAP [id number] 09/09/17 Assessment/Plan - Assessment Assessment: Pre-Renal Azotemia Hypernatremia Asp Pna Schizoaffective Disorder Left HAP, Effusion - Plan Plan: Lab - Result Diagrams 09/20/17 04:20 09/20/17 04:20 Current Medications Acetaminophen (Tylenol) 650 mg PO Q6H PRN PRN Reason: Fever > 101 OR MILD PAIN Stop: 11/11/17 20:45 Last Admin: 09/20/17 15:37 Dose: 650 mg Al Hydrox/Mg Hydrox/Simethicone (Maalox) 30 ml PO Q6H PRN PRN Reason: GI DISTRESS Stop: 11/08/17 15:49 Albuterol/Ipratropium (Duoneb Neb) 3 ml HHN Q4HRT [facility] Stop: 11/14/17 22:59 Last Admin: 09/20/17 14:35 Dose: 3 ml Amlodipine Besylate (Norvasc) 5 mg PO DAILY [facility] Stop: 11/09/17 08:59 Last Admin: 09/20/17 08:46 Dose: 5 mg Atorvastatin Calcium (Lipitor) 20 mg GT HS [facility] PRN Reason: Protocol Stop: 11/08/17 20:59 Last Admin: 09/19/17 20:56 Dose: 20 mg Cholecalciferol (Vitamin D3) 1,000 iu GT DAILY [facility] Stop: 11/09/17 08:59 Last Admin: 09/20/17 08:46 Dose: 1,000 iu Donepezil HCl (Aricept) 10 mg GT HS [facility] Stop: 11/08/17 20:59 Last Admin: 09/19/17 20:55 Dose: 10 mg Enoxaparin Sodium (Lovenox) 70 mg SUBQ Q12HR [facility] Stop: 11/16/17 08:59 Last Admin: 09/20/17 08:47 Dose: 70 mg Metronidazole (Flagyl) 500 mg in 100 mls @ 100 mls/hr IV Q8HR [facility] Stop: 09/27/17 12:59 Last Infusion: 09/20/17 13:20 Dose: Infused Dextrose (D5w) 1,000 mls @ 20 mls/hr IV .Q24H [facility] Stop: 11/17/17 15:59 Last Admin: 09/18/17 15:49 Dose: 20 mls/hr Vancomycin HCl 1.5 gm/ (Dextrose) 500 mls @ 250 mls/hr IV Q24H [facility] Stop: 11/19/17 09:59 Last Infusion: 09/20/17 11:30 Dose: Infused Multivitamins/Minerals 10 ml/Insulin Human Regular 10 units / Dextrose/ Amino Acids/Electrolytes/ Sterile Water/Fat Emulsion Intravenous 2,000.1 mls @ 80 mls /hr IV .Q24H [facility] Stop: 10/17/17 15:59 Last Admin: 09/19/17 18:00 Dose: 80 mls/hr Piperacillin Sod/Tazobactam (Sod 4.5 gm/ Sodium Chloride) 100 mls @ 100 mls/hr IV Q8HR [facility] Stop: 11/19/17 20:59 Insulin Aspart (Novolog Insulin Sliding Scale) 0 units SUBQ Q6HR [facility] PRN Reason: Protocol Stop: 11/18/17 00:00 Last Admin: 09/20/17 12:01 Dose: 6 units Lactobacillus Rhamnosus (Culturelle 15b) 1 each PO DAILY [facility] Stop: 11/12/17 08:59 Last Admin: 09/20/17 08:47 Dose: 1 each Magnesium Hydroxide (Milk Of Magnesia) 30 ml PO HS PRN PRN Reason: Constipation Stop: 11/08/17 15:49 Memantine (Namenda) 5 mg GT BID [facility] Stop: 11/08/17 16:59 Last Admin: 09/20/17 08:47 Dose: 5 mg Methylprednisolone Sodium Succinate (Solu-Medrol) 40 mg IVP Q12HR [facility] Stop: 11/19/17 20:59 Miscellaneous (Zosyn Iv Per Pharmacy) 1 [facility] PRN PRN PRN Reason: PROTOCOL Stop: 11/10/17 08:34 Miscellaneous (Probiotic Screen) 1 [facility] PRN PRN PRN Reason: PROTOCOL Stop: 11/12/17 08:59 Miscellaneous (Vancomycin Iv Per Pharmacy) 1 ea DAILY [facility] Stop: 11/15/17 16:59 Miscellaneous (Ppn Per Pharmacy) 1 [facility] PRN PRN PRN Reason: PROTOCOL Stop: 11/18/17 15:41 Pantoprazole Sodium (Protonix) 40 mg IVP DAILY [facility] Stop: 11/19/17 08:59 Last Admin: 09/20/17 09:05 Dose: 40 mg Potassium Chloride (Potassium Chloride Elixir) 40 meq GT DAILY [facility] Stop: 11/18/17 10:14 Last Admin: 09/20/17 08:46 Dose: 40 meq Lab - Result Diagrams 09/24/17 06:10 09/24/17 06:10 Kidney fnc same w/ BUN/CR of 27/0.9 replace K/P04, Na down to 139 WBC down to 15.9 continue D5W @ 70 ml/hr f/u electrolytes, cbc Nutritional Asmnt/Malnutr-PDOC - Dietary Evaluation Malnutrition Findings (Please click <Entered> for more info): Nutritional Asmnt/Malnutrition Start: 09/10/17 16: 17 Text: Status: Complete Freq: Document 09/10/17 16:19 LEONILA (Rec: 09/10/17 16:29 LCHEN [id number]) Nutritional Asmnt/Malnutrition Patient General Information Nutritional Screening High Risk Diagnosis g-tube placement (reason for visit) Pertinent Medical Hx/Surgical Hx DM, hyperlipidemia, dementia, schizophrenia, PEG/Gtube Subjective Information Pt seen lying in bed at time of visit, non-verbal. Pt has PEG placement today. Current Diet Order/ Nutrition Support fibersource HN start at 40ml/ hr, goal rate 60ml/hr continuous Pertinent Medications vit D3, vancomycin, theragran, nacl 0.9% Pertinent Labs 09/10 glucose 125, alb 4.1 09/09 glucose 129 Nutritional Hx/Data Height 1.68 m Height (Calculated Centimeters) 167.6 Current Weight (lbs) 63.957 kg Weight (Calculated Kilograms) 64.0 Weight (Calculated Grams) 39665.5 [place] Body Weight 142 Body Mass Index (BMI) 22.7 Weight Status Approriate GI Symptoms GI Symptoms None Last BM no record Difficult in: None Skin Integrity/Comment: reddened to coccyx, bruise to hand, rash to back Estimated Nutritional Goals BEE in Kcals: Using Current wt Calories/Kcals/Kg 25-30 Kcals Calculated 3058-3396 Protein: Using Current wt Protein g/k-1.2 Protein Calculated 64-77 Fluid: ml 1600-1920ml (1ml/kcal) Nutritional Problem No current Nutrition Prob Problem N/A Malnutrition Alert Protein-Calorie Malnutrition N/A Is there a minimum of two criteria No selected? Query Text:Check all the applicable criteria. A minimum of two criteria are recommended for diagnosis of either severe or non-severe malnutrition. Intervention/Recommendation Comments 1. Initiate TF as ordered. It provides 1728kcal, 77g protein , 1178ml free water, meeting 100% of nutritional needs. 2. Monitor TF rate, tolerance, wt weekly, skin integrity and labs 3. F/U as high risk in 2-3 days, 09/12-09/13 Expected Outcomes/Goals Expected Outcomes/Goals 1. Pt to meet at least 75% of nutritional needs via nutrition support with tolerance 2. Wt stability, skin to remain intact, labs to approach WNL.
[2017-09-24] MEDS: Atorvastatin Calcium 10 MG TAB GT SCH (20:25)
--- NOTE | 2017-09-24 21:46 | GI Progress Note ---
Subjective - Review of Systems Service Date: 09/24/17 Subjective: EVENTS NOTED. WINIFRED GT FEEDS. Objective - Results Result Diagrams: 09/24/17 06:10 09/24/17 06:10 Recent Labs: Laboratory Last Values WBC 15.9 Th/cmm (4.8-10.8) H 09/24/17 06:10 RBC 3.93 Mil/cmm (3.80-5.80) 09/24/17 06:10 Hgb 11.6 gm/dL (12-16) L 09/24/17 06:10 Hct 34.3 % (41.0-60) L 09/24/17 06:10 MCV 87.2 fl (80-99) 09/24/17 06:10 MCH 29.4 pg (27.0-31.0) 09/24/17 06:10 MCHC Differential 33.7 pg (28.0-36.0) 09/24/17 06:10 RDW 14.8 % (11.5-20.0) 09/24/17 06:10 Plt Count 276 Th/cmm (150-400) 09/24/17 06:10 MPV 13.0 fl 09/24/17 06:10 Neutrophils % 81.4 % (40.0-80.0) H 09/24/17 06:10 Band Neutrophils % 6 % (0-10) 09/22/17 04:30 Lymphocytes % 14.3 % (20.0-50.0) L 09/24/17 06:10 Monocytes % 2.8 % (2.0-10.0) 09/24/17 06:10 Eosinophils % 1.1 % (0.0-5.0) 09/24/17 06:10 Basophils % 0.4 % (0.0-2.0) 09/24/17 06:10 Neutrophils (Manual) 80 % (40-80) 09/22/17 04:30 Lymphocytes 13 % (20-50) L 09/22/17 04:30 Monocytes 1 % (2-10) L 09/22/17 04:30 Eosinophils 0 % (0-5) 09/21/17 04:20 Basophils 0 % (0-3) 09/21/17 04:20 Platelet Estimate ADEQUATE (NORMAL) 09/21/17 04:20 Platelet Morphology NORMAL (NORMAL) 09/21/17 04:20 RBC Morph Micro Appear NORMAL (NORMAL) 09/21/17 04:20 PT 10.3 SECONDS (9.5-11.5) 09/09/17 12:30 INR 0.99 (0.5-1.4) 09/09/17 12:30 PTT (Actin FS) 26.3 SECONDS (26.0-38.0) 09/09/17 12:30 Specimen Source Arterial 09/21/17 09:10 Sample Site Right Radial 09/21/17 09:10 pH 7.49 (7.35-7.45) H 09/21/17 09:10 pCO2 34.0 mmHg (35.0-45.0) L 09/21/17 09:10 pO2 56.0 mmHg (80.0-100.0) L 09/21/17 09:10 HCO3 27.0 mEq/L (20.0-26.0) H 09/21/17 09:10 Base Excess 2.8 mEq/L (-3.0-3.0) 09/21/17 09:10 O2 Saturation 91.0 % (92.0-100.0) L 09/21/17 09:10 Matthew Test Y 09/21/17 09:10 Vent Rate n/a 09/21/17 09:10 Inspired O2 36 09/21/17 09:10 Tidal Volume n/a 09/21/17 09:10 PEEP n/a 09/21/17 09:10 Pressure (ins/psv/peep) n/a 09/21/17 09:10 Critical Value Courtney Beasley 09/21/17 09:10 Sodium 139 mEq/L (136-145) 09/24/17 06:10 Potassium 3.6 mEq/L (3.5-5.1) 09/24/17 06:10 Chloride 109 mEq/L (98-107) H 09/24/17 06:10 Carbon Dioxide 23.6 mEq/L (21.0-31.0) 09/24/17 06:10 Anion Gap 10.0 (7.0-16.0) 09/24/17 06:10 BUN 27 mg/dL (7-25) H 09/24/17 06:10 Creatinine 0.9 mg/dL (0.7-1.3) 09/24/17 06:10 Est GFR ( Amer) > 60.0 ml/min (>90) 09/24/17 06:10 Est GFR (Non-Af Amer) > 60.0 ml/min 09/24/17 06:10 BUN/Creatinine Ratio 30.0 09/24/17 06:10 Glucose 116 mg/dL (70-105) H 09/24/17 06:10 POC Glucose 122 MG/DL (70 - 105) H 09/24/17 11:57 Hemoglobin A1c % 6.1 % (4.0-6.0) H 09/19/17 04:20 Whole Bld Lactic Acid 1.35 mmol/L (0.60-1.99) 09/15/17 10:45 Calcium 7.9 mg/dL (8.6-10.3) L 09/24/17 06:10 Phosphorus 2.5 mg/dL (2.5-5.0) 09/23/17 05:21 Magnesium 2.4 mg/dL (1.9-2.7) 09/23/17 05:21 Total Bilirubin 0.3 mg/dL (0.3-1.0) 09/24/17 06:10 AST 21 U/L (13-39) 09/24/17 06:10 ALT 25 U/L (7-52) 09/24/17 06:10 Alkaline Phosphatase 45 U/L (34-104) 09/24/17 06:10 C-Reactive Protein 17.2 mg/dL (0.0-0.9) H 09/19/17 04:20 B-Natriuretic Peptide 47.8 pg/mL (5.0-100.0) 09/15/17 04:45 Total Protein 4.6 gm/dL (6.0-8.3) L 09/24/17 06:10 Albumin 2.3 gm/dL (4.2-5.5) L 09/24/17 06:10 Globulin 2.3 gm/dL 09/24/17 06:10 Albumin/Globulin Ratio 1.0 (1.0-1.8) 09/24/17 06:10 Prealbumin 18 09/21/17 04:20 Triglycerides 73 mg/dL (<150) 09/19/17 04:20 Cholesterol 61 mg/dL (<200) 09/21/17 04:20 Lipase 34 U/L (11-82) 09/22/17 04:30 Total Cortisol 28.9 09/12/17 01:00 Urine Source [place] 09/15/17 10:30 Urine Color GREEN 09/15/17 10:30 Urine Clarity CLOUDY (CLEAR) 09/15/17 10:30 Urine pH 6.5 (4.6 - 8.0) 09/15/17 10:30 Ur Specific [place] 1.015 (1.005-1.030) 09/15/17 10:30 Urine Protein 30 mg/dL (NEGATIVE) H 09/15/17 10:30 Urine Glucose (UA) NEGATIVE mg/dL (NEGATIVE) 09/15/17 10:30 Urine Ketones NEGATIVE mg/dL (NEGATIVE) 09/15/17 10:30 Urine Blood LARGE (NEGATIVE) H 09/15/17 10:30 Urine Nitrate POSITIVE (NEGATIVE) H 09/15/17 10:30 Urine Bilirubin MODERATE (NEGATIVE) H 09/15/17 10:30 Urine Urobilinogen 0.2 E.U./dL (0.2 - 1.0) 09/15/17 10:30 Ur Leukocyte Esterase TRACE (NEGATIVE) H 09/15/17 10:30 Urine RBC 50-100 /hpf (0-5) H 09/15/17 10:30 Urine WBC 25-50 /hpf (0-5) H 09/15/17 10:30 Ur Epithelial Cells MANY /lpf (FEW) 09/15/17 10:30 Urine Bacteria 4+ /hpf (NONE SEEN) H 09/15/17 10:30 Urine Osmolality 784 mOsmol/kg 09/19/17 15:42 Ur Random Sodium 23 mmol/L 09/19/17 15:42 Vancomycin Trough 11.2 ug/mL (5-10) H 09/23/17 14:30 - Physical Exam Vitals and I&O: Vital Signs Temp 97.3 F 09/24/17 20:00 Pulse 73 09/24/17 20:00 Resp 19 09/24/17 20:00 BP 115/62 09/24/17 20:00 Pulse Ox 96 09/24/17 20:00 Intake & Output 09/24/17 09/24/17 09/25/17 06:59 18:59 06:59 Intake Total 1850 780 Output Total 1851 400 Balance -1 380 Weight (lbs) 72.121 kg 72.121 kg Intake: Intake, IV Amount 1000 Dextrose 5% 1,000 ml @ 70 1000 mls/hr IV .[id number] [facility] Rx#:[id number] Tube Feeding 850 780 Output: Urine 1850 400 Stool 1 Other: # Bowel Movements 1 Stool Characteristics Soft Soft Formed Formed Weight Source Bedscale Bedscale Active Medications: Current Medications Acetaminophen (Tylenol) 650 mg PO Q6H PRN PRN Reason: Fever > 101 OR MILD PAIN Stop: 11/11/17 20:45 Last Admin: 09/21/17 15:01 Dose: 650 mg Al Hydrox/Mg Hydrox/Simethicone (Maalox) 30 ml PO Q6H PRN PRN Reason: GI DISTRESS Stop: 11/08/17 15:49 Albuterol/Ipratropium (Duoneb Neb) 3 ml HHN Q4HRT [facility] Stop: 11/14/17 22:59 Last Admin: 09/24/17 18:47 Dose: 3 ml Amlodipine Besylate (Norvasc) 5 mg PO DAILY [facility] Stop: 11/09/17 08:59 Last Admin: 09/24/17 09:01 Dose: Not Given Atorvastatin Calcium (Lipitor) 20 mg GT HS [facility] PRN Reason: Protocol Stop: 11/08/17 20:59 Last Admin: 09/24/17 20:25 Dose: 20 mg Cholecalciferol (Vitamin D3) 1,000 iu GT DAILY [facility] Stop: 11/09/17 08:59 Last Admin: 09/24/17 08:19 Dose: 1,000 iu Donepezil HCl (Aricept) 10 mg GT HS [facility] Stop: 11/08/17 20:59 Last Admin: 09/24/17 20:26 Dose: 10 mg Enoxaparin Sodium (Lovenox) 70 mg SUBQ Q12HR [facility] Stop: 11/16/17 08:59 Last Admin: 09/24/17 20:26 Dose: 70 mg Dextrose/Sodium Chloride (D5-0.9%Ns) 1,000 mls @ 50 mls/hr IV .Q20H [facility] Stop: 11/23/17 09:14 Insulin Aspart (Novolog Insulin Sliding Scale) 0 units SUBQ Q6HR [facility] PRN Reason: Protocol Stop: 11/18/17 00:00 Last Admin: 09/24/17 17:50 Dose: Not Given Lactobacillus Rhamnosus (Culturelle 15b) 1 each PO DAILY [facility] Stop: 11/12/17 08:59 Last Admin: 09/24/17 08:19 Dose: 1 each Magnesium Hydroxide (Milk Of Magnesia) 30 ml PO HS PRN PRN Reason: Constipation Stop: 11/08/17 15:49 Memantine (Namenda) 5 mg GT BID [facility] Stop: 11/08/17 16:59 Last Admin: 09/24/17 16:34 Dose: 5 mg Metoclopramide HCl (Reglan) 5 mg PO Q6H PRN PRN Reason: Nausea / Vomiting Stop: 11/21/17 17:44 Miscellaneous (Probiotic Screen) 1 ea MC PRN PRN PRN Reason: PROTOCOL Stop: 11/12/17 08:59 Pantoprazole Sodium (Protonix) 40 mg IVP DAILY [facility] Stop: 11/19/17 08:59 Last Admin: 09/24/17 08:21 Dose: 40 mg Potassium Chloride (Potassium Chloride Elixir) 40 meq GT DAILY [facility] Stop: 11/18/17 10:14 Last Admin: 09/24/17 08:19 Dose: 40 meq General: No acute distress HEENT: Atraumatic Neck: Supple Cardiovascular: Regular rate Lungs: Other (few rhonchi) Abdomen: Bowel sounds, Soft, Other (Peg in place. ), no Tender, no Hepatomegaly , no Rebound, no Mass, no Guarding Extremities: no Edema Skin: no Rash - Procedures Procedures: Procedures Procedure Code Date ASSISTANCE WITH RESPIRATORY VENTILATION, <24 HRS, CPAP [id number] 09/09/[address] GASTROSTOMY TUBE [id number] 09/09/17 INSERTION OF FEEDING DEVICE INTO STOMACH, PERC APPROACH [id number] 09/09/17 POS AIRWAY PRESSURE CPAP [id number] 09/09/17 Assessment/Plan - Assessment Assessment: IMPRESSION: 1. DYSPHAGIA WITH GT DISPLACEMENT - S/P REINSERTION X 2. 2. LEUKOCYTOSIS WITH SEPSIS, POSSIBLY DUE TO PERITONITIS FROM RECENT GT CHANGE. - NONCONTRAST CT SHOWED FREE INTRAPERITONEAL AIR. SUBSEQUENT CONTRAST ENHANCED CT SHOWED CONTRAST VIA GT NOT NOTED TO LEAK OR EXTRAVASATE VIA GT SITE. REPEAT CT 09/21 SHOWED NO INTRAPERITONEAL FREE AIR. 3. ENCEPHALOPATHY. RECS: 1. G TUBE FEEDS WINIFRED. 2. ABX PER ID. 3. GT CARE. 4. PROTONIX. 5. PROBIOTICS.
--- NOTE | 2017-09-25 10:01 | Discharge Summary ---
General Discharge Summary - Discharge Summary Date of Admission: 09/09/17 Admitting Diagnosis: Peg displacement, DM, Dementia, Schizophrenia Discharge Date: 09/25/17 Discharge Diagnosis: PNA, G-tube displacement, ARF, Hypernatremia, DM, Dementia , Schizophrenia Laboratory Findings: Laboratory Results - last 24 hr 09/24/17 09/24/17 11:57 23:24 POC Glucose 122 H 98 Hospital Course: The next day patient was admitted he had leukocytosis, PEG was replaced and he had abdominal free air secondary to the surgery, reason why PEG was not used until abdominal air was resolved. He had ARF and was transferred to ICU, TPN was started, all this time, patient was in IV AB, Leukocytosis do not resolved. [facility] did not accepted patient. Patient was follow by ID, GI, IM, Nephro, and Pulmonology. Patient was tranferred to [facility] to continue care. Condition at Discharge: Stable Disposition: [facility] (Not [facility]) Home Medications: Home Medication Medication Instructions Recorded Type Docusate Sodium [Dok] 100 mg GT DAILY 07/25/16 History Acetaminophen [Tylenol] 650 mg PO Q6H PRN #0 tab 08/06/16 Rx Al Hyd/Mg Hyd/Simethicone [Maalox] 30 ml PO Q6H PRN #0 udc 08/06/16 Rx Magnesium Hydroxide [Milk of 30 ml PO HS PRN #0 udc 08/06/16 Rx Magnesia] amLODIPine Besylate [Norvasc] 5 mg PO DAILY #0 tab 08/06/16 Rx Atorvastatin Calcium [Lipitor] 20 mg GT HS 09/09/17 History Cholecalciferol (Vit D3) [Vitamin 1,000 iu GT DAILY 09/09/17 History D3] Donepezil Hcl [Aricept] 10 mg GT HS 09/09/17 History Memantine [Namenda] 5 mg GT BID 09/09/17 History Multivitamin [Theragran] 1 tab GT DAILY 09/09/17 History Acetaminophen [Tylenol] 650 mg PO Q6H PRN tab 09/22/17 Rx Al Hyd/Mg Hyd/Simethicone [Maalox] 30 ml PO Q6H PRN udc 09/22/17 Rx Albuterol/Ipratropium Neb [Duoneb 3 ml HHN Q4HRT aers 09/22/17 Rx Neb] Atorvastatin Calcium [Lipitor] 20 mg GT HS tab 09/22/17 Rx Cholecalciferol (Vit D3) [Vitamin 1,000 iu GT DAILY tab 09/22/17 Rx D3] Donepezil Hcl [Aricept] 10 mg GT HS tab 09/22/17 Rx Enoxaparin [Lovenox] 70 mg SUBQ Q12HR syr 09/22/17 Rx Insulin Aspart Sliding Scale See Protocol SUBQ Q6HR unit 09/22/17 Rx [NovoLOG INSULIN SLIDING SCALE] Lactobacillus Rhamnosus GG 15B 1 each PO DAILY cap.sprink 09/22/17 Rx [Culturelle 15B] Magnesium Hydroxide [Milk of 30 ml PO HS PRN udc 09/22/17 Rx Magnesia] Memantine [Namenda] 5 mg GT BID tab 09/22/17 Rx Pantoprazole [Protonix] 40 mg IVP DAILY vial 09/22/17 Rx Potassium Chloride Elixir 40 meq GT DAILY udc 09/22/17 Rx amLODIPine Besylate [Norvasc] 5 mg PO DAILY tab 09/22/17 Rx methylPREDNISolone SS [Solu-MEDROL] 20 mg IVP DAILY vial 09/22/17 Rx Metoclopramide [Reglan] 5 mg PO Q6H PRN tab 09/24/17 Rx Activity: Bed Rest Discharge Diet: Tube Feeding Consults and Follow-Up: Jayjay Henry [Primary Care Provider] - Consulting Speciality: Renal, Pulmonary, Infectious Disease, GI Instructions: Gastric Tube Replacement, Deep Vein Thrombosis, Venous Thromboembolism, Prevention, Hypertension
== END 2017-09-25 00:38 | DRG 393 ==
LOC: ER 12:02 → MSI 13:52 → TELE 09-14 15:02 → ICU 09-18 20:48 → TELE 09-22 17:06
PROVIDERS: ADMIT General Practice; ATTEND General Practice
PROC: 0DH63UZ Insertion of Feeding Device into Stomach, Percutaneous Approach (ICD-10-PCS; principal; 2017-09-10)
PROC: 5A09357 Assistance with Respiratory Ventilation, Less than 24 Consecutive Hours, Continuous Positive Airway Pressure (ICD-10-PCS; 2017-09-18)
PROC: 5A09357 Assistance with Respiratory Ventilation, Less than 24 Consecutive Hours, Continuous Positive Airway Pressure (ICD-10-PCS; 2017-09-19)
PROC: 5A09357 Assistance with Respiratory Ventilation, Less than 24 Consecutive Hours, Continuous Positive Airway Pressure (ICD-10-PCS; 2017-09-20)
PROC: 5A09357 Assistance with Respiratory Ventilation, Less than 24 Consecutive Hours, Continuous Positive Airway Pressure (ICD-10-PCS; 2017-09-21)
PROC: 5A09357 Assistance with Respiratory Ventilation, Less than 24 Consecutive Hours, Continuous Positive Airway Pressure (ICD-10-PCS; 2017-09-22)
DX: K94.23 Gastrostomy malfunction (principal); R53.2 Functional quadriplegia; J69.0 Pneumonitis due to inhalation of food and vomit; A41.9 Sepsis, unspecified organism; G93.40 Encephalopathy, unspecified; E43 Unspecified severe protein-calorie malnutrition; J96.01 Acute respiratory failure with hypoxia; N17.9 Acute kidney failure, unspecified; E87.0 Hyperosmolality and hypernatremia; I82.413 Acute embolism and thrombosis of femoral vein, bilateral; I82.432 Acute embolism and thrombosis of left popliteal vein; E86.0 Dehydration; R13.10 Dysphagia, unspecified; R79.89 Other specified abnormal findings of blood chemistry; E11.9 Type 2 diabetes mellitus without complications; F03.90 Unspecified dementia, unspecified severity, without behavioral disturbance, psychotic disturbance, mood disturbance, and anxiety; E78.00 Pure hypercholesterolemia, unspecified; Y95 Nosocomial condition; I25.10 Atherosclerotic heart disease of native coronary artery without angina pectoris; I50.9 Heart failure, unspecified; E78.5 Hyperlipidemia, unspecified; F25.9 Schizoaffective disorder, unspecified; I11.0 Hypertensive heart disease with heart failure; Z68.25 Body mass index [BMI] 25.0-25.9, adult; Z79.899 Other long term (current) drug therapy; Z74.01 Bed confinement status
CPT/HCPCS: 36415-UA; 36600-90; 71045-TC; 71250-TC; 74150-TC; 80048-TC; 80053-TC; 80202-TC; 81001-TC; 82465-TC; 82533-90; 82803-TC; 82948-90; 83036-90; 83605; 83690-TC; 83735-TC; 83880-TC; 83935-90; 84100-TC; 84134-90; 84300-TC; 84478-TC; 85007-TC; 85025-TC; 85027-TC; 85610-TC; 85730-TC; 86141-TC; 87086-90; 90799; 93005; 93970-TC-50; 94660; 94760; A9540; A9567; C9113; J0690; J1650; J1815; J1940; J2543; J2704; J2920; J3370; J3480; J7030; J7040; J7042; J7070; X6598; Z7506; Z7610